=== PATIENT | female | born 1985 | race Caucasian/White ===

== ENCOUNTER 2023-08-26 08:50 | Outpatient (OUT) | payer MEDICAID, SELFPAY ==
--- NOTE | 2023-08-26 08:57 | MM_ITS ---
Patient: HUGO HERNANDEZ Exam Date: 08/26/2023 : 1985 Gender:F Ordering : DR Fransico Montaño . Admission #: [id number] Family : COLTEN GUTIERREZ [facility] Order #: [id number] CLICK HERE TO VIEW EXAM RADIOLOGY REPORT PROCEDURE: MM TOMOSYNTHESIS SCREENING BI COMPARISON: MG MAMM CONNIE DIAG W CAD DIG, 10/15/2015. INDICATIONS: Screening Calculator Name NCI Breast Cancer Risk Assessment Tool 5 Year Breast Cancer Risk 0.30% Lifetime Breast Cancer Risk 9.20% Personal Breast Cancer No Personal Ovarian Cancer No Treatments None Family Cancers None LOCATION: [facility] BREAST COMPOSITION: Scattered areas fibroglandular density. FINDINGS: DIAGNOSTIC CATEGORY 2--BENIGN FINDING: RIGHT BREAST: No significant suspicious finding. This exam includes additional mammographic views for implant evaluation and shows no visible implant abnormality. No significant change has occurred. LEFT BREAST: No significant suspicious finding. This exam includes additional mammographic views for implant evaluation and shows no visible implant abnormality. No significant change has occurred. RECOMMENDATIONS: CLINICAL EVALUATION. PLEASE NOTE: A NORMAL MAMMOGRAM DOES NOT EXCLUDE THE POSSIBILITY OF BREAST CANCER. A CLINICALLY SUSPICIOUS PALPABLE LUMP SHOULD BE BIOPSIED. Dictated by: Karan Bernal M.D. on 08/27/2023 at 10:16 Approved by: Karan Bernal M.D. on 08/27/2023 at 10:21
--- NOTE | 2023-08-26 08:58 | US_ITS ---
[address] [address] Patient Name: HUGO HERNANDEZ MRN: [id number] date: 1985 Sex: F Assigned Patient Location: Current Patient Location: Accession/Order Number: [id number] Exam Date: 08/26/2023 09:15 Report Date: 08/26/2023 10:15 At the request of: CALI GUERRA Procedure: US pelvis w/ transvaginal EXAMINATION: US pelvis w/ transvaginal HISTORY: BRCA-! Gene Positive In Mother ; mother with ovarian cancer COMPARISON: No relevant comparison available. TECHNIQUE: Transabdominal and/or transvaginal sonographic examination was performed as indicated by examination type. FINDINGS: UTERUS: Hysterectomy. RIGHT OVARY: Normal size and appearance. Duplex Doppler demonstrates normal waveform and flow; resistive index 0.6. Ovary size: 1.4 x 1.9 x 2.9 cm LEFT OVARY: Normal size and appearance. Duplex Doppler demonstrates normal waveform and flow; resistive index 0.5. Ovary size: 3.5 x 1.7 x 3.2 cm CUL-DE-SAC: Unremarkable. No significant free fluid. BLADDER: Unremarkable. OTHER: None. US/US pelvis w/ transvaginal IMPRESSION: 1. Unremarkable post hysterectomy pelvic ultrasound. No suspicious findings. Electronically authenticated by: BARRON DUARTE Date: 08/26/2023 10:15
== END 2023-08-26 08:51 | disposition home or self-care (01) ==
LOC: US 08:50
PROVIDERS: PCP Nurse Practitioner Family; Visit Provider Obstetrics & Gynecology
DX: Z12.31 Encounter for screening mammogram for malignant neoplasm of breast (principal); Z80.41 Family history of malignant neoplasm of ovary; Z90.710 Acquired absence of both cervix and uterus
CPT/HCPCS: 76830; 76856; 77063; 77067

== ENCOUNTER 2023-10-26 07:43 | Outpatient (RCR) | payer MEDICAID, SELFPAY | END 2023-10-28 23:59 | disposition home or self-care (01) | LOC: INF 07:43 | PROVIDERS: PCP Nurse Practitioner Family; Visit Provider Internal Medicine Hematology & Oncology | DX: Z84.81 Family history of carrier of genetic disease (principal) | CPT/HCPCS: G0463 ==

== ENCOUNTER 2023-11-09 11:50 | Outpatient (OUT) | payer MEDICAID, SELFPAY | END 2023-11-09 11:51 | disposition home or self-care (01) | LOC: LAB 11:50 | PROVIDERS: PCP Nurse Practitioner Family; Visit Provider Internal Medicine Hematology & Oncology | DX: Z84.81 Family history of carrier of genetic disease (principal) | CPT/HCPCS: 36415 ==

== ENCOUNTER 2023-11-30 07:25 | Outpatient (RCR) | payer BC, SELFPAY | END 2023-12-29 23:59 | disposition home or self-care (01) | LOC: INF 07:25 | PROVIDERS: PCP Nurse Practitioner Family; Visit Provider Internal Medicine Hematology & Oncology | DX: Z15.01 Genetic susceptibility to malignant neoplasm of breast (principal); Z80.3 Family history of malignant neoplasm of breast; Z80.41 Family history of malignant neoplasm of ovary; Z90.710 Acquired absence of both cervix and uterus; Z15.02 Genetic susceptibility to malignant neoplasm of ovary | CPT/HCPCS: G0463 ==

== ENCOUNTER 2023-12-10 13:40 | Outpatient (OUT) | payer BC, SELFPAY ==
--- NOTE | 2023-12-10 13:44 | US_ITS ---
The [address] [address] Patient Name: HUGO HERNANDEZ MRN: [id number] date: 1985 Sex: F Assigned Patient Location: US Current Patient Location: US Accession/Order Number: [id number] Exam Date: 12/10/2023 14:00 Report Date: 12/10/2023 14:39 At the request of: CALI GUERRA Procedure: US pelvis transvaginal EXAMINATION: US pelvis transvaginal HISTORY: History Of Family Ovarian Cancer Z80.41 COMPARISON: No relevant comparison available. FINDINGS: The uterus is absent consistent with the provided history of hysterectomy The right ovary is normal measuring 2.6 x 1.8 x 2.0 cm. Normal color and Doppler flow The left ovary is normal measuring 2.2 x 1.3 x 1.8 cm. Normal color and Doppler flow. No ascites US/US pelvis transvaginal IMPRESSION: Normal appearance of the ovaries Electronically authenticated by: LAKSHMI BYRNES Date: 12/10/2023 14:39
--- OUTSIDE RECORDS SUMMARY | 2023-12-10 13:47 | XMS_ITS | CCD ---
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 Name Role Phone IQRA SONIYA Unavailable Unavailable SUBHA GUTIERREZ Primary Care Physician MARI, FARNSICO Admitting Unavailable MARI, FRANSICO Attending Unavailable SUBHA GUTIERREZ Primary Care Unavailable MARI, FRANSICO Consulting Unavailable TIFFANIE GALLARDO Consulting Unavailable MATT MARTINS Consulting Unavaila ble MARI, FRANSICO Admitting Unavailable MARI, FRANSICO Attending Unavailable SUBHA GUTIERREZ Primary Care Unavailable MARI, FRANSICO Consulting Unavailable MARI, FRANSICO Admitting Unavailable MARI, FRANSICO Attending Unavailable SUBHA GUTIERREZ Primary Care Unavailable MARI, FRANSICO Consulting Unavailable FITZ, DR LAKSHMI Lima Admitting Unavailable FITZ, DR LAKSHMI Lima Attending Unavailable SUBHA GUTIERREZ Primary Care Unavailable DR LAKSHMI BYRNES V Consulting Unavailable TERRENCE ., DR RICKY Jaimes Admitting Unavailable TERRENCE ., DR RICKY Jaimes Attending Unavailable MARI, FRANSICO Referring Unavailable SUBHA GUTIERREZ Primary Care Unavailable MARI, FRANSICO Admitting Unavailable MARI, FRANSICO Attending Unavailable SUBHA GUTIERREZ Primary Care Unavailable MARI, FRANSICO Attending Unavailable RAE GU Attending Unavailable Subha Iyer Primary Care Provider Medications Current Medications Medication Drug Class(es) Dates Sig (Normalized) Sig (Original) Acetaminophen / butalbital / Caffeine (2 sources) Barbiturate, Central Nervous System Stimulant, Methylxanthine Start: 01-28-2022 take 1 tablet by mouth every four hours as needed for headache Fioricet 1 tab, Oral, q4hr as needed for headache, Refill(s) 0 Start Date: 01/28/22 Status: Ordered Start: 01-28-2022 Fioricet Oral, q4hr, Refill(s) 0 Start Date: 01/28/22 Status: Ordered tiZANidine 4 mg oral tablet (4 sources) Central alpha-2 Adrenergic Agonist Start: 10-01-2023 tiZANidine (ZANAFLEX ) 4 mg tablet Start: 03-31-2022 take 1 tablet by peggy th every eight hours as needed for pain tiZANidine 4 mg Tab 4 mg = 1 tab(s), Oral, q8hr, PRN Muscle pain, Refills(s) 0 Start Date: 03/31/22 Status: Ordered Problems Active Problems Problem Classification Problem Date Documented Date Episodic/Chronic Calculus of urinary tract (5 sources) History of calculus of kidney; Translations: [Personal history of urinary calculi] Onset: 02-17-2022 Episodic Cancer of breast (2 sources) Malignant tumor of breast 01-28-2022 Chronic Esophageal disorders (1 source) Gastro-esophageal reflux disease without esophagitis; Translations: [GERD WITHOUT ESOPHAGITIS] Onset: 04-01-2022 Chronic Genitourinary symptoms and ill-defined conditions (1 source) Genuine stress incontinence 01-28-2022 Chronic Genitourinary symptoms and ill-defined conditions (8 sources) Genitourinary symptoms; Translations: [Other symptoms and signs involving the genitourinary system] Onset: 02-17-2022 Episodic Immunizations and screening for infectious disease (1 source) Encounter for screening for human papillomavirus (HPV); Translations: [ENC SCREENING HUMAN PAPILLOMAVIRUS] Onset: 12-23-2022 Episodic Other endocrine disorders (5 sources) Endocrine disorder, unspecified; Translations: [ENDOCRINE DISORDER UNSPECIFIED] Onset: 04-01-2022 Episodic Other female genital disorders (2 sources) Pain in female genitalia on intercourse 01-28-2022 Chronic Other female genital disorders (1 source) Unspecified dyspareunia; Translations: [UNSPECIFIED DYSPAREUNIA] Onset: 04-01-2022 Chronic Other nervous system disorders (1 source) H/O: migraine 03-31-2022 Episodic Other screening for suspected conditions (not mental disorders or infectious disease) (4 sources) Encounter for screening for malignant neoplasm of cervix; Translations: [ENC SCREENING MALIG NEOPLASM CERV] Onset: 12-21-2022 Episodic Residual codes; unclassified (3 sources) Breast finding ; Translations: [Breast implant status] Onset: 11-02-2023 11-02-2023 Chronic Residual codes; unclassified (4 sources) BRCA1 gene mutation positive; Translations: [Genetic susceptibility to malignant neoplasm of breast] Onset: 09-29-2023 09-29-2023 Episodic Residual codes; unclassified (3 sources) Family history of malignant neoplasm of ovary; Translations: [Family history of malignant neoplasm of ovary] Onset: 11-02-2023 11-02-2023 Episodic Residual codes; unclassified (3 sources) Family history of breast cancer; Translations: [Family history of malignant neoplasm of breast] Onset: 11-02-2023 11-02-2023 Episodic Substance-related disorders (3 sources) Smoker; Translations: [Nicotine dependence, cigarettes, uncomplicated] Onset: 04-01-2022 01-28-2022 Chronic Comment on above: Added secondary to d ocumentation in Social History. Superficial injury; contusion (1 source) Contusion of right foot, initial encounter; Translations: [Contusion of right foot, initial encounter] Onset: 06-18-2018 Episodic Past or Other Problems Problem Classification Problem Date Documented Da te Episodic/Chronic Abdominal pain (4 sources) Pelvic and perineal pain; Translations: [PELVIC AND PERINEAL PAIN] Onset: 03-20-2022 Episodic Inflammatory diseases of female pelvic organs (1 source) Female pelvic peritoneal adhesions (postinfective); Translations: [FE PELV PERITON ADHES POSTINFECTIVE] Onset: 04-01-2022 Episodic Other female genital disorders (1 source) Personal history of other diseases of the female genital tract; Translations: [PERSONAL HX OTH DZ FE GENITAL TRACT] Onset: 04-01-2022 Episodic Residual codes; unclassified (1 source) Flushing; Translations: [FLUSHING] Onset: 04-01-2022 Episodic Residual codes; unclassified (1 source) Acquired absence of both cervix and uterus; Translations: [ACQUIRED ABSENCE BOTH CERVIX AND UTERUS] Onset: 04-01-2022 Episodic Results Test Name Value Interpretation Reference Range Facility REVERSE T3on 03-13-2023 Reverse T3, Serum 23.0 ng/dL Normal 9.2-24.1 [facility] Comment on above: Result Comment: This test was developed and its performance characteristics determined by [facility]. It has not been cleared or approved by the Food and Drug Administration. Performed By: #### C PEPT #### [facility] [address] [place] [address] Dr. Gale Qiu SEROTONINon 03-12-2023 Serotonin, Serum 146 ng/mL Normal 31-207 [facility] Comment on above: Performed By: #### T HYGIMA #### [facility] [address] [place] [address] Dr. Gale Qiu ESTRONEon 03-11-2023 Estrone, Serum 50 pg/mL Normal 27-231 [facility] Comment on above: Result Comment: Rang e Adult (Premenopausal) 27 - 231 Menstrual Cycle (1-10 days) 19 - 149 Menstrual Cycle (11-20 days) 32 - 176 Menstrual Cycle (21-30 days) 37 - 200 Performed By: #### E STRONE #### [facility] [address] [place] [address] Dr. Gale Qiu TESTOSTERONE, FREE,DIRECT, T OTALon 03-11-2023 Free Testosterone(Direct) 0.5 pg/mL Normal 0.0-4.2 [facility] Comment on above: Result Comment: Perf ormed at: BN Performed By: #### C PEPT #### [facility] [address] [place] [address] Dr. Gale Qiu Testosterone [Mass/Vol] 5 ng/dL Critically low 8-60 [facility] Comment on above: Result Comment: Perf ormed at: CB Performed By: #### C PEPT #### [facility] [address] [place] [address] Dr. Gale Qiu C-PEPTIDE, SERUMon 3 C-Peptide, Serum 1.9 ng/mL Normal 1.1-4.4 [facility] Comment on above: Result Comment: C-Pe ptide reference interval is for fasting patients. Performed By: #### C PEPT #### [facility] [address] [place] [address] Dr. Gale Qiu DHEA-SULFATEon 03-10-2023 DHEA-Sulfate 93.5 ug/dL Normal 57.3-279.2 [facility] Comment on above: Performed By: #### T HYGIMA #### [facility] [address] [place] [address] Dr. Gale Qiu ESTRADIOLon 03-10-2023 Estradiol 273.0 pg/mL Normal [facility] Comment on above: Result Comment: Adul t Female: Follicular phase 12.5 - 166.0 Ovulation phase 85.8 - 498.0 Luteal phase 43.8 - 211.0 Postmenopausal <6.0 - 54.7 1st trimester 215.0 - >4300.0 [facility] ECLIA methodology Performed By: #### C PEPT #### [facility] [address] [place] [address] Dr. Gale Qiu INSULINon 03-10-2023 Insulin 7.7 uIU/mL Normal 2.6-24.9 [facility] Comment on above: Performed By: #### I NSULIN #### [facility] [address] [place] [address] Dr. Gale Qiu SEX HORMONE-BINDING GLOBULIN on 03-10-2023 Sex Horm Binding Glob, Serum 62.1 nmol/L Normal 24.6-122.0 [facility] Comment on above: Performed By: #### T HYGIMA #### [facility] [address] [place] [address] Dr. Gale Qiu T3, TOTAL (TRIIODOTHYRONINE) on 03-10-2023 T3, TOTAL 113 ng/dL Normal 71-180 [facility] Comment on above: Performed By: #### T HYGIMA #### [facility] [address] [place] [address] Dr. Gale Qiu THYROGLOBULIN AB AND THYROGL OBULINon 03-10-2023 Thyroglobulin Antibody <1.0 Normal 0.0-0.9 [facility] Comment on above: Result Comment: Thyr oglobulin Antibody measured by [employer] Methodology Performed By: #### T HYGIMA #### [facility] [address] [place] [address] Dr. Gale Qiu Thyroglobulin by LUZ 61.6 ng/mL Critically high 1.5-38.5 [facility] Comment on above: Result Comment: Acco rding to the National Academy of Clinical Biochemistry, the reference interval for Thyroglobulin (TG) should be related to euthyroid patients and not for patients who underwent thyroidectomy. TG reference intervals for these patients depend on the residual mass of the thyroid tissue left after surgery. Establishing a post-operative baseline is recommended. The assay limit of quantitation is 0.1 ng/mL . Thyroglobulin measured by [employer] Immunometric Assay Performed By: #### T HYGIMA #### [facility] [address] [place] [address] Dr. Gale Qiu THYROID PEROXIDASE ABon 02-27 Thyroid Peroxidase (TPO) Ab <9 Normal 0-34 [facility] Comment on above: Performed By: #### T HYGIMA #### [facility] [address] [place] [address] Dr. Gale Qiu VIT D 1 25 DIHYDROXYon 03-10 Calcitriol(1,25 di-OH Vit D) 34.5 pg/mL Normal 24.8-81.5 [facility] Comment on above: Performed By: #### V [id number] #### [facility] [address] [place] [address] Dr. Gale Qiu FERRITINon 03-09-2023 Ferritin [Mass/Vol] 57.0 ng/mL Normal 6.2-137.0 [facility] Comment on above: Performed By: #### T HYGIMA #### [facility] [address] [place] [address] Dr. Gale Qiu FREE T3on 03-09-2023 FREE T3 2.75 pg/mlL Normal 2.18-3.98 [facility] Comment on above: Performed By: #### G PATTY, FT3, T4, TSH #### [facility] [address] [place] [address] Dr. Gale Qiu FREE T4on 03-09-2023 Free T4 [Mass/Vol] 0.92 ng/dL Normal 0.76-1.46 [facility] Comment on above: Performed By: #### T HYGIMA #### [facility] [address] [address] [address] Gale Qiu GLUCOSE BLOODon 03-09-2023 Glucose [Mass/Vol] 94 mg/dL Normal 74-106 [facility] Comment on above: Performed By: #### G PATTY, FT3, T4, TSH #### [facility] [address] [place] [address] Dr. Gale Qiu GLYCOHEMOGLOBIN A1Con 2022 ADA RECOMMENDATION SEE BELOW Normal [facility] Comment on above: Result Comment: ADA RECOMMENDED LIMIT 4.0 - 6.0 ADA THERAPEUTIC TARGET < 7.0 ACTION SUGGESTED > 7.0 Performed By: #### T HYGIMA #### [facility] [address] [place] [address] Dr. Gale Qiu Glucose [Mass/Vol] 105 mg/dL Normal [facility] Comment on above: Performed By: #### T HYGIMA #### [facility] [address] [place] [address] Dr. Gale Qiu HbA1c (Bld) [Mass fraction] 5.3 % Normal 4.5-6.2 [facility] Comment on above: Performed By: #### T HYGIMA #### [facility] [address] [address] [address] Gale Qiu T4on 03-09-2023 T4 [Mass/Vol] 9.20 ug/dL Normal 4.80-13.90 [facility] Comment on above: Performed By: #### G PATTY, FT3, T4, TSH #### [facility] [address] [place] [address] Dr. Gale Qiu TSHon 03-09-2023 TSH 1.236 uIU/mL Normal 0.358-3.740 [facility] Comment on above: Performed By: #### G PATTY, FT3, T4, TSH #### [facility] [address] [place] [address] Dr. Gale Qiu PAP ACOG PANEL 2: 30 to 65on 12-28-2022 . . Normal [facility] Comment on above: Result Comment: Perf ormed at: WB Performed By: #### [id number] #### [facility] [address] [place] [address] Dr. Gale Qiu Age Gdln ACOG Testing 30-65 Normal [facility] Comment on above: Performed By: #### 4 [id number] #### [facility] [address] [place] [address] Dr. Gale Qiu DIAGNOSIS: Comment Normal [facility] Comment on above: Result Comment: NEGA TIVE FOR INTRAEPITHELIAL LESION OR MALIGNANCY. FUNGAL ORGANISMS MORPHOLOGICALLY CONSISTENT WITH EDGARD SPECIES ARE PRESENT. THIS SPECIMEN WAS RESCREENED PART OF OUR STRETCHER AND DRIER PROGRAM. Performed at: WB Performed By: #### 4 [id number] #### [facility] [address] [place] [address] Dr. Gale Qiu HPV Aptima QNSPAP Normal [facility] Comment on above: Result Comment: Test not performed. Liquid based PAP vial contained insufficient specimen for molecular testing; likely a consequence of insufficient cellularity in original collection. This nucleic acid amplification test detects fourteen high-risk HPV types (16,18,31,33,35,39,45,51,52,56,58,59,66,68) without differentiation. Performed at: =G Performed By: #### [id number] #### [facility] [address] [place] [address] Dr. Gale Qiu HPV Genotype Reflex Comment Normal [facility] Comment on above: Result Comment: Crit eria not met, HPV Genotype not performed. Performed at: WB Performed By: #### 4 [id number] #### [facility] [address] [place] [address] Dr. Gale Qiu Methodology: Comment Normal [facility] Comment on above: Result Comment: This liquid based ThinPrep(R) pap test was screened with the use of an image guided system. Performed at: WB Performed By: #### 4 [id number] #### [facility] [address] [place] [address] Dr. Gale Qiu Note: Comment Normal [facility] Comment on above: Result Comment: The Pap smear is a screening test designed to aid in the detection of premalignant and malignant conditions of the uterine cervix. It is not a diagnostic procedure and should not be used as the sole means of detecting cervical cancer. Both false-positive and false-negative reports do occur. . Performed at: WB Performed By: #### 4 [id number] #### [facility] [address] [place] [address] Dr. Gale Qiu Performed by: Comment Normal [facility] Comment on above: Result Comment: Marina Hernandes, Run Boat Operator (ASCP) Performed at: WB Performed By: #### [id number] #### [facility] [address] [address] [address] Gale Qiu QC reviewed by: Comment Normal [facility] Comment on above: Result Comment: Brenda Redd, Supervisory Run Boat Operator (ASCP) Performed at: WB Performed By: #### [id number] #### [facility] [address] [place] [address] Dr. Gale Qiu Specimen adequacy: Comment Normal [facility] Comment on above: Result Comment: Sati sfactory for evaluation. No endocervical component is identified. Performed at: WB Performed By: #### [id number] #### [facility] [address] [place] [address] Dr. Gale Qiu Progress Note-Physicianon Progress Note-Physician Patient: YUE HERNANDEZ Age: 36 years Sex: Female : 1985 Associated Diagnoses: None Author: Abhijit De La Cruz Jr, DO Preoperative Information Time patient last ate or drank:=== (npo 8 hours) Anesthesia history: Patient history: No prior anesthesia problems. Re-evaluation prior to induction: Completed, Initial evaluation reviewed. Review of Systems Respiratory: No shortness of breath. Cardiovascular: No chest pain. Hematology/Lymphatics : No bruising tendency, No bleeding tendency. Health Status Allergies: Allergic Reactions (All) No Known Allergies Current medications: (Selected) Inpatient Medications Ordered Lactated Ringers IV Tamar 1000 mL 1,000 mL: 1,000 mL, IV, 150 mL/hr, Routine, Start date 04/02/22 8:30:00 EDT, 6.7 hour(s), Total volume (mL): 1,000, 63.7 kg, 1.72, m2 cefazolin additive + premix generic diluent 100 mL: 2 gram = 100 mL, Soln-IV, IV Piggyback, Once, Stop date 04/02/22 9:00:00 EDT, Routine, Start date 04/02/22 9:00:00 EDT, 200 mL/hr, Infuse over 30 minute(s) Documented Medications Documented Fioricet: 1 tab, Oral, q4hr as needed for headache, Refill(s) 0 tiZANidine 4 mg Tab: 4 mg = 1 tab(s), Oral, q8hr, PRN Muscle pain, Refills(s) 0 Problem list: All Problems History of kidney stones / SNOMED CT 3931964990 / Confirmed Migraines / SNOMED CT 88371486 / Confirmed Smoker / SNOMED CT 141599202 / Confirmed Added secondary to documentation in Social History. Resolved: Breast cancer / SNOMED CT 471688199 Resolved: Gross hematuria / SNOMED CT 278098525 Resolved: Hx of migraines / SNOMED CT 877466292 Resolved: History of recurrent UTI (urinary tract infection) / SNOMED CT 6290405387 Resolved: Kidney stones / SNOMED CT 644997101 Resolved: Dyspareunia in female / SNOMED CT 564638038 Canceled: Bladder pain / SNOMED CT 70319179 Canceled: Flank pain / SNOMED CT 841820962 Canceled: Stress incontinence / SNOMED CT 647671012 Histories Past Medical History: Resolved Dyspareunia in female (397831737): Resolved. Breast cancer (280655479): Resolved. Kidney stones (375110843): Resolved. History of recurrent UTI (urinary tract infection) (8551561841): Resolved. Gross hematuria (055345734): Resolved. Family History: Cancer Brother Osteoarthritis Mother Father Procedure history: Exploration using laparoscope cleaned out adhesions (9284107812) on 03/10/2022 at 36 Years. Tubal ligation (597282327). Hysterectomy (642159377). Endometriosis (6093933466). Social History Social & Psychosocial Habits Alcohol 03/31/2022 Risk Assessment: Denies Alcohol Use Substance Abuse 03/31/2022 Risk Assessment: Denies Substance Abuse Tobacco 01/28/2022 Tobacco Use: 5-9 cigarettes (between 1, Smoker, current status un Type: Cigarettes . Physical Examination Vital Signs 04/02/2022 8:51 EDT Heart Rate Monitored 70 bpm Systolic Blood Pressure 104 mmHg Diastolic Blood Pressure 69 mmHg Blood Pressure Location Left arm Mean Arterial Pressure, Monitered 80 mmHg 04/02/2022 8:50 EDT Temperature Oral 36.7 DegC Heart Rate Monitored 66 bpm Respiratory Rate 16 br/min Systolic Blood Pressure 119 mmHg Diastolic Blood Pressure 69 mmHg Blood Pressure Location Right arm Mean Arterial Pressure, Monitered 86 mmHg SpO2 98 % 04/02/2022 8:50 EDT Apical Heart Rate 66 bpm Respiratory: Lungs are clear to auscultation. Cardiovascular: Normal rate, Regular rhythm. Review / Management Results review Interpretation of Outside Results Chest x-ray results Radiology results ECG interpretation Condition Plan [place] [employer]esthesiologists (ASA) physical status classification: Class II. Anesthetic Preoperative Plan Anesthesia: General. . Anesthetic plan, risks, benefits, and alternatives discussed with the patient and/or family. Risks discussed: nausea, vomiting, headache, sore throat, dental injury, serious complications. Patient verbalized understanding. Communication: face to face with (patient 5 minutes, Pt educated on the importance of smoking cessation.). Normal [facility] Comment on above: Result Comment: Elec tronically Signed By: Abhijit De La Cruz Jr, DO\.br\Date and Time Signed: 04/14/22 08:57 EDT Progress Note-Physician Patient: YUE HERNANDEZ Age: 36 years Sex: Female : 1985 Associated Diagnoses: None Author: Abhijit De La Cruz Jr, DO Postoperative Information Post Operative Note: Post Anesthesia Care Unit. Anesthetic utilized: General. Health Status Allergies: Allergic Reactions (Selected) No Known Allergies Problem list: All Problems History of kidney stones / SNOMED CT 9047997162 / Confirmed Migraines / SNOMED CT 50718313 / Confirmed Smoker / SNOMED CT 490145363 / Confirmed Added secondary to documentation in Social History. Resolved: Breast cancer / SNOMED CT 219955386 Resolved: Gross hematuria / SNOMED CT 953104775 Resolved: Hx of migraines / SNOMED CT 524021471 Resolved: History of recurrent UTI (urinary tract infection) / SNOMED CT 0638367938 Resolved: Kidney stones / SNOMED CT 923371368 Resolved: Dyspareunia in female / SNOMED CT 017030454 Canceled: Bladder pain / SNOMED CT 95032242 Canceled: Flank pain / SNOMED CT 359880349 Canceled: Stress incontinence / SNOMED CT 490822967 Physical Examination Vital Signs 04/02/2022 12:00 EDT Temperature Temporal Artery 36.1 DegC LOW Heart Rate Monitored 75 bpm Respiratory Rate Monitored 16 br/min Systolic Blood Pressure 100 mmHg Diastolic Blood Pressure 68 mmHg SpO2 98 % 04/02/2022 11:10 EDT SpO2 99 % 04/02/2022 11:09 EDT Heart Rate Monitored 74 bpm SpO2 98 % 04/02/2022 11:09 EDT Temperature Temporal Artery 36.6 DegC Respiratory Rate 16 br/min Systolic Blood Pressure 106 mmHg Diastolic Blood Pressure 61 mmHg Blood Pressure Location Right arm 04/02/2022 11:05 EDT Temperature Axillary 36.2 DegC Heart Rate Monitored 67 bpm Respiratory Rate Monitored 12 br/min Systolic Blood Pressure 102 mmHg Diastolic Blood Pressure 66 mmHg Blood Pressure Location Left arm SpO2 99 % 04/02/2022 10:50 EDT Heart Rate Monitored 70 bpm Respiratory Rate Monitored 15 br/min Systolic Blood Pressure 101 mmHg Diastolic Blood Pressure 64 mmHg Blood Pressure Location Left arm SpO2 98 % 04/02/2022 10:45 EDT Heart Rate Monitored 79 bpm Respiratory Rate Monitored 11 br/min Systolic Blood Pressure 106 mmHg Diastolic Blood Pressure 65 mmHg Blood Pressure Location Left arm SpO2 98 % 04/02/2022 10:40 EDT Heart Rate Monitored 81 bpm Respiratory Rate Monitored 12 br/min Systolic Blood Pressure 108 mmHg Diastolic Blood Pressure 64 mmHg Blood Pressure Location Left arm SpO2 100 % 04/02/2022 10:37 EDT Temperature Temporal Artery 36.2 DegC LOW Heart Rate Monitored 91 bpm Respiratory Rate Monitored 11 br/min Systolic Blood Pressure 130 mmHg Diastolic Blood Pressure 74 mmHg Blood Pressure Location Left arm SpO2 100 % 04/02/2022 10:35 EDT Respiratory Rate 1 br/min br/min 04/02/2022 10:32 EDT Systolic Blood Pressure 100 mmHg mmHg Diastolic Blood Pressure 54 mmHg mmHg 04/02/2022 10:30 EDT Heart Rate Monitored 59 bpm bpm Respiratory Rate 17 br/min br/min SpO2 99 % % 04/02/2022 10:28 EDT Systolic Blood Pressure 103 mmHg mmHg Diastolic Blood Pressure 57 mmHg mmHg 04/02/2022 10:25 EDT Heart Rate Monitored 59 bpm bpm Respiratory Rate 16 br/min br/min SpO2 99 % % 04/02/2022 10:24 EDT Systolic Blood Pressure 75 mmHg mmHg Diastolic Blood Pressure 43 mmHg mmHg 04/02/2022 10:20 EDT Heart Rate Monitored 75 bpm bpm Respiratory Rate 16 br/min br/min Systolic Blood Pressure 90 mmHg mmHg Diastolic Blood Pressure 50 mmHg mmHg SpO2 99 % % 04/02/2022 10:16 EDT Systolic Blood Pressure 97 mmHg mmHg Diastolic Blood Pressure 72 mmHg mmHg 04/02/2022 10:15 EDT Heart Rate Monitored 90 bpm bpm Respiratory Rate 2 br/min br/min SpO2 100 % % 04/02/2022 10:12 EDT Systolic Blood Pressure 96 mmHg mmHg Diastolic Blood Pressure 69 mmHg mmHg 04/02/2022 8:51 EDT Heart Rate Monitored 70 bpm Systolic Blood Pressure 104 mmHg Diastolic Blood Pressure 69 mmHg Blood Pressure Location Left arm Mean Arterial Pressure, Monitered 80 mmHg 04/02/2022 8:50 EDT Temperature Oral 36.7 DegC Heart Rate Monitored 66 bpm Respiratory Rate 16 br/min Systolic Blood Pressure 119 mmHg Diastolic Blood Pressure 69 mmHg Blood Pressure Location Right arm Mean Arterial Pressure, Monitered 86 mmHg SpO2 98 % 04/02/2022 8:50 EDT Apical Heart Rate 66 bpm Vital Signs (last 24 hrs) Last Charted Temp Axillary 36.2 DegC (APRIL 02 11:05) Heart Rate Apical 66 bpm (APRIL 02 08:50) Resp Rate 16 br/min (APRIL 02 12:00) SBP 100 mmHg (APRIL 02 12:00) DBP 68 mmHg (APRIL 02 12:00) SpO2 98 % (APRIL 02 12:00) Pain assessment: Pain Assessment 04/02/2022 11:10 EDT Pain Symptoms Self Report Yes, able to self report Primary Pain Location Flank Primary Pain Laterality Left Primary Pain Quality Sharp Patient Preferred Pain Tool Numeric rating Numeric Pain Scale 7 Numeric Pain Score 7 04/02/2022 11:05 EDT Pain Symptoms Self Report Yes, able to self report Primary Pain Location Abdomen Primary Pain Quality Sharp Numeric Pain Scale 7 Numeric Pain Score 7 (more content not included)... Normal [facility] Comment on above: Result Comment: Elec tronically Signed By: Abhijit De La Cruz Jr, DO\Date and Time Signed: 04/14/22 08:56 EDT Coding Summary.on 04-07-2022 Coding Summary. CD:[id number] G h0bWw+PGhlYWQ+LW0XNUO kU70ufEPvuD5GP0fJDH4T DOZKFJUYRB4EWI4fwII5N IlrB6TvwhCw DfdcvCIiZI81ZTq9JRS8s XimKWvncP7dhGIuJ7i5Xy YbXR12fB59OJlfRNOdQwG 3LjZpbjsgbWFy L0hmQbCxkFAxQoh+PHRhY mxlIHdpZHRoPScxMDAlJy SmaUztSB1gZc1hWLPjHMQ vbGxhcHNlOiBj c1czYWGfWRnaLR5fxDiyN 2CzqHI9HRSod9u9Iu93wN I+IALzTEH7iSmqLFpjh53 8UzAqb8xgZQD6 uBNnGTkmBAB7A39wv4U1F HVrEAIwMLE0nDC6pI0paU umearcU7RisVUwFfJ8BJU 3cFCkdD2blBgr opwuvC1zEmq+E94YSP2XX PZJTV2CYdt9V1UqWskiuO I+KE50LXGjTS64kNTqnYH hh2zcaPo8UiNb IXXhTEV9tLqwMNcfo5MdC SKxI00zoKGfc7O5LRVtuQ jgpOUpWoDqdML4vV5nNNn gbanoy5okuyts Owgeo1bygq98hB64C54fB VaaHPUvRWB9MOSfRCXcbS npcf9hzZ6cRk9+LDdgy1c if8sxiFa4IrQo VUZydkAmlXitCOA3i3GwE j70D7OhfKpki1PoMak8yo 14mSRrq8K8vXE0IKamKBL lkI0pRVebCgO4 ZCVxBqVhqE49wLOiCWalA c1voCtnhLybJK4xIVTohx elIHStwC7xZIKqhBXgcAg zNQ7jLKDswpxi h481PaUoKWW4IPWziABkI 2UwzC8tZiYtHYMvYSWtV4 NdvMSaEHukX184JZcnGfC 4AYPkyiDiR2Ye QKJtmOabYnJ6n5M0At6Vb 7CryzhiTMP1MAkrVAU8Dm EiNgPrVjB7I4QeZqt4CSC lyWumPA0cR0Im UBImwpkmgizhnSY6BERsE DYhdK85nPNsUThsDb0uj0 T1d673RZGjIYWbhC12Mg6 udDogMTBwdCBU oR3ukcdxe2evjgybSaKlG HMiBMr9IXf4PDGsgYibHj HjMSO7JkV9IBV7dSQsiS2 edLkthwawuU9l Oyc+B88ooR9wWKX2ETV1w xgoBETxhjKdPN66HQ74D3 RyPjwvdGFibGU+PGRpdiB piYgjLX3yDnRb l2hrx2BlPNazU0LhNHQjJ TlyKrj3KSLnOHE2dNU8wI 5tJAReTAkqb2O0gSJ6S3G vdxCxrs3ru6zw RLYkOOdoX13lpZAum1C9L RNkbTI1MUVqrGrcMjHuuA 93Oyc+LYXpnScsa2YsYpm lp1rnf6kxqCn6 JaOqDQYawlJfxXgrNLU1j 1WbMw12E70kOVogXDTjDH NiPAHuDLPljRfiig0jyW9 wIi8+PGNvbCB3 dSA7xA6zGXLgGbZ2EBfpU 353ApAahOPtOqwor8vkp5 dxgLj0TzTuGZDrxuRhmXu hBBX6b1TtTb41 Z77cKGmqTAYyWXGjPRQnT MHeuQzeye8ymH9cMk3+PC 4vf9sqxy47yF46gHD+PHR dNQS2lDnqNZgo NSNoeU7jINutUuA6EBBgG dUhgC30rRKvPHzeAl6qqL zedGvvGP8eHWFibujwo92 5AbGwn0foOPRe bEGwPLezSUA9I81no3Z2E VFrVYNwZRZ2rHD6bK7nlL lnbjogbGVmdDsgdmVydGl nICqgGCyfX346 IHRvcDsnPlBhdGllbnQgT cBoXVh3H7PcSlo8HULcgA ouWQ1rtEQuOGpjLr9kpBm eeCrzLS7sICQg ylgew603IqMlu5hxFACav COdIQymDHV8N24vm8C1PY MjDHVmNTW9uRN7aS8yzHj nbjogbGVmdDsg tzKhyRdiMLneYVaoI256N HRvcDsnPkJpcnRoIERhdG N1VI83MI72kBZkh8B6pQG 9K9FvTNLsyhmd gtiabJS1EGEhKZSjzA43K i0ylSykZq2zXFIkNRH6BZ VwjPWeS5XofW9iIgTwIXV gICIqV5JouXCq LPfuB405CPrmCwY3FEWoi iNeL7LfYPMdwPxhFuO7v6 Q7Ad7YT1W5LQ60JE18oEU gb8X5pVT1F2Sn DYEpbjijodbjaVF1EXGkN CRrnP83Qu9lrKvbHa8vDO DlMPK7JVKjgBQxV1NelD4 yOiAjMDAwMDAw U3FtuREwMSttL137QJfsO mZ8UWHtthGnG7OoUOJuxV aiXdZ6z6J8Wd9NCRc8CF3 8NI59vSFks2H8 iNM0K1GtNLNcslqoivbjb AV2YQAjOMHvuP07In2qrC saRq5kOOLdLJC9BAIewIG pZ7GjlA8gZrLe ZRJdXBKhR4JwzUPjHBslF 792ZQwoVgE1WZNsfgGjT7 WjFYXmpAhhXnQ0t4G0Fl1 PGRIoHW33RGF1 gGC3FS27XT08C0YhPlzsy GFibGU+PHRhYmxlIHdpZH RoPScxMDAlJyBzdHlsZT0 vLq8lZWAkRBLq yGtiySUsWsBqf6ujRGXkD DirKR3vtJiqP6NfxWP2JR Bre5d7Pa74J35bR6EhuYX +TBUzqHN7tEJ4 uW9gKaNvYxV5LBtoX044T qBblEItNebcs2kou8rgmI h9PfR4FMBhvkKapRgjUUQ 2g0XrZy95K78v IHdpZHRoPSIxNSUiIHZhb Tforu5byA5aVy6+PGNvbC X1qHY2rD6eGvCxIuH7AHt fQ248JaHqaMMp Ankau7nry7aioQk6HeAuV UJsrcMmyEfhKYT8q0LaQr 56T1LydZzdb8FmXkp0hs0 3lARnf3M2bZG2 K9DoOBAbgldvnZJlgMkbX X2pJDAoimufHVWboM4rWQ IoD7b5UzXgFfZ1PTksD5P rbxB5YYDswCKn XXoeYNV0J30fw8C6PRWsA LYcHBG5uVX5dB8cjHwrjd ogbGVmdDsgdmVydGljYWw eGCcuJ932KCLr oLbgSBOafA5bXKKatLGec ItsHC1bSFXboagmWydLOx lIUxotT9KJWRn8N7OvHeb 6ESGolNpwMN4s jRIcYHtaMl0elDuyfLseG A0iESUfnpgdOWJztN1aPN IavPIvcLluWG2uMYMwfwu mm121RzGkMXF4 MOSllNUtA2IvlY1oHmSjY BZsEMCiH7LilKGyFCqoT2 29LBpfBhP1UUMykjWgB7C sLWFsaWduOiB0 p0T7Yr3lCl8jMH3xBQj6C J96MH62dZNpy9K1vFA2R7 JaZZKmyhlyzzifyGE2WDQ hZFNgxT95uTEm EIqcIu6df4P5o244DDAlV VNyfO25Fc2coZraHAOfsX YBzO7qmkpsc3welykqQyD bRZTjCRa7ISj5 EBNlpHnhLjUpOSG9WbY9X OS9uSSysF1fjYljalohxX 9wOyc+NgFgVAKgwcE6X5D tOde2RRCafHqp XN6ynZQzIDqpHh0vcCptd DpyLG2wDUHsiybvRECnfE 4rXMIrjQZieVbqGW0eWJQ zppyuj826FbQv TIQ2VZTwcPXhW4XkdS1vQ jBtMASpBBXgT0VlzVNeYK xaW496CAmpCyW7HLIbjzD hE7LbLPIthSob JdR5d9Y9Ty2XCA7xlPU0E 5WrUpq0LTFbaBorHB3pzE MpDDwpIb2fwWnwuLxwME9 wNTBpbjtwYWRk aP7jWDSwjLNewIryAL0nI BYnoritw406HxKeWSI6IC UpqVTkJ0BsdY8tOiVtPLO iFKHqU1NkpIEy YUkiR424TCvdJeL7RCAuc uDlA3ZeGRLybJxsRnH2b7 V3Ia9QiNRvIKTrTF42IC1 0RN47U2XzQbgj dGFibGU+PHRhYmxlIHdpZ HRoPScxMDAlJyBzdHlsZT 2nEq9iADLoABJztPnpeCA yBgMip1prMYHl UQzgJS7iuJehZ7XmgDB7C NAnt3y8Kt19S24iU2MvoW A+WVQkbIR7bBN7eY2iAmQ eXhB3ROsoZ810 DeNnaHDdQxsgz6srp9jxx Md4HpXwKQSmrpLyyEtnAS D8p2HjLt31S53oFWtcFAF oPSIyMCUiIHZh yDpsmq0ueW2bXn4+PGNvb OS3cCV7kE8vAmRlEhH9YR tbU360QkHeyHXhWxcbI41 sH4NdaGV+PHRy Inj9KBMffGkuKC9qmUQzA AbdEi7mURJ7XqLbZfGmKF hhH0ZcDJHqnwzuogeycGC 7YCFhJRBenF41 Jd4fkKhmTu8cWGOwTUT4Z WJvzWNlK5BlqI7mBkVfLW XaKYBeA5CyzYGaYVjvE08 4NWqcUoS0BWEy fqYgI2OlOBZajIfrOkD7n 2I5Cp5GuAsfrMEiUH7iIn LpFWd8O6ZzQcd8NSZkeLx dTK9zbDOwVLkg Kq7ikDhzqKyrYH3gXGGnd ukir861GlQle9txJYCtiQ RfSLsoUGO3T98bv2V6UDO iMPXaSEU2rOX8 hL8osQxjqkdoaOWnuNjvt aKpyXujAIlmATelP449PZ DdbVkdBoQVUkt6W2EaQyq 8LUSnvChkQV4v mFWrFAauPh2pfZsrlBmfL A2tFGHohyrmx939FjIxh1 gjCKLdrRQfOKaaMGD2L84 lh9Z6MUVoMJDo XMK7uXJ1zW0jfKnpikbwc GVmdDsgdmVydGljYWwtYW rnU103TQAmnWfbUa8VWad 9W0HyZyl2LUEp gFblMX9fdPDoLHdaOn2vk CykoOecGJ0jFYTexwbhq7 58QbFhg9lmAZAugCQiAGo kWEE4G15yv2G6 ISNpYTFvXGF4vOG4uA7ok GlnbjogbGVmdDsgdmVydG goLEbpPIicG822NANilAs nPlBheWVyOjwv dGQ+CP57xa31W7JbCnujU za9QYRwSHX2hRK7tR8lRL PjQPlhx2J2vON6N0XclkI cec8xb7zzFUBl ZTog (more content not included)... Normal [facility] IntraOperative Documentson 0 04-07-2022 IntraOperative Documents [id number] Normal [facility] Postoperative Documentson Postoperative Documents [id number] [email or web address]:127 Normal [facility] Coding Summary.on 04-03-2022 Coding Summary. CD:[id number] G h0bWw+PGhlYWQ+VU9GXUA hP50wgTMefB7XH1kWIL8Q JRUAAPHVQN7HPF0ckFA1Q IdoN8TcutNs CuphlCUrMY56OKk1UYR7a RjnITlxjQ2whLOdL3x9Gf NgFV92dW82PMiiSSTlFgA 3LjZpbjsgbWFy Z5bqVaEaqLSyIux+PHRhY mxlIHdpZHRoPScxMDAlJy WfaLohFX4yHg3uKPKnZVY vbGxhcHNlOiBj w6cqTXCdYCbwTL3mwQhiZ 3PsnVH2MPOqq7r5Fs21pE I+DMLgXLO7vFbpHQlgp88 0BwNqg5uxOCZ3 fGDgIAqsGRM2G55cj0O4H HJbCLHdPRJ2xGM9fM6iyE jclwijR1IncFVdHvJ7WWL 5xGJpeF6rlRen mefqlR9iRvd+V11MKX0HQ SBFEY6AXmp8Q4IhShmkdA I+WY86BSIcDL76cDDqaTB ya7xviLc0OmWn YOHiKZA4iGopEMuos8WyY WEnJ69ycWLlg8X8OKKeeR kvxRVkZrRiwUZ8bE4ePMy waanbe1prnezg Loflk2tykq07jJ56G42hL UzvREJyLIN4HZWmKCOauB lmpz2mlY5rFx3+ONmwk4e ka8pkxQr1OeUc NXTouqChqUzzFQF4a7HwL g37K1EkaTjia7VyNbb5pd 72iEBaj1L5kLC0NNglFBB iqH2pWNtmTuQ0 DHZcKqRjnG88bIBjVAgfK m8ggVtvcPooPQ0eKGUcjs xqHJMmkN0lNPDxjKSapPi kIH7jDKRtxmgo f075BtWmWOL8DCXvaGYcY 2PbkL0gXrYlKMSeORVqJ1 DouWRyCGndS261TZwqIyB 7XVVagrOvV1Em GXHtrYowQtF9b4S4Vq2Xa 0OgdbwfYQD2NCqrSZH2Bx P5SlEkCnT0L5EzAgc1ZUL qhMtgYI9nZ5Cd FSZmvxkjfebhdPM9CBTfX TEccN49hSZeXJdrWw6yj3 S7p451KGNpAJLjwH26Xv2 udDogMTBwdCBU cY0yhxrwn5gxfomcGvVkW GAcCAj9UIg4IDRieJroAd NcCAN6CjZ4KFH6eCBmqX9 atYgufipxyJ6h Oyc+Y22gjN9wDKV3YZS2k hgxIBAkchNdDG51YL48O0 RyPjwvdGFibGU+PGRpdiB raWreDS4zRqJm g7qrj5ZjLLccS0LuILZfK WhnNof9KRMuVIO2tOB4nE 9bXFZyYXacs3A2kUA4H4Y klnFylc9bg4kx HIYxICvmS69rzRZoz2C3K DXwbYW2CJLoeOkzUhNuqP 93Oyc+CBDpuPssa5XpTbe nr8zyz0elqHr7 YwTnOVYkumGcvNseBIQ4w 6VsMg80G85wHSzfHVYwWA RzBOJcYSHanDepws8anY4 wIi8+PGNvbCB3 qNB6lO3lJHHdWuP7YVgeS 625PyFinBMhHsspq5bay9 ctaUr5BbItQXQqzbPpaVt gRMQ7t8YoNa33 F00tZLfhVPZzUGJgZHXkU ZRacFwibn5wlR1lIz6+PC 5ko3jomr93rZ42qWC+PHR fDTB8tNinXTup CZBvpT6cYAzsHoT7PRTvX dNhyY47nQPfJImzBa3noJ bnwEhzLR1hKAYraoyhv84 0WbCgy1zdEYSp gMVhZKgoIQI3F40jz4Y2W DZtAVSaMLX5fBR1aY6pbA lnbjogbGVmdDsgdmVydGl wIZncFBbzP413 IHRvcDsnPlBhdGllbnQgT yGdAJe8L6WtRig9FSMyvT hjTU1ftHCmXVhnFr9tsHd ytXddXD7uOUUs vponj819PrOev7ewSVOgf GVpOFlfYXP4X91wr1R4GK HzGYAtQSQ3yVP4mF7hcGg nbjogbGVmdDsg pxTiaPfnEWrxJJzwT529V HRvcDsnPkJpcnRoIERhdG F0DE16ZS70dKYpq7M9rLS 0V6CeTTOzbjuy ikpckJZ5ECEeEDZyyE05U c0ylJeeKq8sDLOcTPQ9YD OyiVCrZ2IokA0hWnTcBQW fFNNgW2OxxPJs RPxpI551URopFbR3DGRor rPqJ2GdUWZrqEruOuQ3e1 A4Yk4MN6L1DD79QG07qBC nv0H5uRB2P4Wx KZKbphsppedesHZ5JNQdZ FJjpF03Ly3axSkgXt8iPK QrWKH7BTPgmTFqS2GulX0 yOiAjMDAwMDAw W3RaiTMqWUgqV237AVwnD xE1HOFrjrYhT5NxMWDmlJ bxRlM2u3G3Br2ETJh5KF5 2DP04pPZab2L2 yJF7T7BtOPMvtugojldke VX9BKHuDQHglP80Jt9nhX qfWy4gXTHzCFC9NGBtcIH sY6MypV1nVxYr ZUMfGXTqA5QucOMwAPmjM 509AKueLkA9SBBtggXkH2 TwPTYwoPacDbK8d3A2Rb8 CWYXfMV17XCC8 aZO5PP20NC44E1RkXkgsk GFibGU+PHRhYmxlIHdpZH RoPScxMDAlJyBzdHlsZT0 dWq0tFWHjAAMe zBpoiMAcVyDxk9bmXUExA XesQU8toZuzW1BpsIA9CO Xxy5a8Os67Z31cW9VxaCS +WKAouJJ0iVS8 oJ8wWlMyWlM0SPmzW343J hOmfYZbBvsyj9mso7kzuP x4QbN1LIEoufSmyGqkUGS 1z6RdHr92H04c IHdpZHRoPSIxNSUiIHZhb Xiaiq1quW6wQz2+PGNvbC L4hDT6yG9pSxEpTnS5OMm hG772VhXqyDIx Nicoh6zma9qboOz4LhVuE KMwmkJqlGehAMZ9w4KgXk 54F8LtoLdvl8FaKhq9oq8 2mYYag5F8jNO9 V7QcYPMhumcxiZNqoAnrL X9nWWXuxhxpEUPjrV9vJO RdG3x5ZhBfFcW9NKxsU3P dsxK3GSUvaSYf EJyhKVV0L23bb3D8KQPiD OZjJFD7xFO3qY0lfBrlmy ogbGVmdDsgdmVydGljYWw lADxkJ095SUJt rCniXBIzjT2oDPRfzKJls VrsNW4dLVKstenfFwyIAd fNSeckT2TQZNq0D8CvApm 5FPKxoUmqJO1f lLGxDJdmOq5rkGcjnKhvZ C1yPZTdzrhoAOZepE4sTH UnyMWixAxrNR3yWGAmuty gf597HhXxWVA5 HWAdlGLcM3XnzS2fPbFhX LZaACMvX8WojIQrGGgnG2 81YGguAfU5WUMljxEzQ2J sLWFsaWduOiB0 g8Z7Sc0nQu9kKR1wIDd5U Q83SO97kQCww0O3uMJ1R1 PeSNQzvufuocaxsWR9JOJ kDLKcjP18fOJy KEmrQk6ql3C8u711AIIeX JZxsI47Jo8hkFlgLTCkcR OUzU5uywsgw1tqcbvfZkN tPVEcGNn9DVv1 BDMdxMatJkHaVWQ4YiH7N OL4hKMhkQ9pmKvyrnavqB 9wOyc+MjYuPTNbdvB9P8H jYkd6NPMhcPov FI7iiTZkBJsnRw3uiKkqg YhpMY0gROXggzpsIDAykP 6aIEFlqUKqyPfhEF4mOFL vdhkuf026RdHd ZLY2YAWkkHOvK2HdgP2pS hUoOOCsBVPnJ4ZrpPLuMT vqD718GPzlYmR7FLGdpvI xI3ZzDAHsnVfp ZbX8u2Z3Kv0KUB1sdVW2X 6KeYay7ZGYxsUaxDE6yiD WfTVdvEq5yhMevkPodGV1 wNTBpbjtwYWRk mL0lEUWezJDfgPumBU7xB UUlbitio909EjAfUCX5VG LqeJXzU7QhvD7lJqAvUYK fPPVyS1ScdXUi OVnbI683FFndRuS1VQWtb fKiJ2BbFALpdQfvPcJ5w1 Z8Kf7ByYO4gCY0f0T8X5Y qoRVfVCX1LVL3 mplojti6H1SiAljthPP+P H46DNNgHY91qDWflCOmz1 eqyYl3IzIbLKByTMC4kBi jQOyyq8ObXEUi Z38otYTcu3J9VEHiqOaod KLfPkKkhMY1mJ8qWXqxha jpv9myvddvVkhhz5qzdt5 5vR82X80yJWoc ZHRoPSIzMCUiIHZhbGlnb e7duG6zLe6+RSRxqAX3aB U2fJ1wDvYuYeN7KEafK96 9InRvcCIvPjxj a5wtl3jqvBu7CzVcXVQsn cXlyXlcKHA2i9LvMe79O3 9sIHdpZHRoPSIyMCUiIHZ ggWhlrn4qvI0x Ii8+TV8bh1ojmq72xT15a HI+EJSyUPA2mJolXHatWL CebL8rCOgnBeU5DQVvRhY caA03oCXjOVaw Zn2yxDciwIjoOG3dTBRus qilp383YoTex3faAANwrN WuCSxtCYQ0B01hq9U0UXC kLSQlJMW9uVN0 wC5bpNmoxnvpxPHnhQfiy oRxqNclEJavKTbyC326LM YxjQqiZdAxiCJnH3amhgX GPC0dWnhloMF+ ABZpBBX7nGpmGLjyVXQzc F7jQMPmD4s4QgAkNcO8CX xjP5IiltH5NOEavMXuPKG smELHbM4veacl q8clfxbcNtFdBEVhANo9F Xu6INNfkLckNsZvEZS2Ia Z6DQB8xYYteD3kzRjchts aqZ1oMld+RklO OjwvdGQ+YMPtFXN1uFzaC FjiVIZonM8fNNRyB2s5Rq RdAaH7AOhpQ8RvakI7RFW vbGQgMTBwdCBU gX7doqyyb2ovzmumUkCdZ TVuPOz2PFz7STBtkGhdWw RgARN3KpO6NHD4wMFcoY5 jtTmaccqzcN5c Oyc+TVJOOjwvdGQ+PHRkI DZ0sMqcRNoxJAMkdB2bSO ZaY3o2ZbJiYyY5ITjfR3L nzgI0HGRgoJTt ZBLrrWNSaZ8nnaqmb0zbg ibxNhDwPPJdJHn9AYc2UB SfaPiiZtBeKAE6XxL1PAW 3uIHkfK3apTfk hmwduU6zOqu+EYD5EWV1V C41PE86L2HiAdowzBIaxJ U+PHRhYmxlIHdpZHRoPSc xMDAlJyBzdHls ZT0n (more content not included)... Normal [facility] Consent for Anesthesiaon Consent for Anesthesia [id number]# 1.00CD:127 [facility] Discharge Instructionson Discharge Instructions [id number]# 1.00CD:127 [facility] IntraOperative Documentson 0 04-03-2022 IntraOperative Documents [id number]# 1.00CD:127 [facility] IntraOperative Documents [id number]# 1.00CD:127 [facility] Main OR Intraoperative Recor don 04-03-2022 Main OR Intraoperative Record IntraOp Document Type FT Summary Primary Physician: Sven Hayes Jr., MD Finalized Date/Time: 04/03/22 08:41:30 Pt. Name: YUE HERNANDEZ./Sex: 1985 Female Med Rec #: [id number] Physician: Sven Hayes Jr., MD Financial #: [id number] Pt. Type: A Room/Bed: [place] [address] Admit/Disch: 04/02/22 08:31:02 - 04/02/22 12:15:00 Institution: Case Times FT Entry 1 Patient Times In Room 04/02/22 10:09:00 Out Room 04/02/22 10:35:00 Procedure Times Start 04/02/22 10:26:00 Stop 04/02/22 10:26:00 Anesthesia Times Start 04/02/22 10:09:00 Stop 04/02/22 10:35:00 Last Modified By: Shirley ARMSTRONG, Mariela Huynh 04/02/22 10:36:01 General Comments: 04/03/22 Chart opened to review and send charges [facility] Case Attendance FT Entry 1 Entry 2 Entry 3 Case Attendee Lucrecia SO, Christy Hayes Jr., MD, Sven Watson RN, Mariela Huynh Role Performed Anesthesiologist Surgeon - Primary Outer Diameter Grinder Tool - Primary Laborer [employer] Time In 04/02/22 10:09:00 04/02/22 10:13:00 04/02/22 10:09:00 Time Out 04/02/22 10:35:00 04/02/22 10:28:00 04/02/22 10:35:00 Procedure CYSTOSCOPY RETROGRADE CYSTOSCOPY RETROGRADE CYSTOSCOPY RETROGRADE STENT INSERTION(.) STENT INSERTION(.) STENT INSERTION(.) Comments DR DE LA CRUZ SUPERVISING Last Modified By: Shirley ARMSTRONG, Mariela Watson RN, Mariela Salazar RN 04/02/22 10:36:03 04/02/22 10:36:03 04/02/22 10:36:03 Entry 4 Entry 5 Entry 6 Case Attendee Tammie GASTROENTEROLOGY TECHNICIAN, Kristina Uribe RT, Miguel Ángel Gomez RN, Jia Rascon Role Performed Scrub - Primary Bar Tender Staff - Other Time In 04/02/22 10:09:00 04/02/22 10:09:00 04/02/22 10:30:00 Time Out 04/02/22 10:35:00 04/02/22 10:29:00 04/02/22 10:35:00 Procedure CYSTOSCOPY RETROGRADE CYSTOSCOPY RETROGRADE CYSTOSCOPY RETROGRADE STENT INSERTION(.) STENT INSERTION(.) STENT INSERTION(.) Comments ASSISTING WITH POSTIONING AND TRANSPORT Last Modified By: Shirley ARMSTRONG, Mariela Watson RN, Mariela Salazar RN 04/02/22 10:36:03 04/02/22 10:36:03 04/02/22 10:37:47 Perioperative Protocols FT Pre-Care Text: Implements protective measures prior to operative or invasive procedure, confirms identity before the operative or invasive procedure, verifies operative procedure, surgical site, and laterality Entry 1 Procedure(s) CYSTOSCOPY RETROGRADE Patient Identity Birthday, ID Band STENT INSERTION(.) Verified (select at Check, Patient least 2): Participation Consents / H and P Anesthesia Consent, Operative Site N/A Verified HandP, Surgery/Procedure Marking Verified Consent, Transfusion Consent Surgical Site Yes Laterality Verified n/a Verified Procedure Verified Yes Correct Patient Yes Position Verified Availability Equipment, Medication, Prep Dry n/a Verified (If X-ray Applicable) PreOp Antibiotic Yes Time Out Christy Wagner, Given Participants Freddy Fishman MD, Shirley Alcaraz RN, Rony Landry RT, Miguel Ángel P, Tammie GASTROENTEROLOGY TECHNICIAN, Kristina E Time Out Complete 04/02/22 10:15:00 Outcomes Met? Yes Last Modified By: Mariela Watson RN 04/02/22 10:23:22 Post-Care Text: The patient is free from signs and symptoms of injury caused by extraneous objects Allergy Information FT Pre-Care Text: Verifies allergies Entry 1 Allergies Reviewed? Yes Allergies Reviewed Self/Patient With Outcomes Met? Yes Last Modified By: Mariela Watson RN 04/02/22 10:23:30 Post-Care Text: The patient received appropriate medication(s) safely administered during the perioperative period Surgical Procedures FT Entry 1 Procedure Description Procedure CYSTOSCOPY RETROGRADE Modifiers . STENT INSERTION Surgeon Description CYSTOSCOPY, URETHRAL DILATION, BILATERAL RETROGRADE PYELOGRAM AND PELVIC EXAM Primary Procedure Yes Primary Surgeon Freddy Fishman MD, Sven Hernandez Start 04/02/22 10:26:00 Stop 04/02/22 10:26:00 Anesthesia Type General Surgical Service Urology Wound Class 2 - Clean-Contaminated Last Modified By: Mariela Watson RN 04/02/22 10:42:10 General Case Data FT Pre-Care Text: Classifies surgical wound, implements aseptic technique, initiates traffic control Entry 1 Case Information OR OR 1 FT Case Level Level 3 Wound Class 2 - Clean-Contaminated Specialty Urology ASA Class 2 Preop Diagnosis HX OF KIDNEY STONES Postop Same As Preop Yes HEMATURIA HX OF RECURRENT UTIS Postop Diagnosis HX OF KIDNEY STONES Outcomes Met? Yes HEMATURIA HX OF RECURRENT UTIS Last Modified By: Mariela Watson RN 04/02/22 10:28:33 Post-Care Text: The patient is free from signs and symptoms of infection Skin Assessment (Pre Procedure) FT Pre-Care Text: Implements protective measures to prevent skin/ tissue injury due to thermal or mechanical sources Evaluates for signs and symptoms of physical injury to skin and tissue Entry 1 Skin Integrity Intact, [place], Warm, and Skin Abnormality No Dry Outcomes Met? Yes Last Modified By: Mariela Watson RN 04/02/22 10:24:04 Post-Care Text: (more content not included)... Normal [facility] Preoperative Documentson Preoperative Documents [id number]# 1.00CD:127 [facility] Preoperative Documents [id number]# 1.00CD:127 [facility] Consent for Procedure/Surger yon 04-02-2022 Consent for Procedure/Surgery [id number]# 1.00CD:127 [facility] Consent for Treatmenton Consent for Treatment [id number]#1 .00CD:127 Normal [facility] H&P Updateon 04-02-2022 H&P Update [id number]#1 .00CD:127 Normal [facility] H&P Update [id number]# 1.00CD:127 Normal [facility] Inpatient Patient Summaryon 04-02-2022 Inpatient Patient Summary [address] [address] [facility] Clinical Discharge Instructions PERSON INFORMATION Name: YUE HERNANDEZ PHYSICIANS Admitting Physician: Sven Hayes Jr., MD Attending Physician: Sven Hayes Jr., MD PCP: SUBHA GUTIERREZ CNP Discharge Diagnosis: Postinfective urethral stricture, not elsewhere classified, female; Urethral syndrome Comment: PATIENT EDUCATION INFORMATION Instructions: Post Op Patient Instructions - FT (CUSTOM) Medication Leaflets: Follow up: With: Address: When: TERI MIMS [address] [place] [phone] [facility] (1) Within 6 weeks MEDICATION LIST New Medications [id number], [address], [place] [phone], [phone] ketorolac (ketorolac 10 mg Tab) 1 Tablets By Mouth every 6 hours as needed Pain 8-10. Refills: 0. phenazopyridine (Pyridium 100 mg Tab) 1 Tablets By Mouth 2 times a day as needed dysuria for 3 Days. Refills: 0. Medications to Continue with No Changes Other Medications APAP/butalbital/caffe ine (Fioricet) 1 tab By Mouth every 4 hours as needed as needed for headache. tizanidine (tiZANidine 4 mg Tab) 1 Tablets By Mouth every 8 hours as needed Muscle pain. Comment: Normal [facility] Main OR PACU I [facility] Main OR PACU I Record PACU Phase I Docum ent Type FT Summary Primary Physician: Sven Hayes Jr., MD Finalized Date/Time: 04/02/22 13:51:38 Pt. Name: YUE HERNANDEZ /Sex: 1985 Female Med Rec #: [id number] Physician: Sven Hayes Jr., MD Financial #: [id number] Pt. Type: A Room/Bed: [place] [address] Admit/Disch: 04/02/22 08:31:02 - 04/02/22 12:15:00 Institution: Case Times PACU I FT Pre-Care Text: Identifies barriers to communication and implements measures to provide psychological support Develops individualized plan of care, and ensures continuity of care Maintains patient's dignity and privacy, and maintains patient confidentiality Identifies and reports philosophical, cultural, and spiritual beliefs and values Identifies individual values and wishes concerning care Implements aseptic technique, and administers prescribed antibiotic therapy and immunizing agents as ordered Evaluates postoperative tissue perfusion Implements thermoregulation measures, and monitors body temperature Evaluates postoperative respiratory status Evaluates postoperative cardiac status Evaluates postoperative neurological status Assesses pain control, collaborated in initiating patient-controlled analgesia and implements alternative methods of pain control Verifies allergies, administers prescribed medications and solutions, evaluates response to medications Entry 1 In PACU I 04/02/22 10:37:00 Discharge from PACU 04/02/22 11:07:00 I Outcomes Met? Yes Last Modified By: Criss Zeng RN 04/02/22 13:51:22 Post-Care Text: The patient demonstrates knowledge of the expected response to the operative or invasive procedure The patient's care is consistent with the individualized perioperative plan of care The patient's right to privacy is maintained The patient's value system, lifestyle, ethnicity, and culture are considered, respected, and incorporated into the perioperative plan of care The patient participates in decisions affecting his or her perioperative plan of care The patient is free from signs and symptoms of infection The patient has wound/tissue perfusion consistent with or improved from baseline levels established preoperatively The patient is at or returning to normothermia at the conclusion of the immediate postoperative period The patient's respiratory function is consistent with or improved from baseline levels established preoperatively The patient's cardiovascular status is consistent with or improved from baseline levels established preoperatively The patient's cardiovascular status is consistent with or improved from baseline levels established preoperatively The patient demonstrates and/or reports adequate pain control throughout the perioperative period The patient received appropriate medication(s), safely administered during the perioperative period Acuity Level PACU I FT Entry 1 Start Time 04/02/22 10:37:00 Stop Time 04/02/22 11:07:00 Acuity Level Acuity Level I Last Modified By: Criss Zeng RN 04/02/22 13:51:33 Finalized By: Criss Zeng RN Document Signatures Signed By: Criss Zeng RN 04/02/22 13:51 Normal [facility] Main OR PACU II [facility] Main OR PACU II Record PACU Phase II Document Type FT Summary Primary Physician: Sven Hayes Jr., MD Finalized Date/Time: 04/02/22 12:50:02 Pt. Name: YEU HERNANDEZ Francoise/Sex: 1985 Female Med Rec #: [id number] Physician: Sven Hayes Jr., MD Financial #: [id number] Pt. Type: A Room/Bed: [place] [address] Admit/Disch: 04/02/22 08:31:02 - 04/02/22 12:15:00 Institution: Case Times PACU II FT Pre-Care Text: Identifies barriers to communication and implements measures to provide psychological support and determines knowledge level Develops individualized plan of care, and ensures continuity of care Maintains patient's dignity and privacy, and maintains patient confidentiality Identifies and reports philosophical, cultural, and spiritual beliefs and values Identifies individual values and wishes concerning care administers prescribed antibiotic therapy and immunizing agents as ordered, Evaluates postoperative tissue perfusion Implements thermoregulation measures, and monitors body temperature Evaluates postoperative respiratory status Evaluates postoperative cardiac status Evaluates postoperative neurological status Assesses pain control, collaborated in initiating patient-controlled analgesia and implements alternative methods of pain control Verifies allergies, administers prescribed medications and solutions, evaluates response to medications Entry 1 In PACU II 04/02/22 11:10:00 Discharge from PACU 04/02/22 12:15:00 II Outcomes Met? Yes Last Modified By: Cyndee Posada LPN 04/02/22 12:50:00 Post-Care Text: The patient demonstrates knowledge of the expected response to the operative or invasive procedure The patient's care is consistent with the individualized perioperative plan of care The patient's right to privacy is maintained The patient's value system, lifestyle, ethnicity, and culture are considered, respected, and incorporated into the perioperative plan of care The patient participates in decisions affecting his or her perioperative plan of care. The patient is free from signs and symptoms of infection The patient has wound/tissue perfusion consistent with or improved from baseline levels established preoperatively The patient is at or returning to normothermia at the conclusion of the immediate postoperative period The patient's respiratory function is consistent with or improved from baseline levels established preoperatively The patient's cardiovascular status is consistent with or improved from baseline levels established preoperatively The patient's neurological status is consistent with or improved from baseline levels established preoperatively The patient demonstrates and/or reports adequate pain control throughout the perioperative period The patient received appropriate medication(s), safely administered during the perioperative period Finalized By: Cyndee Posada LPN Document Signatures Signed By: Cyndee Posada LPN 04/02/22 12:50 Normal [facility] Main OR Preoperative Recordo n 04-02-2022 Main OR Preoperative Record PreOp Document Type FT Summary Primary Physician: Sven Hayes Jr., MD Finalized Date/Time: 04/02/22 10:26:32 Pt. Name: YUE HERNANDEZ /Sex: 1985 Female Med Rec #: [id number] Physician: Sven Hayes Jr., MD Financial #: [id number] Pt. Type: A Room/Bed: [place] [address] Admit/Disch: 04/02/22 08:31:02 - Institution: Case Times PreOp FT Pre-Care Text: Verifies consent for planned procedure, identifies individual values and wishes concerning care, includes family members in perioperative teaching Entry 1 Patient Times. In Pre Surgery 04/02/22 08:45:00 Out Pre Surgery 04/02/22 10:08:00 Outcomes Met? Yes Last Modified By: Mariela Watson RN 04/02/22 10:26:25 Post-Care Text: The patient participates in decisions affecting his or her perioperative plan of care Finalized By: Mariela Watson RN Document Signatures Signed By: Mariela Watson RN 04/02/22 10:26 Normal [facility] Monitor Recordon 04-02-2022 Monitor Record [id number]# 1.00CD:127 Normal [facility] Operative Reporton 2 Operative Report Patient: YUE HERNANDEZ Age: 36 years Sex: Female : 1985 Associated Diagnoses: None Author: Sven Hayes Jr., MD Postoperative Information Procedure: Cystoscopy, retrograde pyelograms, urethral dilation, pelvic exam under anesthesia Date/ Time: 04/02/2022 10:36:00 Preoperative Diagnosis: Postinfective urethral stricture, not elsewhere classified, female (LCF42-ST N35.12, Discharge, Medical), Urethral syndrome (MTM25-SW N34.3, Discharge, Medical). Postoperative Diagnosis: Postinfective urethral stricture, not elsewhere classified, female ([id number]-KW N35.12, Discharge, Medical), Urethral syndrome (QVE65-QS N34.3, Discharge, Medical). Performed by: Sven Hayes Jr., MD. Findings: This patient is a 36-year-old female with a history of pelvic pain, current urinary tract infections and occasional incomplete bladder emptying. She is here today for cystoscopic examination to evaluate her lower and upper urinary tracts. The procedure, risk, alternatives and potential complications have been discussed with the patient preoperatively. All of her questions were answered. Informed consent has been obtained. This patient was brought to the operating suite where she was placed under general anesthesia. She was carefully positioned in lithotomy. All pressure points were padded. SCDs were in place were used throughout the case. After routine prep and drape 2% Xylocaine gel was introduced into the urethra for local anesthesia. Endoscopic examination was performed using a standard cystoscope, videocamera and 30 degree lens. This evaluation revealed a normal-appearing bladder mucosa. There were no tumors, stones, increased vascularity, diverticuli or other abnormalities in the mucosa. The ureteral orifice ease were unremarkable and in their normal location. Clear yellow urine was noted effluxing from the right and left ureteral orifice. Retrograde pyelogram films were performed on the right and left side using a #6 open ended catheter with injection of contrast under fluoroscopic guidance. The studies revealed normal-appearing upper tracts. There were no filling defects or any obvious anatomic abnormalities. The drain films are unremarkable. Urethral dilation was performed using well-lubricated dilating sounds beginning with 22 German and ending with 30 German. This was uneventful. Bimanual palpation revealed no abnormal pelvic masses. The patient has had a previous hysterectomy. At this point the patient was aroused from anesthesia and taken out of lithotomy position. She was transported to recovery in good condition. Home-going medication will include an oral antibiotic and something for pain. We will plan to see her in the office in 4 to 6 weeks for follow-up visit. She is been instructed to limit her physical activity for the next 24 hours and to contact office if she has any postoperative problems. Final diagnosis: Recurrent urinary tract infection, urethral stenosis and urethral syndrome Procedure: Cystoscopy with bilateral retrograde pyelograms, urethral dilation and pelvic exam under anesthesia. Sven Hayes Jr., MD, FACS. Specimens Removed: None. Prosthesis: None. . Estimated Blood Loss: 0 ml. Complications: None. Anesthesia type: General. [facility] Comment on above: Result Comment: Elec tronically Signed By: Freddy Fishman MD, Sven Hernandez\.br\Date and Time Signed: 04/02/22 10:40 EDT Outpatient Surgery Discharge Instructionon 04-02-2022 Outpatient Surgery Discharge Instruction [place] [id number] Patient Discharge Instructions PERSON INFORMATION Name: YUE HERNANDEZ Date of : 1985 Current Date: 04/02/2022 11:07:36 PHYSICIANS Admitting Physician: Freddy Fishman MD, Sven Hernandez Discharge Diagnosis: Postinfective urethral stricture, not elsewhere classified, female; Urethral syndrome YUE HERNANDEZ has been given the following list of follow-up instructions, prescriptions, and patient education materials: PATIENT FOLLOW-UP INFORMATION Diet: Regular Discharge Activity: Resume normal activities in 24 hours Discharge Restrictions: No driving for 24 hrs Call Your Doctor For: Persistent or heavy bleeding IF UNABLE TO CONTACT YOUR PHYSICIAN AND YOU FEEL IT IS AN EMERGENCY, GO TO THE NEAREST EMERGENCY ROOM OR CALL 911 I, YUE HERNANDEZ, have received the attached patient education materials/instruction s and have verbalized understanding: May we do a follow up call? Yes No I was present when discharge instructions were given Patient Signature Date Clinican/Nurse Signature Date Follow up: With: Address: When: TERI PRASANNA [address] [place] [id number] Business (1) Within 6 weeks Pharmacy Information: You may receive a survey from [facility] asking you to rate your care experience. Your feedback is important and will help us understand what we do well and how we can improve the quality of care we provide to you, your loved ones and our community. It?s an honor to serve you. Thank you for choosing [facility] HERE ARE THE MEDICATION CHANGES THAT OCCURRED DURING YOUR HOSPITAL STAY New Medications [id number], [address], [place] [id number], [phone] ketorolac (ketorolac 10 mg Tab) 1 Tablets By Mouth every 6 hours as needed Pain 8-10. Refills: 0. phenazopyridine (Pyridium 100 mg Tab) 1 Tablets By Mouth 2 times a day as needed dysuria for 3 Days. Refills: 0. Medications to Continue with No Changes Other Medications APAP/butalbital/caffe ine (Fioricet) 1 tab By Mouth every 4 hours as needed as needed for headache. tizanidine (tiZANidine 4 mg Tab) 1 Tablets By Mouth every 8 hours as needed Muscle pain. PATIENT EDUCATION INFORMATION Instructions: Medication Leaflets: Normal [facility] Patient Education - Texton 0 04-02-2022 Patient Education - Text Normal [facility] XR Abdomen 1 Viewon 04-02-20 XR Abdomen 1 View Exam Date/Time: 04/02/2022 08:46 EDT Reason for Exam: Kidney stone Report IMPRESSION: No distinct collecting system calcifications radiographically with limitations as discussed. EXAMINATION/TECHNIQUE : XR Abdomen 1 View HISTORY: Abdominal pain. Kidney stones. COMPARISON: None RESULT: Nonspecific nondilated bowel gas pattern. Feces throughout the colon. The renal shadows are mostly obscured by the bowel gas and colonic feces. No distinct calcifications projecting in the region of either kidney. Small calcification within the left pelvis, probably phlebolith. No acute osseous findings. Lung bases unremarkable. No other significant abnormality. FINAL REPORT Dictated: 04/02/2022 9:25 am Miguel Ángel Estrada MD Signed (Electronic Signature): 04/02/2022 9:25 am Signed by: Miguel Ángel Estrada MD Transcribed by: KIRAN Technologist: JENNY Normal [facility] XR Urography Retrograde Bila teralon 04-02-2022 XR Urography Retrograde Bilateral Exam Date/Time: 04/02/2022 10:30 EDT Reason for Exam: Kidney stone Report IMPRESSION: Intraoperative imaging. EXAMINATION/TECHNIQUE : XR Urography Retrograde Bilateral HISTORY: Bilateral retrograde. Kidney stone. COMPARISON: Radiographs 04/02/2022. RESULT: Fluoroscopy provided for surgical procedure performed by Sven Hayes. Fluoroscopic dose of 0.9 mGy. No diagnostic images. Please refer to performing provider note for further details. Images show bilateral retrogrades. Possible filling defects or gas bubbles within the right renal calyces. Ureters grossly unremarkable on the provided images. Please refer to the provider note. No other significant abnormality. FINAL REPORT Dictated: 04/02/2022 1:47 pm Miguel Ángel Estrada MD Signed (Electronic Signature): 04/02/2022 1:47 pm Signed by: Miguel Ángel Estrada MD Transcribed by: KIRAN Technologist: DPR Technical Comments Radiation Dose: Valerir in mGy = 0.9 Normal [facility] COVID-19 ([facility])on 04-01-2022 SARS-CoV-2 (COVID-19) RNA ELBA+probe Ql (Resp) Not detected Normal Not Detected [facility] Comment on above: Result Comment: This test result should be correlated with clinical presentations and medical history by a healthcare provider to determine its clinical significance. This assay was performed by a reverse transcriptase real-time polymerase chain reaction (rt PCR) method on the castaclip system. This test has been authorized only for the detection of nucleic acid from SARS-CoV-2, not for any other viruses or pathogens. This test has not been FDA cleared or approved. This test has been authorized by FDA under an Emergency Use Authorization (EUA). This test is only authorized for the duration of time the declaration on that circumstances exist justifying the authorization emergency use of in vitro diagnostic tests for detection and/or diagnosis of COVID-19 infection under section 564 (b) (1) of the Act, 21 U.S.C. 360 bbb-3 (b) (1), unless authorization is terminated or revoked sooner. Performed By: #### 2 [id number] ####[address] [address] SARS-CoV-2 (COVID-19) RNA ELBA+probe Ql (Unsp spec) Pass Normal Pass [facility] Comment on above: Performed By: #### 2 [id number] ####[address] [address] Specimen source Nom (Unsp spec) Nasal Normal [facility] Comment on above: Performed By: #### 2 [id number] ####[place] [address] [place] [address] Auto Diffon 03-31-2022 Basophils/100 WBC (Bld) 0.6 % Normal 0.0-2.0 [facility] Comment on above: Order Comment: Order Added by Discern Expert. Performed By: #### 1 5145925, 5584688, 7232687, 5301344, [id number] ####[place] [address] [place] [address] Basophils/Leukocytes Auto (Bld) [Pure # fraction] 0.1 E9/L Normal 0.0-0.2 [facility] Comment on above: Order Comment: Order Added by Discern Expert. Performed By: #### 1 6514039, 2695799, 9233110, 9861562, [id number] ####[address] [address] Eosinophils/100 WBC (Bld) 1.4 % Normal 0.0-8.0 [facility] Comment on above: Order Comment: Order Added by Discern Expert. Performed By: #### 1 3679048, 0567145, 6081391, 3527808, 33799198 ####[address] [address] Eosinophils/Leukocytes Auto (Bld) [Pure # fraction] 0.1 E9/L Normal 0.0-0.5 [facility] Comment on above: Order Comment: Order Added by Discern Expert. Performed By: #### 1 0139108, 6985819, 5158417, 5010410, 09120109 ####[address] [address] Lymphocytes/100 WBC (Bld) 30.3 % Normal 14.0-50.0 [facility] Comment on above: Order Comment: Order Added by Sirena Expert. Performed By: #### 1 4361206, 3827244, 0802014, 1528361, 71556486 ####[address] [address] Lymphocytes/Leukocytes Auto (Bld) [Pure # fraction] 2.7 E9/L Normal 1.0-4.0 [facility] Comment on above: Order Comment: Order Added by Sirena Expert. Performed By: #### 1 6404502, 5585841, 0734035, 0402809, 22625065 ####[address] [address] Monocytes/100 WBC (Bld) 5.6 % Normal 4.0-14.0 [facility] Comment on above: Order Comment: Order Added by Sirena Expert. Performed By: #### 1 6735768, 6219784, 2779286, 7900795, 54409331 ####[place] [address] [place] [address] Monocytes/Leukocytes Auto (Bld) [Pure # fraction] 0.5 E9/L Normal 0.2-1.0 [facility] Comment on above: Order Comment: Order Added by Discern Expert. Performed By: #### 1 2270753, 5392420, 4781758, 8209129, 56202802 ####[place] [address] [place] [address] Neutrophils/100 WBC (Bld) 62.1 % Normal 36.0-75.0 [facility] Comment on above: Order Comment: Order Added by Sirena Expert. Performed By: #### 1 1931804, 1865056, 2924696, 9482743, 21191132 ####[place] [address] [place] [address] Neutrophils/Leukocytes Auto (Bld) [Pure # fraction] 5.6 E9/L Normal 2.0-7.5 [facility] Comment on above: Order Comment: Order Added by Sirena Expert. Performed By: #### 1 1044459, 9708425, 1660393, 9895070, 17586813 ####[place] [address] [place] [address] BMPon 03-31-2022 Anion gap [Moles/Vol] 13 mmol/L Normal 6-16 [facility] Comment on above: Performed By: #### 1 8778525, 6616332, 0824520, 7295120, 96662099 ####[place] [address] [place] [address] Calcium [Mass/Vol] 9.6 mg/dL Normal 8.9-11.1 [facility] Comment on above: Performed By: #### 1 6021523, 3141649, 7530870, 7895204, 88220769 ####[address] [place] [address] Chloride [Moles/Vol] 102 mmol/L Normal 101-111 [facility] Comment on above: Performed By: #### 1 1141248, 5128291, 3291805, 1538101, 01310742 ####[facility] [address] [place] [address] CO2 [Moles/Vol] 26 mmol/L Normal 21-31 [facility] Comment on above: Performed By: #### 1 3928463, 9420728, 4150670, 1042239, 84626965 ####[facility] [address] [facility] [place] [address] Creatinine [Mass/Vol] 0.6 mg/dL Normal 0.5-1.3 [facility] Comment on above: Performed By: #### 1 6112599, 8067329, 7738843, 8616583, 85461515 ####[facility] [address] [place] [address] Glucose [Mass/Vol] 92 mg/dL Normal 55-199 [facility] Comment on above: Result Comment: If t his glucose result represents a fasting glucose, interpretation should refer to the following reference range: 55-99 mg/dL Performed By: #### 1 5900856, 5184724, 6187309, 5475759, 22522126 ####[facility] [address] [facility] [place] [address] Potassium [Moles/Vol] 4.0 mmol/L Normal 3.5-5.3 [facility] Comment on above: Performed By: #### 1 3963113, 8217689, 6721174, 3692038, 70426664 ####[facility] [address] [facility] [place] [address] Sodium [Moles/Vol] 137 mmol/L Normal 135-145 [facility] Comment on above: Performed By: #### 1 0339679, 7192116, 9410246, 3732165, 93843806 ####[facility] [address] [place] [address] Urea nitrogen [Mass/Vol] 10 mg/dL Normal 5-21 [facility] Comment on above: Performed By: #### 1 9956220, 5248700, 6504867, 1111800, 31544545 ####[facility] [address] [place] [address] Urea nitrogen/Creatinine [Mass ratio] 17 No Units Normal 10-20 [facility] Comment on above: Performed By: #### 1 2561220, 8487773, 2920126, 5893884, 97723464 ####[facility] [address] [place] [address] CBC w/ Auto Diffon Erythrocyte distribution width (RBC) [Ratio] 12.5 % Normal 10.9-14.2 [facility] Comment on above: Performed By: #### 1 1942620, 5348956, 7582797, 7328410, 46821040 ####[facility] [address] [place] [address] Hematocrit (Bld) [Volume fraction] 41.7 % Normal 34.0-46.0 [facility] Comment on above: Performed By: #### 1 2057025, 2333910, 9888202, 5756674, 41779628 ####[facility] [address] [place] [address] Hemoglobin (Bld) [Mass/Vol] 14.2 g/dL Normal 12.0-16.0 [facility] Comment on above: Performed By: #### 1 1650655, 8784647, 7771999, 7954121, 59217054 ####[facility] [address] [place] [address] MCH (RBC) [Entitic mass] 30.6 pg Normal 27.0-34.0 [facility] Comment on above: Performed By: #### 1 2149618, 3131766, 8184085, 9150454, 86798994 ####[facility] [address] [place] [address] MCHC (RBC) [Mass/Vol] 34.0 g/dL Normal 31.4-36.0 [facility] Comment on above: Performed By: #### 1 4328807, 1861177, 7669921, 4326743, 77526057 ####[facility] [address] [place] [address] MCV (RBC) [Entitic vol] 90.0 fL Normal 80.0-100.0 [facility] Comment on above: Performed By: #### 1 4834622, 6147595, 2090964, 5803609, 38216990 ####[place] [address] [place] [address] Platelet mean volume (Bld) [Entitic vol] 9.3 fL Normal 6.4-10.8 [facility] Comment on above: Performed By: #### 1 3299719, 0165786, 8206158, 4746668, 05192468 ####[place] [address] Platelets (Bld) [#/Vol] 212.0 E9/L Normal 150.0-500.0 [facility] Comment on above: Performed By: #### 1 3725501, 7933743, 3430848, 8963543, 52382621 ####[place] [address] RBC (Bld) [#/Vol] 4.6 E12/L Normal 4.3-5.9 [facility] Comment on above: Performed By: #### 1 5339561, 1293525, 5851829, 9839946, 44113877 ####[place] [address] [place] [address] WBC corrected for nucl RBC Auto (Bld) [#/Vol] 9.0 E9/L Normal 4.0-11.0 [facility] Comment on above: Performed By: #### 1 6952658, 3770492, 9022645, 0961007, 05925040 ####[address] [address] CHEMISTRYOrdered By: [employer] SYSTEM on 03-31-2022 Anion gap [Moles/Vol] 13 mmol/L Normal 6 - 16 mEq/L F C Remisol Calcium [Mass/Vol] 9.6 mg/dL Normal 8.9 - 11. 1 mg/dL FT Remisol Chloride [Moles/Vol] 102 mmol/L Normal 101 - 1 11 mmol/L FT Remisol CO2 [Moles/Vol] 26 mmol/L Normal 21 - 31 mmol/L FT Remisol Creatinine [Mass/Vol] 0.6 mg/dL Normal 0.5 - 1.3 mg/dL FT Remisol GFR/1.73 sq M.predicted among blacks MDRD (S/P/Bld) [Vol rate/Area] mL/min/1.73 m2 Normal >=59mL/min/1 .73 m2 FT Chem S GFR/1.73 sq M.predicted among non-blacks MDRD (S/P/Bld) [Vol rate/Area] mL/min/1.73 m2 Normal >=59mL/min/1 .73 m2 [facility] Chem S Glucose [Mass/Vol] 92 mg/dL Normal 55 - 199 mg/dL FT Remisol Potassium [Moles/Vol] 4.0 mmol/L Normal 3.5 - 5.3 mmol/L FT Remisol Sodium [Moles/Vol] 137 mmol/L Normal 135 - 145 mmol/L FT Remisol Urea nitrogen [Mass/Vol] 10 mg/dL Normal 5 - 21 mg/dL FT Remisol Urea nitrogen/Creatinine [Mass ratio] 17 mg/mg Normal 10 - 20 [facility] Remisol COAGULATIONOrdered By: Brianna Cho on 03-31-2022 aPTT Coag (PPP) [Time] 36.2 s Normal 25.1 - 36.5 second(s) FT Auto Coag INR Coag (PPP) [Relative time] 1.0 {INR} Invalid Interpretation Code FT Auto Coag PT Coag (PPP) [Time] 12.1 s Normal 10.2 - 12.9 second(s) [facility] Auto Coag Consent for Treatmenton Consent for Treatment [id number]#1 .00CD:127 Normal [facility] Consent for Treatment [id number] 1.00CD:127 Normal [facility] HEMATOLOGYOrdered By: SYSTEM SYSTEM on 03-31-2022 Basophils/100 WBC (Bld) 0.6 % Normal 0.0 - 2.0 % [facility] HemeAutoSS Basophils/Leukocytes Auto (Bld) [Pure # fraction] 0.1 E9/L Normal 0.0 - 0.2 E9/L [facility] HemeAutoSS Eosinophils/100 WBC (Bld) 1.4 % Normal 0.0 - 8.0 % [facility] HemeAutoSS Eosinophils/Leukocytes Auto (Bld) [Pure # fraction] 0.1 E9/L Normal 0.0 - 0.5 E9/L [facility] HemeAutoSS Lymphocytes/100 WBC (Bld) 30.3 % Normal 14.0 - 50.0 % [facility] HemeAutoSS Lymphocytes/Leukocytes Auto (Bld) [Pure # fraction] 2.7 E9/L Normal 1.0 - 4.0 E9/L [facility] HemeAutoSS Monocytes/100 WBC (Bld) 5.6 % Normal 4.0 - 14.0 % [facility] HemeAutoSS Monocytes/Leukocytes Auto (Bld) [Pure # fraction] 0.5 E9/L Normal 0.2 - 1.0 E9/L [facility] HemeAutoSS Neutrophils/100 WBC (Bld) 62.1 % Normal 36.0 - 75.0 % [facility] HemeAutoSS Neutrophils/Leukocytes Auto (Bld) [Pure # fraction] 5.6 E9/L Normal 2.0 - 7.5 E9/L [facility] HemeAutoSS HEMATOLOGYOrdered By: Anna Clark on 03-31-2022 Erythrocyte distribution width (RBC) [Ratio] 12.5 % Normal 10.9 - 14.2 % [facility] HemeAutoSS Hematocrit (Bld) [Volume fraction] 41.7 % Normal 34.0 - 46.0 % [facility] HemeAutoSS Hemoglobin (Bld) [Mass/Vol] 14.2 g/dL Normal 12.0 - 16.0 gm/dL [facility] HemeAutoSS MCH (RBC) [Entitic mass] 30.6 pg Normal 27.0 - 34.0 pg [facility] HemeAutoSS MCHC (RBC) [Mass/Vol] 34.0 g/dL Normal 31.4 - 36.0 gm/dL [facility] HemeAutoSS MCV (RBC) [Entitic vol] 90.0 fL Normal 80.0 - 100.0 fL [facility] HemeAutoSS Platelet mean volume (Bld) [Entitic vol] 9.3 fL Normal 6.4 - 10.8 fL FT HemeAutoSS Platelets (Bld) [#/Vol] 212.0 E9/L Normal 150.0 - 500.0 E9/L FT HemeAutoSS RBC (Bld) [#/Vol] 4.6 E12/L Normal 4.3 - 5.9 E12/L [facility] HemeAutoSS WBC corrected for nucl RBC Auto (Bld) [#/Vol] 9.0 E9/L Normal 4.0 - 11.0 E9/L [facility] HemeAutoSS PT & PTTon 03-31-2022 aPTT Coag (PPP) [Time] 36.2 second(s) Normal 25.1-36.5 [facility] Comment on above: Result Comment: Hepa rin therapeutic range (represented by Anti-Factor Xa activity of 0.2 - 0.4 U/mL) corresponds to PTT of 56.6 - 109.0 sec. Performed By: #### 1 2522389, 0828020, 7098578, 9859318, 81394708 ####[facility] [address] [place] [address] INR Coag (PPP) [Relative time] 1.0 {INR} Invalid Interpretation Code [facility] Comment on above: Result Comment: INR results are specifically intended to assess patients stabilized on long-term Anticoagulation therapy suggested INR?s ?Less Intensive Anticoagulation? 2.0 ? 3.0 Conventional Range 3.0 ? 4.5 Performed By: #### 1 4428142, 4503902, 9424162, 6446900, 86655857 ####[facility] [address] [place] [address] PT Coag (PPP) [Time] 12.1 second(s) Normal 10.2-12.9 [facility] Comment on above: Performed By: #### 1 1433010, 3129819, 4985092, 6597737, 05954887 ####[facility] [facility] [id number] [place] [address] UA With Cult Reflexon 2021 Bacteria LM Ql (Urine sed) 1+ /HPF Abnormal Trace [facility] Comment on above: Performed By: #### 1 [id number] #### [facility] [address] [place] [address] Bilirubin Ql (U) Negative Normal Negative [facility] Comment on above: Performed By: #### 1 [id number] #### [facility] [address] [place] [address] Clarity (U) CLEAR Normal Clear [facility] Comment on above: Performed By: #### 1 [id number] #### [facility] [address] [place] [address] Color (U) YELLOW Normal Yellow [facility] Comment on above: Performed By: #### 1 [id number] #### [facility] [address] [place] [address] Epithelial cells.squamous LM.HPF (Urine sed) [#/Area] 3-4 Normal 0-2 [facility] Comment on above: Performed By: #### 1 [id number] #### [facility] [address] [place] [address] Glucose Test strip (U) [Mass/Vol] Negative Normal Negative [facility] Comment on above: Performed By: #### 1 [id number] #### [facility] [address] [place] [address] Hemoglobin Ql (U) Negative Normal Negative [facility] Comment on above: Performed By: #### 1 [id number] #### [facility] [address] [place] [address] Ketones (U) [Mass/Vol] Negative Normal Negative [facility] Comment on above: Performed By: #### 1 [id number] #### [facility] [address] [place] [address] Thorofare.plasma/Thorofare .RBC (Bld) [Mass ratio] 0-3 Normal 0-3 [facility] Comment on above: Performed By: #### 1 [id number] #### [facility] [address] [place] [address] Mucus Ql (Urine sed) 2+ Normal Fish [facility] Comment on above: Performed By: #### 1 [id number] #### [facility] [address] [place] [address] Nitrite Ql (U) Negative Normal Negative [facility] Comment on above: Performed By: #### 1 [id number] #### [facility] [address] [place] [address] pH (U) 6.5 [pH] Invalid Interpretation Code 5.0-9.0 [facility] Comment on above: Performed By: #### 1 [id number] #### [facility] [address] [place] [address] Protein (U) [Mass/Vol] Negative Normal Negative [facility] Comment on above: Performed By: #### 1 [id number] #### [facility] [address] [place] [address] Specific gravity (U) [Rel density] 1.015 Invalid Interpretation Code 1.005-1.030 [facility] Comment on above: Performed By: #### 1 [id number] #### [facility] [address] [place] [address] Type of Urine collection method Clean Catch Normal [facility] Comment on above: Performed By: #### 1 [id number] #### [facility] [address] [place] [address] Urobilinogen Qn (U) 0.2 {Jsoe'U}/dL Normal 0.0-1.0 [facility] Comment on above: Performed By: #### 1 [id number] #### [facility] [address] [place] [address] WBC Auto Ql (U) Negative Normal Negative [facility] Comment on above: Performed By: #### 1 [id number] #### [facility] [address] [place] [address] WBC LM.HPF (Urine sed) [#/Area] 0-5 Normal 0-5 [facility] Comment on above: Performed By: #### 1 [id number] #### [facility] [address] [place] [address] URINALYSISOrdered By: Brianna Cho on 03-31-2022 Bacteria LM Ql (Urine sed) 1+ /HPF Invalid Interpretation Code Trace/HPF [facility] UA Auto SS Bilirubin Ql (U) Negative (03/31/22 4:36 PM) Normal Negative [facility] UA Auto SS Clarity (U) Clear (03/31/22 4:36 PM) Normal Clear [facility] UA Auto SS Color (U) Yellow (03/31/22 4:36 PM) Normal Yellow [facility] UA Auto SS Epithelial cells.squamous LM.HPF (Urine sed) [#/Area] 3-4 /HPF Normal 0-2/HPF [facility] UA Aut o SS Glucose Test strip (U) [Mass/Vol] Negative (03/31/22 4:36 PM) Normal Negative [facility] UA Auto SS Hemoglobin Ql (U) Negative (03/31/22 4:36 PM) Normal Negative [facility] UA Auto SS Ketones (U) [Mass/Vol] Negative (03/31/22 4:36 PM) Normal Negative [facility] UA Auto SS Thorofare.plasma/Thorofare .RBC (Bld) [Mass ratio] 0-3 /HPF Normal 0-3/HPF [facility] UA Auto SS Mucus Ql (Urine sed) 2+ (03/31/22 4:36 PM) Normal [facility] UA Auto SS Nitrite Ql (U) Negative (03/31/22 4:36 PM) Normal Negative [facility] UA Auto SS pH (U) 6.5 *NA* (03/31/22 4:36 PM) Invalid Interpretation Code 5.0 - 9.0 [facility] UA Auto SS Protein (U) [Mass/Vol] Negative (03/31/22 4:36 PM) Normal Negative [facility] UA Auto SS Specific gravity (U) [Rel density] 1.015 *NA* (03/31/22 4:36 PM) Invalid Interpretation Code 1.005 - 1.030 [facility] UA Auto SS UA Spec Desc Clean Catch (03/31/22 4:36 PM) Normal [facility] UA Auto SS Urobilinogen Qn (U) 0.1070826 {Jose'U}/dL Normal 0.0 - 1.0 EU/dL [facility] UA Auto SS WBC Auto Ql (U) Negative (03/31/22 4:36 PM) Normal Negative [facility] UA Auto SS WBC LM.HPF (Urine sed) [#/Area] 0-5 /HPF Normal 0-5/HPF [facility] UA Auto SS eGFRon 03-31-2022 GFR/1.73 sq M.predicted among blacks MDRD (S/P/Bld) [Vol rate/Area] mL/min/{1.73_m2} Normal >=59 [facility] Comment on above: Order Comment: Order added by Discern Expert. Result Comment: eGFR is race adjusted. AA=. Performed By: #### 1 [id number], [id number], [id number] ####[facility] [address] [place] [address] GFR/1.73 sq M.predicted among non-blacks MDRD (S/P/Bld) [Vol rate/Area] mL/min/{1.73_m2} Normal >=59 [facility] Comment on above: Order Comment: Order added by Discern Expert. Result Comment: Radiation Officer celestine kidney disease could be indicated at eGFR's of less than 60 mL/min/1.73m2. Kidney failure is indicated at less than 15 mL/min/1.73m2. Performed By: #### 1 [id number] ####[facility] [address] [place] [address] COVID-19 ([facility]on 03-30-2022 ADMITTED TO INTENSIVE CARE UNIT FOR CONDITION OF INTEREST:FIND:PT: NO Normal [facility] Comment on above: Performed By: #### 2 [id number] ####[facility] [address] [place] [address] EMPLOYED IN A HEALTHCARE SETTING:FIND:PT: Unknown Normal [facility] Comment on above: Performed By: #### 2 [id number] ####[place] [address] FIRST TEST FOR CONDITION OF INTEREST:FIND:PT: Unknown Normal [facility] Comment on above: Performed By: #### 2 [id number] ####[place] [address] HAS SYMPTOMS RELATED TO CONDITION OF INTEREST:FIND:PT: Unknown Normal [facility] Comment on above: Performed By: #### 2 [id number] ####[place] [address] HOSPITALIZED FOR CONDITION OF INTEREST:FIND:PT: NO Normal [facility] Comment on above: Performed By: #### 2 [id number] ####[place] [address] STATUS:FIND:PT: Unknown Normal [facility] Comment on above: Performed By: #### 2 [id number] ####[place] [address] RESIDES IN A [facility] CARE SETTING:FIND:PT: Unknown Normal [facility] Comment on above: Performed By: #### 2 [id number] ####[place] [address] CBC AUTO DIFFon 03-20-2022 BASO # 0.0 103/ul Normal 0.0-0.1 [facility] Comment on above: Performed By: #### T HYGIMA #### [facility] [address] [place] [address] Dr. Gale Qiu Basophils/100 WBC (Bld) 0.6 % Normal 0.2-2.0 [facility] Comment on above: Performed By: #### T HYGIMA #### [facility] [address] [place] [address] Dr. Gale iQu EO # 0.2 103/ul Normal 0.0-0.7 [facility] Comment on above: Performed By: #### T HYGIMA #### [facility] [address] [place] [address] Dr. Gale Qiu Eosinophils/100 WBC (Bld) 2.3 % Normal 0.9-7.0 [facility] Comment on above: Performed By: #### T HYGIMA #### [facility] [address] [place] [address] Dr. Gale Qiu Erythrocyte distribution width (RBC) [Ratio] 12.3 % Normal 11.0-15.0 [facility] Comment on above: Performed By: #### T HYGIMA #### [facility] [address] [place] [address] Dr. Gale Qiu Hematocrit (Bld) [Volume fraction] 38.0 % Normal 36.0-48.0 [facility] Comment on above: Performed By: #### T HYGIMA #### [facility] [address] [place] [address] Dr. Gale Qiu Hemoglobin (Bld) [Mass/Vol] 12.4 g/dL Normal 12.0-16.0 [facility] Comment on above: Performed By: #### T HYGIMA #### [facility] [address] [place] [address] Dr. Gale Qiu IG # 0.03 10e3/ul Normal 0.00-0.03 [facility] Comment on above: Performed By: #### T HYGIMA #### [facility] [address] [place] [address] Dr. Gale Qiu IG % 0.5 % Normal 0.0-0.5 [facility] Comment on above: Performed By: #### T HYGIMA #### [facility] [address] [place] [address] Dr. Gale Qiu LYMPH # 3.2 103/ul Normal 1.2-3.8 [facility] Comment on above: Performed By: #### T HYGIMA #### [facility] [address] [place] [address] Dr. Gale Qiu Lymphocytes/100 WBC (Bld) 48.8 % Normal 20.5-60.0 [facility] Comment on above: Performed By: #### T HYGIMA #### [facility] [address] [place] [address] Dr. Gale Qiu MANUAL DIFF REQ NO Normal [facility] Comment on above: Performed By: #### T HYGIMA #### [facility] [address] [place] [address] Dr. Gale Qiu MCH (RBC) [Entitic mass] 30.0 pg Normal 26.7-34.0 [facility] Comment on above: Performed By: #### T HYGIMA #### [facility] [address] [place] [address] Dr. Gale Qiu MCHC (RBC) [Mass/Vol] 32.6 g/dL Normal 29.9-35.2 [facility] Comment on above: Performed By: #### T HYGIMA #### [facility] [address] [place] [address] Dr. Gale Qiu MCV (RBC) [Entitic vol] 92.0 fL Normal 81.0-99.0 [facility] Comment on above: Performed By: #### T HYGIMA #### [facility] [address] [place] [address] Dr. Gale Qiu MONO # 0.6 103/ul Normal 0.3-0.8 [facility] Comment on above: Performed By: #### T HYGIMA #### [facility] [address] [place] [address] Dr. Gale Qiu Monocytes/100 WBC (Bld) 8.4 % Normal 1.7-12.0 [facility] Comment on above: Performed By: #### T HYGIMA #### [facility] [address] [place] [address] Dr. Gale Qiu NEUT # 2.6 103/ul Normal 1.4-6.5 [facility] Comment on above: Performed By: #### T HYGIMA #### [facility] [address] [place] [address] Dr. Gale Qiu Neutrophils/100 WBC (Bld) 39.4 % Critically low 43.0-75.0 [facility] Comment on above: Performed By: #### T HYGIMA #### [facility] [address] [place] [address] Dr. Gale Qiu Platelet mean volume (Bld) [Entitic vol] 10.5 fL Normal 9.5-13.5 [facility] Comment on above: Performed By: #### T HYGIMA #### [facility] [address] [address] [address] Gale Qiu PLT 192 103/ul Normal 150-450 [facility] Comment on above: Performed By: #### T HYGIMA #### [facility] [address] [address] [address] Gale Qiu RBC 4.13 106/ul Critically low 4.20-5.40 [facility] Comment on above: Performed By: #### T HYGIMA #### [facility] [address] [address] [address] Gale Qiu WBC 6.5 103/ul Normal 4.0-11.0 [facility] Comment on above: Performed By: #### T HYGIMA #### [facility] [address] [address] [address] Gale Qiu Ambulatory Visit Summaryon 0 02-17-2022 Ambulatory Visit Summary YUE HERNANDEZ :1985 Visit Date:02/17/2022 Ambulatory Visit Instructions Your Diagnosis Gross hematuria Stress incontinence History of kidney stones Your Care Team Attending Physician - TERI MIMS PA-C Primary Care Physician - SUBHA GUTIERREZ CNP This Is Your Medications List Contact prescribing physician if questions or concerns APAP/butalbital/caffe ine (Fioricet) Procedures Performed Endometriosis, Hysterectomy, Tubal ligation. Discharge Vitals Height 168.0 cm Height 168.0 cm Weight 64.0 kg Weight 64 kg BMI 22.68 What to do next You Need to Schedule the Following Appointments Follow Up with TERI MIMS PA-C, RUKHSANA When: Where: [address] [place] [address] Business (1) Medications What How Much When Instructions Unchanged APAP/ butalbital/ caffeine (Fioricet) Every 4 hours Contact prescribing physician if questions or concerns Allergies No Known Allergies Problems Ongoing - Any problem that you are currently receiving treatment for. Dyspareunia in female Gross hematuria History of kidney stones History of recurrent UTI (urinary tract infection) Kidney stones Smoker Stress incontinence Historical - Any problem that you are no longer receiving treatment for. Breast cancer Education Materials Hematuria, Adult Hematuria is blood in the urine. Blood may be visible in the urine, or it may be identified with a test. This condition can be caused by infections of the bladder, urethra, kidney, or prostate. Other possible causes include: ? Kidney stones. ? Cancer of the urinary tract. ? Too much calcium in the urine. ? Conditions that are passed from parent to child (inherited conditions). ? Exercise that requires a lot of energy. Infections can usually be treated with medicine, and a kidney stone usually will pass through your urine. If neither of these is the cause of your hematuria, more tests may be needed to identify the cause of your symptoms. It is very important to tell your health care provider about any blood in your urine, even if it is painless or the blood stops without treatment. Blood in the urine, when it happens and then stops and then happens again, can be a symptom of a very serious condition, including cancer. There is no pain in the initial stages of many urinary cancers. Follow these instructions at home: Medicines ? Take slbz-tyt-zvmubgt and prescription medicines only as told by your health care provider. ? If you were prescribed an antibiotic medicine, take it as told by your health care provider. Do not stop taking the antibiotic even if you start to feel better. Eating and drinking ? Drink enough fluid to keep your urine clear or pale yellow. It is recommended that you drink 3?4 quarts (2.8?3.8 L) a day. If you have been diagnosed with an infection, it is recommended that you drink cranberry juice in addition to large amounts of water. ? Avoid caffeine, tea, and carbonated beverages. These tend to irritate the bladder. ? Avoid alcohol because it may irritate the prostate (men). General instructions ? If you have been diagnosed with a kidney stone, follow your health care provider's instructions about straining your urine to catch the stone. ? Empty your bladder often. Avoid holding urine for long periods of time. ? If you are female: ? After a bowel movement, wipe from front to back and use each piece of toilet paper only once. ? Empty your bladder before and after sex. ? Pay attention to any changes in your symptoms. Tell your health care provider about any changes or any new symptoms. ? It is your responsibility to get your test results. Ask your health care provider, or the department performing the test, when your results will be ready. ? Keep all follow-up visits as told by your health care provider. This is important. Contact a health care provider if: ? You develop back pain. ? You have a fever. ? You have nausea or vomiting. ? Your symptoms do not improve after 3 days. ? Your symptoms get worse. Get help right away if: ? You develop severe vomiting and are unable take medicine without vomiting. ? You develop severe pain in your back or abdomen even though you are taking medicine. ? You pass a large amount of blood in your urine. ? You pass blood clots in your urine. ? You feel very weak or like you might faint. ? You faint. Summary ? Hematuria is blood in the urine. It has many possible causes. ? It is very important that you tell your health care provider about any blood in your urine, even if it is painless or the blood stops without treatment. ? Take ajnt-mxp-lpbrcnc and prescription medicines only as told by your health care provider. ? Drink enough fluid to keep your urine clear or pale yellow. This information is not in (more content not included)... Normal [facility] Patient Educationon 02-18-20 Patient Education Gastroenterology Abdominal Pain, Adult Pain in the abdomen (abdominal pain) can be caused by many things. Often, abdominal pain is not serious and it gets better with no treatment or by being treated at home. However, sometimes abdominal pain is serious. Your health care provider will ask questions about your medical history and do a physical exam to try to determine the cause of your abdominal pain. Follow these instructions at home: Medicines ? Take kzai-pwq-bklombk and prescription medicines only as told by your health care provider. ? Do not take a laxative unless told by your health care provider. General instructions ? Watch your condition for any changes. ? Drink enough fluid to keep your urine pale yellow. ? Keep all follow-up visits as told by your health care provider. This is important. Contact a health care provider if: ? Your abdominal pain changes or gets worse. ? You are not hungry or you lose weight without trying. ? You are constipated or have diarrhea for more than 2?3 days. ? You have pain when you urinate or have a bowel movement. ? Your abdominal pain wakes you up at night. ? Your pain gets worse with meals, after eating, or with certain foods. ? You are vomiting and cannot keep anything down. ? You have a fever. ? You have blood in your urine. Get help right away if: ? Your pain does not go away as soon as your health care provider told you to expect. ? You cannot stop vomiting. ? Your pain is only in areas of the abdomen, such as the right side or the left lower portion of the abdomen. Pain on the right side could be caused by appendicitis. ? You have bloody or black stools, or stools that look like tar. ? You have severe pain, cramping, or bloating in your abdomen. ? You have signs of dehydration, such as: ? Dark urine, very little urine, or no urine. ? Cracked lips. ? Dry mouth. ? Sunken eyes. ? Sleepiness. ? Weakness. ? You have trouble breathing or chest pain. Summary ? Often, abdominal pain is not serious and it gets better with no treatment or by being treated at home. However, sometimes abdominal pain is serious. ? Watch your condition for any changes. ? Take ngyw-ssy-tpuaifh and prescription medicines only as told by your health care provider. ? Contact a health care provider if your abdominal pain changes or gets worse. ? Get help right away if you have severe pain, cramping, or bloating in your abdomen. This information is not intended to replace advice given to you by your health care provider. Make sure you discuss any questions you have with your health care provider. Document Released: 08/25/2006 Document Revised: 03/25/2020 Document Reviewed: 03/25/2020 [employer] Patient Education ? 2020 [employer]. Urology Hematuria, Adult Hematuria is blood in the urine. Blood may be visible in the urine, or it may be identified with a test. This condition can be caused by infections of the bladder, urethra, kidney, or prostate. Other possible causes include: ? Kidney stones. ? Cancer of the urinary tract. ? Too much calcium in the urine. ? Conditions that are passed from parent to child (inherited conditions). ? Exercise that requires a lot of energy. Infections can usually be treated with medicine, and a kidney stone usually will pass through your urine. If neither of these is the cause of your hematuria, more tests may be needed to identify the cause of your symptoms. It is very important to tell your health care provider about any blood in your urine, even if it is painless or the blood stops without treatment. Blood in the urine, when it happens and then stops and then happens again, can be a symptom of a very serious condition, including cancer. There is no pain in the initial stages of many urinary cancers. Follow these instructions at home: Medicines ? Take hmvq-ckh-xztydtf and prescription medicines only as told by your health care provider. ? If you were prescribed an antibiotic medicine, take it as told by your health care provider. Do not stop taking the antibiotic even if you start to feel better. Eating and drinking ? Drink enough fluid to keep your urine clear or pale yellow. It is recommended that you drink 3?4 quarts (2.8?3.8 L) a day. If you have been diagnosed with an infection, it is recommended that you drink cranberry juice in addition to large amounts of water. ? Avoid caffeine, tea, and carbonated beverages. These tend to irritate the bladder. ? Avoid alcohol because it may irritate the prostate (men). General instructions ? If you have been diagnosed with a kidney stone, follow your health care provider's instructions about straining your urine to catch the stone. ? Empty your bladder often. Avoid holding urine for long periods of time. ? If you are female: ? After a bowel movement, wipe from front to back and use each piece of toilet paper only once. ? (more content not included)... Normal [facility] Urology Office/Clinic Noteon 02-17-2022 Urology Office/Clinic Note Chief Complaint Pt on the phone for CT results. HPI Staff Yue is a 36 year old female on the phone to discuss CT results. Dysuria: _ sometimes Incomplete bladder emptying: _denies Hematuria: _yes, have seen it occasionally Frequency: _denies Urgency: _sometimes Nocturia: _denies Stream: _steady Leaking: _yes Post void dripping: _denies Wearing pads/ Depends: _denies Urge incontinence: _denies Stress incontinence: _sometimes with coughing and sneezing Incontinence without Sensory Awareness: _denies Abdominal pain: _yes, radiates from one side to other Flank pain: _yes, right side Sexual complaints: _ History of Present Illness Tests reviewed: reviewed UA I have reviewed the previous health record information and history for this patient from . I have reviewed and verified the staff HPI to be accurate for this encounter. There have been no associated fever, chills, flank pain, or blood in the urine. Denies any urinary infections since last encounter. Review of Systems ROS - Provider Constitutional: denies weight loss, denies hot flashes. Eyes: denies eye problems. Gastrointestinal: denies nausea, denies vomiting. Cardiovascular: denies chest pain or angina. Integumentary: no dryness Musculoskeletal: denies musculoskeletal symptoms. ENMT: denies otolaryngeal symptoms. Respiratory: no shortness of breath. Heme/Lymph: denies easy bleeding tendency, denies easy bruising tendency. Psychiatric: no confusion, no anxiety. Genitourinary: See HPI. Physical Exam Vitals & Measurements HT: 168.0 cm HT: 168.0 cm WT: 64.0 kg WT: 64 kg BMI: 22.68 General Appearance: alert , no acute distress, well nourished, well developed female. Genitourinary: bladder nonpalpable, no flank pain. Assessment/Plan 1. Gross hematuria (R31.0: Gross hematuria) Pt stated at last visit she seen blood in her urine a few month ago. CT was done 02/02/22 and it showed no mass, no obstruction or no stones. 2. Stress incontinence (N39.3: Stress incontinence (female) (male)) Mild with coughing or sneezing. 3. History of kidney stones (Z87.442: Personal history of urinary calculi) Pt stated at last visit that she passed stones on her own a few times. Follow-up With When Contact Information TERI MIMS PA-C, URL [address] [place] [address] Business (1) Additional Instructions: Patient Education Hematuria, Adult I, Daylin Sandoval , personally scribed for Teri Mims on 02/17/2022 14:11:36. . Problem List/Past Medical History Ongoing Dyspareunia in female Gross hematuria History of kidney stones History of recurrent UTI (urinary tract infection) Kidney stones Smoker Stress incontinence Historical Breast cancer Procedure/Surgical History Endometriosis, Hysterectomy, Tubal ligation. Medications Fioricet, Oral, q4hr Allergies No Known Allergies Social History Tobacco 5-9 cigarettes (between 1/4 to 1/2 pack)/day in last 30 days, Smoker, current status unknown Tobacco Use:. Cigarettes, 01/28/2022 Family History Cancer: Brother. Osteoarthritis: Mother and Father. Immunizations Vaccine Date Status Comments influenza virus vaccine, inactivated - Not Given Temporary contraindication - reschedule SARS-CoV-2 (COVID-19) Ad26 vaccine - Not Given Temporary contraindication - reschedule Normal [facility] Comment on above: Result Comment: Elec tronically Signed By: TERI MIMS PA-C\.br\Date and Time Signed: 02/17/22 14:33 EDT\.br\Electronically Co-Signed By: Daylin Sandoval\.br\Date and Time Co-Signed: 02/17/22 14:11 EDT Other Comment: aissatou [facility] U[facility] Phone Visit- Telehea [facility] 02-17-2022 Urology Phone Visit- Telehealth Chief Complaint Pt on the phone for CT results. HPI Staff Yue is a 36 year old female on the phone to discuss CT results. Dysuria: _ sometimes Incomplete bladder emptying: _denies Hematuria: _yes, have seen it occasionally Frequency: _denies Urgency: _sometimes Nocturia: _denies Stream: _steady Leaking: _yes Post void dripping: _denies Wearing pads/ Depends: _denies Urge incontinence: _denies Stress incontinence: _sometimes with coughing and sneezing Incontinence without Sensory Awareness: _denies Abdominal pain: _yes, radiates from one side to other Flank pain: _yes, right side Sexual complaints: _ Assessment/Plan 1. Bladder pain (R39.89: Other symptoms and signs involving the genitourinary system) intermittent. sometimes just pressure. sometimes worse with urination. pt referred by Dr Montaño [employer] for chronic pelvic pain. s/p hysterectomy. no change with premarin cream. next step with him is dx lap but he wanted her to rule out interstitial cystitis here first. Ordered: VIRTUAL PHONE Visit 5-10 minutes G2012 2. History of recurrent UTI (urinary tract infection) (Z87.440: Personal history of urinary (tract) infections) since she was a teenager and will still get at least 1 a year. has been hospitalized several times with pyelo in the past. per reports hx of questionable anatomy? patient was told during that she had a tube from bladder that was backwards and would require urologic intervention but she never followed up after that. no abnl anatomy noted on recent CT. Ordered: VIRTUAL PHONE Visit 5-10 minutes G2012 3. Gross hematuria (R31.0: Gross hematuria) Patient states she does have intermittent blood. most recently a few months ago. not always with stone passage or UTI, sometimes completely asymptomatic. no upper tract lesions noted on recent CT. Ordered: VIRTUAL PHONE Visit 5-10 minutes G2012 4. History of kidney stones (Z87.442: Personal history of urinary calculi) has passed several spontaneously in the past. none seen on recent CT. Ordered: VIRTUAL PHONE Visit 5-10 minutes G2012 case discussed w DLS who recommends Schedule cystoscopy with bilateral retrograde pyelogram and urethral dilation. This should help determine her exact anatomy and if she has urethral stenosis this should help alleviate that is a potential problem. Also be able to check and see if there is an problem with her bladder and if necessary biopsy can be done at the time. The risks and benefits for cystoscopy w retrograde pyelograms and possible urethral dilation have been discussed. The risks include bleeding, infection, and irritation of the bladder and urinary channel, among others. The patient, after being informed of procedural details and after questions have been answered, wishes to proceed. Full informed consent has been obtained. Will order Local anesthesia. Follow-up With When Contact Information cysto, retrogrades, UD w DLS Additional Instructions: PRASANNA DOTSON, TERI Cruz, URL [address] [place] [address] Business (1) Additional Instructions: Patient Education Abdominal Pain, Adult Hematuria, Adult Problem List/Past Medical History Ongoing Bladder pain Dyspareunia in female Gross hematuria History of kidney stones History of recurrent UTI (urinary tract infection) Kidney stones Smoker Stress incontinence Historical Breast cancer Procedure/Surgical History Endometriosis, Hysterectomy, Tubal ligation. Medications Fioricet, Oral, q4hr Allergies No Known Allergies Social History Tobacco 5-9 cigarettes (between 1/4 to 1/2 pack)/day in last 30 days, Smoker, current status unknown Tobacco Use:. Cigarettes, 01/28/2022 Family History Cancer: Brother. Osteoarthritis: Mother and Father. Immunizations Vaccine Date Status Comments influenza virus vaccine, inactivated - Not Given Temporary contraindication - reschedule SARS-CoV-2 (COVID-19) Ad26 vaccine - Not Given Temporary contraindication - reschedule Normal [facility] Comment on above: Result Comment: Elec tronically Signed By: TERI MIMS PA-C\.br\Date and Time Signed: 02/17/22 14:32 EDT RAD - CT Reporton 02-10-2022 RAD - CT Report [id number] Normal [facility] Ambulatory Visit Summaryon 0 01-28-2022 Ambulatory Visit Summary YUE HERNANDEZ :1985 Visit Date:01/28/2022 Ambulatory Visit Instructions Your Diagnosis Bladder pain Stress incontinence History of recurrent UTI (urinary tract infection) History of kidney stones Gross hematuria Tests Performed Urnls Dip Stick Auto w/o Microscopy POC [address] CT Abdomen/Pelvis w/ + w/o Contrast -- Results Pending -- You will be contacted within 72 hours with your results. Your Care Team Attending Physician - TERI MIMS PA-C Referring Physician - Fransico MONTAÑO DO This Is Your Medications List Contact prescribing physician if questions or concerns APAP/butalbital/caffe ine (Fioricet) Procedures Performed Endometriosis, Hysterectomy, Tubal ligation. Discharge Vitals Heart Rate (Peripheral) 61 Blood Pressure 117/83 Height 168.0 cm Height 168 cm Weight 64.0 kg Weight 64 kg BMI 22.68 What to do next You Need to Schedule the Following Appointments Follow Up with TERI MIMS PA-C, RUKHSANA When: Why: scheduling cysto Where: [address] [place] [address] Medications What How Much When Instructions Unchanged APAP/ butalbital/ caffeine (Fioricet) Every 4 hours Contact prescribing physician if questions or concerns Test Results Urnls Dip Stick Auto w/o Microscopy POC 86209 (01/28/2022) Bilirubin Urine Dipstick - Negative Blood Urine Dipstick - Negative Glucose Urine Dipstick - Negative Ketones Urine Dipstick - Negative Leukocytes Urine Dipstick - Negative Nitrite Urine Dipstick - Negative Protein Urine Dipstick - Negative Specific Holabird Urine Dipstick - 1.020 Urine Appearance Urine Dipstick - Slightly cloudy Urine Color Urine Dipstick - Yellow Urobilinogen Urine Dipstick - Normal 0.2-1 EU/dl pH Urine Dipstick - 6.5 Medications and Immunizations Administered Not Given influenza virus vaccine, inactivated, Temporary contraindication - reschedule SARS-CoV-2 (COVID-19) Ad26 vaccine, Temporary contraindication - reschedule Allergies No Known Allergies Problems Ongoing - Any problem that you are currently receiving treatment for. Dyspareunia in female Gross hematuria History of kidney stones History of recurrent UTI (urinary tract infection) Kidney stones Smoker Stress incontinence Historical - Any problem that you are no longer receiving treatment for. Breast cancer Education Materials Hematuria, Adult Hematuria is blood in the urine. Blood may be visible in the urine, or it may be identified with a test. This condition can be caused by infections of the bladder, urethra, kidney, or prostate. Other possible causes include: ? Kidney stones. ? Cancer of the urinary tract. ? Too much calcium in the urine. ? Conditions that are passed from parent to child (inherited conditions). ? Exercise that requires a lot of energy. Infections can usually be treated with medicine, and a kidney stone usually will pass through your urine. If neither of these is the cause of your hematuria, more tests may be needed to identify the cause of your symptoms. It is very important to tell your health care provider about any blood in your urine, even if it is painless or the blood stops without treatment. Blood in the urine, when it happens and then stops and then happens again, can be a symptom of a very serious condition, including cancer. There is no pain in the initial stages of many urinary cancers. Follow these instructions at home: Medicines ? Take idfs-twu-kwqztrb and prescription medicines only as told by your health care provider. ? If you were prescribed an antibiotic medicine, take it as told by your health care provider. Do not stop taking the antibiotic even if you start to feel better. Eating and drinking ? Drink enough fluid to keep your urine clear or pale yellow. It is recommended that you drink 3?4 quarts (2.8?3.8 L) a day. If you have been diagnosed with an infection, it is recommended that you drink cranberry juice in addition to large amounts of water. ? Avoid caffeine, tea, and carbonated beverages. These tend to irritate the bladder. ? Avoid alcohol because it may irritate the prostate (men). General instructions ? If you have been diagnosed with a kidney stone, follow your health care provider's instructions about straining your urine to catch the stone. ? Empty your bladder often. Avoid holding urine for long periods of time. ? If you are female: ? After a bowel movement, wipe from front to back and use each piece of toilet paper only once. ? Empty your bladder before and after sex. ? Pay attention to any changes in your symptoms. Tell your health care provider about any changes or any new symptoms. ? It is your responsibility to get your test results. Ask your health care provider, or the department performing the test, when your results will be ready. ? Keep all follow-up visi (more content not included)... Normal [facility] Patient Educationon 01-29-20 Patient Education Urology Hematuria, Adult Hematuria is blood in the urine. Blood may be visible in the urine, or it may be identified with a test. This condition can be caused by infections of the bladder, urethra, kidney, or prostate. Other possible causes include: ? Kidney stones. ? Cancer of the urinary tract. ? Too much calcium in the urine. ? Conditions that are passed from parent to child (inherited conditions). ? Exercise that requires a lot of energy. Infections can usually be treated with medicine, and a kidney stone usually will pass through your urine. If neither of these is the cause of your hematuria, more tests may be needed to identify the cause of your symptoms. It is very important to tell your health care provider about any blood in your urine, even if it is painless or the blood stops without treatment. Blood in the urine, when it happens and then stops and then happens again, can be a symptom of a very serious condition, including cancer. There is no pain in the initial stages of many urinary cancers. Follow these instructions at home: Medicines ? Take dmjy-xzv-lamxyej and prescription medicines only as told by your health care provider. ? If you were prescribed an antibiotic medicine, take it as told by your health care provider. Do not stop taking the antibiotic even if you start to feel better. Eating and drinking ? Drink enough fluid to keep your urine clear or pale yellow. It is recommended that you drink 3?4 quarts (2.8?3.8 L) a day. If you have been diagnosed with an infection, it is recommended that you drink cranberry juice in addition to large amounts of water. ? Avoid caffeine, tea, and carbonated beverages. These tend to irritate the bladder. ? Avoid alcohol because it may irritate the prostate (men). General instructions ? If you have been diagnosed with a kidney stone, follow your health care provider's instructions about straining your urine to catch the stone. ? Empty your bladder often. Avoid holding urine for long periods of time. ? If you are female: ? After a bowel movement, wipe from front to back and use each piece of toilet paper only once. ? Empty your bladder before and after sex. ? Pay attention to any changes in your symptoms. Tell your health care provider about any changes or any new symptoms. ? It is your responsibility to get your test results. Ask your health care provider, or the department performing the test, when your results will be ready. ? Keep all follow-up visits as told by your health care provider. This is important. Contact a health care provider if: ? You develop back pain. ? You have a fever. ? You have nausea or vomiting. ? Your symptoms do not improve after 3 days. ? Your symptoms get worse. Get help right away if: ? You develop severe vomiting and are unable take medicine without vomiting. ? You develop severe pain in your back or abdomen even though you are taking medicine. ? You pass a large amount of blood in your urine. ? You pass blood clots in your urine. ? You feel very weak or like you might faint. ? You faint. Summary ? Hematuria is blood in the urine. It has many possible causes. ? It is very important that you tell your health care provider about any blood in your urine, even if it is painless or the blood stops without treatment. ? Take polw-zmk-qaunqhz and prescription medicines only as told by your health care provider. ? Drink enough fluid to keep your urine clear or pale yellow. This information is not intended to replace advice given to you by your health care provider. Make sure you discuss any questions you have with your health care provider. Document Released: 11/15/2006 Document Revised: 04/10/2020 Document Reviewed: 12/18/2017 [employer] Patient Education ? 2019 [employer]. Jaylyn Fernandes [facility] Urology Office/Clinic Noteon 01-28-2022 Urology Office/Clinic Note Chief Complaint new pt here for dyspareunia and bladder pain HPI Staff 36yr old new pt referred for dyspareunia and bladder pain. PVR-37ml Dysuria: _sometimes Incomplete bladder emptying: _denies Hematuria: _yes, have seen it occasionally Frequency: _denies Urgency: _sometimes Nocturia: _denies Stream: _steady Leaking: _yes Post void dripping: _denies Wearing pads/ Depends: _denies Urge incontinence: _denies Stress incontinence: _sometimes with coughing or sneezing Incontinence without Sensory Awareness: _denies Abdominal pain: _yes, radiates from one side to other Flank pain: _yes,right side Sexual complaints: _ History of Present Illness Tests Reviewed: Reviewed UA. I have reviewed the previous health record information and history for this patient from Annalee Mims I have reviewed and verified the staff HPI to be accurate for this encounter. There have been no associated fever, chills, flank pain, or blood in the urine. Denies any urinary infections since last encounter.t Review of Systems PHQ Score Initial Depression Screen Score: 0 ROS - Provider Constitutional: denies weight loss, denies hot flashes. Eyes: denies eye problems. Gastrointestinal: denies nausea, denies vomiting. Cardiovascular: denies chest pain or angina. Integumentary: no dryness Musculoskeletal: denies musculoskeletal symptoms. ENMT: denies otolaryngeal symptoms. Respiratory: no shortness of breath. Heme/Lymph: denies easy bleeding tendency, denies easy bruising tendency. Psychiatric: no confusion, no anxiety. Genitourinary: denies vaginal discharge, denies incontinence, denies dysuria, denies hematuria, denies urinary frequency, denies amenorrhea, denies menorrhagia, denies abnormal bleeding, denies pelvic pain, denies genital sores, and denies decreased libido. Physical Exam Vitals & Measurements HR: 61(Peripheral) BP: 117/83 HT: 168.0 cm HT: 168 cm WT: 64.0 kg WT: 64 kg BMI: 22.68 General: nontoxic, NAD Mouth: moist mucosa Lungs: normal respiratory effort Cardio: regular rate, good distal perfusion Abdomen: nondistended, no suprapubic distention or tenderness, no CVA tenderness Neurologic: Grossly normal Skin: No rashes or suspicious lesions Assessment/Plan pt referred by Dr Montaño [employer] for chronic pelvic pain. s/p hysterectomy. no change with premarin cream. next step with him is dx lap but he wanted her to rule out interstitial cystitis here first. per reports hx of questionable anatomy? patient was told during that she had a tube from bladder that was backwards and would require urologic intervention but she never followed up after that. 1. Bladder pain (R39.89: Other symptoms and signs involving the genitourinary system) intermittent. sometimes just pressure. sometimes worse with urination. 2. Stress incontinence (N39.3: Stress incontinence (female) (male)) mild intermittent with coughing or sneezing 3. History of recurrent UTI (urinary tract infection) (Z87.440: Personal history of urinary (tract) infections) Patient states that she has had an issues with recurrent uti's since she was a teenager and will still get at least 1 a year. says every time someone checks her urine it's always positive whether she has sx or not. States she calls for possible UTI if she gets pain, burning and frequency. Antibiotics are usually helpful but there are times where symptoms don't fully go away or don't change at all with abx. she has been hospitalized several times with pyelo in the past. Advised patient that in the future if she suspects a uti to call the office so we can obtain a urine sample to be sent for culture. 4. History of kidney stones (Z87.442: Personal history of urinary calculi) Patient states she has passed stones on her own a few times. has never required lithotripsy. She is having left side flank pain intermittently that will radiate to lower stomach. 5. Gross hematuria (R31.0: Gross hematuria) Patient states she does have intermittent blood. most recently a few months ago. not always with stone passage or UTI, sometimes completely asymptomatic. case discussed with DLS. will start with CT with and without contrast. may end up needing VCUG vs lasix renogram vs retrogrades for further eval. she's definitely going to need a cysto due to the hematuria and bladder pain, but we will wait and see what the imaging shows first and then decide next steps. Follow-up With When Contact Information TERI MIMS PA-C, URL [address] [place] [place] [address] Additional Instructions: scheduling cysto Patient Education Hematuria, Adult I, Cindy Ventura personally scribed for Teri Mims on 01/28/2022 14:40:22. . 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 Normal [facility] Comment on above: Result Comment: Elec tronically Signed By: TERI MIMS PA-C\.br\Date and Time Signed: 01/28/22 16:53 EST ED Provider Noteon 8 HIM IP Note OR Car Scrubber Normal [facility] XR FOOT RIGHT (MIN 3 VIEWS)o n 06-18-2018 XR FOOT RIGHT (MIN 3 VIEWS) FINAL REPORTEXAM: XR FOOT RIGHT (MIN 3 VIEWS)HISTORY: blunt trauma TECHNIQUE: 3 views of the right foot were obtained.PRIORS: None.FINDINGS: The visualized bones are well-mineralized. No acute displaced fracture or dislocation is seen. There is extensive dorsal soft tissue swelling. IMPRESSION: Impression: No fracture identified. Dorsal soft tissue swelling. Interpreted by:MANE Felizigned by:Wolf Valencia MD06/18/18inal result Normal [facility] Vital Signs Date Time Vital Sign Value Performing Clinician Marck noble 10-15-2023 13:08-0500 Body height 167.6 cm [facility] 10-15-2023 13:08-0500 Body mass index (BMI) [Ratio] 21.79 kg/m2 Shawn Watters MD Work Phone: [facility] 10-15-2023 13:08-0500 Body weight 61.24 kg Shawn Watters MD Work Phone: [facility] 10-15-2023 13:08-0500 Diastolic blood pressure 76 mm[Hg] Shawn Watters MD Work Phone: [facility] 10-15-2023 13:08-0500 Heart rate 55 /min Shawn Watters MD Work Phone: [facility] 10-15-2023 13:08-0500 Respiratory rate 16 /min Shawn Watters MD Work Phone: [facility] 10-15-2023 13:08-0500 Systolic blood pressure 126 mm[Hg] Shawn Watters MD Work Phone: [facility] 03-31-2022 16:14-0400 Blood Pressure Location Sven Hayes Jr. [facility] [place] 03-31-2022 16:14-0400 BP/Pulse Patient Position [facility] Hayes Jr[facility] 03-31-2022 16:14-0400 Diastolic blood pressure 71 mm[Hg] S[facility] Hayes Jr[facility] 03-31-2022 16:14-0400 Heart rate 63 /min Sven Hayes Jr[facility] 03-31-2022 16:14-0400 Mean blood pressure 83 mm[Hg] Sven Hayes Jr[facility] 03-31-2022 16:14-0400 Respiratory rate 16 /min Sven Hayes Jr. [facility] 03-31-2022 16:14-0400 Systolic blood pressure 107 mm[Hg] S[facility] Hayes Jr[facility] [place] 03-31-2022 16:14-0400 Body temperature 97.7 [degF] [facility] Hayes Jr[facility] [place] 03-31-2022 16:13-0400 Blood Pressure Location S[facility] Hayes Jr[facility] [place] 03-31-2022 16:13-0400 BP/Pulse Patient Position Sven Hayes Jr. [facility] [place] 03-31-2022 16:13-0400 Diastolic blood pressure 70 mm[Hg] S[facility] Hayes Jr[facility] [place] 03-31-2022 16:13-0400 Heart rate 70 /min Sven Hayes Jr. [facility] 03-31-2022 16:13-0400 Mean blood pressure 82 mm[Hg] Sven Hayes Jr. [facility] 03-31-2022 16:13-0400 SaO2% (BldA) [Mass fraction] 99 % Sven Hayes Jr. [facility] 03-31-2022 16:13-0400 Systolic blood pressure 106 mm[Hg] Sven Hayes Jr[facility] Encounters Encounter Date Encounter Type Care Provider Facility Start: 12-08-2023 Telephone encounter Mariposa domínguez CMA [facility] Start: 12-06-2023 Telephone encounter Lidia Jeter [facility] Work Phone: [facility] Comment on above: Questions Start: 10-19-2023 End: 10-19-2023 ambulatory RAE GU Not Available Start: 10-15-2023 End: 10-15-2023 Office outpatient new 45 minutes Shawn Watters MD Work Phone: [facility] Comment on above: BRCA1 gene mutation positive Start: 10-12-2023 End: 10-12-2023 ambulatory FRANSICO MARI Not Available Start: 03-09-2023 End: 03-10-2023 ambulatory FRANSICO MARI Facility:H1 Start: 12-21-2022 End: 12-21-2022 ambulatory FRANSICO MARI Facility:[facility]1 Start: 08-04-[address] RICKY OCAMPO . Faci lity:H1 Start: 06-11-2022 End: 09-20-[address] LAKSHMI BYRNES Facility:[facility]1 Start: 03-31-2022 End: 03-31-2022 Patient encounter procedure Sven Hayes Jr. [facility] Start: 03-20-2022 End: 03-20-2022 ambulatory FRANSICO MARI Facility:[facility] Start: 03-19-2022 Encounter for other preprocedural examination FRANSICO MARI [facility] Start: 03-17-2022 End: 03-18-2022 ambulatory FRANSICO MARI Facility:[facility]1 Start: 03-17-2022 End: 03-18-2022 Encounter for other preprocedural examination FRANSICO MARI Facility:[facility]1 Start: 02-17-2022 End: 02-17-2022 Off-Site TERI MIMS [facility] Start: 06-18-2018 End: 06-18-2018 Emergency department patient visit SOINYA IQRA [facility] Procedures Date Procedure Procedure Detail Performing Clinician Start: 03-10-2022 Exploration using laparoscope Sven Hayes Jr. Start: 06-18-2018 SUHA WRAP SONIYA TO BEY Start: 06-18-2018 CRUTCHES SONIYA TO BEY Start: 06-18-2018 Radex foot complete minimum 3 views SONIYA ESCALONA Endometriosis (disorder) ANNALEE MIMS Hysterectomy TERI MIMS Ligation of fallopian tube Tarah MISM Plan of Treatment Date Care Activity Detail Author Start: 11-02-2024 Adult BMI Screening Adult BMI Screen ing [facility] Start: 11-02-2024 Tobacco Screening Tobacco Screening [facility] Start: 01-01-2024 End: 01-01-2024 Patient encounter procedure 01/01/2024 1:15 PM EST Appointment Fred Cline Chak[facility] [place] - [facility] [address] [place] [id number] [facility] Cline Chakrabort[facility] - [facility] Start: 07-30-2023 Influenza vaccination Influenza Vacc ine [facility] Start: 2007 Screening for malign ant neoplasm of cervix Pap Smear [facility] Start: 2005 DTaP,Tdap and Td Vaccines (1 - Tdap) DTaP,Tdap and Td Vaccines (1 - Tdap) [facility] Start: 1998 Depression Screening Depression Scre ening [facility] Payers Date Payer Category Payer Medicaid [id number] 2022 Medicaid [place] [id number] 2022-Present [address] [place] [address] [id number] 2014 Unknown [id number] 1986 Unknown [id number] 1986 Unknown [id number] 1986 Unknown [id number] 1986 Unknown [id number] 1986 Unknown [id number] 1986 Unknown [id number] 1986 Unknown [id number] 1986 Unknown [id number] 1959 Self-pay 1959 Unknown [id number] Social History Date Type Detail Facility Start: 01-28-2022 Tobacco smoking status Light t obacco smoker (finding) [facility] [employer] Tobacco smoking status Smoker (finding) [facility] [employer] Start: 05-08-2019 End: 11-02-2023 Sex Assigned At Female [facility] [employer] Start: 10-04-2023 Tobacco smoking stat [facility] Never smoked tobacco [facility] Start: 10-04-2023 Tobacco use and exposure Smoke less tobacco non-user [facility] Start: 10-15-2023 End: 11-02-2023 Alcohol intake Ex-drinker (finding) [facility] Start: 05-08-2019 End: 11-02-2023 History of Social function [facility] Housing Instability Unknown [facility] Start: 1986 Sex Assigned At Not on file P [facility] Clinical Notes 02-17-2022 to 12-08-2023 Telephone Encounter - [facility] - 12/08/2023 10:45 AM ESTTelephone Encounter - [facility] - 12/08/2023 10:45 AM Woody Watters MD - 10/15/2023 1:00 PM EST Note Date & Type Note Facility 12-08-2023 Miscellaneous Notes Formattin g of this note might be different from the original. Patient called 12/07/2023 requesting a call back regarding surgery scheduling. Staff from office called today stating patient told them she has reach out to our office and office multiple times with no response. Spoke with substance addiction coordinator from both offices patient needs appointment with Dr. Watters and will be contacted to schedule. documented in this encounter [facility] 12-08-2023 Telephone encount er Note Patient called 12/07/2023 requesting a call back regarding surgery scheduling. Staff from office called today stating patient told them she has reach out to our office and office multiple times with no response. Spoke with substance addiction coordinator from both offices patient needs appointment with Dr. Watters and will be contacted to schedule. [facility] 12-06-2023 Miscellaneous Notes Formattin g of this note might be different from the original. Yue called with questions about her mother's recent scans and overall treatment plan. I encouraged her to reach out to Dr. Valdovinos's office for that information given that that is not something our office discusses. Encouraged to call back at any time with questions or anything else I could help with. documented in this encounter [facility] 12-06-2023 Telephone encount er Note Yue called with questions about her mother's recent scans and overall treatment plan. I encouraged her to reach out to Dr. Valdovinos's office for that information given that that is not something our office discusses. Encouraged to call back at any time with questions or anything else I could help with. [facility] 10-15-2023 History of Presen t illness Narrative Plastic & Reconstructive Surgery MD Shawn Rich MD Tara Geha, PA-C Erin Orzechowski, TILE FITTER [address] [address] Office [phone] BREAST RECONSTRUCTION CONSULTATION Reason for visit : Chief Complaint Patient presents with New Patient History of present illness: Yue HERNANDEZ 37 y.o. is here today to discuss breast reconstruction. She has been referred by Teri Vasquez. Patient is BRCA1+. Patient is here to discuss reconstruction. Patient desires bilateral mastectomy with reconstruction. Has a history of bilateral pre pectoral saline implants placed by Dr. Lainez in 2012. She currently wears a size 34 D. Desires C cup size. She has not had a history of previous breast cancer. She has had previous breast surgery. (Bilateral implants placed 2012) Patient has not had a history of previous radiation to breast(s). Family history is positive for breast disease and breast cancer. (Maternal grandmother) She has children. She did breastfeed. Past Medical History: History reviewed. No pertinent past medical history. Past Surgical History: Past Surgical History: Procedure Laterality Date BREAST SURGERY augmentation 2012 saline implants HYSTERECTOMY ovaries retained TUBAL LIGATION Allergies: No Known Allergies Social History: Social History Socioeconomic History Marital status: Spouse name: Not on file Number of children: Not on file Years of education: Not on file Highest education level: Not on file Occupational History Not on file Tobacco Use Smoking status: Never Smokeless tobacco: Never Vaping Use Vaping Use: Every day Substances: Nicotine Substance and Sexual Activity Alcohol use: Not Currently Drug use: Never Sexual activity: Yes Partners: Male Other Topics Concern Not on file Social History Narrative Not on file Social Determinants of Health Financial Resource Strain: Not on file Transportation Needs: Not on file Physical Activity: Not on file Stress: Not on file Social Connections: Not on file Interpersonal Safety: Not on file Family History: Family History Problem Relation Age of Onset Ovarian cancer Mother 67 BRCA 1/2 Mother BRCA1 mutation [id number] Breast cancer Maternal Grandmother 60 Current Medications: Current Outpatient Medications: tiZANidine (ZANAFLEX) 4 mg tablet, , Disp: , Rfl: Review of Systems: Review of Systems HENT: Negative. Respiratory: Negative. Cardiovascular: Negative. Musculoskeletal: Negative. Skin: Negative. Hematological: Negative. Psychiatric/Behavioral: Negative. Physical Exam: Vital Signs: Vitals: 10/15/23 1308 BP: 126/76 Pulse: 55 Resp: 16 Weight: 61.2 kg (135 lb) Height: 167.6 cm (5' 6 ) BMI: Body mass index is 21.79 kg/m . Body habitus normal. General appearance - alert, well appearing, and in no distress Mental status - alert, oriented to person, place, and time Eyes - sclera anicteric Neck - supple Chest - non-labored breathing Heart - regular rate Abdomen - soft, nontender, nondistended. Abdominal donor site for POONAM free flap is adequate. Minimum diastasis. No hernias present. 40% Extremities - no lower leg edema; no ulcers. Thighs as donor site for free flap are adequate. Vascular- peripheral pulses intact. Focused examination: Breasts: Medium in size bilaterally, similar. No Ptosis Contour normal bilaterally. Nipple areolar complex is normal sized. Skin exam shows skin to be intact.. Parenchymal palpation normal bilaterally. Nipple sensation is intact to light touch. Axillary fullness is mild. IMF incisions well healed. Implants 50% breast volume. Animation deformity. Intertriginous rash in inframammary folds absent. Shoulder grooves are not present. MEASUREMENTS: Left Right Base width: 12.5 cm Sternal Notch to Nipple: 23 24 IMF to Nipple: 11 9.5 Nipple to Nipple 20 Nipple-areolar diameter 3.5 3 Female av specialist present: yes. Impression : 1. BRCA1 gene mutation positive Plan: We had a lengthy discussion today about available options in breast reconstruction. We discussed the different modalities of reconstruction, including with implants, with autologous tissue, and combined. We also covered timing of reconstruction, including delayed, immediate, and immediate staged. We discussed the most common operations performed for breast reconstruction, with emphasis on those that may be indicated in her case. She understands biggest risks of surgery include bleeding, infection, damage to surrounding structures, nipple loss (if nipple sparing mastectomy performed), hematoma, seroma, aesthetic dissatisfaction, need for further surgery, implant failure , capsular contracture, asymmetry, delayed healing, altered sensation, and postoperative pain. We encouraged her to allocate plenty of time to reflect on the matter before making a final informed decision about breast reconstruction. We answered all of her questions. She will return to clinic at least one more time prior to surgery, so we can address any questions she might have, review her reconstruction choices, and discuss the details of the devised surgical plan. Discussed multiple reconstruction options including immediate reconstruction with direct to implant vs direct to POONAM. We discussed that she would have smaller breast if she proceeds with POONAM. We can augment her POONAM free flaps at a later surgery. If she proceeds with implant based reconstruction she will have visible and palpable rippling of her implants. Discussed she needs to be nicotine free prior to her procedures. Referral to Dr. Ríos placed to discuss mastectomy. We will see her back once surgery is scheduled to answer any questions and review surgical plan and postoperative course. She was encouraged to call with any questions or concerns. - Anita Vera, INSTALLATION COORDINATOR-TILE FITTER 10/15/23 2:23 PM I, Shawn Watters MD, personally performed the face to face evaluation on this patient. I discussed with the patient and confirmed the accuracy and completeness of the aforementioned history, and I personally performed the clinical examination of the patient. . I have established and discussed the course of treatment with the patient and . My medical decision making and treatment plan are as follows: . SHAWN WATTERS MD Total time spent was 50 minutes: Preparing to see the patient (e.g., review of tests) Obtaining and/or reviewing separately obtained history Performing a medically appropriate examination and/or evaluation Counseling and educating the patient/family/caregiver Ordering medications, tests, or procedures Referring and communicating with other health healthcare facility administrator (not separately reported) Documenting clinical information in the electronic or other health record Independently interpreting results (not separately reported) and communicating results to the patient/family/caregiver Care coordination (not separately reported) Please note that portions of this note were generated using voice recognition [employer] dictation software. Although every effort was made to ensure the accuracy of this automated hurricane tracker, some errors in hurricane tracker may have occurred. 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 PREOPERATIVE DIAGNOSIS: Pelvic pain. POSTOPERATIVE DIAGNOSIS: Pelvic pain. ANESTHESIA: General. SURGEON: Fransico Montaño D.O. RESIDENT ATHLETIC TRAINER: BARAK Rodríguez URINE OUTPUT: Yellow and clear. BLOOD LOSS: 5 mL. FINDINGS: Absent uterus and tubes. Normal appearing ovaries. Adhesions of the bowel to the vaginal cuff. PROCEDURE: The patient was taken back to the Operating Room where she was placed in dorsal lithotomy position after given general anesthesia. The patient was prepped and draped in normal sterile fashion. A sponge stick was placed into the patient's vagina. Attention was turned to the patient's abdomen, where a small umbilical incision was made. The fascia was tented using Neto clamps and the fascia was entered sharply. Confirmation of intraabdominal placement of the 10 mm port was confirmed under direct visualization using a laparoscope. The patient's abdomen was then insufflated using CO2 gas with approximately 4 liters. A second port was placed lt laterally, this was done under direct visualization with a 5 mm port. Survey of the patient's abdomen demonstrated normal liver and gallbladder. Survey of the patient's pelvic anatomy demonstrated normal appearing ovaries and absent tubes and uterus. No endometrial implants could be noted, no evidence of any pelvic disease was seen, normal appearing pelvic cavity. Bowel adhered to vaginal cuff and was taken down using blunt and sharp dissection. All instruments were removed from the patient's abdomen. The patient's abdomen was insufflated using CO2 gas. The patient tolerated the procedure well. Sponge stick was removed from the patient's vagina. The patient's infraumbilical fascia was closed using #0 Vicryl on a GI needle. The patient's skin was closed suprapubically and infraumbilically using 4-0 Vicryl. The patient tolerated the procedure well. Sponge, lap and needle counts were correct x 2. The patient taken to Recovery Room in stable condition. Electronically Authenticated and Edited by: Fransico Montaño DO on 03/29/2022 07:51 PM EDT IFC Signed and Approved by: DR FRANSICO MONTAÑO . 03/29/2022 19:51:00 [facility] 03-13-2022 Note [id number]:[id number] [facility] 02-17-2022 Hospital Discharg e instructions Patient Education 02/17/2022 14:30:48 Abdominal Pain, Adult Abdominal Pain, Adult Pain in the abdomen (abdominal pain) can be caused by many things. Often, abdominal pain is not serious and it gets better with no treatment or by being treated at home. However, sometimes abdominal pain is serious. Your health care provider will ask questions about your medical history and do a physical exam to try to determine the cause of your abdominal pain. Follow these instructions at home: Medicines Take sjus-qmx-dtdlrni and prescription medicines only as told by your health care provider. Do not take a laxative unless told by your health care provider. General instructions Watch your condition for any changes. Drink enough fluid to keep your urine pale yellow. Keep all follow-up visits as told by your health care provider. This is important. Contact a health care provider if: Your abdominal pain changes or gets worse. You are not hungry or you lose weight without trying. You are constipated or have diarrhea for more than 2 3 days. You have pain when you urinate or have a bowel movement. Your abdominal pain wakes you up at night. Your pain gets worse with meals, after eating, or with certain foods. You are vomiting and cannot keep anything down. You have a fever. You have blood in your urine. Get help right away if: Your pain does not go away as soon as your health care provider told you to expect. You cannot stop vomiting. Your pain is only in areas of the abdomen, such as the right side or the left lower portion of the abdomen. Pain on the right side could be caused by appendicitis. You have bloody or black stools, or stools that look like tar. You have severe pain, cramping, or bloating in your abdomen. You have signs of dehydration, such as: ?Dark urine, very little urine, or no urine. ?Cracked lips. ?Dry mouth. ?Sunken eyes. ?Sleepiness. ?Weakness. You have trouble breathing or chest pain. Summary Often, abdominal pain is not serious and it gets better with no treatment or by being treated at home. However, sometimes abdominal pain is serious. Watch your condition for any changes. Take sfxi-ipo-uvsxoku and prescription medicines only as told by your health care provider. Contact a health care provider if your abdominal pain changes or gets worse. Get help right away if you have severe pain, cramping, or bloating in your abdomen. This information is not intended to replace advice given to you by your health care provider. Make sure you discuss any questions you have with your health care provider. Document Released: 08/25/2006 Document Revised: 03/25/2020 Document Reviewed: 03/25/2020 [employer] Patient Education 2020 [employer]. 02/17/2022 14:07:31 Hematuria, Adult Hematuria, Adult Hematuria is blood in the urine. Blood may be visible in the urine, or it may be identified with a test. This condition can be caused by infections of the bladder, urethra, kidney, or prostate. Other possible causes include: Kidney stones. Cancer of the urinary tract. Too much calcium in the urine. Conditions that are passed from parent to child (inherited conditions). Exercise that requires a lot of energy. Infections can usually be treated with medicine, and a kidney stone usually will pass through your urine. If neither of these is the cause of your hematuria, more tests may be needed to identify the cause of your symptoms. It is very important to tell your health care provider about any blood in your urine, even if it is painless or the blood stops without treatment. Blood in the urine, when it happens and then stops and then happens again, can be a symptom of a very serious condition, including cancer. There is no pain in the initial stages of many urinary cancers. Follow these instructions at home: Medicines Take mlzk-xxj-njglyuj and prescription medicines only as told by your health care provider. If you were prescribed an antibiotic medicine, take it as told by your health care provider. Do not stop taking the antibiotic even if you start to feel better. Eating and drinking Drink enough fluid to keep your urine clear or pale yellow. It is recommended that you drink 3 4 quarts (2.8 3.8 L) a day. If you have been diagnosed with an infection, it is recommended that you drink cranberry juice in addition to large amounts of water. Avoid caffeine, tea, and carbonated beverages. These tend to irritate the bladder. Avoid alcohol because it may irritate the prostate (men). General instructions If you have been diagnosed with a kidney stone, follow your health care provider's instructions about straining your urine to catch the stone. Empty your bladder often. Avoid holding urine for long periods of time. If you are female: ?After a bowel movement, wipe from front to back and use each piece of toilet paper only once. ?Empty your bladder before and after sex. Pay attention to any changes in your symptoms. Tell your health care provider about any changes or any new symptoms. It is your responsibility to get your test results. Ask your health care provider, or the department performing the test, when your results will be ready. Keep all follow-up visits as told by your health care provider. This is important. Contact a health care provider if: You develop back pain. You have a fever. You have nausea or vomiting. Your symptoms do not improve after 3 days. Your symptoms get worse. Get help right away if: You develop severe vomiting and are unable take medicine without vomiting. You develop severe pain in your back or abdomen even though you are taking medicine. You pass a large amount of blood in your urine. You pass blood clots in your urine. You feel very weak or like you might faint. You faint. Summary Hematuria is blood in the urine. It has many possible causes. It is very important that you tell your health care provider about any blood in your urine, even if it is painless or the blood stops without treatment. Take zmef-mlh-kuvcjiu and prescription medicines only as told by your health care provider. Drink enough fluid to keep your urine clear or pale yellow. This information is not intended to replace advice given to you by your health care provider. Make sure you discuss any questions you have with your health care provider. Document Released: 11/15/2006 Document Revised: 04/10/2020 Document Reviewed: 12/18/2017 [employer] Patient Education 2020 [employer] Follow Up Care 02/16/2022 16:02:41 With:cysto, retrogrades, UD w DLS Address:Unknown When: Unknown With:TERI MIMS PA-C, URL Address: [address] [place] [address] Business (1) When: Unknown [facility] [place] Evaluation + Plan note No data available for this section [facility] [place] Evaluation + Plan note Future Appointments Appointment Date:04/02/2022 11:00:00 AM Scheduled Provider: Location:[facility] Appointment Type:Surgery FT [facility] Evaluation note Diagnosis BRCA1 gene mutation positive [facility] No data available for this section [facility]ructionsNot on filedocumented in this encounter [facility]ructionsNot on filedocumented in this encounter [facility]InstructionsNot on filedocumented in this encounter [facility] HospitalReason for referral (narrative)* Consultation (Routine) - Pending Review Specialty Diagnoses / Procedures Referred By Aster domínguez Referred To Contact Breast Surgery Diagnoses BRCA1 gene mutation positive Anita Vera APRN-CNP [address] [facility] [address] [place] [address] Lulu Ríos [place] [address] [place] [address] [address] [place] [address] Referral ID Status Reason Start Date Expiration Date V isits Requested Visits Authorized [id number] Pending Review 10/15/2023 10/14/[address] [facility] Summary Purpose Family History No Family History Records FoundNo Family History Records FoundNo Family History Records FoundNo Family History Records Found Advance Directives No Advanced Directives Records FoundNo Advanced Directives Records FoundNo Advanced Directives Records FoundNo Advanced Directives Records Found Additional Source Comments INFORMATION SOURCE (unrecogn ized section and content) DATE CREATED AUTHOR 06/20/2018 [facility] DATE CREATED AUTHOR AUTHOR'S ORGANIZ ATION 04/17/2022 [facility] DATE CREATED AUTHOR AUTHOR'S ORGANIZ ATION 03/15/2023 [facility] DATE CREATED AUTHOR AUTHOR'S ORGANIZ ATION 10/21/2023 [facility] EPIC Reason for Visit (unrecogniz ed section and content) Reason Onset Date Comments Questions 12/06/2023 Reason Comments New Patient Specialty Diagnoses / Procedures Referred By Contact Referred To Contact Plastic & Reconstructive Surgery Diagnoses BRCA1 gene mutation positive Teri Vasquez APRN-CNP [address] Provider left practice 11/17/2023 [place] [address] Shawn Watters MD [address] [place] [address] Referral ID Status Reason Start Date Expiration Date Visits Requested Visits Authorized [id number] Pending Review Specialty Services Required 10/05/2023 10/04/2024 1 1 Care Teams (unrecognized sec tion and content) [employer] Crewmember Relationship Specialty Start Date End Date Subha Gutierrez APRN-CNP [address] [place] [address] PCP - General Family Medicine 10/04/23 [employer]member Relationship Specialty Start Date End Date Subha Gutierrez APRN-CNP [address] [place] [address] PCP - General Family Medicine 10/04/23 [employer] Crewmember Relationship Specialty Start Date End Date Subha Gutierrez APRN-CNP [address] [place] [address] PCP - General Family Medicine 10/04/23 FOR RECORDS PERTAINING TO PATIENTS WHO ARE OR HAVE BEEN ENROLLED IN A CHEMICAL DEPENDENCY/SUBSTANCEABUSE PROGRAM, SOME INFORMATION MAY BE OMITTED. This clinical summary was aggregated from multiple sources. Caution should be exercised in using it in the provision of clinical care. This summary normalizes information from multiple sources, and as a consequence, information in this document may materially change the coding, format and clinical context of patient data. In addition, data may be omitted in some cases. CLINICAL DECISIONS SHOULD BE BASED ON THE PRIMARY CLINICAL RECORDS. [facility] provides no warranty or guarantee of the accuracy or completeness of information in this document.
[2023-12-11 04:09] LABS: Cancer Antigen (CA) 125 24.1 U/mL (0.0-38.1)
== END 2023-12-10 13:41 | disposition home or self-care (01) ==
LOC: US 13:40
PROVIDERS: PCP Internal Medicine Hematology & Oncology; Visit Provider Obstetrics & Gynecology
DX: Z80.41 Family history of malignant neoplasm of ovary (principal)
CPT/HCPCS: 36415; 76830; 86304

== ENCOUNTER 2023-12-23 15:38 | Outpatient (OUT) | payer BC, SELFPAY ==
--- OUTSIDE RECORDS SUMMARY | 2023-12-23 15:43 | XMS_ITS | CCD ---
Author Name Unknown Address [address] [place] [address] Organization [facility] Care Team Providers Care Features Editor Name Role Phone SONIYA ESCALONA Unavailable Unavailable SUBHA GUTIERREZ Primary Care Physician [phone] MARI, FRANSICO Admitting Unavailable MARI, FRANSICO Attending [...] Attending Unavailable SUBHA GUTIERREZ Primary Care Unavailable FITZ, DR LAKSHMI Lima Consult[employer] Unavailable TERRENCE ., DR RICKY Jaimes Admitting Unavailable TERRENCE ., DR RICKY Jaimes Attending Unavailable MARI, FRANSICO Referring Unavailable SUBHA GUTIERREZ Primary Care Unavailable MARI, FRANSICO Admitting Unavailable MARI, FRANSICO Attending Unavailable MATT SUBHA Primary Care Unavailable MARI, FRANSCIO Attending Unavailable RAE GU Attending Unavailable Matt SANDWICH MACHINE OPERATORSubha ARMENDARIZ Primary Care Provider Medications Current Medications Medication [...] T3, Serum 23.0 ng/dL Normal 9.2-24.1 [facility] Comment on above: Result Comment: This test was developed and its performance characteristics determined by [employer]. It has not been cleared or approved by the Food and Drug Administration. Performed By: #### C PEPT #### [facility] [address] [place] [address] Dr. Gale Qiu SEROTONINon 03-12-2023 Serotonin, Serum 146 ng/mL Normal 31-207 [facility] Comment on above: Performed By: #### T HYGIMA #### [facility] [address] [place] [address] Dr. Gale Qiu ESTRONEon 03-11-2023 Estrone, Serum 50 pg/mL Normal 27-231 [facility] Comment on above: Result Comment: Rang e Adult (Premenopausal) 27 - 231 Menstrual Cycle (1-10 days) 19 - 149 Menstrual Cycle (11-20 days) 32 - 176 Menstrual Cycle (21-30 days) 37 - 200 Performed By: #### E STRONE #### [facility] [address] [place] [address] Dr. Gale Qiu TESTOSTERONE, FREE,DIRECT, T OTALon 03-11-2023 Free Testosterone(Direct) 0.5 pg/mL Normal 0.0-4.2 [facility] Comment on above: Result Comment: Perf ormed at: BN Performed By: #### C PEPT #### [facility] [address] [place] [address] Dr. Gale Qiu Testosterone [Mass/Vol] 5 ng/dL Critically low 8-60 [facility] Comment on above: Result Comment: Perf ormed at: CB Performed By: #### C PEPT #### [facility] [address] [place] [address] Dr. Gale Qiu C-PEPTIDE, SERUMon C-Peptide, Serum 1.9 ng/mL Normal 1.1-4.4 [facility] Comment on above: Result Comment: C-Pe ptide reference interval is for fasting patients. Performed By: #### C PEPT #### [facility] [address] [place] [address] Dr. Gale Qiu DHEA-SULFATEon 03-10-2023 DHEA-Sulfate 93.5 ug/dL Normal 57.3-279.2 [facility] Comment on above: Performed By: #### T HYGIMA #### [facility] [address] [place] [address] Dr. Gale Qiu ESTRADIOLon 03-10-2023 Estradiol 273.0 pg/mL Normal [facility] Comment on above: Result Comment: Adul t Female: Follicular phase 12.5 - 166.0 Ovulation phase 85.8 - 498.0 Luteal phase 43.8 - 211.0 Postmenopausal <6.0 - 54.7 1st trimester 215.0 - >4300.0 [employer] ECLIA methodology Performed By: #### C PEPT #### [facility] [address] [place] [address] Dr. Gale Qiu INSULINon 03-10-2023 Insulin 7.7 uIU/mL Normal 2.6-24.9 [facility] Comment on above: Performed By: #### I NSULIN #### [facility] [address] [place] [address] Dr. Gale Qiu SEX HORMONE-BINDING GLOBULIN on 03-10-2023 Sex Horm Binding Glob, Serum 62.1 nmol/L Normal 24.6-122.0 [facility] Comment on above: Performed By: #### T HYGIMA #### [facility] [address] [place] [address] Dr. Gale Qiu T3, TOTAL (TRIIODOTHYRONINE) on 03-10-2023 T3, TOTAL 113 ng/dL Normal 71-180 [facility] Comment on above: Performed By: #### T HYGIMA #### [facility] [address] [place] [address] Dr. Gale Qiu THYROGLOBULIN AB AND THYROGL OBULINon 03-10-2023 Thyroglobulin Antibody <1.0 Normal 0.0-0.9 [facility] Comment on above: Result Comment: Thyr oglobulin Antibody measured by [employer] Methodology Performed By: #### T HYGIMA #### [facility] [address] [place] [address] Dr. Gale Qiu Thyroglobulin by LUZ 61.6 ng/mL Critically high 1.5-38.5 [facility] Comment on above: Result Comment: Acco [...] Assay Performed By: #### T HYGIMA #### [facility] [address] [place] [address] Dr. Gale Qiu THYROID PEROXIDASE ABon 02-27 Thyroid Peroxidase (TPO) Ab <9 Normal 0-34 [facility] Comment on above: Performed By: #### T HYGIMA #### [facility] [address] [place] [address] Dr. Gale Qiu VIT D 1 25 DIHYDROXYon 03-10 Calcitriol(1,25 di-OH Vit D) 34.5 pg/mL Normal 24.8-81.5 [facility] Comment on above: Performed By: #### V [id number] #### [facility] [address] [place] [address] Dr. Gale Qiu FERRITINon 03-09-2023 Ferritin [Mass/Vol] 57.0 ng/mL Normal 6.2-137.0 [facility] Comment on above: Performed By: #### T HYGIMA #### [facility] [address] [place] [address] Dr. Gale Qiu FREE T3on 03-09-2023 FREE T3 2.75 pg/mlL Normal 2.18-3.98 [facility] Comment on above: Performed By: #### G PATTY, FT3, T4, TSH #### [facility] [address] [place] [address] Dr. Gale Qiu FREE T4on 03-09-2023 Free T4 [Mass/Vol] 0.92 ng/dL Normal 0.76-1.46 [facility] Comment on above: Performed By: #### T HYGIMA #### [facility] [address] [place] [address] Dr. Gale Qiu GLUCOSE BLOODon 03-09-2023 Glucose [Mass/Vol] 94 mg/dL Normal 74-106 [facility] Comment on above: Performed By: #### G PATTY, FT3, T4, TSH #### [facility] [address] [place] [address] Dr. Gale Qiu GLYCOHEMOGLOBIN A1Con 2022 ADA RECOMMENDATION SEE BELOW Normal [facility] Comment on above: Result Comment: ADA RECOMMENDED LIMIT 4.0 - 6.0 ADA THERAPEUTIC TARGET < 7.0 ACTION SUGGESTED > 7.0 Performed By: #### T HYGIMA #### [facility] [address] [place] [address] Dr. Gale Qiu Glucose [Mass/Vol] 105 mg/dL Normal [facility] Comment on above: Performed By: #### T HYGIMA #### [facility] [address] [place] [address] Dr. Gale Qiu HbA1c (Bld) [Mass fraction] 5.3 % Normal 4.5-6.2 [facility] Comment on above: Performed By: #### T HYGIMA #### [facility] [address] [place] [address] Dr. Gale Qiu T4on 03-09-2023 T4 [Mass/Vol] 9.20 ug/dL Normal 4.80-13.90 [facility] Comment on above: Performed By: #### G PATTY, FT3, T4, TSH #### [facility] [address] [place] [address] Dr. Gale Qiu TSHon 03-09-2023 TSH 1.236 uIU/mL Normal 0.358-3.740 [facility] Comment on above: Performed By: #### G PATTY, FT3, T4, TSH #### [facility] [address] [place] [address] Dr. Gale Qiu PAP ACOG PANEL 2: 30 to 65on 12-28-2022 . . Normal [facility] Comment on above: Result Comment: Perf ormed at: WB Performed By: #### 4 [id number] #### [facility] [address] [place] [address] Dr. Gale Qiu Age Gdln ACOG Testing 30-65 Normal [facility] Comment on above: Performed By: #### [id number] #### [facility] [address] [address] [address] Gale Qiu DIAGNOSIS: Comment Normal [facility] Comment on above: Result Comment: NEGA TIVE FOR INTRAEPITHELIAL LESION OR MALIGNANCY. FUNGAL ORGANISMS MORPHOLOGICALLY CONSISTENT WITH EDGARD SPECIES ARE PRESENT. THIS SPECIMEN WAS RESCREENED PART OF OUR COUNTER CASER PROGRAM. Performed at: WB Performed By: #### 4 [id number] #### [facility] [address] [address] [address] Gale Qiu HPV Aptima QNSPAP [facility] Comment on above: Result Comment: Test not performed. Liquid based PAP vial contained insufficient specimen for molecular testing; likely a consequence of insufficient cellularity in original collection. This nucleic acid amplification test detects fourteen high-risk HPV types (16,18,31,33,35,39,45,51,52,56,58,59,66,68) without differentiation. Performed at: =G Performed By: #### 4 [id number] #### [facility] [address] [address] [address] Gale Qiu HPV Genotype Reflex Comment Normal [facility] Comment on above: Result Comment: Crit eria not met, HPV Genotype not performed. Performed at: WB Performed By: #### 4 [id number] #### [facility] [address] [place] [address] Dr. Gale Qiu Methodology: Comment Normal [facility] Comment on above: Result Comment: This liquid based ThinPrep(R) pap test was screened with the use of an image guided system. Performed at: WB Performed By: #### 4 [id number] #### [facility] [address] [place] [address] Dr. Gale Qiu Note: Comment Normal [facility] Comment on above: Result Comment: The Pap smear is a screening test designed to aid in the detection of premalignant and malignant conditions of the uterine cervix. It is not a diagnostic procedure and should not be used as the sole means of detecting cervical cancer. Both false-positive and false-negative reports do occur. . Performed at: WB Performed By: #### 4 [id number] #### [facility] [address] [address] [address] Gale Qiu Performed by: Comment Normal [facility] Comment on above: Result Comment: Marina Hernandes, Crane Ladle Person (ASCP) Performed at: WB Performed By: #### 4 [id number] #### [facility] [address] [address] [address] Gale Qiu QC reviewed by: Comment Normal [facility] Comment on above: Result Comment: Brenda Redd, Supervisory Crane Ladle Person (ASCP) Performed at: WB Performed By: #### 4 [id number] #### [facility] [address] [place] [address] Dr. Gale Qiu Specimen adequacy: Comment Normal [facility] Comment on above: Result Comment: Sati sfactory for evaluation. No endocervical component is identified. Performed at: WB Performed By: #### 4 [id number] #### [facility] [address] [place] [address] Dr. Gale Qiu Progress Note-Physicianon Progress Note-Physician [...] History of kidney stones / SNOMED CT 1334307993 / Confirmed Migraines / SNOMED CT 98512704 / Confirmed Smoker / SNOMED CT 608537082 / Confirmed Added secondary to documentation in Social History. Resolved: Breast cancer / SNOMED CT 665923107 Resolved: Gross hematuria / SNOMED CT 170919957 Resolved: Hx of migraines / SNOMED CT 956520701 Resolved: History of recurrent UTI (urinary tract infection) / SNOMED CT 9336847018 Resolved: Kidney stones / SNOMED CT 451330607 Resolved: Dyspareunia in female / SNOMED CT 037463996 Canceled: Bladder pain / SNOMED CT 92440066 Canceled: Flank pain / SNOMED CT 543129909 Canceled: Stress incontinence / SNOMED CT 752382337 Histories Past Medical History: Resolved Dyspareunia in female (378473133): Resolved. Breast cancer (043445433): Resolved. Kidney stones (935375348): Resolved. History of recurrent UTI (urinary tract infection) (1085486417): Resolved. Gross hematuria (708653303): Resolved. Family History: Cancer Brother Osteoarthritis Mother Father Procedure history: Exploration using laparoscope cleaned out adhesions (2575145306) on 03/10/2022 at 36 Years. Tubal ligation (148278199). Hysterectomy (120991988). Endometriosis (2545782174). Social History Social & Psychosocial Habits Alcohol [...] results Radiology results ECG interpretation Condition Plan [place] [employer] (ASA) physical status classification: Class II. Anesthetic Preoperative Plan Anesthesia: General. . Anesthetic plan, risks, benefits, and alternatives discussed with the patient and/or family. Risks discussed: nausea, vomiting, headache, sore throat, dental injury, serious complications. Patient verbalized understanding. Communication: face to face with (patient 5 minutes, Pt educated on the importance of smoking cessation.). Normal [facility] Comment on above: Result Comment: Elec tronically [...] History of kidney stones / SNOMED CT 2601308668 / Confirmed Migraines / SNOMED CT 44325601 / Confirmed Smoker / SNOMED CT 615666792 / Confirmed Added secondary to documentation in Social History. Resolved: Breast cancer / SNOMED CT 934318005 Resolved: Gross hematuria / SNOMED CT 934654531 Resolved: Hx of migraines / SNOMED CT 096143398 Resolved: History of recurrent UTI (urinary tract infection) / SNOMED CT 5631202925 Resolved: Kidney stones / SNOMED CT 588648512 Resolved: Dyspareunia in female / SNOMED CT 817737851 Canceled: Bladder pain / SNOMED CT 31151437 Canceled: Flank pain / SNOMED CT 941310268 Canceled: Stress incontinence / SNOMED CT 749150377 Physical Examination Vital Signs 04/02/2022 12:00 EDT [...] Score 7 (more content not included)... Normal [facility] Comment on above: Result Comment: Elec tronically Signed By: Jono Sevilla DO, Abhijit A\.br\Date and Time Signed: 04/14/22 08:56 EDT Coding Summary.on 04-07-2022 Coding Summary. [id number] G h0bWw+PGhlYWQ+CQ8CUBY uH41fvUYhaK3FE3mCIL5M VCAGROBQCR7DSX1olOZ7M DjgZ4LismPo KeoptNOsOI61JNt4OXH2e GoqXQmhbY7gfZLvQ1q5Pj MrYA23bQ44NRmzVNYpNoF 3LjZpbjsgbWFy K0vjIzWdyYSrWdb+PHRhY mxlIHdpZHRoPScxMDAlJy HvkKbaCV8qJo5oMEVdBZR vbGxhcHNlOiBj r8asBTCnXXwwLG9clPpwF 3OrnPE3BRAke0a1Jm38aY I+JGOjENJ0sGgaNVbsl56 1JaKeh8ybQCD7 xHYjIVsmVAS9Y48ej9R8P UCqPJPcAYS9dES7sN7gnB rkxlcoQ6EtaJUrXiL2UPJ 6vJNmhZ1kjPhz augoaF6mJif+H45HLE9RX OIMLU5LMnb8U3ZwKdkdeH I+KN20JGIcAH88pKFomCS ou1kstPs5JsFp FAGaDCH8iPaaWJvgd7YlR WCcD02kcUZmo1X7MHQfhE sgsNPoInPvdLO3jI4fDDz zdfmdk4afuebu Ijbcv4yfyd74zK07P75eC MtvCPMvLKX6AWUvBAKsoF nbhn9lmG9nWs7+KMzyw1a mh1bmxKa2SbLp YHOcjiZdmDnaWWK2t5QiE s62T4EysLjbi8SbFwo8et 21tNIkd6Q7bPZ7HVrsKHM jxW4pJZsgJsP6 WBJqFwMkgG82oUXdBOljP z6kvEzfrCgfPF1bUIZvkh cdQEJjnO8cPRRytUHbrQn pGQ0gUDWoqtkq e114MoJdIGT1NVCzmWOqI 7YntS1sKxNkTOFcEIGzI0 OvkCUmZQnjC403YTvfDqR 5KQBzfhRgF2Cv PRCxyVziYaB4j5B3Qh6Nv 6AcmcwxNON2DFkhHIE0Gi YyDmDrRpL8X2FoEsi7TCQ bhTtsXI4vP4Na ISEkmsexydhtrDF4FMMeD XBdkF30ySMxZDkcSt6tw7 I2q504DEFtHXZhlD50Uk7 udDogMTBwdCBU gZ4exznmc5dltqqpWqOeX VJfERn1LHv6TDQquVgwKy OfFMV0UcR5GPC3yRXzkN0 ikGaputdocQ8s Oyc+L50ucV9yULD4ZOS8c lnmGOHyfgMbLC83WT66V0 RyPjwvdGFibGU+PGRpdiB ysEmxMY9aYoFv x4srl8MkNPlvU6NtMAJnJ KddWts5LMKdNWZ2pQM6yS 0xRTVzGEmls9V2yZU1C6M duiErbk1oy6mp GAFeFYieY06zaASxv6A1U CCzxYB9NUFewCvnApGvkK 93Oyc+TPPtcTvsu5TqRrj ma3nlx2etkKh4 TwAfOXAjyhHchYbuXSD5m 1QlVq99D08bQOeyJDGkUI MhGUAfMWHguJizor5ouJ4 wIi8+PGNvbCB3 zOU4lR9zMIGjMeQ6UUkcT 567SkErvBUrFjjaw2fij3 nthCv9NbPrIXNrasBblZd qUVA5z6MvPh36 I07fABjlQEPrDHJrLCPpZ KUfhOdgks1bsP6nAh6+PC 7vb5sjug84lI92mAK+PHR vTAD3nWhcUHxn JXOziR3eMFbqNpZ9RWJaH oKkwQ91eZOkSAgeSq8neU kwbBpvLS3rQYXvyefmt22 5GtOmn3deFOLq bHXdPSxrKZE6Y49or6Y2Z SPlPEWeQMZ1xGF7pY0zqY lnbjogbGVmdDsgdmVydGl eWQdjVNroL741 IHRvcDsnPlBhdGllbnQgT iKqORa0X1BaTpp0XAMsaO vrZY3zrHWsDRrxOr0quBl btGuyVZ0bNAXr emmcz436VxYav1buLPOdz HJzQBdoNAC8Z58vo5V6UP MkVNXpLIE8iTY9hH9ikVp nbjogbGVmdDsg kuSxfFwlXKaeGMzaM221C HRvcDsnPkJpcnRoIERhdG Q3SM16ZY34kJArb5K5pPG 6U5MzBUJrinlm rwyqwHM8FPMjLKRsvQ61V f4yqSxdAu9kURHkDQV8SN KwiUIaY7VqbG1yTvWgSUN rRLNgL4WtjEXx BGgbE939GHblImG1VIWbc mGtN9LtECNclLpsApD6l3 H6Yw3QU9J3FX29ML83dIX ks2Q8nUU2E3Wv YIFyihtirjqniNC7YXWjI AOweH87Xn9wqAzsMu8sJQ MfYSR8PDAoiZYcY6TohW8 yOiAjMDAwMDAw V6ZfxRFoKJgnY681NZjyF uF3ISLuydWmM2EtVBEyuW yeRnT6l2Q1Pp6IXLa2ZP5 5XF51aUMgv5X8 vLM8X9TuNSCbiclugzbjd IU0THEnIIIwdV07Fm1ixT dlNa0rZOUfTZO1LVTjuJV iE2DfqC7nRlFh XMWcMQBmY1LvsBIaYBbfB 645AMcmHwK0WKWzyzDoL0 IjEREapJriEaR2a9J0Gg3 LMCZcJT11YVK4 xRE9ZC38ZM20Y6LoTzluh GFibGU+PHRhYmxlIHdpZH RoPScxMDAlJyBzdHlsZT0 vYv4sTBRxLKPs aKkkvLDhCjMiu7nvOYIiA RyqUU6vlCbzG9DlfKW3JD Fqc4m6Nw69O66pN5PvhET +FOLclJA5mAG1 qW0fRfYpIsP1QWkzW989S gHmdEDrAvazv9tvo3izwS n7XtJ4KGItlyMllZboOIK 3c3TrYo90F47u IHdpZHRoPSIxNSUiIHZhb Pzzbc0mzH1kXz0+PGNvbC R4nAC6gX4fCeTsWsI7XFk cR809DtDdrVRo Fqbqv4wbx5hcgLx7XuLoJ RJvmnXkjNhwYKJ8n3CeUc 08N2OvoAyjc1JtShu4eu9 1hSJwn5G4cXF8 H5UdEJEgugkytHZrqIavU F2uYHWtbuojMSUsnL4gYB ElD5v1OmQwSwC2PKweA2T ahwE8TMXfsSAc DZfwRFT7G73mn1A4KNYlK KPoKFJ2hXX6sP4ktQtyvl ogbGVmdDsgdmVydGljYWw oIPdnB466LZSp jJgpFSBzsM4yHPEgpOXhk LuxDW4cDNLgmvioKmaTNj uEAzrlE7DDJVc5G5ShHok 1JTUlmYxjGQ1h vEJiOZfmRs1xkYlajDbyW G9yQEYpcalkXKJalW2rDH GknYPbdRcjJW4tRGVthjs mx520UbZgCTK7 UZVejLCsQ0NswW7vGuEdM UMcDDIyV6GioRFeUYemE3 69KBmtPjG3CXSdcwHrI0B sLWFsaWduOiB0 o7V6Gq2bVk3kKK8qOGt2F W86LT53xVWfk9J5iDT2C1 OmLZBauckdddbfoGT6DBX hIQXjeM52bTFi OMqwHm7gt7Z0t798IWMgW ZLbvW39Tb3kvViuZDXrjO WWyX4lwwnhv1glhulmUhW iMYFmUBl2WRm6 ASXqjZjhGsKwNGC0WkT8Y SY9hZVvzA6inPwpgwwekR 9wOyc+RiRiJEDnetJ6E6O gSfx7XCBkpTbv LV1fdOXcUNecYq5fwFkiw WahOP8jJLBmbnkxZMCflM 2mOCSvtEDbaGqjWJ6sPVY xltsww406NiXp EWN1NMSvpYJrG4FkuH4fH qZoWAIrDJZyX2UzfZOiCN ceZ656KBeaWgP8FILqpwB rC2RgZKTifTbq DgN7k5F4Hw0VFL5dhKF1U 9BfToy6SXTpeRauMB9kmB DsVIoyEl6luPaznIkrDA8 wNTBpbjtwYWRk zP0xTHPqfJHujEtcWB9wL YNzqrhtf471QfIvCPP8UK OwwVAxC6BcfL4jEaTgLDC pHEFjS5CtvGMt MBkkX191ULemIgI6ZAXnz oBbE2CsHFOvqXunZvK6m3 G8Ao2FsHVyVCJkSX80OO8 5NY67L8ZqDrtt dGFibGU+PHRhYmxlIHdpZ HRoPScxMDAlJyBzdHlsZT 9nQn5oLRDpHJMleZvbhVS gCiGrw1xhDRCb FApwTC2ejDhiL5QirBF9M SOzx5k0Uy52S83yG4HzeS A+BTHhmTI4sFR6mW3gXiO zByO6KJaxS862 BkMxgYEgOiwii8gac7uey So6AjJeXVBkblHegEptMG K1m8BuEe59U22cODarHWP oPSIyMCUiIHZh vQhicb5hlS2sOs4+PGNvb DR8mYA3wA4sHuLlYlU8QL gtW239AyUptABaKbecT79 rV4OhbOY+PHRy Xtc7RPDmpWmbIS8rfUXeK HthEf8qDMB2JkBkJpYbQE pdH8AjEBOlwvkdzxgnfDG 7UPSwSYXgvG89 Ox5uhTnmVr6vLMPtLPW7S DEujYOyP8KzeY2fNmBvPZ XbCUScW9UktMEfDIhbP17 3AFhuMeC9UCXu nxYeT7FxBGIlcXxxUmB6d 3O8Lr1HkAkgsZIxDY1lLx BcFZo2T1OcPyl5LXIxlXs lYW8vlPItAEyp Dj4daGrhoLovXZ4vKKVnk jjyc261OuKif5wcNTGotV EvENcjHHV8Z62dn4D9REM bKJZnIOG7rVZ0 fV5kvQvfhrhoaDOlwMpzq oVvkDcaYAafDDzdA763UK RkbIbeSfFXGwf9V7TgCqf 4FRGeqXcgMQ9f vRJtYSsuNm0eqLfoySvrY W7sEHAujkgtq455VzVks2 ibWGHttBFjJOhoVYM4H48 pb3P0NSKbMUYx ZBL7yMN0kU1hxZbvxenci GVmdDsgdmVydGljYWwtYW kwC054AIDriMfgBq4UJsi 4Q2DnJtl5NJSf pOnfWL1iyFHdTQfiVa9mq FoxrFhoDP8kKNEuhbsvs5 89AjSnk7aoDEUnePCsCMx mJID5I62bk6U5 ERNjHZLcFSG9oKG9mR9sk GlnbjogbGVmdDsgdmVydG zoASvaVRhjE911VYZidFn nPlBheWVyOjwv dGQ+QN65uk64J8NlSwxqS vs5PMTjAJO9mIN1aX6tBM MjZNjfg3D0hEX6R4VfviH rbr1yt3kcKIIg [employer] (more content not included)... Normal [facility] IntraOperative Documentson 0 04-07-2022 IntraOperative Documents [id number] Normal [facility] Postoperative Documentson Postoperative Documents [id number]:127 Normal [facility] Coding Summary.on 04-03-2022 Coding Summary. [id number] G h0bWw+PGhlYWQ+ST9UOOQ oE89ztKHljP0QB3xJIQ3J DBTYMYHJLB5AHV4jnZX9E HcqR2MzmjTm AbpjoUEhGW90TDw0VTE0q TnvRSysjK6ggCVtX4q1Md IdOL13lL26DEnyJCJiEgE 3LjZpbjsgbWFy D0wnZmPvmKRwDcu+PHRhY mxlIHdpZHRoPScxMDAlJy VlyOglFY4yCm3oMHHnTDV vbGxhcHNlOiBj v3pyGLErTXtlRJ5fxBgmK 6HnhZQ4HCKsm6d5Iu14oB I+UBLhHNR4qVzhWEmcd49 2NyZvw6rySHW5 cSXwERnlFCE7K53hv2N3C HPeKWSzYPM4lZI9iF3urX zehhjkR2PoxVEcNfE1CIN 3oTFjlG5sbEov banrlY8wQhf+I88CTN1LR RMZCT8VSaz6W8KpKqvzzH I+YH03DPZpMP73aEWatTR iu4sfrQq4McSr BPSjNNT6mXbiTYprh9BeQ YLyP39rhYPuz5E8LAOutT tstCGiFjMwrDM2hZ7cCNy benlbl8clzcyq Hanaf6hdky94xO64Z57yK ZscBWYkWNN1WKBjPICzwU ttuu1fgJ9rCx1+CCmeg7l qv2jxhDs7OkGw OZCbtyMtgJkgOWJ3m2RaV d22C0KbgAxtx6AmLxr2jf 08mJBsq6D6uPI4RGlpJKG bdW7nSWidKbC7 RRAeLtFpwB22kMEjUJepJ z5axPidiXmwNY4vUJHnus yiFXYtxP9kYCSrhSLfcOp dBK3jUFBtlyol b671HaUeCEF2HZBjhIXeM 5AeiO7gZzAkMLRiDRMmN8 SniBIoLZrjK347GMpqBzM 8SAMmxbEkJ0Ff KXGgiPifNmA0n4Q9Nn4Tv 6SmorgdIZA7SPoyEJB2Sy K9HuTsDsN7R0KiLvg9ROU snUbhMC5iS7Sr WSUsrqxlrevevCP7BPQgD OYhhR60zKYqYXrzYb1ll5 I2g178QKUbSRTpdZ54Is7 udDogMTBwdCBU uG7fgknpj9gzjlobEvZlW XDyKYo1CFv2APKhmTvhBb PtKQI7FyO3ZPM1cDUzdA5 bmHmnrjuhmA6u Oyc+O54hvN5dHXM9UWL1e swgRKMmlwPlWC10NU70B0 RyPjwvdGFibGU+PGRpdiB cgSszNB9yWfCm q6ond7TmYChzF4WhHZWvP SidLqt1XIHhPDK0tZZ0vW 6vIKAgTBtji9I9nEW9I1G rhxBcem1mx6ae TLToZBbfI22uyWWde0Y2I QHuxFQ7CQAggEonQjPllR 93Oyc+FVFnkUtfc2ArZrn sz9far8ejaGl6 PtUiMPPlmiMxsSctNYW8c 0SqSj29F31aXIbmQKFuSH TcRVYqJVYigAckue2krF3 wIi8+PGNvbCB3 kHH8tI9lTWRbIrF8LHhyE 249FpQkkJCxZqydq9ilt0 mthMe3ObLgJTWanvWfsTf zXLK4c6YcKr62 M93wCYucDPUjJHBgAUPgS UJsnFriju1yjS5gDn5+PC 9iv6lmou48eK39aLA+PHR jAQT8iZddSYjz QXTmyS1sZTeyCrK4RCRnQ aWvzL39pAWhCQxgVk3cwD fmtWnnMH0nXRIfrimhq97 1BfEbp1gnOVVc dQFbXOhvWSL3N06ob6Y0L JJmDLRiKKC5dNW6iY9yiD lnbjogbGVmdDsgdmVydGl jIYfeIAfrS777 IHRvcDsnPlBhdGllbnQgT sXnFHi1A4TzOoc6CDJwoI sgHA4voWVcCSvrVr9znWa pyVljQR4lNXBo ygbps276FlUns0seIKVsl GIfVSrrQJA4A97pi7E9AG ZzTOWtADW4lVI6dO7wfLb nbjogbGVmdDsg oiDvcCrpCZqeOOqfY085I HRvcDsnPkJpcnRoIERhdG M5SJ58FE14oOFoo9G0wAF 3U7NvDGGwcrwa gxtodZB1OGGnUKBwoF65T a3qdQxcMp0bECHyIJE8UF LujNFzA2PunK3nZwXbYPO nCSOlW2ZrvBIx VFqwW985TBzdYlU9RLTgv jHqR3NnQEClbUfrLfR5c5 G5Fc5II0O4KZ60WX33lPN ge6E5eYT6O9Le FVHdcciviupnkQK0UPGhE HRbwK80Dg7chKnvMz5kLG CnNZU7LTKplZJbI4IchJ7 yOiAjMDAwMDAw E0VdmOWkOSsxD627CUeoS yF1EFXvuoJtE7HbYUTgvI quEsV7j6O0Mw2NOTc9YN4 9QI54aFTft0X0 pHM7Z9PeCIEfpfpyhslwe ND2ZMAyUFKpzZ60Sg7zuL kkMy9wNVOuHTO0JANluKQ wV3EtlX5gVbKt SPOkESPtB1BozWRmJNptM 466MNmoNoF5HNUmxrXiG6 NzYLNnlAwoHtV7i9Y5Vr5 HYVEgAS08YNP8 vXL2XG74ZM82K1KtAqatw GFibGU+PHRhYmxlIHdpZH RoPScxMDAlJyBzdHlsZT0 eCv5vTGRyRHJg dRkfxCWnQaVyz3mmBNOcD ErwPP6omYtkA7RlwVS5FP Qoy5i9Ik84S50xY4WtgON +SDHnjIV6jJR9 jW2eCiGrXeC9MGaaR643O eQomVIsTpwgv6csy0owcN v0SfP1ZPHvkkVabRygAPT 3g4HoUf80N96a IHdpZHRoPSIxNSUiIHZhb Qwhct3luL7kHj6+PGNvbC E5xYD7bQ0rHdObJqQ2WFw yV010PpAfdTMe Aabsx1lzg1tsyEd5BrUqQ YJhnsAagKxpPXA2j1NmXz 69B1VafCkqy4QjUqy1fh3 5zRJru8Y0vJG9 A7VfZNUcqourjLDkdQgdI I7yCJApsspzFADzuN5xCT ZoP6u0PhPpZzT0GHrzU6R diiK6XJKdvTIk MMorKSB3X39gf8B3TRNrV LHnUAE1pFM4fU2qoOpbwv ogbGVmdDsgdmVydGljYWw oZWuyX771BWWi jRvlIFCbxG7mVZCchAAqh UwqBO3xYLFbmhujIrtGDo zLFcxzS1AFVBz4W2GeGva 9JLAsdVzmOA9o tEZoNTdpEq8sbJjivDyhB B4pAPIrdrqmDWFvwA9lYE LzcOUskVpzYK4uEQDmmea uy631QjDjSSC0 KGPsfNGsB4DsnR2rHiEnB XLhOMYjP1StfGPfVMljW5 46UJbuEaN0FRNyopKrI9U sLWFsaWduOiB0 e2S9An8qAp6vAF2iGOm7G A46UJ41vOAjv3L9jIE0U6 ImIXLfxuicvnujgWS9GYV zVBAqnQ91gJBc YOgdIz5db1N2z291SJIwJ MPglQ84At0azHlrDYHwnC LLyR9uirlzr8hhlyjdNdE nQZRuCPh1QYs1 OLBkiJkaZbVbXBJ9IrX1U NZ2hUUbcD0edUczqjsamZ 9wOyc+DtRmVPNbanE9H3U wWcj0PHJzyTho FQ9ytQGkIAkbFa0sfOnuf AptTK2gIRFqgudtTLFgoH 5dNHMnvGBasKluXR3oWDF vckwro054WmJa PBF3NXUpdZYlO8WjpC4pR gKwVNOlAIRhZ9FkeIOzMN evS803LMipDbX4BAHnwzG zQ4ZpVTEsnDxp PvP6q0R6Hz1NUL0bcVN2C 2GfPys5VHCywGokOA5euW LkKEdxAc6yuFplmHyaFV7 wNTBpbjtwYWRk eE7mPXFnuNMlyDnlTO6eQ HHiyequt744AhNdNJB3FS RkiDMrP2KlmE0pGgFoSGI aVTCeV0MgwJFh NNhcE116VWjdCfH3OALnx eKoD8DjDRKnlShrVbD8g1 N7Mo3UiQZ0eWY9p3D2B7K gjAUgSVG2LMY2 xnapfjc2Q3LiMlyayUV+P Z71GEGiTC42hFZoiWDms7 yyhGm2ElWhYLZtVDE2lDg wECvjl0NaZYSk B09dgDFnm8U3KDDczDcon UBlCtCwiUA7uW0dFDcgqz gqu1imekisLywly9hajy5 0xD97U58qJGow ZHRoPSIzMCUiIHZhbGlnb v4ypU1qRr4+HXNfbVU1vK U2tN5hZsJfTgM0PAgiX08 9InRvcCIvPjxj r0tsw5fkyYg1QiMfBMAhi zRunAddSEB5c2KgHr67T1 9sIHdpZHRoPSIyMCUiIHZ ujEruow8xqQ2h Ii8+WE4bh2ovgb64eI76h HI+YJRxSFO7fPkzDAkbSD PmdQ5eGYayDzP2LTUlUeP syN52dSUoCWon Ek2gqCauiPffLK9dOHYos ktsk629KgBuo7tlSCBekK VeYUsfRLV3D00ve9D0RYX fEMGlCZT7tSC5 bC6oaDldzpkpqVGuqDdyx bKgmWhmVCpqOVgdT773DU OnhBqrYuWrsRErL0kdijH SKX6vYbkpqKS+ GSZpUHP3kZxfBPhiRAJqx U0uTSWaJ4h0GsVnLuH8ZK ivP7GbauU1CGMxzSKdHWM duHZGpT8hatmv n4tpypcuVjBuQBBaLFw4X Xh0VKBvuLujKrPzPHC1Ye R4KXR3eHSmyI7baHzdkhz txO4pGqf+RklO OjwvdGQ+ONJtIRM5xYtxY OvhYIBwxN6bNUWdV8y6Pi SkVaK2TDpyT2YqutU5HBC vbGQgMTBwdCBU aJ2gebjcs0cvssyzZqAtO VIcKMx2JEi4CVIdaZnfRd CjWKQ9KiE0SSL2gAJuaF0 huVkkeqtfrI7x Oyc+TVJOOjwvdGQ+PHRkI SU6aLfvVWmeYKLvqU6oJS JwN0y5VeXpXdK7AFfmF3V aamL1GKCjnOIu RVShvFODjE0pbjqod9qlv conVeJeXOWsLMj5RSr3YZ PhmJpmNfFiQKM9QqI6LGB 7dOBlsR2reWtg fvuxmV4fSsp+DIV1CNE5R U33WY99J0ZuNgkmbOZzlR U+PHRhYmxlIHdpZHRoPSc xMDAlJyBzdHls ZT0n (more content not included)... [facility] Consent for Anesthesiaon Consent for Anesthesia [id number]# 1.00CD:127 [facility] Discharge Instructionson Discharge Instructions [id number]# 1.00CD:127 [facility] IntraOperative Documentson 0 04-03-2022 IntraOperative Documents [id number]# 1.00CD:127 [facility] IntraOperative Documents [id number]# 1.00CD:127 [facility] Main OR Intraoperative Recor don 04-03-2022 Main OR Intraoperative Record IntraOp Document Type FT Summary Primary Physician: Sven Hayes Jr., MD Finalized Date/Time: 04/03/22 08:41:30 Pt. Name: YUE HERNANDEZ /Sex: 1985 Female Med Rec #: [id number] Physician: Sven Hayes Jr., MD Financial #: [id number] Pt. Type: A Room/Bed: [place] [address] Admit/Disch: 04/02/22 08:31:02 - 04/02/22 12:15:00 Institution: [...] Huynh Role Performed Anesthesiologist Surgeon - Primary Kindergarten Classroom Teacher - Primary Certified Wellness Program Manager Time In 04/02/22 10:09:00 04/02/22 10:13:00 04/02/22 10:09:00 Time Out 04/02/22 10:35:00 04/02/22 10:28:00 04/02/22 10:35:00 Procedure CYSTOSCOPY RETROGRADE CYSTOSCOPY RETROGRADE CYSTOSCOPY RETROGRADE STENT INSERTION(.) STENT INSERTION(.) STENT INSERTION(.) Comments DR DE L ACRUZ SUPERVISING Last Modified By: Shirley ARMSTRONG, Mariela Watson RN, Mariela Salazar RN 04/02/22 10:36:03 04/02/22 10:36:03 04/02/22 10:36:03 Entry 4 Entry 5 Entry 6 Case Attendee Tammie SHAKE MAKER, Kristina Uribe RT, Miguel Ángel Gomez RN, Jia Rascon Role Performed Scrub - Primary Guide Escort Staff - Other Time In 04/02/22 10:09:00 [...] X-ray Applicable) PreOp Antibiotic Yes Time Out Lucrecia RIZZO, Christy Aguero, Given Participants Freddy Fishman MD, Sven Hernandez, Shirley ARMSTRONG, Rony Landry RT, Miguel Ángel PTammie SHAKE MAKER, Kristina E Time Out Complete 04/02/22 10:15:00 [...] PELVIC EXAM Primary Procedure Yes Primary Surgeon Sven Hayes Jr., MD Start 04/02/22 10:26:00 Stop 04/02/22 10:26:00 Anesthesia [...] and tissue Entry 1 Skin Integrity Intact, Newcomb, Warm, and Skin Abnormality No Dry Outcomes Met? Yes Last Modified By: Mariela Watson RN 04/02/22 10:24:04 Post-Care Text: (more content not included)... [facility] Preoperative Documentson Preoperative Documents [id number]# 1.00CD:127 [facility] Preoperative Documents [id number]# 1.00CD:127 [facility] Consent for Procedure/Surger yon 04-02-2022 Consent for Procedure/Surgery [id number]# 1.00CD:127 [facility] Consent for Treatmenton Consent for Treatment [id number]#1 .00CD:127 [facility] H&P Updateon 04-02-2022 H&P Update [id number]#1 .00CD:127 [facility] H&P Update [id number]# 1.00CD:127 Normal [facility] Inpatient Patient Summaryon 04-02-2022 Inpatient Patient Summary [address] [address] [facility] Clinical Discharge Instructions PERSON INFORMATION Name: YUE HERNANDEZ PHYSICIANS Admitting Physician: Sven Hayes Jr., MD Attending Physician: Sven Hayes Jr., MD PCP: SUBHA GUTIERREZ CNP Discharge Diagnosis: Postinfective urethral stricture, not elsewhere classified, female; Urethral syndrome Comment: PATIENT EDUCATION INFORMATION Instructions: Post Op Patient Instructions - FT (CUSTOM) Medication Leaflets: Follow up: With: Address: When: TERI MIMS [address] [place] [phone] [facility] (1) Within 6 weeks MEDICATION LIST New Medications [id number], [address], [place] [id number], [phone] ketorolac (ketorolac 10 mg Tab) 1 Tablets [...] hours as needed Muscle pain. Comment: Normal [facility] Main OR PACU I Recordon Main OR PACU I Record PACU Phase I Docum ent Type FT Summary Primary Physician: Sven Hayes Jr., MD Finalized Date/Time: 04/02/22 13:51:38 Pt. Name: YUE HERNANDEZ /Sex: 1985 Female Med Rec #: [id number] Physician: Sven Hayes Jr., MD Financial #: [id number] Pt. Type: A Room/Bed: [place] [address] Admit/Disch: 04/02/22 08:31:02 - 04/02/22 12:15:00 Institution: [...] By: Criss Zeng RN 04/02/22 13:51 Normal [facility] Main OR PACU II Recordon Main OR PACU II Record PACU Phase II Document Type FT Summary Primary Physician: Sven Hayes Jr., MD Finalized Date/Time: 04/02/22 12:50:02 Pt. Name: YUE HERNANDEZ Francoise/Sex: 1985 Female Med Rec #: [id number] Physician: Sven Hayes Jr., MD Financial #: [id number] Pt. Type: A Room/Bed: [place] [address] Admit/Disch: 04/02/22 08:31:02 - 04/02/22 12:15:00 Institution: [...] By: Cyndee Posada LPN 04/02/22 12:50 Normal [facility] Main OR Preoperative Recordo n 04-02-2022 Main OR Preoperative Record PreOp Document Type FT Summary Primary Physician: Sven Hayes Jr., MD Finalized Date/Time: 04/02/22 10:26:32 Pt. Name: YUE HERNANDEZ /Sex: 1985 Female Med Rec #: [id number] Physician: Sven Hayes Jr., MD Financial #: [id number] Pt. Type: A Room/Bed: [place] [address] Admit/Disch: 04/02/22 08:31:02 - Institution: Case Times [...] By: Mariela Watson RN 04/02/22 10:26 Normal [facility] Monitor Recordon 04-02-2022 Monitor Record [id number]# 1.00CD:127 Normal [facility] Operative Reporton 2 Operative Report Patient: YUE HERNANDEZ Age: 36 years Sex: Female : 1985 Associated Diagnoses: None Author: Freddy Fishman MD, Sven Hernandez Postoperative Information Procedure: Cystoscopy, retrograde pyelograms, urethral dilation, pelvic exam under anesthesia Date/ Time: 04/02/2022 10:36:00 Preoperative Diagnosis: Postinfective urethral stricture, not elsewhere classified, female ([id number] N35.12, Discharge, Medical), Urethral syndrome ([id number] N34.3, Discharge, Medical). Postoperative Diagnosis: Postinfective urethral stricture, not elsewhere classified, female (JGO87-UV N35.12, Discharge, Medical), Urethral syndrome (VCH09-JA N34.3, Discharge, Medical). Performed by: Freddy Fishman MD, Sven Hernandez. Findings: This patient is a 36-year-old female [...] using well-lubricated dilating sounds beginning with 22 Japanese and ending with 30 Japanese. This was uneventful. Bimanual palpation revealed no [...] 0 ml. Complications: None. Anesthesia type: General. [facility] Comment on above: Result Comment: Elec tronically Signed By: Freddy Fishman MD, Sven Hernandez\.br\Date and Time Signed: 04/02/22 10:40 EDT Outpatient Surgery Discharge Instructionon 04-02-2022 Outpatient Surgery Discharge Instruction [place] [id number] Patient Discharge Instructions PERSON INFORMATION Name: YUE [...] Date Follow up: With: Address: When: TERI MIMS [address] [place], [place] [phone] [facility] (1) Within 6 weeks Pharmacy Information: You may receive a survey from [employer] asking you to rate your care experience. Your feedback is important and will help us understand what we do well and how we can improve the quality of care we provide to you, your loved ones and our community. It?s an honor to serve you. Thank you for choosing [facility] HERE ARE THE MEDICATION CHANGES THAT OCCURRED DURING YOUR HOSPITAL STAY New Medications [id number], [address], [place] [id number], [phone] ketorolac (ketorolac 10 mg Tab) 1 Tablets [...] PATIENT EDUCATION INFORMATION Instructions: Medication Leaflets: Normal [facility] Patient Education - Texton 0 04-02-2022 Patient Education - Text Normal [facility] XR Abdomen 1 Viewon 04-02-20 XR Abdomen [...] MD Transcribed by: KIRAN Technologist: JENNY Normal [facility] XR Urography Retrograde Bila teralon 04-02-2022 XR [...] Ángel Estrada MD Transcribed by: KIRAN Technologist: COREY Technical Comments Radiation Dose: Ka,r in mGy = 0.9 Normal [facility] COVID-19 ([facility])on 04-01-2022 SARS-CoV-2 (COVID-19) RNA ELBA+probe Ql (Resp) Not detected Normal Not Detected [facility] Comment on above: Result Comment: This test result should be correlated with clinical presentations and medical history by a healthcare provider to determine its clinical significance. This assay was performed by a reverse transcriptase real-time polymerase chain reaction (rt PCR) method on the [employer] system. This test has been authorized only [...] or revoked sooner. Performed By: #### 2 [id number] ####[place] [address] [place] [address] SARS-CoV-2 (COVID-19) RNA ELBA+probe Ql (Unsp spec) Pass Normal Pass [facility] Comment on above: Performed By: #### 2 [id number] ####[address] [address] Specimen source Nom (Unsp spec) Nasal Normal [facility] Comment on above: Performed By: #### 2 [id number] ####[place] [address] [place] [address] Auto Diffon 03-31-2022 Basophils/100 WBC (Bld) 0.6 % Normal 0.0-2.0 [facility] Comment on above: Order Comment: Order Added by Discern Expert. Performed By: #### 1 6077406, 2656809, 5746093, 7779800, 12075435 ####[place] [address] [place] [address] Basophils/Leukocytes Auto (Bld) [Pure # fraction] 0.1 E9/L Normal 0.0-0.2 [facility] Comment on above: Order Comment: Order Added by Discern Expert. Performed By: #### 1 7670018, 8736956, 6660650, 5343197, 03715083 ####[place] [address] [place] [address] Eosinophils/100 WBC (Bld) 1.4 % Normal 0.0-8.0 [facility] Comment on above: Order Comment: Order Added by Discern Expert. Performed By: #### 1 5911914, 8100617, 9920736, 2804906, 58263090 ####[address] [address] Eosinophils/Leukocytes Auto (Bld) [Pure # fraction] 0.1 E9/L Normal 0.0-0.5 [facility] Comment on above: Order Comment: Order Added by Discern Expert. Performed By: #### 1 8526215, 7558258, 1217191, 7321780, 43245255 ####[address] [address] Lymphocytes/100 WBC (Bld) 30.3 % Normal 14.0-50.0 [facility] Comment on above: Order Comment: Order Added by Sirena Expert. Performed By: #### 1 0959214, 3348674, 3185452, 1145113, 37827889 ####[address] [address] Lymphocytes/Leukocytes Auto (Bld) [Pure # fraction] 2.7 E9/L Normal 1.0-4.0 [facility] Comment on above: Order Comment: Order Added by Sirena Expert. Performed By: #### 1 3152575, 2922401, 1848838, 2293326, 66395883 ####[address] [address] Monocytes/100 WBC (Bld) 5.6 % Normal 4.0-14.0 [facility] Comment on above: Order Comment: Order Added by Discern Expert. Performed By: #### 1 0857293, 1031636, 2966405, 7965548, 48851736 ####[place] [place] [address] Monocytes/Leukocytes Auto (Bld) [Pure # fraction] 0.5 E9/L Normal 0.2-1.0 [facility] Comment on above: Order Comment: Order Added by Sirena Expert. Performed By: #### 1 8955858, 4902992, 2009396, 7645377, 93793023 ####[place] [place] [address] Neutrophils/100 WBC (Bld) 62.1 % Normal 36.0-75.0 [facility] Comment on above: Order Comment: Order Added by Sirena Expert. Performed By: #### 1 6651377, 2146721, 2752782, 5060757, 76959513 ####[place] [place] [address] Neutrophils/Leukocytes Auto (Bld) [Pure # fraction] 5.6 E9/L Normal 2.0-7.5 [facility] Comment on above: Order Comment: Order Added by Sirena Expert. Performed By: #### 1 0925332, 2947701, 9843763, 6791366, 95188962 ####[address] [address] [place] [address] BMPon 03-31-2022 Anion gap [Moles/Vol] 13 mmol/L Normal 6-16 [facility] Comment on above: Performed By: #### 1 5539111, 5627992, 0471127, 4681109, 90958152 ####[address] [place] [address] Calcium [Mass/Vol] 9.6 mg/dL Normal 8.9-11.1 [facility] Comment on above: Performed By: #### 1 5192470, 1985215, 4302747, 2352123, 66047486 ####[address] [address] [place] [address] Chloride [Moles/Vol] 102 mmol/L Normal 101-111 [facility] Comment on above: Performed By: #### 1 3619259, 9987775, 9941818, 0342658, 16737483 ####[facility] [address] [place] [address] CO2 [Moles/Vol] 26 mmol/L Normal 21-31 [facility] Comment on above: Performed By: #### 1 7222007, 0463076, 0579588, 6330242, 60508504 ####[facility] [address] [place] [address] Creatinine [Mass/Vol] 0.6 mg/dL Normal 0.5-1.3 [facility] Comment on above: Performed By: #### 1 7741976, 3609107, 2223840, 7745598, 57901762 ####[facility] [address] [place] [address] Glucose [Mass/Vol] 92 mg/dL Normal 55-199 [facility] Comment on above: Result Comment: If t his glucose result represents a fasting glucose, interpretation should refer to the following reference range: 55-99 mg/dL Performed By: #### 1 9548630, 7980641, 9325529, 2466249, 16959225 ####[facility] [address] [place] [address] Potassium [Moles/Vol] 4.0 mmol/L Normal 3.5-5.3 [facility] Comment on above: Performed By: #### 1 3094246, 1164900, 2094585, 9732251, 44134010 ####[facility] [address] [place] [address] Sodium [Moles/Vol] 137 mmol/L Normal 135-145 [facility] Comment on above: Performed By: #### 1 2051218, 9327885, 8814517, 7916149, 45365665 ####[facility] [address] [place] [address] Urea nitrogen [Mass/Vol] 10 mg/dL Normal 5-21 [facility] Comment on above: Performed By: #### 1 3835753, 0955593, 7426399, 8741278, 00590806 ####[facility] [address] [place] [address] Urea nitrogen/Creatinine [Mass ratio] 17 No Units Normal 10-20 [facility] Comment on above: Performed By: #### 1 3987855, 2900847, 5395644, 0793971, 53843248 ####[facility] [address] [place] [address] CBC w/ Auto Diffon Erythrocyte distribution width (RBC) [Ratio] 12.5 % Normal 10.9-14.2 [facility] Comment on above: Performed By: #### 1 7139146, 9510660, 9945088, 6452863, 36435905 ####[facility] [address] [place] [address] Hematocrit (Bld) [Volume fraction] 41.7 % Normal 34.0-46.0 [facility] Comment on above: Performed By: #### 1 9095087, 6696195, 0257260, 2962078, 05614407 ####[facility] [address] [place] [address] Hemoglobin (Bld) [Mass/Vol] 14.2 g/dL Normal 12.0-16.0 [facility] Comment on above: Performed By: #### 1 2160772, 0420832, 0158475, 9988249, 61079952 ####[facility] [address] [place] [address] MCH (RBC) [Entitic mass] 30.6 pg Normal 27.0-34.0 [facility] Comment on above: Performed By: #### 1 9737168, 1587380, 3906770, 1138478, 55311197 ####[facility] [address] [place] [address] MCHC (RBC) [Mass/Vol] 34.0 g/dL Normal 31.4-36.0 [facility] Comment on above: Performed By: #### 1 8937914, 7876101, 6804809, 5052680, 89508122 ####[address] [place] [address] MCV (RBC) [Entitic vol] 90.0 fL Normal 80.0-100.0 [facility] Comment on above: Performed By: #### 1 9973341, 5976393, 2559644, 1224417, 21771521 ####[address] [address] Platelet mean volume (Bld) [Entitic vol] 9.3 fL Normal 6.4-10.8 [facility] Comment on above: Performed By: #### 1 2508423, 5569921, 9786722, 3243780, 12394197 ####[address] [address] Platelets (Bld) [#/Vol] 212.0 E9/L Normal 150.0-500.0 [facility] Comment on above: Performed By: #### 1 3498820, 6339237, 4349276, 1917110, 11303926 ####[address] [address] RBC (Bld) [#/Vol] 4.6 E12/L Normal 4.3-5.9 [facility] Comment on above: Performed By: #### 1 9275502, 1867969, 6934564, 4767385, 88959843 ####[address] [address] WBC corrected for nucl RBC Auto (Bld) [#/Vol] 9.0 E9/L Normal 4.0-11.0 [facility] Comment on above: Performed By: #### 1 0729208, 6920588, 6097940, 1250303, 64358727 ####[address] [address] CHEMISTRYOrdered By: [employer] SYSTEM on 03-31-2022 Anion gap [Moles/Vol] 13 [...] rate/Area] mL/min/1.73 m2 Normal >=59mL/min/1 .73 m2 [facility] Chem S GFR/1.73 sq M.predicted among non-blacks MDRD (S/P/Bld) [Vol rate/Area] mL/min/1.73 m2 Normal >=59mL/min/1 .73 m2 [facility] Chem S Glucose [Mass/Vol] 92 mg/dL Normal [...] 36.2 s Normal 25.1 - 36.5 second(s) [facility] Auto Coag INR Coag (PPP) [Relative time] 1.0 {INR} Invalid Interpretation Code [facility] Auto Coag PT Coag (PPP) [Time] 12.1 s Normal 10.2 - 12.9 second(s) [facility] Auto Coag Consent for Treatmenton Consent for Treatment [id number]#1 .00CD:127 Normal [facility] Consent for Treatment [id number]# 1.00CD:127 Normal [facility] HEMATOLOGYOrdered By: SYSTEM SYSTEM on 03-31-2022 Basophils/100 [...] 34.0 g/dL Normal 31.4 - 36.0 gm/dL [facility] HemeAutoSS MCV (RBC) [Entitic vol] 90.0 fL Normal 80.0 - 100.0 fL [facility] HemeAutoSS Platelet mean volume (Bld) [Entitic vol] 9.3 fL Normal 6.4 - 10.8 fL [facility] HemeAutoSS Platelets (Bld) [#/Vol] 212.0 E9/L Normal 150.0 - 500.0 E9/L [facility] HemeAutoSS RBC (Bld) [#/Vol] 4.6 E12/L Normal 4.3 - 5.9 E12/L [facility] HemeAutoSS WBC corrected for nucl RBC Auto (Bld) [#/Vol] 9.0 E9/L Normal 4.0 - 11.0 E9/L FT HemeAutoSS PT & PTTon 03-31-2022 aPTT Coag (PPP) [Time] 36.2 second(s) Normal 25.1-36.5 [facility] Comment on above: Result Comment: Hepa rin therapeutic range (represented by Anti-Factor Xa activity of 0.2 - 0.4 U/mL) corresponds to PTT of 56.6 - 109.0 sec. Performed By: #### 1 5924892, 6933664, 9054899, 8676406, 28171425 ####[facility] [address] [place] [address] INR Coag (PPP) [Relative time] 1.0 {INR} Invalid Interpretation Code [facility] Comment on above: Result Comment: INR results are specifically intended to assess patients stabilized on long-term Anticoagulation therapy suggested INR?s ?Less Intensive Anticoagulation? 2.0 ? 3.0 Conventional Range 3.0 ? 4.5 Performed By: #### 1 4528708, 8755906, 4015772, 2199311, 96157599 ####[facility] [address] [place] [address] PT Coag (PPP) [Time] 12.1 second(s) Normal 10.2-12.9 [facility] Comment on above: Performed By: #### 1 1464219, 3104602, 6709524, 2600178, 86272626 ####[facility] [address] [place] [address] UA With Cult Reflexon 2021 Bacteria LM Ql (Urine sed) 1+ /HPF Abnormal Trace [facility] Comment on above: Performed By: #### 1 6356064 #### [facility] [address] [place] [address] Bilirubin Ql (U) Negative Normal Negative [facility] Comment on above: Performed By: #### 1 5223436 #### [facility] [address] [place] [address] Clarity (U) CLEAR Normal Clear [facility] Comment on above: Performed By: #### 1 2718952 #### [facility] [address] [place] [address] Color (U) YELLOW Normal Yellow [facility] Comment on above: Performed By: #### 1 1654142 #### [facility] [address] [place] [address] Epithelial cells.squamous LM.HPF (Urine sed) [#/Area] 3-4 Normal 0-2 [facility] Comment on above: Performed By: #### 1 4386645 #### [facility] [address] [place] [address] Glucose Test strip (U) [Mass/Vol] Negative Normal Negative [facility] Comment on above: Performed By: #### 1 2277246 #### [facility] [address] [place] [address] Hemoglobin Ql (U) Negative Normal Negative [facility] Comment on above: Performed By: #### 1 6794924 #### [facility] [address] [place] [address] Ketones (U) [Mass/Vol] Negative Normal Negative [facility] Comment on above: Performed By: #### 1 0198819 #### [facility] [address] [place] [address] [place].plasma/[place] .RBC (Bld) [Mass ratio] 0-3 Normal 0-3 [facility] Comment on above: Performed By: #### 1 9473871 #### [facility] [address] [place] [address] Mucus Ql (Urine sed) 2+ Normal Fish [facility] Comment on above: Performed By: #### 1 9566645 #### [facility] [address] [place] [address] Nitrite Ql (U) Negative Normal Negative [facility] Comment on above: Performed By: #### 1 0300481 #### [facility] [address] [place] [address] pH (U) 6.5 [pH] Invalid Interpretation Code 5.0-9.0 [facility] Comment on above: Performed By: #### 1 8264257 #### [facility] [address] [place] [address] Protein (U) [Mass/Vol] Negative Normal Negative [facility] Comment on above: Performed By: #### 1 0491838 #### [facility] [address] [place] [address] Specific gravity (U) [Rel density] 1.015 Invalid Interpretation Code 1.005-1.030 [facility] Comment on above: Performed By: #### 1 4835387 #### [facility] [address] [place] [address] Type of Urine collection method Clean Catch Normal [facility] Comment on above: Performed By: #### 1 6388136 #### [facility] [address] [place] [address] Urobilinogen Qn (U) 0.2 {Jose'U}/dL Normal 0.0-1.0 [facility] Comment on above: Performed By: #### 1 2751625 #### [facility] [address] [place] [address] WBC Auto Ql (U) Negative Normal Negative [facility] Comment on above: Performed By: #### 1 1444808 #### [facility] [address] [place] [address] WBC LM.HPF (Urine sed) [#/Area] 0-5 Normal 0-5 [facility] Comment on above: Performed By: #### 1 4058654 #### [facility] [address] [place] [address] URINALYSISOrdered By: Brianna Cho on 03-31-2022 Bacteria [...] PM) Normal Negative [facility] UA Auto SS [place].plasma/[place] .RBC (Bld) [Mass ratio] 0-3 /HPF Normal [...] [facility] UA Auto SS Urobilinogen Qn (U) 0.2504947 {Jose'U}/dL Normal 0.0 - 1.0 EU/dL [facility] UA Auto SS WBC Auto Ql (U) Negative (03/31/22 4:36 PM) Normal Negative [facility] UA Auto SS WBC LM.HPF (Urine sed) [#/Area] 0-5 /HPF Normal 0-5/HPF [facility] UA Auto SS eGFRon 03-31-2022 GFR/1.73 sq M.predicted among blacks MDRD (S/P/Bld) [Vol rate/Area] mL/min/{1.73_m2} Normal >=59 [facility] Comment on above: Order Comment: Order added by Discern Expert. Result Comment: eGFR is race adjusted. AA=. Performed By: #### 1 5627182, 9003463, 1717408, 4375492, 04924470 ####[place] [address] GFR/1.73 sq M.predicted among non-blacks MDRD (S/P/Bld) [Vol rate/Area] mL/min/{1.73_m2} Normal >=59 [facility] Comment on above: Order Comment: Order added by Discern Expert. Result Comment: [employer] celestine kidney disease could be indicated at eGFR's of less than 60 mL/min/1.73m2. Kidney failure is indicated at less than 15 mL/min/1.73m2. Performed By: #### 1 9135793, 8540012, 8754538, 1046019, 23555853 ####[address] [place] [id number] COVID-19 ([facility])on 03-30-2022 ADMITTED TO INTENSIVE CARE UNIT FOR CONDITION OF INTEREST:FIND:PT: NO Normal [facility] Comment on above: Performed By: #### 2 [id number] ####[place] [id number] EMPLOYED IN A HEALTHCARE SETTING:FIND:PT: Unknown Normal [facility] Comment on above: Performed By: #### 2 [id number] ####[place] [id number] FIRST TEST FOR CONDITION OF INTEREST:FIND:PT: Unknown Normal [facility] Comment on above: Performed By: #### 2 [id number] ####[place] [address] HAS SYMPTOMS RELATED TO CONDITION OF INTEREST:FIND:PT: Unknown Normal [facility] Comment on above: Performed By: #### 2 [id number] ####[place] [address] HOSPITALIZED FOR CONDITION OF INTEREST:FIND:PT: NO Normal [facility] Comment on above: Performed By: #### 2 [id number] ####[place] [address] STATUS:FIND:PT: Unknown Normal [facility] Comment on above: Performed By: #### 2 [id number] ####[place] [address] RESIDES IN A [facility] CARE SETTING:FIND:PT: Unknown Normal [facility] Comment on above: Performed By: #### 2 [id number] ####[place] [address] CBC AUTO DIFFon 03-20-2022 BASO # 0.0 103/ul Normal 0.0-0.1 [facility] Comment on above: Performed By: #### T HYGIMA #### [facility] [address] [place] [address] Dr. Gale Qiu Basophils/100 WBC (Bld) 0.6 % Normal 0.2-2.0 [facility] Comment on above: Performed By: #### T HYGIMA #### [facility] [address] [place] [address] Dr. Gale Qiu EO # 0.2 103/ul Normal 0.0-0.7 [facility] Comment on above: Performed By: #### T HYGIMA #### [facility] [address] [place] [address] Dr. Gale Qiu Eosinophils/100 WBC (Bld) 2.3 % Normal 0.9-7.0 [facility] Comment on above: Performed By: #### T HYGIMA #### [facility] [address] [place] [address] Dr. Gale Qiu Erythrocyte distribution width (RBC) [Ratio] 12.3 % Normal 11.0-15.0 [facility] Comment on above: Performed By: #### T HYGIMA #### [facility] [address] [place] [address] Dr. Gale Qiu Hematocrit (Bld) [Volume fraction] 38.0 % Normal 36.0-48.0 [facility] Comment on above: Performed By: #### T HYGIMA #### [facility] [address] [place] [address] Dr. Gale Qiu Hemoglobin (Bld) [Mass/Vol] 12.4 g/dL Normal 12.0-16.0 [facility] Comment on above: Performed By: #### T HYGIMA #### [facility] [address] [place] [address] Dr. Gale Qiu IG # 0.03 10e3/ul Normal 0.00-0.03 [facility] Comment on above: Performed By: #### T HYGIMA #### [facility] [address] [place] [address] Dr. Gale Qiu IG % 0.5 % Normal 0.0-0.5 [facility] Comment on above: Performed By: #### T HYGIMA #### [facility] [address] [place] [address] Dr. Gale Qiu LYMPH # 3.2 103/ul Normal 1.2-3.8 [facility] Comment on above: Performed By: #### T HYGIMA #### [facility] [address] [place] [address] Dr. Gale Qiu Lymphocytes/100 WBC (Bld) 48.8 % Normal 20.5-60.0 [facility] Comment on above: Performed By: #### T HYGIMA #### [facility] [address] [place] [address] Dr. Gale Qiu MANUAL DIFF REQ NO Normal [facility] Comment on above: Performed By: #### T HYGIMA #### [facility] [address] [place] [address] Dr. Gale Qiu MCH (RBC) [Entitic mass] 30.0 pg Normal 26.7-34.0 [facility] Comment on above: Performed By: #### T HYGIMA #### [facility] [address] [place] [address] Dr. Gale Qiu MCHC (RBC) [Mass/Vol] 32.6 g/dL Normal 29.9-35.2 [facility] Comment on above: Performed By: #### T HYGIMA #### [facility] [address] [place] [address] Dr. Gale Qiu MCV (RBC) [Entitic vol] 92.0 fL Normal 81.0-99.0 [facility] Comment on above: Performed By: #### T HYGIMA #### [facility] [address] [place] [address] Dr. Gale Qiu MONO # 0.6 103/ul Normal 0.3-0.8 [facility] Comment on above: Performed By: #### T HYGIMA #### [facility] [address] [place] [address] Dr. Gale Qiu Monocytes/100 WBC (Bld) 8.4 % Normal 1.7-12.0 [facility] Comment on above: Performed By: #### T HYGIMA #### [facility] [address] [place] [address] Dr. Gale Qiu NEUT # 2.6 103/ul Normal 1.4-6.5 [facility] Comment on above: Performed By: #### T HYGIMA #### [facility] [address] [place] [address] Dr. Gale Qiu Neutrophils/100 WBC (Bld) 39.4 % Critically low 43.0-75.0 [facility] Comment on above: Performed By: #### T HYGIMA #### [facility] [address] [place] [address] Dr. Gale Qiu Platelet mean volume (Bld) [Entitic vol] 10.5 fL Normal 9.5-13.5 [facility] Comment on above: Performed By: #### T HYGIMA #### [facility] [address] [address] [address] Gale Qiu PLT 192 103/ul Normal 150-450 [facility] Comment on above: Performed By: #### T HYGIMA #### [facility] [address] [address] [address] Gale Qiu RBC 4.13 106/ul Critically low 4.20-5.40 [facility] Comment on above: Performed By: #### T HYGIMA #### [facility] [address] [address] [address] Gale Qiu WBC 6.5 103/ul Normal 4.0-11.0 [facility] Comment on above: Performed By: #### T HYGIMA #### [facility] [address] [address] [address] Gale Qiu Ambulatory Visit Summaryon 0 [...] Appointments Follow Up with TERI MIMS PA-C, URL When: Where: [address] [place] [address] Business (1) Medications What How [...] these instructions at home: Medicines ? Take sbaz-ftp-sqdhzug and prescription medicines only as told by [...] the blood stops without treatment. ? Take jpam-hjs-augezvx and prescription medicines only as told by your health care provider. ? Drink enough fluid to keep your urine clear or pale yellow. This information is not in (more content not included)... Normal [facility] Patient Educationon 02-18-20 Patient Education Gastroenterology Abdominal [...] these instructions at home: Medicines ? Take lvit-nqw-osxtjkr and prescription medicines only as told by [...] your condition for any changes. ? Take wbsy-dlq-tmvesgy and prescription medicines only as told by [...] 08/25/2006 Document Revised: 03/25/2020 Document Reviewed: 03/25/2020 [employer] Patient Education ? 2020 [employer]. Urology Hematuria, Adult Hematuria is blood in [...] these instructions at home: Medicines ? Take btyk-scm-eaapini and prescription medicines only as told by [...] once. ? (more content not included)... Normal [facility] Urology Office/Clinic Noteon 02-17-2022 Urology Office/Clinic Note [...] few times. Follow-up With When Contact Information PRASANNA DOTSON, TERI Cruz, URL [address] [place] [address] Business (1) Additional Instructions: Patient Education Hematuria, Adult IDaylin , personally scribed for Teri Mims on [...] Not Given Temporary contraindication - reschedule Normal [facility] Comment on above: Result Comment: Elec tronically Signed By: TERI MIMS PA-C\.br\Date and Time Signed: 02/17/22 14:33 EDT\.br\Electronically Co-Signed By: Daylin Sandoval\.br\Date and Time Co-Signed: 02/17/22 14:11 EDT Other Comment: aissatou sparks [facility] Urology Phone Visit- Telehealth Chief [...] with urination. pt referred by Dr Montaño ROOF TILE LAYER for chronic pelvic pain. s/p hysterectomy. no [...] Additional Instructions: PRASANNA DOTSON, TERI Cruz, URL [address] [place] [address] [facility] (1) Additional Instructions: Patient Education Abdominal Pain, [...] Not Given Temporary contraindication - reschedule Normal [facility] Comment on above: Result Comment: Elec tronically Signed By: TERI MIMS PA-C\.br\Date and Time Signed: 02/17/22 14:32 EDT RAD - CT Reporton 02-10-2022 RAD - CT Report [id number]:127 Normal [facility] Ambulatory Visit Summaryon 0 01-28-2022 Ambulatory Visit Summary YUE HERNANDEZ :1985 Visit Date:01/28/2022 Ambulatory Visit Instructions Your Diagnosis Bladder pain Stress incontinence History of recurrent UTI (urinary tract infection) History of kidney stones Gross hematuria Tests Performed Urnls Dip Stick Auto w/o Microscopy POC 00746 CT Abdomen/Pelvis w/ + w/o Contrast -- [...] Appointments Follow Up with TERI MIMS PA-C, URL When: Why: scheduling cysto Where: [address] [place] [address] Medications What How Much When Instructions Unchanged APAP/ butalbital/ caffeine (Fioricet) Every 4 hours Contact prescribing physician if questions or concerns Test Results Urnls Dip Stick Auto w/o Microscopy POC 94546 (01/28/2022) Bilirubin Urine Dipstick - Negative Blood Urine Dipstick - Negative Glucose Urine Dipstick - Negative Ketones Urine Dipstick - Negative Leukocytes Urine Dipstick - Negative Nitrite Urine Dipstick - Negative Protein Urine Dipstick - Negative Specific [place] Urine Dipstick - 1.020 Urine Appearance Urine [...] these instructions at home: Medicines ? Take qwym-yll-nxgvphf and prescription medicines only as told by [...] follow-up visi (more content not included)... Normal [facility] Patient Educationon 01-29-20 Patient Education Urology Hematuria, [...] these instructions at home: Medicines ? Take xsbj-rek-tqcwwdd and prescription medicines only as told by [...] the blood stops without treatment. ? Take rugk-chd-kdpkupd and prescription medicines only as told by your health care provider. ? Drink enough fluid to keep your urine clear or pale yellow. This information is not intended to replace advice given to you by your health care provider. Make sure you discuss any questions you have with your health care provider. Document Released: 11/15/2006 Document Revised: 04/10/2020 Document Reviewed: 12/18/2017 Elsevier Patient Education ? 2019 VuCOMP. Jaylyn Fernandes [facility] Urology Office/Clinic Noteon 01-28-2022 Urology Office/Clinic Note [...] lesions Assessment/Plan pt referred by Dr Montaño ROOF TILE LAYER for chronic pelvic pain. s/p hysterectomy. no [...] When Contact Information TERI MIMS PA-C, URL [address] [place] [address] Additional Instructions: scheduling cysto Patient Education Hematuria, Adult I, Cindy Ventura personally scribed for Teri Mims on 01/28/2022 14:40:22. . 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 Normal [facility] Comment on above: Result Comment: Elec tronically Signed By: TERI MIMS PA-C\.br\Date and Time Signed: 01/28/22 16:53 EST ED Provider Noteon 8 HIM IP Note OR Agricultural Services Director Normal [facility] XR FOOT RIGHT (MIN 3 VIEWS)o n [...] by:MANE Felizigned by:Wolf Valencia MD06/18/18inal result Normal [facility] Vital Signs Date Time Vital Sign Value Performing Clinician Marck noble 10-15-2023 13:08-0500 Body height 167.6 cm Shawn Watters MD Work Phone: [employer] 10-15-2023 13:08-0500 Body mass index (BMI) [Ratio] 21.79 kg/m2 Shawn Watters MD Work Phone: [facility] 10-15-2023 13:08-0500 Body weight 61.24 kg Shawn Watters MD Work Phone: [facility] 10-15-2023 13:08-0500 Diastolic blood pressure 76 mm[Hg] Shawn Watters MD Work Phone: [facility] 10-15-2023 13:08-0500 Heart rate 55 /min Shawn Watters MD Work Phone: [facility] 10-15-2023 13:08-0500 Respiratory rate 16 /min Shawn Watters MD Work Phone: [facility] 10-15-2023 13:08-0500 Systolic blood pressure 126 mm[Hg] Shawn Watters MD Work Phone: [facility] 03-31-2022 16:14-0400 Blood Pressure Location [facility] 03-31-2022 16:14-0400 BP/Pulse Patient Position [facility] 03-31-2022 16:14-0400 Diastolic blood pressure 71 mm[Hg] [facility] 03-31-2022 16:14-0400 Heart rate 63 /min [facility] 03-31-2022 16:14-0400 Mean blood pressure 83 mm[Hg] [facility] 03-31-2022 16:14-0400 Respiratory rate 16 /min [facility] 03-31-2022 16:14-0400 Systolic blood pressure 107 mm[Hg] [facility] 03-31-2022 16:14-0400 Body temperature 97.7 [degF] [facility] 03-31-2022 16:13-0400 Blood Pressure Location [facility] 03-31-2022 16:13-0400 BP/Pulse Patient Position [facility] 03-31-2022 16:13-0400 Diastolic blood pressure 70 mm[Hg] [facility] 03-31-2022 16:13-0400 Heart rate 70 /min [facility] 03-31-2022 16:13-0400 Mean blood pressure 82 mm[Hg] [facility] 03-31-2022 16:13-0400 SaO2% (BldA) [Mass fraction] 99 % [facility] 03-31-2022 16:13-0400 Systolic blood pressure 106 mm[Hg] [facility] Encounters Encounter Date Encounter Type Care Provider Facility Start: 12-08-2023 Telephone encounter Mariposa domínguez CMA [facility] Start: 12-06-2023 Telephone encounter Lidia Jeter [facility] Comment on above: Questions Start: 10-19-2023 End: 10-19-2023 ambulatory RAE GU Not Available Start: 10-15-2023 End: 10-15-2023 Office outpatient new 45 minutes Shawn Watters MD Work Phone: [facility] Comment on above: [...] 03-31-2022 Patient encounter procedure [facility] Start: 03-20-2022 End: 03-20-2022 ambulatory FRANSICO MARI Facility:[facility] Start: 03-19-2022 Encounter for other preprocedural examination FRANSICO MARI [facility] Start: 03-17-2022 End: 03-18-2022 ambulatory FRANSICO MARI Facility:[facility] Start: 03-17-2022 End: 03-18-2022 Encounter for other preprocedural examination FRANSICO MARI Facility:[facility] Start: 02-17-2022 End: 02-17-2022 Off-Site TERI MIMS [facility] Start: 06-18-2018 End: 06-18-2018 Emergency department patient visit SONIYA ESCALONA [facility] Procedures Date Procedure Procedure Detail Performing Clinician Start: 03-10-2022 Exploration using laparoscope Sven Hayes Jr. Start: 06-18-2018 SUHA WRAP SONIYA TO BEY Start: 06-18-2018 CRUTCHES SONIYA TO BEY Start: 06-18-2018 Radex foot complete minimum 3 views SONIYA ESCALONA Endometriosis (disorder) ANNALEE MIMS Hysterectomy TERI MIMS Ligation of fallopian tube J LÓPEZ MIMS Plan of Treatment Date Care Activity Detail Author Start: 11-02-2024 Adult BMI Screening Adult BMI Screen ing [facility] Start: 11-02-2024 Tobacco Screening Tobacco Screening [facility] Start: 01-01-2024 End: 01-01-2024 Patient encounter procedure 01/01/2024 1:15 PM EST Appointment [facility] [place] - [facility] [address] [place] [address] [facility] [place] - MRI Start: 07-30-2023 Influenza vaccination Influenza Vacc ine [facility] Start: 2007 Screening for malign ant neoplasm of cervix Pap Smear [facility] Start: 2005 DTaP,Tdap and Td Vaccines (1 - Tdap) DTaP,Tdap and Td Vaccines (1 - Tdap) [facility] Start: 1998 Depression Screening Depression Scre ening [facility] Payers Date Payer Category Payer Medicaid [id number] 2022 Medicaid ANTH MEDICAID ON LICENSE OF [facility] MEDICAID [id number] 2022-Present [address] [place] [address] [id number] 2014 Unknown [id number] 1985 Unknown [id number] 1985 Unknown [id number] 1985 Unknown [id number] 1986 Unknown [id number] 1985 Unknown [id number] 1986 Unknown [id number] 1985 Unknown [id number] 1985 Unknown [id number] 1958 Self-pay 1958 Unknown [id number] Social History Date Type Detail Facility Start: 01-28-2022 Tobacco smoking status Light t obacco smoker (finding) [facility] [employer] Tobacco smoking status Smoker (finding) [facility] [employer] Start: 05-08-2019 End: 11-02-2023 Sex Assigned At Female [facility] [employer] Start: 10-04-2023 Tobacco smoking stat [facility] Never smoked tobacco [facility] Start: 10-04-2023 Tobacco use and exposure Smoke less tobacco non-user [facility] Start: 10-15-2023 End: 11-02-2023 Alcohol intake Ex-drinker (finding) [facility] Start: 05-08-2019 End: 11-02-2023 History of Social function [facility] Housing Instability Unknown [facility] Start: 1985 Sex Assigned At Not on file P [facility] Clinical Notes 02-17-2022 to 12-08-2023 Telephone Encounter - Mariposa Kimberley Byrnes, [facility] - 12/08/2023 10:45 AM ESTTelephone Encounter - Mariposa Kimberley Byrnes, [facility] - 12/08/2023 10:45 AM Woody Watters MD [...] multiple times with no response. Spoke with structural architect from both offices patient needs appointment with Dr. Watters and will be contacted to schedule. documented in this encounter [facility] [employer] [facility] 12-08-2023 Telephone encount er Note Patient called 12/07/2023 requesting a call back regarding surgery scheduling. Staff from office called today stating patient told them she has reach out to our office and office multiple times with no response. Spoke with structural architect from both offices patient needs appointment with Dr. Watters and will be contacted to schedule. [facility] [employer] [facility] 12-06-2023 Miscellaneous Notes Formattin g of [...] could help with. documented in this encounter [facility] [employer] [facility] 12-06-2023 Telephone encount er Note Yue called with questions about her mother's recent scans and overall treatment plan. I encouraged her to reach out to Dr. Valdovinos's office for that information given that that is not something our office discusses. Encouraged to call back at any time with questions or anything else I could help with. [facility] 10-15-2023 History of Presen t illness Narrative Plastic & Reconstructive Surgery MD Shawn Rich MD Tara Geha, PA-C Erin Orzechowski, UNDERWATER TRAPPER [address] [address] Office [phone] BREAST RECONSTRUCTION CONSULTATION Reason for visit : [...] Nipple 20 Nipple-areolar diameter 3.5 3 Female a/c tech present: yes. Impression : 1. BRCA1 gene [...] have smaller breast if she proceeds with PONOAM. We can augment her POONAM free flaps [...] with any questions or concerns. - Anita Vera APRN-UNDERWATER TRAPPER 10/15/23 2:23 PM IShawn MD, personally performed the face to face [...] procedures Referring and communicating with other health personal caregiver (not separately reported) Documenting clinical information in the electronic or other health record Independently interpreting results (not separately reported) and communicating results to the patient/family/caregiver Care coordination (not separately reported) Please note that portions of this note were generated using voice recognition M*Feedtrace dictation software. Although every effort was made to ensure the accuracy of this automated dandy operator, some errors in dandy operator may have occurred. documented in this encounter [facility] 03-20-2022 Note [place] [place] NAME: YUE HERNANDEZ DATE OF : MEDICAL REC#: [id number] SALAD MAKER: [address] [facility], TRANSADMIT DATE: 03/20/2022 07:29:00 [employer] DATE: 03/23/2022 00:00 DICTATING PHYSICIAN: FRANSICO MONTAÑO DICTATION DATE: 03/20/2022 11:00 OPERATIVE NOTE OPERATION DATE:03/20/2022 PROCEDURE: Diagnostic laparoscopy with lysis of adhesions from the bowel to the vaginal cuff. PREOPERATIVE DIAGNOSIS: Pelvic pain. POSTOPERATIVE DIAGNOSIS: Pelvic pain. ANESTHESIA: General. SURGEON: Fransico Montaño D.O. LEASE PURCHASE DRIVER: BARAK Rodríguez URINE OUTPUT: Yellow and clear. [...] Montaño DO on 03/29/2022 07:51 PM EDT [facility] Signed and Approved by: DR FRANSICO MONTAÑO . 03/29/2022 19:51:00 [facility] 03-13-2022 Note [id number]:127 [facility] 02-17-2022 Hospital Discharg e instructions Patient Education [...] Follow these instructions at home: Medicines Take badw-vzx-vdkmpmm and prescription medicines only as told by [...] Watch your condition for any changes. Take wjlk-opa-flfkwfk and prescription medicines only as told by [...] 08/25/2006 Document Revised: 03/25/2020 Document Reviewed: 03/25/2020 [employer] Patient Education 2019 [employer]. 02/17/2022 14:07:31 Hematuria, Adult Hematuria, Adult Hematuria [...] Follow these instructions at home: Medicines Take rnwb-bbv-wxnfhya and prescription medicines only as told by [...] or the blood stops without treatment. Take nlsh-uab-oyhomgt and prescription medicines only as told by your health care provider. Drink enough fluid to keep your urine clear or pale yellow. This information is not intended to replace advice given to you by your health care provider. Make sure you discuss any questions you have with your health care provider. Document Released: 11/15/2006 Document Revised: 04/10/2020 Document Reviewed: 12/18/2017 [employer] Patient Education 2020 [employer]. Follow Up Care 02/16/2022 16:02:41 With:cysto, retrogrades, UD w DLS Address:Unknown When: Unknown With:PRASANNA DOTSON, TERI Cruz, URL Address: [address] [place] [address] Business (1) When: Unknown [facility] Evaluation + Plan note No data available for this section [facility] Evaluation + Plan note Future Appointments Appointment Date:04/02/2022 11:00:00 AM Scheduled Provider: Location:[facility] Appointment Type:Surgery [facility] Evaluation note Diagnosis BRCA1 gene mutation positive documented [facility] No data available for this section [facility]ructionsNot on filedocumented in this encounter [facility] on filedocumented in this encounter [facility] Center[facility]ructionsNot on filedocumented in this encounter [facility] CenterReason for referral (narrative)* Consultation (Routine) - Pending Review Specialty Diagnoses / Procedures Referred By Aster domínguez Referred To Contact Breast Surgery Diagnoses BRCA1 gene mutation positive Anita Vera APRN-CNP [address] [facility] [address] [place] [address] [place] [address] [place], [place] [id number] [address] [place] [address] Referral ID Status Reason Start Date Expiration Date V isits Requested Visits Authorized [id number] Pending Review 10/15/2023 10/14/2024 1 1 [facility] Summary Purpose Family History No Family History [...] DATE CREATED AUTHOR AUTHOR'S ORGANIZ ATION 04/17/2022 [facility] DATE CREATED AUTHOR AUTHOR'S ORGANIZ ATION 03/15/2023 [facility] DATE CREATED AUTHOR AUTHOR'S ORGANIZ ATION 10/21/2023 [facility] EPIC Reason for Visit (unrecogniz ed section and content) Reason Onset Date Comments Questions 12/06/2023 Reason Comments New Patient Specialty Diagnoses / Procedures Referred By Contact Referred To Contact Plastic & Reconstructive Surgery Diagnoses BRCA1 gene mutation positive Teri Vasquez APRN-CNP [address] Provider left practice 11/17/2023 [facility] [place] [address] Shawn Watters MD [address] [place] [address] Referral ID Status Reason Start Date Expiration Date Visits Requested Visits Authorized [id number] Pending Review Specialty Services Required 10/05/2023 10/04/2024 1 1 Care Teams (unrecognized sec tion and content) Features Editor Relationship Specialty Start Date End Date Subha Gutierrez APRN-CNP [address] [place] [address] PCP - General Family Medicine 10/04/23 Features Editor Relationship Specialty Start Date End Date Subha Gutierrez APRN-CNP [address] [facility] [place] [address] PCP - General Family Medicine 10/04/23 Features Editor Relationship Specialty Start Date End Date Subha Gutierrez APRN-CNP [address] [place] [address] PCP - General Family Medicine 10/04/23 FOR [...] BE BASED ON THE PRIMARY CLINICAL RECORDS. [facility] [employer] [facility]. provides no warranty or guarantee of the accuracy or completeness of information in this document.
[2023-12-23 16:18] LABS: Internal Control Within Normal Limits; Strep A Antigen Screen Negative
[2023-12-23 16:40] LABS: Mono Screen NEGATIVE (NEGATIVE)
== END 2023-12-23 15:39 | disposition home or self-care (01) ==
PROVIDERS: PCP Nurse Practitioner Family; Visit Provider Nurse Practitioner Family
DX: J02.9 Acute pharyngitis, unspecified (principal)
CPT/HCPCS: 86308; 87070; 87880

== ENCOUNTER 2023-12-28 20:14 | Outpatient (REF) | payer BC, SELFPAY ==
--- OUTSIDE RECORDS SUMMARY | 2023-12-28 20:17 | XMS_ITS | CCD ---
Author Name Unknown Address [address] [place] [address] Organization [facility] Care Team Providers Care [employer] Name Role Phone IQRA SONIYA Unavailable Unavailable SUBHA GUTIERREZ Primary Care Physician [phone] MARI, FRANSICO Admitting Unavailable MARI, FRANSICO Attending Unavailable SUBHA GUTIERRZE Primary Care Unavailable MARI, FRANSICO Consulting Unavailable [...] SUBHA GUTIERREZ Primary Care Unavailable DR LAKSHMI MESSINA V Consulting Unavailable TERRENCE ., DR RICKY Jaimes Admitting Unavailable TERRENCE ., DR RICKY Jaimes Attending Unavailable AMRI, FRANSICO Referring Unavailable SUBHA GUTIERREZ Primary Care [...] Status: Ordered tiZANidine 4 mg oral tablet (5 sources) Central alpha-2 Adrenergic Agonist Start: 10-01-2023 [...] CERV] Onset: 12-21-2022 Episodic Residual codes; unclassified (4 sources) Breast finding ; Translations: [Breast implant status] Onset: 11-02-2023 11-02-2023 Chronic Residual codes; unclassified (5 sources) BRCA1 gene mutation positive; Translations: [Genetic susceptibility to malignant neoplasm of breast] Onset: 09-29-2023 09-29-2023 Episodic Residual codes; unclassified (4 sources) Family history of malignant neoplasm of ovary; Translations: [Family history of malignant neoplasm of ovary] Onset: 11-02-2023 11-02-2023 Episodic Residual codes; unclassified (4 sources) Family history of breast cancer; Translations: [...] T3, Serum 23.0 ng/dL Normal 9.2-24.1 [facility] Comment on above: Result Comment: This test was developed and its performance characteristics determined by [email or web address]. It has not been cleared or approved by the Food and Drug Administration. Performed By: #### C PEPT #### [facility] [address] [place] [address] Dr. Gale Qiu SEROTONINon 03-12-2023 Serotonin, Serum 146 ng/mL Normal 31-207 [facility] Comment on above: Performed By: #### T HYGIMA #### [facility] [address] [place] [address] Dr. Gale Qiu ESTRONEon 03-11-2023 Estrone, Serum 50 pg/mL Normal 27-231 [facility] Comment on above: Result Comment: Rang e Adult (Premenopausal) 27 - 231 Menstrual Cycle (1-10 days) 19 - 149 Menstrual Cycle (11-20 days) 32 - 176 Menstrual Cycle (21-30 days) 37 - 200 Performed By: #### E STRONE #### [facility] [address] [place] [address] Dr. Gale Qiu TESTOSTERONE, FREE,DIRECT, T OTALon 03-11-2023 Free Testosterone(Direct) 0.5 pg/mL Normal 0.0-4.2 [facility] Comment on above: Result Comment: Perf ormed at: BN Performed By: #### C PEPT #### [facility] [address] [place] [address] Dr. Gale Qiu Testosterone [Mass/Vol] 5 ng/dL Critically low 8-60 [facility] Comment on above: Result Comment: Perf ormed at: CB Performed By: #### C PEPT #### [facility] [address] [place] [address] Dr. Gale Qiu C-PEPTIDE, SERUMon 3 C-Peptide, Serum 1.9 ng/mL Normal 1.1-4.4 [facility] Comment on above: Result Comment: C-Pe ptide reference interval is for fasting patients. Performed By: #### C PEPT #### [facility] [address] [place] [address] Dr. Gale Qiu DHEA-SULFATEon 03-10-2023 DHEA-Sulfate 93.5 ug/dL Normal 57.3-279.2 [facility] Comment on above: Performed By: #### T HYGIMA #### [facility] [address] [place] [address] Dr. Gale Qiu ESTRADIOLon 03-10-2023 Estradiol 273.0 pg/mL Normal [facility] Comment on above: Result Comment: Adul t Female: Follicular phase 12.5 - 166.0 Ovulation phase 85.8 - 498.0 Luteal phase 43.8 - 211.0 Postmenopausal <6.0 - 54.7 1st trimester 215.0 - >4300.0 [facility] ECLIA methodology Performed By: #### C PEPT #### [facility] [address] [place] [address] Dr. Gale Qiu INSULINon 03-10-2023 Insulin 7.7 uIU/mL Normal 2.6-24.9 [facility] Comment on above: Performed By: #### I NSULIN #### [facility] [address] [place] [address] Dr. Gale Qiu SEX HORMONE-BINDING GLOBULIN on 03-10-2023 Sex Horm Binding Glob, Serum 62.1 nmol/L Normal 24.6-122.0 [facility] Comment on above: Performed By: #### T HYGIMA #### [facility] [address] [place] [address] Dr. Gale Qiu T3, TOTAL (TRIIODOTHYRONINE) on 03-10-2023 T3, TOTAL 113 ng/dL Normal 71-180 [facility] Comment on above: Performed By: #### T HYGIMA #### [facility] [address] [place] [address] Dr. Gale Qiu THYROGLOBULIN AB AND THYROGL OBULINon 03-10-2023 Thyroglobulin Antibody <1.0 Normal 0.0-0.9 [facility] Comment on above: Result Comment: Thyr oglobulin Antibody measured by [employer] Methodology Performed By: #### T HYGIMA #### [facility] [address] [place] [address] Dr. Gale Qiu Thyroglobulin by LUZ 61.6 ng/mL Critically high 1.5-38.5 [facility] Comment on above: Result Comment: Acco rding [...] Assay Performed By: #### T HYGIMA #### [facility] [address] [place] [address] Dr. Gale Qiu THYROID PEROXIDASE ABon 02-27 Thyroid Peroxidase (TPO) Ab <9 Normal 0-34 [facility] Comment on above: Performed By: #### T HYGIMA #### [facility] [address] [place] [address] Dr. Gale Qiu VIT D 1 25 DIHYDROXYon 03-10 Calcitriol(1,25 di-OH Vit D) 34.5 pg/mL Normal 24.8-81.5 [facility] Comment on above: Performed By: #### V [id number] #### [facility] [address] [place] [address] Dr. Gale Qiu FERRITINon 03-09-2023 Ferritin [Mass/Vol] 57.0 ng/mL Normal 6.2-137.0 [facility] Comment on above: Performed By: #### T HYGIMA #### [facility] [address] [place] [address] Dr. Gale Qiu FREE T3on 03-09-2023 FREE T3 2.75 pg/mlL Normal 2.18-3.98 [facility] Comment on above: Performed By: #### G PATTY, FT3, T4, TSH #### [facility] [address] [place] [address] Dr. Gale Qiu FREE T4on 03-09-2023 Free T4 [Mass/Vol] 0.92 ng/dL Normal 0.76-1.46 [facility] Comment on above: Performed By: #### T HYGIMA #### [facility] [address] [address] [address] Gale Qiu GLUCOSE BLOODon 03-09-2023 Glucose [Mass/Vol] 94 mg/dL Normal 74-106 [facility] Comment on above: Performed By: #### G PATTY, FT3, T4, TSH #### [facility] [address] [place] [address] Dr. Gale Qiu GLYCOHEMOGLOBIN A1Con 2022 ADA RECOMMENDATION SEE BELOW Normal [facility] Comment on above: Result Comment: ADA RECOMMENDED LIMIT 4.0 - 6.0 ADA THERAPEUTIC TARGET < 7.0 ACTION SUGGESTED > 7.0 Performed By: #### T HYGIMA #### [facility] [address] [place] [address] Dr. Gale Qiu Glucose [Mass/Vol] 105 mg/dL Normal [facility] Comment on above: Performed By: #### T HYGIMA #### [facility] [address] [place] [address] Dr. Gale Qiu HbA1c (Bld) [Mass fraction] 5.3 % Normal 4.5-6.2 [facility] Comment on above: Performed By: #### T HYGIMA #### [facility] [address] [address] [address] Gale Qiu T4on 03-09-2023 T4 [Mass/Vol] 9.20 ug/dL Normal 4.80-13.90 [facility] Comment on above: Performed By: #### G PATTY, FT3, T4, TSH #### [facility] [address] [place] [address] Dr. Gale Qiu TSHon 03-09-2023 TSH 1.236 uIU/mL Normal 0.358-3.740 [facility] Comment on above: Performed By: #### G PATTY, FT3, T4, TSH #### [facility] [address] [place] [address] Dr. Gale Qiu PAP ACOG PANEL 2: 30 to 65on 12-28-2022 . . Normal [facility] Comment on above: Result Comment: Perf ormed at: WB Performed By: #### 4 [id number] #### [facility] [address] [place] [address] Dr. Gale Qiu Age Gdln ACOG Testing 30-65 Normal [facility] Comment on above: Performed By: #### 4 [id number] #### [facility] [address] [place] [address] Dr. Gale Qiu DIAGNOSIS: Comment Normal [facility] Comment on above: Result Comment: NEGA TIVE FOR INTRAEPITHELIAL LESION OR MALIGNANCY. FUNGAL ORGANISMS MORPHOLOGICALLY CONSISTENT WITH EDGARD SPECIES ARE PRESENT. THIS SPECIMEN WAS RESCREENED PART OF OUR TECHNICAL SUPPORT AGENT PROGRAM. Performed at: WB Performed By: #### 4 [id number] #### [facility] [address] [place] [address] Dr. Gale Qiu HPV Aptima QNSPAP Normal [facility] Comment on above: Result Comment: Test not performed. Liquid based PAP vial contained insufficient specimen for molecular testing; likely a consequence of insufficient cellularity in original collection. This nucleic acid amplification test detects fourteen high-risk HPV types (16,18,31,33,35,39,45,51,52,56,58,59,66,68) without differentiation. Performed at: =G Performed By: #### 4 [id number] #### [facility] [address] [place] [address] Dr. Gale Qiu HPV Genotype Reflex Comment Normal [facility] Comment on above: Result Comment: Crit eria not met, HPV Genotype not performed. Performed at: WB Performed By: #### 4 [id number] #### [facility] [address] [place] [address] Dr. Gale Qiu Methodology: Comment Normal [facility] Comment on above: Result Comment: This liquid based ThinPrep(R) pap test was screened with the use of an image guided system. Performed at: WB Performed By: #### 4 [id number] #### [facility] [address] [place] [address] Dr. Gale Qiu Note: Comment Normal [facility] Comment on above: Result Comment: The Pap smear is a screening test designed to aid in the detection of premalignant and malignant conditions of the uterine cervix. It is not a diagnostic procedure and should not be used as the sole means of detecting cervical cancer. Both false-positive and false-negative reports do occur. . Performed at: WB Performed By: #### 4 [id number] #### [facility] [address] [place] [address] Dr. Gale Qiu Performed by: Comment Normal [facility] Comment on above: Result Comment: Marina Hernandes, Raking Machine Operator (ASCP) Performed at: WB Performed By: #### 4 [id number] #### [facility] [address] [address] [address] Gale Qiu QC reviewed by: Comment Normal [facility] Comment on above: Result Comment: Brenda Redd, Supervisory Raking Machine Operator (ASCP) Performed at: WB Performed By: #### 4 [id number] #### [facility] [address] [place] [address] Dr. Gale Qiu Specimen adequacy: Comment Normal [facility] Comment on above: Result Comment: Sati sfactory for evaluation. No endocervical component is identified. Performed at: WB Performed By: #### 4 [id number] #### [facility] [address] [place] [address] Dr. Gale Qiu Progress Note-Physicianon Progress Note-Physician [...] History of kidney stones / SNOMED CT 5150905465 / Confirmed Migraines / SNOMED CT 67240593 / Confirmed Smoker / SNOMED CT 906552026 / Confirmed Added secondary to documentation in Social History. Resolved: Breast cancer / SNOMED CT 221385210 Resolved: Gross hematuria / SNOMED CT 120917178 Resolved: Hx of migraines / SNOMED CT 635669271 Resolved: History of recurrent UTI (urinary tract infection) / SNOMED CT 9006912665 Resolved: Kidney stones / SNOMED CT 601287540 Resolved: Dyspareunia in female / SNOMED CT 746072644 Canceled: Bladder pain / SNOMED CT 35778128 Canceled: Flank pain / SNOMED CT 939518437 Canceled: Stress incontinence / SNOMED CT 530544493 Histories Past Medical History: Resolved Dyspareunia in female (537874301): Resolved. Breast cancer (830207245): Resolved. Kidney stones (860344731): Resolved. History of recurrent UTI (urinary tract infection) (4437887011): Resolved. Gross hematuria (416053196): Resolved. Family History: Cancer Brother Osteoarthritis Mother Father Procedure history: Exploration using laparoscope cleaned out adhesions (7891459460) on 03/10/2022 at 36 Years. Tubal ligation (164231876). Hysterectomy (951098092). Endometriosis (9469543834). Social History Social & Psychosocial Habits Alcohol [...] results Radiology results ECG interpretation Condition Plan [place] [employer] (ASA) physical status classification: Class II. Anesthetic Preoperative Plan Anesthesia: General. . Anesthetic plan, risks, benefits, and alternatives discussed with the patient and/or family. Risks discussed: nausea, vomiting, headache, sore throat, dental injury, serious complications. Patient verbalized understanding. Communication: face to face with (patient 5 minutes, Pt educated on the importance of smoking cessation.). Normal [facility] Comment on above: Result Comment: Elec [...] History of kidney stones / SNOMED CT 6209619541 / Confirmed Migraines / SNOMED CT 31898123 / Confirmed Smoker / SNOMED CT 510389989 / Confirmed Added secondary to documentation in Social History. Resolved: Breast cancer / SNOMED CT 409401925 Resolved: Gross hematuria / SNOMED CT 725455573 Resolved: Hx of migraines / SNOMED CT 005048969 Resolved: History of recurrent UTI (urinary tract infection) / SNOMED CT 2749168357 Resolved: Kidney stones / SNOMED CT 675088905 Resolved: Dyspareunia in female / SNOMED CT 008392017 Canceled: Bladder pain / SNOMED CT 37314673 Canceled: Flank pain / SNOMED CT 218312932 Canceled: Stress incontinence / SNOMED CT 730604828 Physical Examination Vital Signs 04/02/2022 12:00 EDT [...] Score 7 (more content not included)... Normal [facility] Comment on above: Result Comment: Elec tronically Signed By: Abhijit De La Cruz Jr, DO\Date and Time Signed: 04/14/22 08:56 EDT Coding Summary.on 04-07-2022 Coding Summary. CD:[id number] G h0bWw+PGhlYWQ+AU2JNBT sZ60dtMSasO7IE2jHTG1M SIREVJFCUQ3SWX3wzBL6Q FjpP5PcabPg HsfrdVKmOJ95EFu0LDW7z UckWAfkhA7ugZJjQ3u0Wq YwGM56iC27SXzhSQAoNsM 3LjZpbjsgbWFy T1pjXuAqmVDpFqh+PHRhY mxlIHdpZHRoPScxMDAlJy IsnIwpXR7qPz2nNFVhZOY vbGxhcHNlOiBj q1sfXDNgSZeiHH9xkXiyE 1MxtIO9MEGng6a7Ek38nQ I+QQWsZVF1cIooQAgda75 3WxRjf4vyVSW9 dMAtUXeePBF2E40ne8E5J QIiPBXlGDX6gQV3dA5adS tpnmplK7WuuEGmHaN5ZLQ 7gLFcnR6swHzz uvzgmX4kTmj+T17CMZ3BT LIJWK1KLfu1M1FhWfwgfL I+EC17LWRoKQ45tGHdvXI hf7ajyNc9DbXj BDEoOXJ3bMkdHLiqr3NkH LViT39fjXIxr3J6UDOxkG pgjYWfWaNudMR3mU6vGIw agtmwx7odgghn Yfoof9bemg36iN04Q44yX JlzFDOsWRS1FPXxSSUzkP xmuf6svV4pRn3+KYfvx4b ds9nqhFk5AwZc ZKGvnpEtqVkbOLA0r5YrW f52Z1FruTmih5IwZir3ux 60fYLcz8O2pFA9EAnqXKO kmS5qCTszFsV9 QWKxLyBvzJ16hOAbLXdvR v3iuQuxeZnlUR2rMDUpev ahJCKdbM1bYKKsvVFwiCh fEJ8wSKJgxthl r558PuCdWAS0ANNqjNXiL 6HbsO5eAlRaJPYeWEXjD4 OuqMEqRHhiW356EBejSlT 3VVFngaUvC7Bj GLWvzVhdVkY0o0N1Rd0Uu 0YgylrbVFV5PZotEYJ5Ox DpXgCbQtC8R3SfVzn6RDC odIkxDC0tB8Wk ZPMzubvkegbsmQA3JHGpI LNzhB72mBFlKVcmZl9tx3 H0r208MKNoOQFqmA82Ws1 udDogMTBwdCBU cI4ifnqfu1zorbhkHgYvK ENkFCl7JTd6IUJzmDkrJl UqWNM8WiG7WRZ6qVDdjJ8 aaIzfmqueaG5a Oyc+R54ylL5dLOR4CBE3o vqnWYLfwsFlLB25DX37Q4 RyPjwvdGFibGU+PGRpdiB pzXxzZT1gTiOm m5lpa5MvKHdaT9IuHQBuA LjiZye5IJPxDVJ3mLP5aD 8rKFDnGGxsy1G5oLK4V8O dkuRxnx5ns8jt ZQKiMUyvD90ysWNtf9Y5N HUhiUI1VLEewVevMeSdqQ 93Oyc+DQLtqQbyp2AjYgf cn7qqc4rogNy3 QlRgOLMfwiAwuEgzZEM5v 0RdUj80V98tRJejZISeLE TnKSSkAOOhcUoear7xbJ7 wIi8+PGNvbCB3 sHW6gW4nUXLbMeL1TMlsE 809XaOdyYNkCmgly8yku8 iboOc8WtJxAYEdkxHorJu yDNC8n9HuFc26 I35xUTbcLWRzTZDyNNUhU YZubYzelz8abW3zIl0+PC 3wo1pcsr56kJ27oQA+PHR kRZF2pGljFExk NFVwuI2nYKdsSbE4RWOvE kZplS88zMEwWCtsYd3ubG fbfXicJM1ySCWipygum48 4TpXhw9jpPQHr bCTrPSiuIWC8V67sh2K7Y QDeVSAjGDO1hUT2hQ0jaQ lnbjogbGVmdDsgdmVydGl rMHgiAAotO299 IHRvcDsnPlBhdGllbnQgT xNbCLc4T8WgHpv9HJIjdV rpTW9yjWVjRMeuHt8zjVy yvPyjUU2cAVSg opleb876DsVpp4dnLQKus MAySSmfAUQ2H15im1Q3XM UsPBTjZKV8zYW7sS6grRe nbjogbGVmdDsg ghMlbGtyDIntMNzqL467M HRvcDsnPkJpcnRoIERhdG M7QY59FA64rWYux1F1mOG 1Y4CfCXEjvrob fbtsjGC7PUXpAXAcxR24I y1fhOypGa4dRAKiOEL1OS QpkWKbC0GdtI9mZtSgBGV pPTIwC8EkhBAc GLpdD826SCtjKhG1EAUve cKaX6PxCVLriBbiVkS3h7 R1Oe6TW3T2AT43KC88vFY jj1V7hPB8W5Im WAYbvigqrjmdzYH2XZXcM MXhkR39Ho6qlDtbAr1kRY IiLIL7DFSulQCnM0BzhJ7 yOiAjMDAwMDAw L7HliJLiANjmV290EYkwT hS3JJYedvXsX0QvBMPgxD upDpD3e9I4Wi5ZNEa1EE4 9CY19qBQjb7U9 fCK3N5GjRJJvelechdiku QO3KWJdXMAxqI01Ag9laI nsCm1jBMCkHVU4JWSomRZ mS3QqwD8dAoVy LSSdGUGkV8TudZOhWRlmF 489EVgpPqI6FNFrdmTsR5 QxTIRbcLvrHaG2c8F7Tu9 SIZEwJT83TDN6 wCJ6MT25YJ06Q9IyPbjkx GFibGU+PHRhYmxlIHdpZH RoPScxMDAlJyBzdHlsZT0 hXh1jFCChWOSi pRmlsYIfDeUbz8ssZPXpH QtcVR3jsNkxP3IkoVV2IS Fjo2l6Mb89M75lH9TczBE +VRVflHB5lNZ6 dW9hRwYaXjN2OKshF954G eRsvLPnOerua9grh5xysO w2QcO9RMGxooDvzHcyOGV 7v8SuYv45V98f IHdpZHRoPSIxNSUiIHZhb Khjyo4akW6jQf5+PGNvbC Y1nCJ6uD5jJtBkTfW4XMx rO041YrYxtKTe Staay7drb6lrbSm9WbPkD SEjzdFlvNbbQBY0i9YjIh 03R9NxyEshx1BdYmd9ku8 5mMJas3Y9kTU5 W9XnSKPesxooySHpbKekM X0fVXCddyuyEUYvdJ4wWQ RoR2n1CtDbOpL0YAcrS8R abuN1KAXzsFSj WEpiEZS7F80lz8J8WVFbV NJuXHJ7kEM2uQ7uySkcbv ogbGVmdDsgdmVydGljYWw cBGusM057SFMd lGziFKCwaD4bMMUehVQkk NcpCB4oICFclpkuRdnGVh qHGywbZ4PRGGc0A4GrVho 1BXQenYatTI2x kGMjEAzoMo7xcGdnuCkmO Y1cKDMsygwyGTYnxM3nLG KqcQOtsHlkQF9tIVDdczq ft594WlNjTCM4 GMCutGWpP5WgvG7jQoOoG ITxTUNtA2FpgNVqHJnoO4 62IMqsAcR1WZVyynEzG7T sLWFsaWduOiB0 x7R9Sg4wJa5pPI2uLNq0C F51ES66lYWjs3L1aUY2M1 LvBWLhpcuwfwntkFS4PFX qZDMrpC35aTZy DUjlRv5ia2P9o560UOQgS TPiqE20Yn2qgVxcQFTerB NKpQ1jtjrzj5iakgacZkJ vOIQzTDh0UHr5 UJHwcChdEeAdDOG0KnG3B NW1mIXqrC5mvElfmcjcbV 9wOyc+XtMlKGFbjhF6C5J iDox2GOPdaSgn AT7uhLEzTLcyGo1pyTydy IunPU2pHYHainhrOCOpoF 6kSWIlgRGywJqwLY1gKAB ccemiz356UsWp FPK0SOXuiKEmQ6QcyU8hC pHkLDXtFAWzQ5AreUIcLL chM722ZKmuXgC7YZBltjY pS0MlZZSwhNlw CoU5r2M4Mc4XIB1yiIC9S 8LfRzl7TIDzvIpfWI6yxN DeNJbmOt5xcUyohKxiSR4 wNTBpbjtwYWRk aT1tGFGjuYBboHkrVC7eX AHbpxtwt198TyZyNGK7NB WayPQiR5ZfdN9gUzIyROW xCZNeR4NtoXAs TBtxO471MRbrSkJ9JGHte fObZ2KhHIKhsKkaFrI0u2 E0Ew3AiNQlTTWgKO35DS0 3LT80R7WjCndc dGFibGU+PHRhYmxlIHdpZ HRoPScxMDAlJyBzdHlsZT 5fMz9vAUQlHRBwbRgtiZK vXbUgy3uuZRHf MLlxNK1fwUftR4GvtNS6A DXct8x4Nt84U65rR5NndL A+CPIpiTP5sIQ9oQ7hYiP eWwC0GZztH687 TaXfqAFoSnmes2nhe8bnh Ge9SnKiEDSargSszHznQD S0w6GgAm16C43hILucCQI oPSIyMCUiIHZh nGbhsl2osP1dYx0+PGNvb RM6zOZ2jT9bDdObLoY9UH xkO170XjHcgNQxGoudO50 mS0EkoPT+PHRy Tgz8GQOiwTzqRC6qlDAdI YriKc7qVCW8UaEjOuVkDI uhH5BsIGZoulovnrwdbOS 4HDVfTVJvsR45 Hb8cjPghKc8kEYSmNNP3J WUraEEcJ0IbqK5xEhOnOV ZaSDSpC0LteULpXMfzB19 4KJkrBoV4LBTv tjMdP3AsGFBybHqaVaI5m 4C3Ew7SuZaivNNnGE8yFj EbDGj7F4MmJib4HBDfpVa cKV6wlQKfTIbr Bz5qmWfkbNpdGL1eUTQpc ilaa891JoOag5ynIHUqeY OhWSukIGE6D82lm3U1DDG uMHDdJLL7oIA2 tV1orBqmzzmmcRCjnYpsx tSkkVodNIntMVwpX336OU KtrCkbXpNWBgc4S3FoDtx 2DLYmgQzkMI9i qDMsTCdiDk7nsLitrTjvB U4eBYZvicbag605YsLap0 drURXflNZdQSqvJUT9V64 ma2Z8NENwSQLd ZQT5fHP9dS2mnUlnylssr GVmdDsgdmVydGljYWwtYW vzI648JFVauVsgIp7BJdc 8S6OrJll1MMKh xMlsOB2jvWUmDUyqFg4hi XufpThfXW7qTGVrhhprc7 43ElThz3kpKKArfTOwVMw eXLG2Z81mi3J9 DUHiDLYyGFM5eCO5yE5yp GlnbjogbGVmdDsgdmVydG ylGSuaDAjgP142IAFrvWe nPlBheWVyOjwv dGQ+JN06wt47M4ZuAsalK xf3VVOaYTT9fGB1uA2lTP MjGGvnp2R8oSJ3O5MlpsQ rxa5kr5idKBTs [employer] (more content not included)... Normal [facility] IntraOperative Documentson 0 04-07-2022 IntraOperative Documents [id number]:127 Normal [facility] Postoperative Documentson Postoperative Documents [id number]:127 Normal [facility] Coding Summary.on 04-03-2022 Coding Summary. [id number] G h0bWw+PGhlYWQ+WN2QQOH dQ15syFRhhG1DE1hNLB9U NFJQJOENKB9LPN8ezIN1L NddK5RietXs EgrqkSXlON69RMg9MDZ5c HqrXDzuaI6syDLbI6d9Nv CqTW16qC89CBifTMRyLnE 3LjZpbjsgbWFy W9dkWtRviAZyDlb+PHRhY mxlIHdpZHRoPScxMDAlJy DtbIrfEE7zBz7rSUAeFMD vbGxhcHNlOiBj j9roWZRqXYttJP5krNqoI 6BbeBX6YYPwi8q8Nq42cN I+EBXuYHE6iZxnVKpvm74 6QlFvb3aiXQG1 rNEaFBdvOCW5Y35bc0G2T LLuHYWcLFK8pSN9wB1wnW izmlbmB6KhaNLdLuM1FCA 2mQBndB8cdVvz goduvP9xOnv+L00HCD6PJ IBABY1NVgc0G6CcIesurK I+IK49ZQCnMA91nOEboZL wq0zxvLx0LzDt YOQjNLW4uOqaMCoxu7JzV QGsY34atPFsb5R0PUEjxZ joeKSuYzWdcOR9tA5uOMg doeqrd4ycdddj Zpohs5ejcy29lG09H40rE LtoUVNyXTQ8APVwYKOzrM uyhr4ybH7kBr0+VVkah1r rv3zlrIu0CgAl JOTplsUobQlbDJF0k4CsB e84I7RfiXgwn0VvBdw1oo 81zQGhg4F2sRE2MPgeBXK xmN3aSIycWgD6 XTPvIhSddD91bBFlXNwdC b5caQkzjRawFA7sUYLjvx gxQRSrsR6yCMZnpDOlkKn hRV7hTIFsgnod z498BvDvSSY8WIYmtOUxA 7NzzP7vJqWkEXHnWKNxK3 JlaWBjGNjkZ007LGrxFkR 4MDSxrgQvO0Ie BPHoiWafSnV1h2O0Np6Cu 1OfbnygKVV8WZdvOEA0Ug W2JoTuJuB6P8JuJgj3VBE fnZojNR8uK1Tb NTOppfucaikpyPZ2ADOwJ SIbqG79hUQoSAcrHe7jm3 L0f118GRXhCGQroD70Dm6 udDogMTBwdCBU xM1xrlbfv2xblxfvNzHmT OBeQBp0HHw9OEEjiJqtJw TdDAY3XcE8OJL6xCYetU8 kkFtrripdkC1c Oyc+S41esS0rYJO9LEE5m qskHUNttsPdRG44ZY88W1 RyPjwvdGFibGU+PGRpdiB zmHpnSK8oUgMr x9kgg7GnBOliP0SuMMGwS PsiLyn6SVKyXQZ4zCV0rT 0yIXLbAJzkc5L6wAJ6N9E klvRnac9pl3ka CELpUDfxJ49giNGxo9J5M GBdsRE6QIMfvBsmLoXfgX 93Oyc+VVYhtXbar9HrRkz zz7qxt7xuzCm9 WpMgGUPbvgXtlQhfZKA5v 8GwYo84D40wCUiqKCBbFK AwTQEgAVWfxPsoei6xsJ1 wIi8+PGNvbCB3 vJT5oF4jJDLsYaL5LBraW 488QcDwpPXmXfpwl2gsk1 jdpBi3GrXfUENgskRewDc sXCK3b4EcPg54 R51fSIqpZJOrEBKxQAIyZ BIylUfman5zoZ8iId1+PC 4my7bdin72pR96lNT+PHR nXEN5kCkqLEnx TTRauS1uTYusPiQ4TUWeF cOktR05lRWkVEqaKf5ffD uefJbuVJ4qZZMuiidxb41 5SdNur4hpHHFa tVOhOVvbQUV8C90lt3O9E EGyODAjDYT2vAR8eG2psD lnbjogbGVmdDsgdmVydGl vHAorINomY507 IHRvcDsnPlBhdGllbnQgT dZtEQk3H2TxKkt6YYBccW ilXG0nfAXxGFbdTm7pmWj mdLigLI3gHRVv sbkil495QoIij1ssRBSnl VFzKAvfVZY9I18sj5K4QQ HpVQOgJBB4lJF1yP0hiLe nbjogbGVmdDsg pbSiaHxkRRnlWCefM708A HRvcDsnPkJpcnRoIERhdG I5YY46EO87pPNxk8Y5bVE 1P8XiSXUuyvvt orqgoHM7UJHsFXMdyE16H y1hmRkmAm4hUVYuMCJ7KM YowAOxZ0EblT6uMdYrPLN gQZEuT7RmoREa RZyqR314WJwdWkM1MDSll mZiN4XqMHLrnWdjIvZ5q9 U2Df8AE8N4LO09CV00fPR gw1T3sOA0P7Pq ELHbudcgkixydVS9GRBuT VKnqI52Od7uoFwsXe2tBE RmKTU4JTAcvSJbA4PwlI3 yOiAjMDAwMDAw Y7SlbAAsFDnkI778YBkzN qK8EGPsgxBiX0DeKTIhwJ ebTzE7m1Y8Ev7HDUp2AZ0 4LK26tHYlh9L1 jOD2F7OrILNziuckgdgip YH6MEVtBFYimX96Dm3aaQ rdWt1yPBRoVQS9MLKldDF rZ1ZaiQ2sDnIx ONVnZGXoK4JgwLIfBKvlK 998JUkfYnC0FGSbbxLcE4 QoXEVsyJxaZcV7v3U7Dc3 CPUVrVR02CHT6 qEM2XJ33BY93L9FbQswdb GFibGU+PHRhYmxlIHdpZH RoPScxMDAlJyBzdHlsZT0 vCd1cIMHrMGOo lVxwyHCaBtGit2xbAPGqE OelPX1vrBviD9XpqRQ0MG Nfw2j9Dy50H48wD6XlbRI +RPBtuVE1qLF5 mU0mPpMjYqB1CBacT290D zBguSUhFzbre3lpw6qtjJ d0ArZ4SBHhkzYlrDacUIW 2g1LrJg61K57w IHdpZHRoPSIxNSUiIHZhb Qekff2qnL8xTr1+PGNvbC F1mQM4yE7xHhMqWeU9XPb rK708QyGitOPe Jaauo2ztp6btpXe9CrKzE ZZxfkGqnUljQIC8d9OcDa 20R7RnsMtxg2VhZtx3oy9 5uPHxa8X8oFA2 J7NvLHPifuvblXRduFyzF D2rAPVxnskoFKRxiO6sTI ZgU1f6BqHpYeB2SHvyW0I qbsH8ICYwdXXb RJdhJMP7O91tm8T6LTQxV VPvHGU2vAQ0jA6liUfvyg ogbGVmdDsgdmVydGljYWw bSGmdV677VUGy fGhuVGCkrQ0uZOGepRFul AykIJ7nJEPzuakcSycGUd yJMpbnJ6MWWTs1S3BqEys 4OUNcaIuoOQ8f nDSiQVccRj5vuTadvDokG X8tFSMeevelSZPvyG7lAA JqsUXawXuxVV7dUNVupbl xk629CxHiWQA2 OLHvxABhY6SabU3vWdAzF QDmFNDsJ3BgcYOkVVznL9 30RPnoNyL8KAZnkaOhE1A sLWFsaWduOiB0 a9W8Bn8iCj0rKB0pZNq9A M19SD72pXQex3E2rTQ8S0 PmWBBlihtzncbhwFQ1DDH tWUMaqQ55nWHl WGcfRf4zx9F4f168BLTmN LAphB04Bz3ghXfyQLErsZ WEmY0ddnmfu6djfefpLeL hRMDlWSp3ODz2 AOOwmPdnDqAcDEV0WsS4F IP7mVEuvI0hmLgyszvgxT 9wOyc+DvLzLQMhkbW2T7Y dAys0GXYukCdh VV5ebIXfGXshTc6hiRzht AhnGV7uKBPyrmwpMDXcjU 2dHIDptTUphJmsQU2hKAQ nanjvg158IvXz MGO8MYFlmTBxL2OeqH0vU rMrPGMrNCEwN2NelFRdYG ynZ409FFxiIgI1OKAyilD cO5PtRUWqeFxl OlZ2r7G0Hv6QAO5miTN4W 6UlQgd1PHPhyEhxNO4flM YsFGwrXc0ujYqlxYkkGO7 wNTBpbjtwYWRk mT2mVNVinIUmaLvtUG5dM XQzcyrdp539IsXyPIT3RK WrxIXyN2CtrT8lVyJoCQM cRDNpY9ZndODs UBqsR302PBntPvY3XIDlj gFkH5DyLENriYnxVdS8k4 M7Ce8AwIV2lAN6u1W6P2U mvATwBBI9KAQ8 tzweiln3J3BnVgrwiFR+P L17KVZkYS74bYYnyYLnj6 qbtMk0GxKfXBQnZFT9wAh lZOlyr1HeOVDz K24joPHyp3F7NWBdnYqiq LZpIhGlzMY2oR2uCYftxm zca5ixvtddZmrmp7hdee5 0cB37S25bGXym ZHRoPSIzMCUiIHZhbGlnb q1bgJ5fId3+IIDtuIE7yQ L1rF9jBfOvJgF5SXtsQ27 9InRvcCIvPjxj p8psr0rwaPs4MiIlDGRqb kSelUgwBAR3b1UqHs85Z8 9sIHdpZHRoPSIyMCUiIHZ fjJbojm1piH0b Ii8+OK2ee5zhxu41rA75o HI+CLYpVJE7pRrbNYryLM VlgZ6jUSefMgE0KOMzEbX etA89wZEfUNvj Vu6vbHgppKcrDH6xIUYut ivjb634QyNua6xkJUVjjA KeKCpoHTX9F13jx9H2UWL gYRShLLF7mVX2 bZ3jiTwqpetuqDVtoHmci yGfmWrdVHavDQkpC098PP CetVhkDtEjrIPcU1fxynK WRT7aUexcpQN+ DOFnWKK5yPsoEShnTCMlq E9tXGAoJ3v5UwVsXcO1MG ndP8CqxlR3VFXiuIIxAZQ ojLUPaT0ufxrq u3kkwgynEoUcMWXxVSh1O Ky8YADcbAasWpDdFKM5Nx C0WBO9fWMnlT5njJwfreu hwU2aIbq+RklO OjwvdGQ+NJGuSUE6pNolX FhlHQNswS1jNSQdK9f6Sn VsWgJ5CAaeG7JrqdK1YTD vbGQgMTBwdCBU yC6wxrozz3tczbtfZmJdU VVjADs5UCp3JFGpcPdwIs TgPJC7ToY2STK4wLSomV0 xoBlogyjxbO0d Oyc+TVJOOjwvdGQ+PHRkI KL2sLbxDOlcHWHwfK8vCV ZsA4d7GjHaXzE4JKqhE4D airQ8EBEuwQYu YHBtrSDJaS4xfeher1prx ireNyAyGTWwYHf4WRx4OB GeoGfkTjGnHTY0CqN8ERK 5bKDjdV9hsShl eyflhP7pKgs+FJD8OBA4M U86BH60L5UlXlrkuGEebD U+PHRhYmxlIHdpZHRoPSc xMDAlJyBzdHls ZT0n (more content not included)... Normal [facility] Consent for Anesthesiaon Consent for Anesthesia [id number]# 1.00CD:127 [facility] Discharge Instructionson Discharge Instructions [id number]# 1.00CD:127 [facility] IntraOperative Documentson 0 04-03-2022 IntraOperative Documents [id number]# 1.00CD:127 [facility] IntraOperative Documents [id number]# 1.00CD:127 [facility] Main OR Intraoperative Recor don 04-03-2022 Main OR Intraoperative Record IntraOp Document Type FT Summary Primary Physician: Sven Hayes Jr., MD Finalized Date/Time: 04/03/22 08:41:30 Pt. Name: YUE HERNANDEZ./Sex: 1985 Female Med Rec #: [id number] Physician: Sven Hayes Jr., MD Financial #: [id number] Pt. Type: A Room/Bed: [place] [address] Admit/Disch: 04/02/22 08:31:02 - 04/02/22 12:15:00 Institution: [...] Huynh Role Performed Anesthesiologist Surgeon - Primary Print Shop Stenographer - Primary Set Key Driver Time In 04/02/22 10:09:00 04/02/22 10:13:00 04/02/22 10:09:00 Time Out 04/02/22 10:35:00 04/02/22 10:28:00 04/02/22 10:35:00 Procedure CYSTOSCOPY RETROGRADE CYSTOSCOPY RETROGRADE CYSTOSCOPY RETROGRADE STENT INSERTION(.) STENT INSERTION(.) STENT INSERTION(.) Comments DR DE LA CRUZ SUPERVISING Last Modified By: Shirley ARMSTRONG, Mariela Watson RN, Mariela Salazar RN 04/02/22 10:36:03 04/02/22 10:36:03 04/02/22 10:36:03 Entry 4 Entry 5 Entry 6 Case Attendee Tammie BREAKER MECHANIC, Kristina Uribe RT, Miguel Ángel Gomez RN, Jia Rascon Role Performed Scrub - Primary Casino Enforcement Agent Staff - Other Time In 04/02/22 10:09:00 [...] Rony Landry RT, Miguel Ángel P, Tammie BREAKER MECHANIC, Kristina E Time Out Complete 04/02/22 10:15:00 [...] and tissue Entry 1 Skin Integrity Intact, [place], Warm, and Skin Abnormality No Dry Outcomes Met? Yes Last Modified By: Mariela Watson RN 04/02/22 10:24:04 Post-Care Text: (more content not included)... Normal [facility] Preoperative Documentson Preoperative Documents [id number]# 1.00CD:127 [facility] Preoperative Documents [id number]# 1.00CD:127 [facility] Consent for Procedure/Surger yon 04-02-2022 Consent for Procedure/Surgery [id number]# 1.00CD:127 [facility] Consent for Treatmenton Consent for Treatment [id number]#1 .00CD:127 Normal [facility] H&P Updateon 04-02-2022 H&P Update [id number]#1 .00CD:127 Normal [facility] H&P Update [id number]# 1.00CD:127 Normal [facility] Inpatient Patient Summaryon 04-02-2022 Inpatient Patient Summary [address] [address] [facility] Clinical Discharge Instructions PERSON INFORMATION Name: YUE HERNANDEZ PHYSICIANS Admitting Physician: Sven Hayes Jr., MD Attending Physician: Sven Hayes Jr., MD PCP: SUBHA GUTEIRREZ CNP Discharge Diagnosis: Postinfective urethral stricture, not elsewhere classified, female; Urethral syndrome Comment: PATIENT EDUCATION INFORMATION Instructions: Post Op Patient Instructions - FT (CUSTOM) Medication Leaflets: Follow up: With: Address: When: TERI COOK [address] [place] [id number] [facility] (1) Within 6 weeks MEDICATION LIST New Medications [id number], [address], [place] [id number], [phone] ketorolac (ketorolac 10 mg Tab) 1 Tablets [...] hours as needed Muscle pain. Comment: Normal [facility] Main OR PACU I Recordon Main OR PACU I Record PACU Phase I Docum ent Type FT Summary Primary Physician: Sven Hayes Jr., MD Finalized Date/Time: 04/02/22 13:51:38 Pt. Name: YUE HERNANDEZ /Sex: 1985 Female Med Rec #: [id number] Physician: Sven Hayes Jr., MD Financial #: [id number] Pt. Type: A Room/Bed: [place] [address] Admit/Disch: 04/02/22 08:31:02 - 04/02/22 12:15:00 Institution: [...] By: Criss Zeng RN 04/02/22 13:51 Normal [facility] Main OR PACU II Recordon Main OR PACU II Record PACU Phase II Document Type FT Summary Primary Physician: Sven Hayes Jr., MD Finalized Date/Time: 04/02/22 12:50:02 Pt. Name: YUE HERNANDEZ Francoise/Sex: 1985 Female Med Rec #: [id number] Physician: Sven Hayes Jr., MD Financial #: [id number] Pt. Type: A Room/Bed: [place] [address] Admit/Disch: 04/02/22 08:31:02 - 04/02/22 12:15:00 Institution: [...] By: Cyndee Posada LPN 04/02/22 12:50 Normal [facility] Main OR Preoperative Recordo n 04-02-2022 Main OR Preoperative Record PreOp Document Type FT Summary Primary Physician: Sven Hayes Jr., MD Finalized Date/Time: 04/02/22 10:26:32 Pt. Name: YUE HERNANDEZ /Sex: 1985 Female Med Rec #: [id number] Physician: Sven Hayes Jr., MD Financial #: [id number] Pt. Type: A Room/Bed: [place] [address] Admit/Disch: 04/02/22 08:31:02 - Institution: Case Times [...] By: Mariela Watson RN 04/02/22 10:26 Normal [facility] Monitor Recordon 04-02-2022 Monitor Record [id number]# 1.00CD:127 Normal [facility] Operative Reporton 2 Operative Report Patient: YUE HERNANDEZ Age: 36 years Sex: Female : 1985 Associated Diagnoses: None Author: Sven Hayes Jr., MD Postoperative Information Procedure: Cystoscopy, retrograde pyelograms, urethral dilation, pelvic exam under anesthesia Date/ Time: 04/02/2022 10:36:00 Preoperative Diagnosis: Postinfective urethral stricture, not elsewhere classified, female ([id number] N35.12, Discharge, Medical), Urethral syndrome ([id number]-LD N34.3, Discharge, Medical). Postoperative Diagnosis: Postinfective urethral stricture, not elsewhere classified, female ([id number]-UY N35.12, Discharge, Medical), Urethral syndrome (EJD00-KT N34.3, Discharge, Medical). Performed by: Sven Hayes [...] using well-lubricated dilating sounds beginning with 22 Greenlandic and ending with 30 Greenlandic. This was uneventful. Bimanual palpation revealed no [...] 0 ml. Complications: None. Anesthesia type: General. [facility] Comment on above: Result Comment: Elec tronically Signed By: Freddy Fishman MD, Sven Hernandez\.br\Date and Time Signed: 04/02/22 10:40 EDT Outpatient Surgery Discharge Instructionon 04-02-2022 Outpatient Surgery Discharge Instruction [place] [id number] Patient Discharge Instructions PERSON INFORMATION Name: YUE [...] With: Address: When: TERI PRASANNA [address] [place] [id number] Business (1) Within 6 weeks Pharmacy Information: You may receive a survey from [employer] asking you to rate your care experience. Your feedback is important and will help us understand what we do well and how we can improve the quality of care we provide to you, your loved ones and our community. It?s an honor to serve you. Thank you for choosing [facility] HERE ARE THE MEDICATION CHANGES THAT OCCURRED DURING YOUR HOSPITAL STAY New Medications [id number], [address], [place] [id number], [phone] ketorolac (ketorolac 10 mg Tab) 1 Tablets [...] PATIENT EDUCATION INFORMATION Instructions: Medication Leaflets: Normal [facility] Patient Education - Texton 0 04-02-2022 Patient Education - Text Normal [facility] XR Abdomen 1 Viewon 04-02-20 XR Abdomen [...] MD Transcribed by: KIRAN Technologist: JENNY Normal [facility] XR Urography Retrograde Bila teralon 04-02-2022 XR [...] Dose: Valerir in mGy = 0.9 Normal [facility] COVID-19 ([facility])on 04-01-2022 SARS-CoV-2 (COVID-19) RNA ELBA+probe Ql (Resp) Not detected Normal Not Detected [facility] Comment on above: Result Comment: This test result should be correlated with clinical presentations and medical history by a healthcare provider to determine its clinical significance. This assay was performed by a reverse transcriptase real-time polymerase chain reaction (rt PCR) method on the [employer] system. This test has been authorized only [...] or revoked sooner. Performed By: #### 2 [id number] ####[address] [address] SARS-CoV-2 (COVID-19) RNA ELBA+probe Ql (Unsp spec) Pass Normal Pass [facility] Comment on above: Performed By: #### 2 [id number] ####[address] [address] Specimen source Nom (Unsp spec) Nasal Normal [facility] Comment on above: Performed By: #### 2 [id number] ####[place] [address] [place] [address] Auto Diffon 03-31-2022 Basophils/100 WBC (Bld) 0.6 % Normal 0.0-2.0 [facility] Comment on above: Order Comment: Order Added by Discern Expert. Performed By: #### 1 [id number], 4157181, 4334642, 1585129, [id number] ####[place] [address] [place] [address] Basophils/Leukocytes Auto (Bld) [Pure # fraction] 0.1 E9/L Normal 0.0-0.2 [facility] Comment on above: Order Comment: Order Added by Discern Expert. Performed By: #### 1 5281041, 8546973, 2731196, 1141527, 20670662 ####[address] [address] Eosinophils/100 WBC (Bld) 1.4 % Normal 0.0-8.0 [facility] Comment on above: Order Comment: Order Added by Discern Expert. Performed By: #### 1 5580750, 1720352, 3914920, 4337190, 51156861 ####[address] [address] Eosinophils/Leukocytes Auto (Bld) [Pure # fraction] 0.1 E9/L Normal 0.0-0.5 [facility] Comment on above: Order Comment: Order Added by Discern Expert. Performed By: #### 1 4488701, 3968410, 1733074, 9260128, 07895985 ####[address] [address] Lymphocytes/100 WBC (Bld) 30.3 % Normal 14.0-50.0 [facility] Comment on above: Order Comment: Order Added by Sirena Expert. Performed By: #### 1 4367068, 7215214, 8786806, 5314860, 26113187 ####[address] [address] Lymphocytes/Leukocytes Auto (Bld) [Pure # fraction] 2.7 E9/L Normal 1.0-4.0 [facility] Comment on above: Order Comment: Order Added by Sirena Expert. Performed By: #### 1 5786838, 0611284, 6583762, 2168015, 81648612 ####[address] [address] Monocytes/100 WBC (Bld) 5.6 % Normal 4.0-14.0 [facility] Comment on above: Order Comment: Order Added by Sirena Expert. Performed By: #### 1 4624735, 1286768, 1056357, 2089452, 00758490 ####[place] [address] [place] [address] Monocytes/Leukocytes Auto (Bld) [Pure # fraction] 0.5 E9/L Normal 0.2-1.0 [facility] Comment on above: Order Comment: Order Added by Discern Expert. Performed By: #### 1 8619402, 8561828, 7724121, 8866981, 66141610 ####[place] [place] [address] Neutrophils/100 WBC (Bld) 62.1 % Normal 36.0-75.0 [facility] Comment on above: Order Comment: Order Added by Sirena Expert. Performed By: #### 1 6589991, 1388647, 9101250, 6573984, 91490040 ####[place] [address] [place] [address] Neutrophils/Leukocytes Auto (Bld) [Pure # fraction] 5.6 E9/L Normal 2.0-7.5 [facility] Comment on above: Order Comment: Order Added by Sirena Expert. Performed By: #### 1 4606550, 9583190, 1229738, 4259946, 05769239 ####[place] [address] [place] [address] BMPon 03-31-2022 Anion gap [Moles/Vol] 13 mmol/L Normal 6-16 [facility] Comment on above: Performed By: #### 1 4793957, 6903795, 5068362, 7435645, 72082821 ####[place] [address] [place] [address] Calcium [Mass/Vol] 9.6 mg/dL Normal 8.9-11.1 [facility] Comment on above: Performed By: #### 1 4340585, 6297003, 9918199, 9159977, 09485453 ####[address] [place] [address] Chloride [Moles/Vol] 102 mmol/L Normal 101-111 [facility] Comment on above: Performed By: #### 1 5027000, 5657264, 9046284, 3732301, 49885129 ####[facility] [address] [place] [address] CO2 [Moles/Vol] 26 mmol/L Normal 21-31 [facility] Comment on above: Performed By: #### 1 6891695, 8009780, 3201689, 3908564, 21962905 ####[facility] [address] [facility] [place] [address] Creatinine [Mass/Vol] 0.6 mg/dL Normal 0.5-1.3 [facility] Comment on above: Performed By: #### 1 7045426, 3065798, 1242074, 4446086, 31165974 ####[facility] [address] [place] [address] Glucose [Mass/Vol] 92 mg/dL Normal 55-199 [facility] Comment on above: Result Comment: If t his glucose result represents a fasting glucose, interpretation should refer to the following reference range: 55-99 mg/dL Performed By: #### 1 4760996, 3992351, 2310272, 4067771, 38773745 ####[facility] [address] [facility] [place] [address] Potassium [Moles/Vol] 4.0 mmol/L Normal 3.5-5.3 [facility] Comment on above: Performed By: #### 1 3874668, 0542045, 3728628, 4155966, 67807818 ####[facility] [address] [facility] [place] [address] Sodium [Moles/Vol] 137 mmol/L Normal 135-145 [facility] Comment on above: Performed By: #### 1 3411625, 4430107, 8097189, 4095661, 53423388 ####[facility] [address] [place] [address] Urea nitrogen [Mass/Vol] 10 mg/dL Normal 5-21 [facility] Comment on above: Performed By: #### 1 8204974, 6346770, 6179656, 1834405, 87883493 ####[facility] [address] [place] [address] Urea nitrogen/Creatinine [Mass ratio] 17 No Units Normal 10-20 [facility] Comment on above: Performed By: #### 1 8632087, 1389345, 1355083, 2182494, 46209994 ####[facility] [address] [place] [address] CBC w/ Auto Diffon Erythrocyte distribution width (RBC) [Ratio] 12.5 % Normal 10.9-14.2 [facility] Comment on above: Performed By: #### 1 1377458, 6272111, 8640451, 3298460, 34791396 ####[facility] [address] [place] [address] Hematocrit (Bld) [Volume fraction] 41.7 % Normal 34.0-46.0 [facility] Comment on above: Performed By: #### 1 9411255, 9608333, 6906036, 1786223, 02029037 ####[facility] [address] [place] [address] Hemoglobin (Bld) [Mass/Vol] 14.2 g/dL Normal 12.0-16.0 [facility] Comment on above: Performed By: #### 1 2432900, 7315575, 8419383, 2488803, 95590436 ####[facility] [address] [place] [address] MCH (RBC) [Entitic mass] 30.6 pg Normal 27.0-34.0 [facility] Comment on above: Performed By: #### 1 8519149, 5051374, 9079046, 2742384, 72927227 ####[facility] [address] [place] [address] MCHC (RBC) [Mass/Vol] 34.0 g/dL Normal 31.4-36.0 [facility] Comment on above: Performed By: #### 1 0882535, 4192649, 6398867, 0941665, 57515288 ####[facility] [address] [place] [address] MCV (RBC) [Entitic vol] 90.0 fL Normal 80.0-100.0 [facility] Comment on above: Performed By: #### 1 3653257, 2425758, 8958135, 5688133, 55728135 ####[place] [address] [place] [address] Platelet mean volume (Bld) [Entitic vol] 9.3 fL Normal 6.4-10.8 [facility] Comment on above: Performed By: #### 1 2860377, 7066186, 5906847, 0909183, 05377602 ####[place] [address] Platelets (Bld) [#/Vol] 212.0 E9/L Normal 150.0-500.0 [facility] Comment on above: Performed By: #### 1 2686675, 3691101, 3714003, 7194250, 88739835 ####[place] [address] RBC (Bld) [#/Vol] 4.6 E12/L Normal 4.3-5.9 [facility] Comment on above: Performed By: #### 1 8962209, 4844899, 2604756, 3766957, 25366846 ####[address] [place] [address] WBC corrected for nucl RBC Auto (Bld) [#/Vol] 9.0 E9/L Normal 4.0-11.0 [facility] Comment on above: Performed By: #### 1 8985872, 2799105, 4367756, 9629038, 08944619 ####[address] [address] CHEMISTRYOrdered By: Authorly SYSTEM on 03-31-2022 Anion gap [Moles/Vol] 13 [...] rate/Area] mL/min/1.73 m2 Normal >=59mL/min/1 .73 m2 [facility] [place] S Glucose [Mass/Vol] 92 mg/dL Normal [...] for Treatmenton Consent for Treatment [id number]#1 .00CD:127 Normal [facility] Consent for Treatment [id number]# 1.00CD:127 Normal [facility] HEMATOLOGYOrdered By: SYSTEM SYSTEM on 03-31-2022 Basophils/100 [...] 34.0 g/dL Normal 31.4 - 36.0 gm/dL [facility] [place] [place] HemeAutoSS MCV (RBC) [Entitic vol] 90.0 fL Normal 80.0 - 100.0 fL [facility] [place] [place] HemeAutoSS Platelet mean volume (Bld) [Entitic vol] 9.3 fL Normal 6.4 - 10.8 fL FT HemeAutoSS Platelets (Bld) [#/Vol] 212.0 E9/L Normal 150.0 - 500.0 E9/L [facility] HemeAutoSS RBC (Bld) [#/Vol] 4.6 E12/L Normal 4.3 - 5.9 E12/L [facility] [place] [place] HemeAutoSS WBC corrected for nucl RBC Auto (Bld) [#/Vol] 9.0 E9/L Normal 4.0 - 11.0 E9/L [facility] [place] HemeAutoSS PT & PTTon 03-31-2022 aPTT Coag (PPP) [Time] 36.2 second(s) Normal 25.1-36.5 [facility] Comment on above: Result Comment: Hepa rin therapeutic range (represented by Anti-Factor Xa activity of 0.2 - 0.4 U/mL) corresponds to PTT of 56.6 - 109.0 sec. Performed By: #### 1 5246396, 3939841, 2078417, 1533125, 78296292 ####[facility] [address] [place] [address] INR Coag (PPP) [Relative time] 1.0 {INR} Invalid Interpretation Code [facility] Comment on above: Result Comment: INR results are specifically intended to assess patients stabilized on long-term Anticoagulation therapy suggested INR?s ?Less Intensive Anticoagulation? 2.0 ? 3.0 Conventional Range 3.0 ? 4.5 Performed By: #### 1 8237721, 2810239, 4026150, 3698109, 75233645 ####[facility] [address] [place] [address] PT Coag (PPP) [Time] 12.1 second(s) Normal 10.2-12.9 [facility] Comment on above: Performed By: #### 1 6587432, 7939187, 5512867, 9629559, 61187622 ####[facility] [address] [place] [address] UA With Cult Reflexon 2021 Bacteria LM Ql (Urine sed) 1+ /HPF Abnormal Trace [facility] Comment on above: Performed By: #### 1 1157189 #### [facility] [address] [place] [address] Bilirubin Ql (U) Negative Normal Negative [facility] Comment on above: Performed By: #### 1 1715054 #### [facility] [address] [place] [address] Clarity (U) CLEAR Normal Clear [facility] Comment on above: Performed By: #### 1 0255216 #### [facility] [address] [place] [address] Color (U) YELLOW Normal Yellow [facility] Comment on above: Performed By: #### 1 7603254 #### [facility] [address] [place] [address] Epithelial cells.squamous LM.HPF (Urine sed) [#/Area] 3-4 Normal 0-2 [facility] Comment on above: Performed By: #### 1 7388840 #### [facility] [address] [place] [address] Glucose Test strip (U) [Mass/Vol] Negative Normal Negative [facility] Comment on above: Performed By: #### 1 0881244 #### [facility] [address] [place] [address] Hemoglobin Ql (U) Negative Normal Negative [facility] Comment on above: Performed By: #### 1 8292923 #### [facility] [address] [place] [address] Ketones (U) [Mass/Vol] Negative Normal Negative [facility] Comment on above: Performed By: #### 1 9764706 #### [facility] [address] [place] [address] [place].plasma/[place] .RBC (Bld) [Mass ratio] 0-3 Normal 0-3 [facility] Comment on above: Performed By: #### 1 3316394 #### [facility] [address] [place] [address] Mucus Ql (Urine sed) 2+ Normal [facility] Comment on above: Performed By: #### 1 6958740 #### [facility] [address] [place] [address] Nitrite Ql (U) Negative Normal Negative [facility] Comment on above: Performed By: #### 1 4261465 #### [facility] [address] [place] [address] pH (U) 6.5 [pH] Invalid Interpretation Code 5.0-9.0 [facility] Comment on above: Performed By: #### 1 9872938 #### [facility] [address] [place] [address] Protein (U) [Mass/Vol] Negative Normal Negative [facility] Comment on above: Performed By: #### 1 9859837 #### [facility] [address] [place] [address] Specific gravity (U) [Rel density] 1.015 Invalid Interpretation Code 1.005-1.030 [facility] Comment on above: Performed By: #### 1 1968977 #### [facility] [address] [place] [address] Type of Urine collection method Clean Catch Normal [facility] Comment on above: Performed By: #### 1 0215781 #### [facility] [address] [place] [address] Urobilinogen Qn (U) 0.2 {Jose'U}/dL Normal 0.0-1.0 [facility] Comment on above: Performed By: #### 1 6455426 #### [facility] [address] [place] [address] WBC Auto Ql (U) Negative Normal Negative [facility] Comment on above: Performed By: #### 1 3429810 #### [facility] [address] [place] [address] WBC LM.HPF (Urine sed) [#/Area] 0-5 Normal 0-5 [facility] Comment on above: Performed By: #### 1 6531758 #### [facility] [address] [place] [address] URINALYSISOrdered By: Brianna Cho on 03-31-2022 Bacteria [...] PM) Normal Negative [facility] UA Auto SS [place].plasma/[place] .RBC (Bld) [Mass ratio] 0-3 /HPF Normal [...] [facility] UA Auto SS Urobilinogen Qn (U) 0.4000255 {Jose'U}/dL Normal 0.0 - 1.0 EU/dL [facility] UA Auto SS WBC Auto Ql (U) Negative (03/31/22 4:36 PM) Normal Negative [facility] UA Auto SS WBC LM.HPF (Urine sed) [#/Area] 0-5 /HPF Normal 0-5/HPF [facility] UA Auto SS eGFRon 03-31-2022 GFR/1.73 sq M.predicted among blacks MDRD (S/P/Bld) [Vol rate/Area] mL/min/{1.73_m2} Normal >=59 [facility] Comment on above: Order Comment: Order added by Discern Expert. Result Comment: eGFR is race adjusted. AA=. Performed By: #### 1 7269974, 7744034, 3193231, 0959698, 64363076 ####[facility] [address] [place] [address] GFR/1.73 sq M.predicted among non-blacks MDRD (S/P/Bld) [Vol rate/Area] mL/min/{1.73_m2} Normal >=59 [facility] Comment on above: Order Comment: Order added by Discern Expert. Result Comment: [employer] Telephone Clerk celestine kidney disease could be indicated at eGFR's of less than 60 mL/min/1.73m2. Kidney failure is indicated at less than 15 mL/min/1.73m2. Performed By: #### 1 1550938, 5959043, 9724252, 5246983, 48650745 ####[facility] [address] [place] [address] COVID-19 [place]on 03-[place]-2022 ADMITTED TO INTENSIVE CARE UNIT FOR CONDITION OF INTEREST:FIND:PT: NO Normal [facility] Comment on above: Performed By: #### 2 [id number] ####[facility] [address] [place] [address] EMPLOYED IN A HEALTHCARE SETTING:FIND:PT: Unknown Normal [facility] Comment on above: Performed By: #### 2 [id number] ####[place] [address] FIRST TEST FOR CONDITION OF INTEREST:FIND:PT: Unknown Normal [facility] Comment on above: Performed By: #### 2 [id number] ####[place] [address] HAS SYMPTOMS RELATED TO CONDITION OF INTEREST:FIND:PT: Unknown Normal [facility] Comment on above: Performed By: #### 2 [id number] ####[place] [address] HOSPITALIZED FOR CONDITION OF INTEREST:FIND:PT: NO Normal [facility] Comment on above: Performed By: #### 2 [id number] ####[place] [address] STATUS:FIND:PT: Unknown Normal [facility] Comment on above: Performed By: #### 2 [id number] ####[place] [address] RESIDES IN A [facility] SETTING:FIND:PT: Unknown Normal [facility] Comment on above: Performed By: #### 2 [id number] ####[place] [address] CBC AUTO DIFFon 03-20-2022 BASO # 0.0 103/ul Normal 0.0-0.1 [facility] Comment on above: Performed By: #### T HYGIMA #### [facility] [address] [place] [address] Dr. Gale Qiu Basophils/100 WBC (Bld) 0.6 % Normal 0.2-2.0 [facility] Comment on above: Performed By: #### T HYGIMA #### [facility] [address] [place] [address] Dr. Gale Qiu EO # 0.2 103/ul Normal 0.0-0.7 [facility] Comment on above: Performed By: #### T HYGIMA #### [facility] [address] [place] [address] Dr. Gale Qiu Eosinophils/100 WBC (Bld) 2.3 % Normal 0.9-7.0 [facility] Comment on above: Performed By: #### T HYGIMA #### [facility] [address] [place] [address] Dr. Gale Qiu Erythrocyte distribution width (RBC) [Ratio] 12.3 % Normal 11.0-15.0 [facility] Comment on above: Performed By: #### T HYGIMA #### [facility] [address] [place] [address] Dr. Gale Qiu Hematocrit (Bld) [Volume fraction] 38.0 % Normal 36.0-48.0 [facility] Comment on above: Performed By: #### T HYGIMA #### [facility] [address] [place] [address] Dr. Gale Qiu Hemoglobin (Bld) [Mass/Vol] 12.4 g/dL Normal 12.0-16.0 [facility] Comment on above: Performed By: #### T HYGIMA #### [facility] [address] [place] [address] Dr. Gale Qiu IG # 0.03 10e3/ul Normal 0.00-0.03 [facility] Comment on above: Performed By: #### T HYGIMA #### [facility] [address] [place] [address] Dr. Gale Qiu IG % 0.5 % Normal 0.0-0.5 [facility] Comment on above: Performed By: #### T HYGIMA #### [facility] [address] [place] [address] Dr. Gale Qiu LYMPH # 3.2 103/ul Normal 1.2-3.8 [facility] Comment on above: Performed By: #### T HYGIMA #### [facility] [address] [place] [address] Dr. Gale Qiu Lymphocytes/100 WBC (Bld) 48.8 % Normal 20.5-60.0 [facility] Comment on above: Performed By: #### T HYGIMA #### [facility] [address] [place] [address] Dr. Gale Qiu MANUAL DIFF REQ NO Normal [facility] Comment on above: Performed By: #### T HYGIMA #### [facility] [address] [place] [address] Dr. Gale Qiu MCH (RBC) [Entitic mass] 30.0 pg Normal 26.7-34.0 [facility] Comment on above: Performed By: #### T HYGIMA #### [facility] [address] [place] [address] Dr. Gale Qiu MCHC (RBC) [Mass/Vol] 32.6 g/dL Normal 29.9-35.2 [facility] Comment on above: Performed By: #### T HYGIMA #### [facility] [address] [place] [address] Dr. Gale Qiu MCV (RBC) [Entitic vol] 92.0 fL Normal 81.0-99.0 [facility] Comment on above: Performed By: #### T HYGIMA #### [facility] [address] [place] [address] Dr. Gale Qiu MONO # 0.6 103/ul Normal 0.3-0.8 [facility] Comment on above: Performed By: #### T HYGIMA #### [facility] [address] [place] [address] Dr. Gale Qiu Monocytes/100 WBC (Bld) 8.4 % Normal 1.7-12.0 [facility] Comment on above: Performed By: #### T HYGIMA #### [facility] [address] [place] [address] Dr. Gale Qiu NEUT # 2.6 103/ul Normal 1.4-6.5 [facility] Comment on above: Performed By: #### T HYGIMA #### [facility] [address] [place] [address] Dr. Gale Qiu Neutrophils/100 WBC (Bld) 39.4 % Critically low 43.0-75.0 [facility] Comment on above: Performed By: #### T HYGIMA #### [facility] [address] [place] [address] Dr. Gale Qiu Platelet mean volume (Bld) [Entitic vol] 10.5 fL Normal 9.5-13.5 [facility] Comment on above: Performed By: #### T HYGIMA #### [facility] [address] [address] [address] Gale Qiu PLT 192 103/ul Normal 150-450 [facility] Comment on above: Performed By: #### T HYGIMA #### [facility] [address] [address] [address] Gale Qiu RBC 4.13 106/ul Critically low 4.20-5.40 [facility] Comment on above: Performed By: #### T HYGIMA #### [facility] [address] [address] [address] Gale Qiu WBC 6.5 103/ul Normal 4.0-11.0 [facility] Comment on above: Performed By: #### T HYGIMA #### [facility] [address] [address] [address] Gale Qiu Ambulatory Visit Summaryon 0 02-17-2022 Ambulatory Visit Summary YUE HERNANDEZ :1985 Visit Date:02/17/2022 Ambulatory Visit Instructions Your Diagnosis Gross hematuria Stress incontinence History of kidney stones Your Care Team Attending Physician - TERI COOK PA-C Primary Care Physician - SUBHA GUTIERREZ CNP This Is Your Medications List Contact prescribing physician if questions or concerns APAP/butalbital/caffe ine (Fioricet) Procedures Performed Endometriosis, Hysterectomy, Tubal ligation. Discharge Vitals Height 168.0 cm Height 168.0 cm Weight 64.0 kg Weight 64 kg BMI 22.68 What to do next You Need to Schedule the Following Appointments Follow Up with TERI COOK PA-C, RUKHSANA When: Where: [address] [place] [address] Business (1) Medications What How [...] these instructions at home: Medicines ? Take vqqp-ekh-ajdopgi and prescription medicines only as told by [...] the blood stops without treatment. ? Take numn-weh-qhcxxkd and prescription medicines only as told by your health care provider. ? Drink enough fluid to keep your urine clear or pale yellow. This information is not in (more content not included)... Normal [facility] Patient Educationon 02-18-20 Patient Education Gastroenterology Abdominal [...] these instructions at home: Medicines ? Take shmj-wsu-wlefmpc and prescription medicines only as told by [...] your condition for any changes. ? Take cwjg-vyb-fufcnkm and prescription medicines only as told by [...] 08/25/2006 Document Revised: 03/25/2020 Document Reviewed: 03/25/2020 [employer] Patient Education ? 2020 [employer]. Urology Hematuria, Adult Hematuria is blood in [...] these instructions at home: Medicines ? Take telq-pki-ubifjso and prescription medicines only as told by [...] times. Follow-up With When Contact Information TERI COOK PA-C, URL [address] [place] [address] Business (1) Additional Instructions: Patient Education Hematuria, Adult I, Daylin Sandoval , personally scribed for Teri Cook on 02/17/2022 14:11:36. . Problem List/Past Medical [...] Not Given Temporary contraindication - reschedule Normal [facility] Comment on above: Result Comment: Elec tronically Signed By: TERI COOK PA-C\.br\Date and Time Signed: 02/17/22 14:33 EDT\.br\Electronically Co-Signed By: Daylin Sandoval\.br\Date and Time Co-Signed: 02/17/22 14:11 EDT Other Comment: aissatou sparks Urology Phone Visit- Telehea [facility] 02-17-2022 Urology Phone Visit- Telehealth [...] with urination. 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 s/p hysterectomy. no [...] Additional Instructions: PRASANNA DOTSON, TERI Cruz, URL [address] [place] [address] Business (1) Additional Instructions: Patient [...] Not Given Temporary contraindication - reschedule Normal [facility] Comment on above: Result Comment: Elec tronically Signed By: TERI COOK PA-C\.br\Date and Time Signed: 02/17/22 14:32 EDT RAD - CT Reporton 02-10-2022 RAD - CT Report [id number]:127 Normal [facility] Ambulatory Visit Summaryon 0 01-28-2022 Ambulatory Visit Summary YUE HERNANDEZ :1985 Visit Date:01/28/2022 Ambulatory Visit Instructions Your Diagnosis Bladder pain Stress incontinence History of recurrent UTI (urinary tract infection) History of kidney stones Gross hematuria Tests Performed Urnls Dip Stick Auto w/o Microscopy POC 30442 CT Abdomen/Pelvis w/ + w/o Contrast -- Results Pending -- You will be contacted within 72 hours with your results. Your Care Team Attending Physician - TERI COOK PA-C Referring Physician - Fransico MONTAÑO DO [...] the Following Appointments Follow Up with TERI COOK PA-C, RUKHSANA When: Why: scheduling cysto Where: [address] [place] [address] Medications What How Much When Instructions Unchanged APAP/ butalbital/ caffeine (Fioricet) Every 4 hours Contact prescribing physician if questions or concerns Test Results Urnls Dip Stick Auto w/o Microscopy POC 22164 (01/28/2022) Bilirubin Urine Dipstick - Negative Blood Urine Dipstick - Negative Glucose Urine Dipstick - Negative Ketones Urine Dipstick - Negative Leukocytes Urine Dipstick - Negative Nitrite Urine Dipstick - Negative Protein Urine Dipstick - Negative Specific [place] Urine Dipstick - 1.020 Urine Appearance Urine [...] these instructions at home: Medicines ? Take pioc-xdd-yfapgzb and prescription medicines only as told by [...] follow-up visi (more content not included)... Normal [facility] Patient Educationon 01-29-20 Patient Education Urology Hematuria, [...] these instructions at home: Medicines ? Take zjlh-hnm-pialnmx and prescription medicines only as told by [...] the blood stops without treatment. ? Take evya-ksk-jbheavg and prescription medicines only as told by your health care provider. ? Drink enough fluid to keep your urine clear or pale yellow. This information is not intended to replace advice given to you by your health care provider. Make sure you discuss any questions you have with your health care provider. Document Released: 11/15/2006 Document Revised: 04/10/2020 Document Reviewed: 12/18/2017 [employer] Patient Education ? 2019 [employer]. 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 s/p hysterectomy. no [...] steps. Follow-up With When Contact Information TERI COOK PA-C, URL [address] [place] [address] Additional Instructions: scheduling cysto Patient Education Hematuria, Adult I, Cindy Ventura personally scribed for Teri Cook on 01/28/2022 14:40:22. . 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 Normal [facility] Comment on above: Result Comment: Elec tronically Signed By: TERI COOK PA-C\.br\Date and Time Signed: 01/28/22 16:53 EST ED Provider Noteon 8 HIM IP Note OR Director Of Strategy & Mobile Normal [facility] XR FOOT RIGHT (MIN 3 VIEWS)o [...] soft tissue swelling. Interpreted by:MANE Felizigned by:Wolf Carranza MD06/18/18inal result Normal [facility] Vital Signs Date Time Vital Sign Value Performing Clinician Marck noble 10-15-2023 13:08-0500 Body height 167.6 cm Shawn Watters MD [facility] 10-15-2023 13:08-0500 Body mass index (BMI) [Ratio] 21.79 kg/m2 Shawn Watters MD Work Phone: [facility] 10-15-2023 13:08-0500 Body weight 61.24 kg Shawn Watters MD Work Phone: [facility] 10-15-2023 13:08-0500 Diastolic blood pressure 76 mm[Hg] Shawn Watters MD Work Phone: [facility] 10-15-2023 13:08-0500 Heart rate 55 /min Shawn Watters MD Work Phone: [facility] 10-15-2023 13:08-0500 Respiratory rate 16 /min Shawn Watters MD Work Phone: [facility] 10-15-2023 13:08-0500 Systolic blood pressure 126 mm[Hg] Shawn Watters MD Work Phone: [facility] 03-31-2022 16:14-0400 Blood Pressure Location [facility] 03-31-2022 16:14-0400 BP/Pulse Patient Position [facility] 03-31-2022 16:14-0400 Diastolic blood pressure 71 mm[Hg] [facility] 03-31-2022 16:14-0400 Heart rate 63 /min [facility] 03-31-2022 16:14-0400 Mean blood pressure 83 mm[Hg] [facility] 03-31-2022 16:14-0400 Respiratory rate 16 /min [facility] 03-31-2022 16:14-0400 Systolic blood pressure 107 mm[Hg] [facility] 03-31-2022 16:14-0400 Body temperature 97.7 [degF] [facility] 03-31-2022 16:13-0400 Blood Pressure Location [facility] 03-31-2022 16:13-0400 BP/Pulse Patient Position [facility] 03-31-2022 16:13-0400 Diastolic blood pressure 70 mm[Hg] [facility] 03-31-2022 16:13-0400 Heart rate 70 /min [facility] 03-31-2022 16:13-0400 Mean blood pressure 82 mm[Hg] [facility] 03-31-2022 16:13-0400 SaO2% (BldA) [Mass fraction] 99 % [facility] 03-31-2022 16:13-0400 Systolic blood pressure 106 mm[Hg] [facility] Encounters Encounter Date Encounter Type Care Provider Facility Start: 12-23-2023 Documentation procedure Liasha Linton MD Work Phone: [facility] Comment on above: MRI auth Start: 12-08-2023 Telephone encounter Mariposa domínguez CMA [facility] Start: 12-06-2023 Telephone encounter Lidia Jeter [facility] Work Phone: [facility] Comment on above: Questions Start: [...] Start: 06-11-2022 End: 09-20-[address] LAKSHMI MESSINA Facility:[facility] Start: 03-31-2022 End: 03-31-2022 Patient encounter procedure [facility] Start: 03-20-2022 End: 03-20-2022 ambulatory FRANSICO MARI Facility:[facility] Start: 03-19-2022 Encounter for other preprocedural examination FRANSICO MARI [facility] Start: 03-17-2022 End: 03-18-2022 ambulatory FRANSICO MARI Facility:[facility] Start: 03-17-2022 End: 03-18-2022 Encounter for other preprocedural examination FRANSICO MARI Facility:[facility] Start: 02-17-2022 End: 02-17-2022 Off-Site TERI COOK [facility] Start: 06-18-2018 End: 06-18-2018 Emergency department patient visit [facility] Procedures Date Procedure Procedure Detail Performing Clinician Start: 03-10-2022 Exploration using laparoscope Sven Hayes Jr. Start: 06-18-2018 SUHA WRAP SONIYA TO BEY Start: 06-18-2018 CRUTCHES SONIYA TO BEY Start: 06-18-2018 Radex foot complete minimum 3 views SONIYA ESCALONA Endometriosis (disorder) ANNALEE COOK Hysterectomy TERI COOK Ligation of fallopian tube J LÓPEZ COOK Plan of Treatment Date Care Activity Detail Author Start: 11-02-2024 Adult BMI Screening Adult BMI Screening [facility] Start: 11-02-2024 Tobacco Screening Tobacco Screening [facility] Start: 01-14-2024 End: 01-14-2024 Patient encounter procedure 01/14/2024 8:30 AM EST Office Visit [facility] [address] [place] [address] Shawn Watters MD [address] [place] [address] [facility] Start: 01-01-2024 End: 01-01-2024 Patient encounter procedure 01/01/2024 1:15 PM EST Appointment [facility] [address] [place] [id number] Fred Cline [facility] Start: 01-01-2024 Subsequent hospital visit by physician 01/01/2024 1:15 PM EST Hospital Encounter Fred Cline [facility] [address] [place] [id number] [facility] Start: 07-30-2023 Influenza vaccination [facility]ine [facility] Start: 2007 Screening for malignant neoplasm of cervix Pap Smear [facility] Start: 2005 DTaP,Tdap and Td Vaccines (1 - Tdap) DTaP,Tdap and Td Vaccines (1 - Tdap) [facility] Start: 1998 Depression Screening Depression Screening [facility] yste Payers Date Payer Category Payer Unknown LAURI OTOOLE [facility] [id number] 2023-Present [phone] [address] [place] [address] [id number] 2022 Medicaid [id number] 2022 Medicaid [place] [id number] 2022-Present [address] [place] [address] [id number] 2014 Unknown [id number] 1985 Unknown [id number] 1985 Unknown [id number] 1985 Unknown [id number] 1985 Unknown [id number] 1985 Unknown [id number] 1985 Unknown [id number] 1985 Unknown [id number] 1985 Unknown [id number] 1959 Self-pay 1958 Unknown [id number] Social History Date Type Detail Facility Start: 01-28-2022 Tobacco smoking status Light t obacco smoker (finding) [facility] Tobacco smoking status Smoker (finding) [facility] Start: 05-08-2019 End: 11-02-2023 Sex Assigned At Female [facility] Start: 10-04-2023 Tobacco smoking stat us NHIS Never smoked tobacco [facility] Start: 10-04-2023 Tobacco use and exposure Smoke less tobacco non-user [facility] Start: 10-15-2023 End: 11-02-2023 Alcohol intake Ex-drinker (finding) [facility] Start: 05-08-2019 End: 11-02-2023 History of Social function [facility] Housing Instability Unknown [facility] Start: 1985 Sex Assigned At Not on file P [facility] Clinical Notes 02-17-2022 to 12-23-2023 Jessica Erickson - 12/23/2023 2:47 PM ESTTelephone Encounter - Mariposa Messina CMA - 12/08/2023 10:45 AM ESTTelephone Encounter - Mariposa Messina CMA - 12/08/2023 10:45 AM EST Note Date & Type Note Facility 12-23-2023 History of Presen t illness Narrative Spoke with Jefry at [facility] for MRI-- MRI was approved Auth #[id number] valid 12/23--01/22 documented in this encounter [facility] 12-08-2023 Miscellaneous Notes Formattin g of this note might be different from the original. Patient called 12/07/2023 requesting a call back regarding surgery scheduling. Staff from office called today stating patient told them she has reach out to our office and office multiple times with no response. Spoke with plastic surgery technician from both offices patient needs appointment with Dr. Watters and will be contacted to schedule. documented in this encounter [facility] 12-08-2023 Telephone encount er Note Patient called 12/07/2023 requesting a call back regarding surgery scheduling. Staff from office called today stating patient told them she has reach out to our office and office multiple times with no response. Spoke with plastic surgery technician from both offices patient needs appointment with Dr. Watters and will be contacted to schedule. [facility] 12-06-2023 Miscellaneous Notes Formattin g of this [...] could help with. [facility]-06-2023 Telephone encount er Note Yue called with questions about her mother's recent scans and overall treatment plan. I encouraged her to reach out to Dr. Valdovinos's office for that information given that that is not something our office discusses. Encouraged to call back at any time with questions or anything else I could help with. [facility] 10-15-2023 History of Presen t illness Narrative Plastic & Reconstructive Surgery MD Shawn Rich MD Tara Geha, PA-C Erin Orzechowski, SHEEP BONER [address] [address] Office [phone] BREAST RECONSTRUCTION CONSULTATION Reason for visit : [...] History: Procedure Laterality Date BREAST SURGERY augmentation 2013 saline implants HYSTERECTOMY ovaries retained TUBAL LIGATION [...] Nipple 20 Nipple-areolar diameter 3.5 3 Female strike on machine operator present: yes. Impression : 1. BRCA1 gene [...] any questions or concerns. - Anita Vera APRN-SHEEP BONER 10/15/23 2:23 PM I, Shawn Watters MD, [...] procedures Referring and communicating with other health hearing care practitioner (not separately reported) Documenting clinical information in the electronic or other health record Independently interpreting results (not separately reported) and communicating results to the patient/family/caregiver Care coordination (not separately reported) Please note that portions of this note were generated using voice recognition [employer] dictation software. Although every effort was made to ensure the accuracy of this automated fleet operations manager, some errors in fleet operations manager may have occurred. documented in this encounter [facility] 03-20-2022 Note [facility] [place], [place] NAME: YUE HERNANDEZ DATE OF : MEDICAL REC#: [id number] FILM COMPOSER: [id number] DIANA ARRIAGA, TRANSADMIT DATE: 03/20/2022 07:29:00 NURSES EDUCATOR DATE: 03/23/2022 00:00 DICTATING PHYSICIAN: FRANSICO MONTAÑO DICTATION DATE: 03/20/2022 11:00 OPERATIVE NOTE OPERATION DATE:03/20/2022 PROCEDURE: Diagnostic laparoscopy with lysis of adhesions from the bowel to the vaginal cuff. PREOPERATIVE DIAGNOSIS: Pelvic pain. POSTOPERATIVE DIAGNOSIS: Pelvic pain. ANESTHESIA: General. SURGEON: Fransico Montaño D.O. PRINT SHOP STENOGRAPHER: BARAK Rodríguez URINE OUTPUT: Yellow and clear. [...] Montaño DO on 03/29/2022 07:51 PM EDT [facility] Signed and Approved by: DR FRANSICO MONTAÑO . 03/29/2022 19:51:00 [facility] 03-13-2022 Note [id number]:127 [facility] 02-17-2022 Hospital Discharg e instructions Patient Education [...] Follow these instructions at home: Medicines Take ygrp-uxl-oydsmez and prescription medicines only as told by [...] Watch your condition for any changes. Take usqs-ktq-akgthak and prescription medicines only as told by [...] 08/25/2006 Document Revised: 03/25/2020 Document Reviewed: 03/25/2020 [employer] Patient Education 2019 [employer]. 02/17/2022 14:07:31 Hematuria, Adult Hematuria, Adult Hematuria [...] Follow these instructions at home: Medicines Take ydig-vmd-bctgoqq and prescription medicines only as told by [...] or the blood stops without treatment. Take hugr-pfd-mkmrqfm and prescription medicines only as told by your health care provider. Drink enough fluid to keep your urine clear or pale yellow. This information is not intended to replace advice given to you by your health care provider. Make sure you discuss any questions you have with your health care provider. Document Released: 11/15/2006 Document Revised: 04/10/2020 Document Reviewed: 12/18/2017 [employer] Patient Education 2020 [employer]. Follow Up Care 02/16/2022 16:02:41 With:cysto, retrogrades, UD w DLS Address:Unknown When: Unknown With:TERI COOK PA-C, URL Address: [address] [place] [address]. [place] [address] Business (1) When: Unknown [facility] Evaluation + Plan note No data available for this section [facility] Evaluation + Plan note Future Appointments Appointment Date:04/02/2022 11:00:00 AM Scheduled Provider: Location:[facility] Appointment Type:Surgery [facility] Evaluation note Diagnosis BRCA1 gene mutation positive [facility] No data available for this section [facility]ructionsNot [facility] filedocumented in this encounter [facility]InstructionsNot on filedocumented in this encounter [facility] CenterInstructionsNot on filedocumented in this encounter [facility] CenterReason for referral (narrative)* Consultation (Routine) - Pending Review Specialty Diagnoses / Procedures Referred By Contac t Referred To Contact Breast Surgery Diagnoses BRCA1 gene mutation positive Anita Vera APRN-CNP [address] [place] [address] Lulu Ríos MD [address] [facility] [address] [place] [address] Referral ID Status Reason Start Date Expiration Date V isits Requested Visits Authorized [id number] Pending Review 10/15/2023 10/14/2024 1 1 [facility] Summary Purpose Family History No Family History [...] DATE CREATED AUTHOR AUTHOR'S ORGANIZ ATION 04/17/2022 [facility] DATE CREATED AUTHOR AUTHOR'S ORGANIZ ATION 03/15/2023 [facility] DATE CREATED AUTHOR AUTHOR'S ORGANIZ ATION 10/21/2023 [facility] EPIC Reason for Visit (unrecogniz ed section and content) Reason Onset Date Comments Questions 12/06/2023 Reason Comments New Patient Specialty Diagnoses / Procedures Referred By Contact Referred To Contact Plastic & Reconstructive Surgery Diagnoses BRCA1 gene mutation positive Teri Vasquez APRN-CNP [address] Provider left practice 11/17/2023 [place] [address] Shawn Watters MD [address] [facility] [address] [place] [address] Referral ID Status Reason Start Date Expiration Date Visits Requested Visits Authorized [id number] Pending Review Specialty Services Required 10/05/2023 10/04/2024 1 1 Reason Onset Date Comments MRI auth 12/23/2023 Care Teams (unrecognized sec tion and content) [employer] Relationship Specialty Start Date End Date Subha Gutierrez APRN-SHEEP BONER [address] [facility], [place] [address] PCP - General Family Medicine 10/04/23 [employer] Relationship Specialty Start Date End Date Subha Gutierrez APRN-SHEEP BONER [address] [facility], [place] [address] PCP - General Family Medicine 10/04/23 [employer] Relationship Specialty Start Date End Date Subha Gutierrez [place] NURSE-SHEEP BONER [address] [facility], [place] [address] PCP - General Family Medicine 10/04/23 [employer] Relationship Specialty Start Date End Date Subha Gutierrez [place] NURSE-S[facility]EP [facility]ONER [address] [facility], [place] [address] PCP - General Family Medicine 10/04/23 FOR [...] BE BASED ON THE PRIMARY CLINICAL RECORDS. [facility], [facility]. provides no warranty or guarantee of the accuracy or completeness of information in this document.
[2024-01-03 16:09] LABS: Age Gdln ACOG Testing Note (.); HPV Aptima Negative (Negative); IGP, Aptima HPV, rfx 16/18,45 Note (.)
== END 2023-12-28 20:15 | disposition home or self-care (01) ==
LOC: LAB 20:14
PROVIDERS: PCP Nurse Practitioner Family; Visit Provider Obstetrics & Gynecology
DX: Z01.419 Encounter for gynecological examination (general) (routine) without abnormal findings (principal)
CPT/HCPCS: 87624; G0145

== ENCOUNTER 2024-05-02 07:30 | Outpatient (RCR) | payer BC, SELFPAY | END 2024-05-02 15:27 | disposition home or self-care (01) | LOC: INF 07:30 | PROVIDERS: PCP Nurse Practitioner Family; Visit Provider Internal Medicine Hematology & Oncology | DX: Z15.01 Genetic susceptibility to malignant neoplasm of breast (principal); Z84.81 Family history of carrier of genetic disease; Z80.3 Family history of malignant neoplasm of breast; Z80.41 Family history of malignant neoplasm of ovary | CPT/HCPCS: G0463 ==

== ENCOUNTER 2025-01-01 12:11 | Outpatient (OUT) | payer BC, SELFPAY ==
--- OUTSIDE RECORDS SUMMARY | 2025-01-01 12:16 | XMS_ITS | CCD ---
Author Organization [facility] Care Team Providers Care Conformal Pad Former Name Role Phone SONIYA ESCALONA Unavailable Unavailable MATT, SUBHA S Primary Care Physician MARI, FRANSICO Admitting Unavailable MARI, FRANSICO Attending Unavailable MATT, SUBHA Primary Care Unavailable MARI, FRANSICO Consulting Unavailable TIFFANIE GALLARDO Consulting Unavailable MATT MARTINS Consulting Unavaila ble MARI, FRANSICO Admitting Unavailable MARI, FRANSICO Attending Unavailable MATT, SUBHA Primary Care Unavailable MARI, FRANSICO Consulting Unavailable MARI, FRANSICO Admitting Unavailable MARI, FRANSICO Attending Unavailable MATT, SUBHA Primary Care Unavailable MARI, FRANSICO Consulting Unavailable FITZ, DR LAKSHMI Lima Admitting Unavailable FITZ, DR LAKSHMI Lima Attending Unavailable MATT, SUBHA Primary Care Unavailable DR LAKSHMI MESSINA V Consulting Unavailable TERRENCE ., DR RICKY Jaimes Admitting Unavailable TERRENCE ., DR RICKY Jaimes Attending Unavailable MARI, FRANSICO Referring Unavailable MATT, SUBHA Primary Care Unavailable MARI, FRANSICO Admitting Unavailable MARI, FRANSICO Attending Unavailable MATT, SUBHA Primary Care Unavailable Matt EDGE CUTTING MACHINE OPERATOR-TECHNICAL SUPERVISOR, Subha S Primary Care Provider MARI, FRANSICO Attending Unavailable MARI, FRANSICO Attending Unavailable RAE GU Attending Unavailable MARI, FARNSICO Attending Unavailable SHAWN WATTERS Attending Unavail able MATT, SUBHA S Referring Unavailable MATT, SUBHA S Primary Care Unavailable MATT, SUBHA S Referring Unavailable MATT, SUBHA S Primary Care Unavailable IVAN HAYDEN Attending Unavailable SHAWN WATTERS Attending Unavail able MATT, SUBHA S Referring Unavailable MATT, SUBHA S Primary Care Unavailable SHAWN WATTERS Attending Unavail able MATT, SUBHA S Referring Unavailable MATT, SUBHA S Primary Care Unavailable HAYDENIVAN Attending Unavailable MATT, SUBHA S Referring Unavailable MATT, SUBHA S Primary Care Unavailable HAYDEN, IVAN A Attending Unavailable MATT, SUBHA S Referring Unavailable MATT, SUBHA S Primary Care Unavailable SUGMagdalena, SHAWN LAIRD Attending Unavail able MATT, SUBHA S Referring Unavailable MATT, SUBHA S Primary Care Unavailable HAYDENIVAN Attending Unavailable MATT, SUBHA S Referring Unavailable MATT, SUHBA S Primary Care Unavailable HAYDEN, IVAN Huynh Attending Unavailable MATT, SUBHA S Referring Unavailable MATT, SUBHA S Primary Care Unavailable SUGMagdalena, SHAWN LAIRD Attending Unavail able MATT, SUBHA S Referring Unavailable MATT, SUBHA S Primary Care Unavailable SUGMagdalena, SHAWN LAIRD Attending Unavail able MATT, SUBHA S Referring Unavailable MATT, SUBHA S Primary Care Unavailable SUGMagdalena, SHAWN LAIRD Attending Unavail able MATT, SUBHA S Referring Unavailable MATT, SUBHA S Primary Care Unavailable HAYDENIVAN Attending Unavailable MATT, SUBHA S Referring Unavailable MATT, SUBHA S Primary Care Unavailable HAYDENIVAN Attending Unavailable MATT, SUBHA S Referring Unavailable MATT, SUBHA S Primary Care Unavailable MATT, SUBHA S Referring Unavailable MATT, SUBHA S Primary Care Unavailable DAVINA PARSONS Attending Unavailable SHAWN WATTERS Attending Unavail able MATT, SUBHA S Referring Unavailable MATT, SUBHA S Primary Care Unavailable MATT, SUBHA S Referring Unavailable MATT, SUBHA S Primary Care Unavailable SUGMagdalena, SHAWN LAIRD Attending Unavail able TERI KABA Referring Unavailable MATT, SUBHA S Primary Care Unavailable MATT, SUBHA S Referring Unavailable MATT, SUBHA S Primary Care Unavailable TERI KABA Admitting Unavailable TERI KABA Attending Unavailable TERI KABA Referring Unavailable MATT, SUBHA S Primary Care Unavailable NAMITA REBOLLAR Attending Unavailable MATT, SUBHA S Primary Care Unavailable MATT, SUBHA S Referring Unavailable MATT, SUBHA S Primary Care Unavailable SHAWN WATTERS Admitting Unavail able SHAWN WATTERSLEY Attending Unavail able SUGG, SHAWN LAIRD Referring Unavail able MATT, SUBHA S Primary Care Unavailable ZEINA JACOBS Attending Unavaila ble MATT, SUBHA S Primary Care Unavailable DAVINA PARSONS Referring Unavailable MATT, SUBHA S Primary Care Unavailable SUGG, SHAWN LAIRD Admitting Unavail able SUGG, SHAWN LAIRD Attending Unavail able MATT, SUBHA S Primary Care Unavailable MATT, SUBHA S Referring Unavailable MATT, SUBHA S Primary Care Unavailable TERI VASQUEZ Referring Unavailable MATT, SUBHA S Primary Care Unavailable SUGG, SHAWN LAIRD Admitting Unavail able SUGG, SHAWN LAIRD Attending Unavail able MATT, SUBHA S Primary Care Unavailable JAMILA SHELTON Attending Unavailable MATT, SUBHA S Primary Care Unavailable IVAN HAYDEN Referring Unavailable MATT, SUBHA S Primary Care Unavailable Medications Current Medications Medication Drug Class(es) Dates Sig (Normalized) Sig (Original) Acetaminophen / butalbital / Caffeine (20 sources) Barbiturate, Central Nervous System Stimulant, Methylxanthine Start: 01-28-2022 take 1 tablet by mouth every four hours as needed for headache Fioricet 1 tab, Oral, q4hr as needed for headache, Refill(s) 0 Start Date: 01/28/22 Status: Ordered Start: 01-28-2022 Fioricet Oral, q4hr, Refill(s) 0 Start Date: 01/28/22 Status: Ordered take 1 tablet by peggy th every four hours as needed for headache [id number] (FIORICET, ESGIC) 50-325-40 mg per tablet Indications: migraine Take 1 tablet by mouth every 4 (four) hours as needed for headaches Indications: a migraine headache. Active diazePAM 5 mg oral tablet (20 sources) Benzodiazepine Start: 12-26-2024 take 1 tablet by mouth every six hours as needed for muscle spasms diazePAM (VALIUM) 5 mg tablet Indications: Seroma of skin or subcutaneous tissue after dermatologic procedure , Breast wound, left, sequela , S/P breast reconstruction, bilateral Take 1 tablet (5 mg total) by mouth every 6 (six) hours as needed for muscle spasms. 20 tablet 12/26/2024 Active Start: 12-06-2024 End: 12-13-2024 take 1 tablet by mouth every eight hours as needed for muscle spasms diazePAM (VALIUM) 5 mg tablet Indications: S/P breast reconstruction, left Take 1 tablet (5 mg total) by mouth every 8 (eight) hours as needed for muscle spasms for up to 7 days. 21 tablet 12/06/2024 12/13/2024 Active Start: 10-18-2024 End: 12-04-2024 take 1 tablet by mouth once daily as needed for pain diazePAM (VALIUM) 5 mg tablet Indications: Breast pain, left , Wound of left breast, initial encounter Take 1 tablet (5 mg total) by mouth nightly as needed for muscle spasms (breast pain). 7 tablet 10/18/2024 12/04/2024 Discontinued (Therapy completed) Start: 06-22-2024 End: 10-18-2024 take 1 tablet by mouth every six hours as needed for muscle spasms diazePAM (VALIUM) 5 mg tablet Indications: Acquired absence of breast, bilateral , Post-operative pain Take 1 tablet (5 mg total) by mouth every 6 (six) hours as needed for muscle spasms. 18 tablet 08/02/2024 10/18/2024 Discontinued Start: 03-03-2024 take 1 tablet by peggy th every six hours as needed for muscle spasms diazePAM (VALIUM) 5 mg tablet Indications: Acquired absence of breast, bilateral , Post-operative pain Take 1 tablet (5 mg total) by mouth every 6 (six) hours as needed for muscle spasms. Do not take with oxycodone 16 tablet 03/03/2024 Active doxycycline hyclate 100 mg oral tablet (6 sources) Tetracycline-class Drug Start: 12-26-2024 End: 01-02-2025 take 1 tablet by mouth in the morning, then take 1 tablet by mouth at bedtime doxycycline (VIBRA-TABS) 100 mg tablet Take 1 tablet (100 mg total) by mouth in the morning and 1 tablet (100 mg total) before bedtime. Do all this for 7 days. 14 tablet 12/26/2024 01/02/2025 Active Start: 11-24-2024 End: 12-08-2024 take 1 capsule by mouth in the morning, then take 1 capsule by mouth at bedtime doxycycline (VIBRAMYCIN) 100 mg capsule Take 1 capsule (100 mg total) by mouth in the morning and 1 capsule (100 mg total) before bedtime. Do all this for 14 days. 28 capsule 11/24/2024 12/06/2024 Discontinued (Therapy completed) Start: 10-18-2024 End: 10-25-2024 take 1 tablet by mouth in the morning, then take 1 tablet by mouth at bedtime doxycycline (VIBRA-TABS) 100 mg tablet Take 1 tablet (100 mg total) by mouth in the morning and 1 tablet (100 mg total) before bedtime. Do all this for 7 days. 14 tablet 10/18/2024 10/25/2024 Active ondansetron 4 mg disintegrating oral tablet (2 sources) Serotonin-3 Receptor Antagonist Start: 12-12-2024 take 1 tablet by mouth every eight hours as needed for nausea and vomiting ondansetron ODT (ZOFRAN ODT) 4 mg disintegrating tablet Dissolve 1 tablet (4 mg total) on tongue every 8 (eight) hours as needed for nausea or vomiting. 20 tablet 12/12/2024 Active oxyCODONE hydrochloride 5 mg oral tablet (12 sources) Opioid Agonist Start: 12-26-2024 End: 12-31-2024 take 1 tablet by mouth every six hours as needed for pain oxyCODONE (ROXICODONE) 5 mg immediate release tablet Indications: Seroma of skin or subcutaneous tissue after dermatologic procedure , Breast wound, left, sequela , S/P breast reconstruction, bilateral Take 1 tablet (5 mg total) by mouth every 6 (six) hours as needed for pain for up to 5 days. Max Daily Amount: 20 mg 15 tablet 12/26/2024 12/31/2024 Active Start: 12-12-2024 End: 12-17-2024 take 1 tablet by mouth every four hours as needed for pain oxyCODONE (ROXICODONE) 10 MG tablet immediate release tablet Indications: Post-operative pain , S/P breast reconstruction, bilateral Take 1 tablet (10 mg total) by mouth every 4 (four) hours as needed for pain for up to 5 days. Max Daily Amount: 60 mg 15 tablet 12/12/2024 12/17/2024 Active Start: 09-18-2024 End: 09-25-2024 take 1 tablet by mouth every six hours as needed for pain oxyCODONE (ROXICODONE) 5 mg immediate release tablet Indications: Encounter for postoperative care , Post-operative pain , S/P breast reconstruction, bilateral Take 1 tablet (5 mg total) by mouth every 6 (six) hours as needed for pain for up to 7 days. Max Daily Amount: 20 mg 20 tablet 09/18/2024 09/25/2024 Active Start: 09-01-2024 End: 09-08-2024 take 2 tablets by mouth every six hours as needed for pain oxyCODONE (ROXICODONE) 5 mg immediate release tablet Indications: S/P breast reconstruction, bilateral , S/P bilateral mastectomy , Post-operative pain Take 2 tablets (10 mg total) by mouth every 6 (six) hours as needed for pain for up to 7 days. Do not take at same time as robaxin Max Daily Amount: 40 mg 28 tablet 09/01/2024 09/08/2024 Start: 08-30-2024 End: 09-06-2024 take 1 tablet by mouth every four hours as needed for pain oxyCODONE (ROXICODONE) 5 mg immediate release tablet Indications: S/P breast reconstruction, bilateral Take 1 tablet (5 mg total) by mouth every 4 (four) hours as needed for pain for up to 7 days. Max Daily Amount: 30 mg 28 tablet 08/30/2024 09/06/2024 Start: 03-08-2024 End: 03-13-2024 take 1 tablet by mouth every six hours as needed for pain oxyCODONE (ROXICODONE) 5 mg immediate release tablet Indications: Acquired absence of breast, bilateral , Post-operative pain Take 1 tablet (5 mg total) by mouth every 6 (six) hours as needed for pain for up to 5 days. Max Daily Amount: 20 mg 20 tablet 03/08/2024 03/13/2024 Active Start: 02-28-2024 End: 03-04-2024 take 1 tablet by mouth every four hours as needed for pain oxyCODONE (ROXICODONE) 5 mg immediate release tablet Indications: BRCA1 gene mutation positive Take 1 tablet (5 mg total) by mouth every 4 (four) hours as needed for pain for up to 5 days. Max Daily Amount: 30 mg 20 tablet 0 02/28/2024 03/04/2024 Active sulfamethoxazole 800 mg / trimethoprim 160 mg oral tablet (5 sources) Dihydrofolate Reductase Inhibitor Antibacterial, Sulfonamide Antimicrobial Start: 12-06-2024 End: 12-13-2024 take 1 tablet by mouth once in the morning sulfamethoxazole-trimethoprim (BACTRIM DS) 800-160 mg per tablet Take 1 tablet by mouth in the morning and 1 tablet before bedtime. Do all this for 7 days. 14 tablet 12/06/2024 12/13/2024 Active Start: 10-30-2024 End: 11-06-2024 take 1 tablet by mouth once in the morning sulfamethoxazole-trimethoprim (BACTRIM D S) 800-160 mg per tablet Take 1 tablet by mouth in the morning and 1 tablet before bedtime. Do all this for 7 days. 14 tablet 10/30/2024 11/06/2024 Active Start: 08-30-2024 End: 09-06-2024 take 1 tablet by mouth once in the morning sulfamethoxazole-trimethoprim (BACTRIM D S) 800-160 mg per tablet Take 1 tablet by mouth in the morning and 1 tablet before bedtime. Do all this for 7 days. 14 tablet 08/30/2024 09/06/2024 Completed/Discontinued Medications Medication Drug Class(es) Dates Sig (Normalized) Sig (Original) cyclobenzaprine hydrochloride 10 mg oral tablet (1 source) Muscle Relaxant Start: 03-23-2024 End: 08-18-2024 take 1 tablet by mouth three times daily as needed for muscle spasms cyclobenzaprine (FLEXERIL) 10 mg tablet Indications: Acquired absence of breast, bilateral , Post-operative pain Take 1 tablet (10 mg total) by mouth 3 (three) times a day as needed for muscle spasms. 30 tablet 03/23/2024 08/18/2024 Discontinued (Therapy completed) DULoxetine 30 mg delayed release oral capsule (8 sources) Serotonin and Norepinephrine Reuptake Inhibitor Start: 09-04-2024 End: 10-30-2024 take 1 capsule by mouth in the morning DULoxetine (CYMBALTA) 30 mg capsule Indications: Post-operative pain Take 1 capsule (30 mg total) by mouth in the morning. 30 capsule 09/04/2024 10/30/2024 Discontinued (Patient Stopped On Own) gabapentin 100 mg oral capsule (9 sources) Anti-epileptic Agent Start: 09-01-2024 End: 10-04-2024 take 3 capsules by mouth three times daily gabapentin (NEURONTIN) 100 mg capsule Indications: S/P breast reconstruction, bilateral , S/P bilateral mastectomy , Post-operative pain TAKE 3 CAPSULES (300 MG TOTAL) BY MOUTH 3 (THREE) TIMES A DAY FOR 30 DAYS. 270 capsule 09/04/2024 10/04/2024 Start: 03-13-2024 End: 08-18-2024 take 1 capsule by mouth three times daily gabapentin (NEURONTIN) 100 mg capsule Indications: Acquired absence of breast, bilateral , Post-operative pain Take 1 capsule (100 mg total) by mouth 3 (three) times a day. 30 capsule 03/13/2024 08/18/2024 Discontinued (Therapy completed) ibuprofen 800 mg oral tablet (2 sources) Nonsteroidal Anti-inflammatory Drug Start: 09-01-2024 End: 09-04-2024 take 1 tablet by mouth every six hours as needed for pain ibuprofen (MOTRIN) 800 mg tablet Take 1 tablet (800 mg total) by mouth every 6 (six) hours as needed for pain. 30 tablet 09/01/2024 09/04/2024 Discontinued lidocaine 0.05 mg/mg medicated patch (1 source) Antiarrhythmic, Amide Local Anesthetic Start: 05-12-2024 End: 08-18-2024 apply 1 dose transdermal route once daily, then apply 1 dose transdermal route every twelve hours lidocaine (LIDODERM) 5 % Place 1 patch on the skin daily. Remove & Discard patch within 12 hours or as directed by MD Conner patch 05/12/2024 08/18/2024 Discontinued (Therapy completed) methocarbamol 500 mg oral tablet (15 sources) Muscle Relaxant Start: 09-01-2024 End: 12-04-2024 take 1 tablet by mouth three times daily methocarbamoL (ROBAXIN) 500 mg tablet Take 1 tablet (500 mg total) by mouth 3 (three) times a day. 28 tablet 09/01/2024 12/04/2024 Discontinued (Therapy completed) naloxone (NARCAN) 4 mg/actuation spray,non-aerosol nasal spray (10 sources) Start: 09-01-2024 End: 10-30-2024 naloxone (NARCAN) 4 mg/actuation spray,non-aerosol nasal spray Administer 1 spray (4 mg total) into alternating nostrils as needed for opioid reversal. 1 each 1 09/01/2024 10/30/2024 Discontinued (Patient Never Started This Medication) Start: 09-01-2024 naloxone (NARC AN) 4 mg/actuation spray,non-aerosol nasal spray Administer 1 spray (4 mg total) into alternating nostrils as needed for opioid reversal. 1 each 1 09/01/2024 Active naproxen sodium 550 mg oral tablet (4 sources) Nonsteroidal Anti-inflammatory Drug Start: 09-04-2024 End: 09-14-2024 naproxen sodium (ANAPROX) 550 mg tablet Take 1 tablet (550 mg total) by mouth in the morning and 1 tablet (550 mg total) at noon and 1 tablet (550 mg total) in the evening. Take with meals. Do all this for 10 days. 30 tablet 09/04/2024 09/14/2024 tiZANidine 4 mg oral tablet (20 sources) Central alpha-2 Adrenergic Agonist Start: 10-01-2023 End: 10-18-2024 take 1 tablet by mouth every six hours as needed tiZANidine (ZANAFLEX) 4 mg tablet 1 tablet (4 mg total) every 6 (six) hours as needed. 10/01/2023 10/18/2024 Discontinued Start: 03-31-2022 [facility] as needed for pain tiZANidine 4 mg Tab 4 mg = 1 tab(s), Oral, q8hr, PRN Muscle pain, Refills(s) 0 Start Date: 03/31/22 Status: Ordered take 2 tablets by mo [facility] once daily as needed for muscle spasms tiZANidine (ZANAFLEX) 4 mg tablet Take 2 tablets (8 mg total) by mouth nightly as needed, may repeat once for muscle spasms. Active Problems Active Problems Problem Classification Problem Date Documented Date Episodic/Chronic Calculus of urinary tract (5 sources) History of calculus of kidney; Translations: [Personal history of urinary calculi] Onset: 02-17-2022 Episodic Cancer of breast (2 sources) Malignant tumor of breast 01-28-2022 Chronic Complications of surgical procedures or medical care (4 sources) Postoperative seroma; Translations: [Postprocedural seroma of skin and subcutaneous tissue following a dermatologic procedure] Onset: 12-26-2024 12-26-2024 Episodic Esophageal disorders (1 source) Gastro-esophageal reflux disease [...] [ENC SCREENING HUMAN PAPILLOMAVIRUS] Onset: 12-23-2022 Episodic Menstrual disorders (5 sources) Dysmenorrhea; Translations: [Dysmenorrhea, unspecified] Onset: 01-22-2015 11-27-2024 Chronic Nonmalignant breast conditions (3 sources) Mastodynia; Translations: [Mastodynia] Onset: 10-18-2024 10-18-2024 Episodic Open wounds of head; neck; and trunk (7 sources) Disorder of breast; Translations: [Unspecified open wound of left breast, initial encounter] Onset: 10-18-2024 10-18-2024 Episodic Other aftercare (9 sources) Postoperative visit; Translations: [Encounter for other specified surgical aftercare] 09-11-2024 Episodic Other endocrine disorders (5 sources) Endocrine disorder, unspecified; Translations: [ENDOCRINE DISORDER UNSPECIFIED] Onset: 04-01-2022 Episodic Other female genital disorders (2 sources) Pain in female genitalia on intercourse 01-28-2022 Chronic Other female genital disorders (1 source) Unspecified dyspareunia; Translations: [UNSPECIFIED DYSPAREUNIA] Onset: 04-01-2022 Chronic Other nervous system disorders (1 source) H/O: migraine 03-31-2022 Episodic Other nervous system disorders (11 sources) Postoperative pain ; Translations: [Other acute postprocedural pain] 03-03-2024 Episodic Other screening for suspected conditions (not mental disorders or infectious disease) (4 sources) Encounter for screening for malignant neoplasm of cervix; Translations: [ENC SCREENING MALIG NEOPLASM CERV] Onset: 12-21-2022 Episodic Residual codes; unclassified (20 sources) Breast finding ; Translations: [Breast implant status] Onset: 11-02-2023 11-02-2023 Chronic Residual codes; unclassified (20 sources) BRCA1 gene mutation positive; Translations: [Genetic susceptibility to malignant neoplasm of breast] Onset: 09-29-2023 09-29-2023 Episodic Residual codes; unclassified (4 sources) Bilateral acquired absence of breast; Translations: [Acquired absence of bilateral breasts and nipples] 02-14-2024 Episodic Residual codes; unclassified (11 sources) History of breast reconstruction; Translations: [Other specified postprocedural states] 09-01-2024 Episodic Substance-related disorders (3 sources) Smoker; Translations: [Nicotine dependence, cigarettes, uncomplicated] Onset: 04-01-2022 01-28-2022 Chronic Comment on above: Added secondary to d ocumentation in Social History. Superficial injury; contusion (1 source) Contusion of right foot, initial encounter; Translations: [Contusion of right foot, initial encounter] Onset: 06-18-2018 Episodic Unclassified (1 source) Post-op Onset: 03-23-2024 Unclassified (1 source) BRAC1 MUTATION Onset: 02-28-2024 Past or Other Problems Problem Classification Problem Date Documented Date Episodic/Chronic Abdominal pain (4 sources) Pelvic and perineal pain; Translations: [PELVIC AND PERINEAL PAIN] Onset: 03-20-2022 Episodic Administrative/social admission (5 sources) Counseling procedure with explicit context; Translations: [Tobacco abuse counseling] Onset: 01-22-2015 11-27-2024 Episodic Inflammatory diseases of female pelvic organs (1 source) Female pelvic peritoneal adhesions (postinfective); Translations: [FE PELV PERITON ADHES POSTINFECTIVE] Onset: 04-01-2022 Episodic Other aftercare (1 source) Encounter for other specified surgical aftercare; Translations: [Encounter for other specified surgical aftercare] Onset: 09-18-2024 Episodic Other female genital disorders (1 source) Personal history of other diseases of the female genital tract; Translations: [PERSONAL HX OTH DZ FE GENITAL TRACT] Onset: 04-01-2022 Episodic Other nervous system disorders (1 source) Other acute postprocedural pain; Translations: [Other acute postprocedural pain] Onset: 07-27-2024 Episodic Residual codes; unclassified (1 source) Flushing; Translations: [FLUSHING] Onset: 04-01-2022 Episodic Residual codes; unclassified (1 source) Acquired absence of both cervix and uterus; Translations: [ACQUIRED ABSENCE BOTH CERVIX AND UTERUS] Onset: 04-01-2022 Episodic Residual codes; unclassified (20 sources) Family history of malignant neoplasm of ovary; Translations: [Family history of malignant neoplasm of ovary] Onset: 11-02-2023 11-02-2023 Episodic Residual codes; unclassified (20 sources) Family history of breast cancer; Translations: [Family history of malignant neoplasm of breast] Onset: 11-02-2023 11-02-2023 Episodic Residual codes; unclassified (2 sources) Other specified postprocedural states; Translations: [Other specified postprocedural states] Onset: 07-27-2024 Episodic Residual codes; unclassified (1 source) Acquired absence of bilateral breasts and nipples; Translations: [Acquired absence of bilateral breasts and nipples] Onset: 07-27-2024 Episodic Residual codes; unclassified (2 sources) Genetic susceptibility to malignant neoplasm of breast; Translations: [Genetic susceptibility to malignant neoplasm of breast] Onset: 09-29-2023 Episodic Residual codes; unclassified (2 sources) Genetic susceptibility to other malignant neoplasm; Translations: [Genetic susceptibility to other malignant neoplasm] Onset: 09-29-2023 Episodic Spondylosis; intervertebral disc disorders; other back problems (5 sources) Backache; Translations: [Sciatica, right side] Onset: 01-22-2015 11-27-2024 Episodic Unclassified (2 sources) History of breast reconstruction 09-18-2024 Results Test Name Value Interpretation Reference Range Facility ASPIRATE CULTUREon 5 Bacteria identified Aer cx Nom (Asp) GRAM STAIN 10 to 24 WHITE BLOOD CELLS/LPF 0 SQUAMOUS EPITHELIAL CELLS/LPF NO ORGANISMS SEEN CULTURE RESULTS NO GROWTH 3 DAYS Normal [facility] Comment on above: Performed By: #### 5 97-5 #### [facility] ([id number]) [address] [place] [address] ANAEROBE CULTUREon 5 Bacteria identified Anaer cx Nom (Unsp spec) CULTURE RESULTS NO GROWTH 5 DAYS Normal [facility] Comment on above: Performed By: #### 6 35-3 #### [facility] ([id number]) [address] [place] [address], [address] [place] [address] FUNGAL CULTUREon 12-06-2024 Fungus identified Cx Nom (Unsp spec) FUNGAL SMEAR NO FUNGAL ELEMENTS SEEN ON DIRECT SMEAR CULTURE RESULTS NO FUNGUS ISOLATED AFTER 1 WEEK Normal [facility] Comment on above: Performed By: #### 5 80-1 #### [facility] ([id number]) [address] [place] [address], [address] [place] [address] TISSUE CULTUREon 12-06-2024 Bacteria identified Aer cx Nom (Tiss) GRAM STAIN 1 to 9 WHITE BLOOD CELLS/LPF 0 SQUAMOUS EPITHELIAL CELLS/LPF NO ORGANISMS SEEN CULTURE RESULTS NO GROWTH 3 DAYS Normal [facility] Comment on above: Performed By: #### 6 27-0 #### [facility] ([id number]) [address] [place] [address], [address] [place] [address] Surgical Pathologyon 024 Surgical Pathology Normal [facility] Comment on above: Result Comment: [facility] [address] [place] [address] Surgical Pathology Consultation Patient Name:YUE LEWIS:1985 (Age: 38)Gender:FTaken:4Reported:11/07/2024hysician(s):Ana Watters MD ([phone])Copy To: Rec. #:[id number]: #[id number] Final Pathologic Diagnosis Skin, left nipple sinus tract, punch biopsy: - Epidermal-lined sinus tract with surrounding fibrosis Report Electronically Signed Out nrd/11/07/2024Vivienne Cardoza MD [facility] [address], License number: [id number]. Clinical History Periareolar abscess. Gross Description Received in formalin labeled DAVID left nipple sinus tract is a pale-davalos wrinkled skin punch, 0.4 x 0.2 cm excised to depth of 0.2 cm. No lesion or area of discoloration is definitively identified. The resection margin is inked green. The specimen is bisected and submitted in a single cassette. (1, ns, [id number],m1) DM. dm/10/31/2024O Microscopic Findings Microscopic examination performed. Specimen(s) Received Left nipple sinus tract Fee Codes(s): 1; 48238 SUPERFICIAL WOUND CULTUREon 10-18-2024 Bacteria identified Aer cx Nom (Wound) SPECIMEN NOTES NAC MARGIN 4 OCLOCK GRAM STAIN 0 to 1 WHITE BLOOD CELLS/LPF 0 SQUAMOUS EPITHELIAL CELLS/LPF NO ORGANISMS SEEN CULTURE RESULTS NO GROWTH 2 DAYS Normal [facility] Comment on above: Performed By: #### 6 32-0 #### [facility] ([id number]) [address] [place] [address] [address] [place] [address] Surgical Pathologyon 024 Surgical Pathology Normal [facility] Comment on above: Result Comment: [facility] [address] [place] [address] Surgical Pathology Consultation Patient Name:YUE LEWIS:1985 (Age: 38)Gender:FTaken:4Reported:4Physician(s):TERI KABA MD ([phone])Copy To:Shawn Watters [facility]:[id number]. Rec. #:[id number]: #[id number] Final Pathologic Diagnosis 1. Right breast nipple sparing simple mastectomy: Benign breast with fibrocystic changes. Apocrine metaplasia. Columnar cell change including columnar cell hyperplasia. No atypia or malignancy identified. 2. Right nipple core: No atypia or malignancy identified. 3. Right and left breast implants: Breast implants as described below. 4. Left breast nipple-sparing simple mastectomy: Benign breast with fibrocystic changes. Apocrine metaplasia. Columnar cell change including columnar cell hyperplasia. Small fibroadenoma. No atypia or malignancy identified. 5. Left nipple core: No atypia or malignancy identified. Report Electronically Signed Out [facility]/03/03/2024Tobi Waters M.D. Interpretation performed at [facility], [address] [place] [address], License number: [id number]. Clinical History BRCA1 mutation. Gross Description 1. Received in formalin labeled DAVID, right breast stitch fields superior is a 266 g, oriented simple skin and nipple sparing mastectomy, received oriented by the surgeon with a suture at superior. The specimen is 14 cm from medial to lateral, 15.3 cm from superior to inferior and 0.4 cm from anterior to posterior. Also received in the container is a 8 x 6.5 x 1.5 cm aggregate of unoriented yellow, lobulated fat with fragments of skin. The anterior superior margin is inked blue, the anterior inferior margin is inked yellow, and the posterior margin is inked black. The specimen is serially sectioned through the posterior surface to reveal cut surfaces comprised of 75% dense fibrous tissue. There are no discrete lesions or masses identified. Radiographic images are taken and no microcalcifications are identified. Decommissioning Well Site Manager sections are submitted in cassettes A-I, as follows: A-B upper outer quadrant C-D lower outer quadrant E-F upper inner quadrant G-H lower inner quadrant I sales representative supervisor remaining aggregate Breast Fixation Time: Time incised: 916 Time in formalin: 916 Cold ischemic time: Less than 1 minute Time in formalin before processin hours (9,ss,[id number], m6)MW 2. Received in formalin, labeled DAVID, right nipple core is a 0.7 x 0.3 cm fibroadipose tissue core. The specimen is filtered and entirely submitted in 1 cassette. (1, ns, [id number], m6) MW 3. Received in formalin, labeled KIRANGY, right and left breast implant are 2 intact implant filled with clear gelatinous fluid. There are no discrete tears or attached soft tissue identified. The implants are inscribed with MENTOR [id number], HO 420cc No tissue is submitted for microscopic evaluation. GROSS ONLY. MW 4. Received in formalin labeled DAVID, left breast stitch fields superior is a 241 g, oriented simple skin and nipple sparing mastectomy, received oriented by the surgeon with a suture at superior the specimen is 13 cm from medial to lateral, 14.5 cm from superior to inferior and 2.9 cm from anterior to posterior. Also received in the container is a 12.5 x 8.7 x 2.3 cm aggregate of unoriented yellow, lobulated fat with fragments of skin. The anterior superior margin is inked blue, the anterior inferior margin is inked yellow, and the posterior margin is inked black. The specimen is serially sectioned through the posterior surface to reveal cut surfaces comprised of 60% dense fibrous tissue. There are no discrete lesions or masses identified. Radiographic images are taken and no microcalcifications are identified. Decommissioning Well Site Manager sections are submitted in cassettes A-I, as follows: A-B upper outer quadrant C-D lower outer quadrant E-F upper inner quadrant G-H lower inner quadrant I sales representative supervisor remaining aggregate Breast Fixation Time: Time incised: 1031 Time in formalin: 1031 Cold ischemic time: Less than 1 minute Time in formalin before processin hours (9,ss,[id number], m6)MW 5. Received in formalin, labeled DAVID, left nipple core is a 0.9 x 0.6 x 0.2 cm fibroadipose tissue fragment. The specimen is filtered and entirely submitted in 1 cassette. (1, ns, [id number], m6) MW mxw/02/28/2024GR Specimen(s) Received 1: Right breast 2: Right nipple core 3: Right and left breast implants 4: Left breast 5: Left nipple core Fee Codes(s): 1; 40273 2; 73780 3; 95168 4; 31570 5; 31285 BASIC METABOLIC PANLon 02-13 Anion gap [Moles/Vol] 9 mmol/L Normal 5-15 [facility] Comment on above: Performed By: #### C BCA, BMP #### [facility] ([id number]) [address], [address] [place] [address] Calcium [Mass/Vol] 9.3 mg/dL Normal 8.5-10.5 [facility] Comment on above: Performed By: #### C BCA, BMP #### [facility] ([id number]) [address], [address] [place] [address] Chloride [Moles/Vol] 101 mmol/L Normal 98-109 [facility] Comment on above: Performed By: #### C BCA, BMP #### [facility] ([id number]) [address], [address] [place] [address] CO2 [Moles/Vol] 30 mmol/L Normal 22-32 [facility] Comment on above: Performed By: #### C BCA, BMP #### [facility] ([id number]) [address], [address] [place] [address] Creatinine [Mass/Vol] 0.79 mg/dL Normal 0.40-1.00 [facility] Comment on above: Result Comment: METH OD TRACEABLE TO IDMS STANDARD Performed By: #### C BCA, BMP #### [facility] ([id number]) [address], [address] [place] [address] eGFR (CKD-EPI) NON-RACE DEPENDENT >90 Normal >59 [facility] Comment on above: Result Comment: Reported eGFR is based on the CKD-EPI 2021 equation that does not use a race coefficient. Performed By: #### C BCA, BMP #### [facility] ([id number]) [address], [address] [place] [address] Glucose [Mass/Vol] 78 mg/dL Normal 65-99 [facility] Comment on above: Performed By: #### C BCA, BMP #### [facility] ([id number]) [address], [address] [place] [address] Potassium [Moles/Vol] 3.7 mmol/L Normal 3.5-5.0 [facility] Comment on above: Performed By: #### C BCA, BMP #### [facility] ([id number]) [address], [address] [place] [address] Sodium [Moles/Vol] 140 mmol/L Normal 134-146 [facility] Comment on above: Performed By: #### C COBY, KUSHAL #### [facility] ([id number]) [address], [address] [place] [address] Urea nitrogen [Mass/Vol] 9 mg/dL Normal 5-23 [facility] Comment on above: Performed By: #### C COBY, BMP #### [facility] ([id number]) [address], [address] [place] [address] Basic Metabolic Panelon 01-27 Anion gap [Moles/Vol] 9 mmol/L 5 - 15 mmol/L [facility] Calcium [Mass/Vol] 9.3 mg/dL 8.5 - 10. 5 mg/dL [facility] Chloride [Moles/Vol] 101 mmol/L 98 - 10 9 mmol/L [facility] CO2 [Moles/Vol] 30 mmol/L 22 - 32 mmol/L [facility] Creatinine [Mass/Vol] 0.79 mg/dL 0.40 - 1.00 mg/dL [facility] Comment on above: METHOD TRACEABLE TO IDTN STANDARD eGFR (CKD-EPI)non-race dependent - PINF [facility] Comment on above: Reported eGFR is based on the CKD-EPI 2020 equation that does not use a race coefficient. Glucose [Mass/Vol] 78 mg/dL 65 - 99 mg/dL [facility] Potassium [Moles/Vol] 3.7 mmol/L 3.5 - 5.0 mmol/L [facility] Sodium [Moles/Vol] 140 mmol/L 134 - 146 mmol/L [facility] Urea nitrogen [Mass/Vol] 9 mg/dL 5 - 23 mg/dL [facility] CBC AND AUTO DIFFon 02-14-20 ABSOLUTE BASOPHIL 0.0 X10E9/L Normal 0.0-0.2 [facility] Comment on above: Performed By: #### C COBY, BMP #### [facility] ([id number]) [address], [address] [place] [address] ABSOLUTE NEUTROPHIL 3.7 X10E9/L Normal 1.5-6.6 [facility] Comment on above: Performed By: #### C BCA, BMP #### [facility] ([id number]) [address], [address] [place] [address] Basophils/100 WBC (Bld) 0.6 % Normal [facility] Comment on above: Performed By: #### C COBY, BMP #### [facility] ([id number]) [address], [address] [place] [address] Eosinophils (Bld) [#/Vol] 0.1 10*3/uL Normal 0.0-0.4 [facility] Comment on above: Performed By: #### C COBY, BMP #### [facility] ([id number]) [address], [address] [place] [address] Eosinophils/100 WBC (Bld) 1.0 % Normal [facility] Comment on above: Performed By: #### C COBY, BMP #### [facility] ([id number]) [address], [address] [place] [address] Erythrocyte distribution width (RBC) [Ratio] 12.9 % Normal 11.5-15.0 [facility] Comment on above: Performed By: #### C COBY, BMP #### [facility] ([id number]) [address], [address] [place] [address] Hematocrit (Bld) [Volume fraction] 39.3 % Normal 35-47 [facility] Comment on above: Performed By: #### C BCA, BMP #### [facility] ([id number]) [address], [address] [place] [address] Hemoglobin (Bld) [Mass/Vol] 13.3 g/dL Normal 11.7-15.5 [facility] Comment on above: Performed By: #### C BCA, BMP #### [facility] ([id number]) [address] [address] [place] [address] Lymphocytes (Bld) [#/Vol] 3.1 10*3/uL Normal 1.0-3.5 [facility] Comment on above: Performed By: #### C COBY, BMP #### [facility] ([id number]) [address], [address] [place] [address] Lymphocytes/100 WBC (Bld) 41.9 % Normal [facility] Comment on above: Performed By: #### C COBY, BMP #### [facility] ([id number]) [address], [address] [place] [address] MCH (RBC) [Entitic mass] 30.5 pg Normal 27-34 [facility] Comment on above: Performed By: #### C BCA, BMP #### [facility] ([id number]) [address], [address] [place] [address] MCHC (RBC) [Mass/Vol] 33.8 g/dL Normal 32-36 [facility] Comment on above: Performed By: #### C BCA, BMP #### [facility] ([id number]) [address], [address] [place] [address] MCV (RBC) [Entitic vol] 90 fL Normal 80-100 [facility] Comment on above: Performed By: #### C BCA, BMP #### [facility] ([id number]) [address], [address] [place] [address] Monocytes (Bld) [#/Vol] 0.5 10*3/uL Normal 0-0.9 [facility] Comment on above: Performed By: #### C BCA, BMP #### [facility] ([id number]) [address] [address] Monocytes/100 WBC (Bld) 6.4 % Normal [facility] Comment on above: Performed By: #### More TENORIO, BMP #### [facility] ([id number]) [address] [address] Neutrophils/100 WBC (Bld) 50.1 % Normal [facility] Comment on above: Performed By: #### More TENORIO, BMP #### [facility] ([id number]) [address] [address] Platelet mean volume (Bld) [Entitic vol] 9.4 fL Normal 7-12 [facility] Comment on above: Performed By: #### More TENORIO, BMP #### [facility] ([id number]) [address] [address] Platelets (Bld) [#/Vol] 204 10*3/uL Normal 150-450 [facility] Comment on above: Performed By: #### More TENORIO, BMP #### [facility] ([id number]) [address] [address] RBC COUNT 4.36 X10E12/L Normal 3.80-5.20 [facility] Comment on above: Performed By: #### More TENORIO, BMP #### [facility] ([id number]) [address] [address] WBC (Bld) [#/Vol] 7.3 10*3/uL Normal 4.0-11.0 [facility] Comment on above: Performed By: #### More TENORIO, BMP #### [facility] ([id number]) [address] [address] CBC auto differentialon 01-27 Basophils (Bld) [#/Vol] 0.0 10*3/uL [facility] Basophils/100 WBC (Bld) 0.6 % [facility] Eosinophils (Bld) [#/Vol] 0.1 10*3/uL [facility] Eosinophils/100 WBC (Bld) 1.0 % [facility] Erythrocyte distribution width (RBC) [Ratio] 12.9 % 11.5 - 15.0 % [facility] Hematocrit (Bld) [Volume fraction] 39.3 % 35 - 47 % [facility] Hemoglobin (Bld) [Mass/Vol] 13.3 g/dL 11.7 - 15.5 g/dL [facility] Lymphocytes (Bld) [#/Vol] 3.1 10*3/uL [facility] Lymphocytes/100 WBC (Bld) 41.9 % [facility] MCH (RBC) [Entitic mass] 30.5 pg 27 - [address] [facility] MCHC (RBC) [Mass/Vol] 33.8 g/dL 32 - 36 g/dL [facility] MCV (RBC) [Entitic vol] 90 fL 80 - 100 fL [facility] Monocytes (Bld) [#/Vol] 0.5 10*3/uL [facility] Monocytes/100 WBC (Bld) 6.4 % [facility] Neutrophils (Bld) [#/Vol] 3.7 10*3/uL [facility] Neutrophils/100 WBC (Bld) 50.1 % [facility] Platelet mean volume (Bld) [Entitic vol] 9.4 fL 7 - [address] [facility] Platelets (Bld) [#/Vol] 204 10*3/uL [facility] RBC (Bld) [#/Vol] 4.36 10*6/uL [facility] WBC corrected for nucl RBC Auto (Bld) [#/Vol] 7.3 [facility] NICOTINE METAB Uon 4 3 [place] COTININE <50 Normal [facility] Comment on above: Performed By: #### N ICTU #### [facility] ([id number]) [address] [place] [address] ANABASINE <5 Normal [facility] Comment on above: Performed By: #### N ICTU #### [facility] ([id number]) [address] [place] [address] COTININE <15 Normal [facility] Comment on above: Performed By: #### N ICTU #### [facility] ([id number]) [address] [place] [address] NICOTINE <15 Normal [facility] Comment on above: Result Comment: NOTE INTERPRETIVE INFORMATION: Nicotine and Metabolites, Urine, Quantitative Methodology: Quantitative Liquid Chromatography-Tandem Mass Spectrometry Positive cutoff: Nicotine 15 ng/mL Cotinine 15 ng/mL [id number] 50 ng/mL Anabasine 5 ng/mL For medical purposes only; not valid for forensic use. This test is designed to evaluate recent use of nicotine-containing products. Passive and active exposure cannot be discriminated definitively, although a cutoff of 100 ng/mL cotinine is frequently used for surgery qualification purposes. For smoking cessation programs or compliance testing, the absence of expected drug(s) and/or drug metabolite(s) may indicate non-compliance, inappropriate timing of specimen collection relative to drug administration, poor drug absorption, diluted/adulterated urine, or limitations of testing. The concentration value must be greater than or equal to the cutoff to be reported as positive. Anabasine is included as a biomarker of tobacco use, versus nicotine replacement. Interpretive questions should be directed to the laboratory. This test was developed and its performance characteristics determined by [facility]. It has not been cleared or approved by the [place] Food and Drug Administration. This test was performed in a CLIA certified laboratory and is intended for clinical purposes. Performed By: [facility] [address] [place] [address] Relay Dispatcher: Chidi Cook MD, PhD CLIA Number: [id number] Performed By: #### N ICTU #### [facility] ([id number]) [address] [place] [address] REVERSE T3on 03-13-2023 Reverse T3, Serum 23.0 ng/dL Normal 9.2-24.1 [facility] Comment on above: Result Comment: This test was developed and its performance characteristics determined by [employer]. It has not been cleared or approved by the Food and Drug Administration. Performed By: #### C PEPT #### [facility] [address] [place] [address] Dr. Gale Qiu SEROTONINon 03-12-2023 Serotonin, Serum 146 ng/mL Normal 31-207 [facility] Comment on above: Performed By: #### T HYGIMA #### [facility] [address] [place] [address] Dr. Gael Qiu ESTRONEon 03-11-2023 Estrone, Serum 50 pg/mL Normal 27-231 [facility] Comment on above: Result Comment: Rang e Adult (Premenopausal) 27 - 231 Menstrual Cycle (1-10 days) 19 - 149 Menstrual Cycle (11-20 days) 32 - 176 Menstrual Cycle (21-30 days) 37 - 200 Performed By: #### E STRONE #### [facility] [address] [place] [address] Dr. Gale Qiu TESTOSTERONE, FREE,DIRECT, T OTALon 03-11-2023 Free Testosterone(Direct) 0.5 pg/mL Normal 0.0-4.[address] [facility] Comment on above: Result Comment: Perf ormed at: BN Performed By: #### C PEPT #### [facility] [address] [place] [address] Dr. Gale Qiu Testosterone [Mass/Vol] 5 ng/dL Critically low 8-60 [facility] Comment on above: Result Comment: Perf ormed at: CB Performed By: #### C PEPT #### [facility] [address] [place] [address] Dr. Gale Qiu C-PEPTIDE, SERUMon C-Peptide, Serum 1.9 ng/mL Normal 1.1-4.4 [facility] Comment on above: Result Comment: C-Pe ptide reference interval is for fasting patients. Performed By: #### C PEPT #### [facility] [address] [place] [address] Dr. Gale Qiu DHEA-SULFATEon 03-10-2023 DHEA-Sulfate 93.5 ug/dL Normal 57.3-279.2 [facility] Comment on above: Performed By: #### T HYGIMA #### [facility] [address] [place] [address] Dr. Gale Qiu ESTRADIOLon 03-10-2023 Estradiol 273.0 pg/mL Normal [facility] Comment on above: Result Comment: Adul t Female: Follicular phase 12.5 - 166.0 Ovulation phase 85.8 - 498.0 Luteal phase 43.8 - 211.0 Postmenopausal <6.0 - 54.7 1st trimester 215.0 - >4300.0 [facility] ECLIA methodology Performed By: #### C PEPT #### [facility] [address] [place] [address] Dr. Gale Qiu INSULINon 03-10-2023 Insulin 7.7 uIU/mL Normal 2.6-24.9 [facility] Comment on above: Performed By: #### I NSULIN #### [facility] [address] [place] [address] Dr. Gale Qiu SEX HORMONE-BINDING GLOBULIN on 03-10-2023 Sex Horm Binding Glob, Serum 62.1 nmol/L Normal 24.6-122.0 [facility] Comment on above: Performed By: #### T HYGIMA #### [facility] [address] [place] [address] Dr. Gale Qiu T3, TOTAL (TRIIODOTHYRONINE) on 03-10-2023 T3, TOTAL 113 ng/dL Normal 71-180 [facility] Comment on above: Performed By: #### T HYGIMA #### [facility] [address] [place] [address] Dr. Gale Qiu THYROGLOBULIN AB AND THYROGL OBULINon 03-10-2023 Thyroglobulin Antibody <1.0 Normal 0.0-0.9 [facility] Comment on above: Result Comment: Thyr oglobulin Antibody measured by [employer]ify Methodology Performed By: #### T HYGIMA #### [facility] [address] [place] [address] Dr. Gale Qiu Thyroglobulin by LUZ 61.6 ng/mL Critically high 1.5-38.5 [facility] Comment on above: Result Comment: Acco [...] 0.1 ng/mL . Thyroglobulin measured by [facility] [place] Immunometric Assay Performed By: #### T HYGIMA #### [facility] [address] [place] [address] Dr. Gale Qiu THYROID PEROXIDASE ABon - Thyroid Peroxidase (TPO) Ab <9 Normal 0-34 [facility] Comment on above: Performed By: #### T HYGIMA #### [facility] [address] [place] [address] Dr. Gale Qiu VIT D 1 25 DIHYDROXYon 03-10 Calcitriol(1,25 di-OH Vit D) 34.5 pg/mL Normal 24.8-81.5 [facility] Comment on above: Performed By: #### V [id number] #### [facility] [address] [place] [address] Dr. Gale Qiu FERRITINon 03-09-2023 Ferritin [Mass/Vol] 57.0 ng/mL Normal 6.2-137.0 [facility] Comment on above: Performed By: #### T HYGIMA #### [facility] [address] [place] [address] Dr. Gale Qiu FREE T3on 03-09-2023 FREE T3 2.75 pg/mlL Normal 2.18-3.98 [facility] Comment on above: Performed By: #### G PATTY, FT3, T4, TSH #### [facility] [address] [place] [address] Dr. Gale Qiu FREE T4on 03-09-2023 Free T4 [Mass/Vol] 0.92 ng/dL Normal 0.76-1.46 [facility] Comment on above: Performed By: #### T HYGIMA #### [facility] [address] [place] [address] Dr. Gale Qiu GLUCOSE BLOODon 03-09-2023 Glucose [Mass/Vol] 94 mg/dL Normal 74-106 [facility] Comment on above: Performed By: #### G PATTY, FT3, T4, TSH #### [facility] [address] [address] [address] Gale Qiu GLYCOHEMOGLOBIN A1Con 2022 ADA RECOMMENDATION SEE BELOW Normal [facility] Comment on above: Result Comment: ADA RECOMMENDED LIMIT 4.0 - 6.0 ADA THERAPEUTIC TARGET < 7.0 ACTION SUGGESTED > 7.0 Performed By: #### T HYGIMA #### [facility] [address] [address] [address] Gale Qiu Glucose [Mass/Vol] 105 mg/dL Normal [facility] Comment on above: Performed By: #### T HYGIMA #### [facility] [address] [address] [address] Gale Qui HbA1c (Bld) [Mass fraction] 5.3 % Normal 4.5-6.2 [facility] Comment on above: Performed By: #### T HYGIMA #### [facility] [address] [address] [address] Gale Qiu T4on 03-09-2023 T4 [Mass/Vol] 9.20 ug/dL Normal 4.80-13.90 [facility] Comment on above: Performed By: #### G PATTY, FT3, T4, TSH #### [facility] [address] [address] [address] Gale Qiu TSHon 03-09-2023 TSH 1.236 uIU/mL Normal 0.358-3.[address] [facility] Comment on above: Performed By: #### G PATTY, FT3, T4, TSH #### [facility] [address] [place] [address] Dr. Gale Qiu PAP ACOG PANEL 2: 30 to 65on 12-28-2022 . . Normal [facility] Comment on above: Result Comment: Perf ormed at: WB Performed By: #### [id number] #### [facility] [address] [address] [address] Gale Qiu Age Gdln ACOG Testing 30-65 Normal [facility] Comment on above: Performed By: #### [id number] #### [facility] [address] [address] [address] Gale Qiu DIAGNOSIS: Comment Normal [facility] Comment on above: Result Comment: NEGA TIVE FOR INTRAEPITHELIAL LESION OR MALIGNANCY. FUNGAL ORGANISMS MORPHOLOGICALLY CONSISTENT WITH EDGARD SPECIES ARE PRESENT. THIS SPECIMEN WAS RESCREENED PART OF OUR TUNNEL HEADING SUPERVISOR PROGRAM. Performed at: WB Performed By: #### [id number] #### [facility] [address] [address] [address] Gale Qiu HPV Aptima QNSPAP Normal [facility] Comment on above: Result Comment: Test not performed. Liquid based PAP vial contained insufficient specimen for molecular testing; likely a consequence of insufficient cellularity in original collection. This nucleic acid amplification test detects fourteen high-risk HPV types (16,18,31,33,35,39,45,51,52,56,58,59,66,68) without differentiation. Performed at: =G Performed By: #### [id number] #### [facility] [address] [place] [address] Dr. Gale Qiu HPV Genotype Reflex Comment Normal [facility] Comment on above: Result Comment: Crit eria not met, HPV Genotype not performed. Performed at: WB Performed By: #### [id number] #### [facility] [address] [address] [address] Gale Qiu Methodology: Comment Normal [facility] Comment on above: Result Comment: This liquid based ThinPrep(R) pap test was screened with the use of an image guided system. Performed at: WB Performed By: #### [id number] #### [facility] [address] [address] [address] Gale Qiu Note: Comment Normal [facility] Comment on above: Result Comment: The Pap smear is a screening test designed to aid in the detection of premalignant and malignant conditions of the uterine cervix. It is not a diagnostic procedure and should not be used as the sole means of detecting cervical cancer. Both false-positive and false-negative reports do occur. . Performed at: WB Performed By: #### 4 [id number] #### [facility] [address] [address] [address] Gale Qiu Performed by: Comment Normal [facility] Comment on above: Result Comment: Marina Hernandes, Pure Pak Machine Operator (ASCP) Performed at: WB Performed By: #### [id number] #### [facility] [address] [place], [place] [address] Dr. Gale Qiu QC reviewed by: Comment Normal The [facility] Comment on above: Result Comment: Brenda Redd, Supervisory Pure Pak Machine Operator (ASCP) Performed at: WB Performed By: #### 4 [id number] #### [facility] [address] [address] [address] Gale Qiu Specimen adequacy: Comment Normal [facility] Comment on above: Result Comment: Sati sfactory for evaluation. No endocervical component is identified. Performed at: WB Performed By: #### 4 [id number] #### [facility] [address] [address] [address] Gale Qiu Progress Note-Physicianon Progress Note-Physician Patient: YUE LEWIS Age: 36 years Sex: Female : 1985 Associated Diagnoses: None Author: Abhijit De La Cruz Jr, DO Preoperative Information Time patient last ate or drank:=== (npo 8 hours) Anesthesia history: Patient history: No prior anesthesia problems. Re-evaluation prior to induction: Completed, Initial evaluation reviewed. Review of Systems Respiratory: No shortness of breath. Cardiovascular: No chest pain. Hematology/Lymphatics: No bruising tendency, No bleeding tendency. Health [...] History of kidney stones / SNOMED CT 5330338849 / Confirmed Migraines / SNOMED CT 52150984 / Confirmed Smoker / SNOMED CT 730521468 / Confirmed Added secondary to documentation in Social History. Resolved: Breast cancer / SNOMED CT 701639020 Resolved: Gross hematuria / SNOMED CT 973204165 Resolved: Hx of migraines / SNOMED CT 699560613 Resolved: History of recurrent UTI (urinary tract infection) / SNOMED CT 0611418542 Resolved: Kidney stones / SNOMED CT 676171511 Resolved: Dyspareunia in female / SNOMED CT 015949614 Canceled: Bladder pain / SNOMED CT 54820419 Canceled: Flank pain / SNOMED CT 235283140 Canceled: Stress incontinence / SNOMED CT 730374187 Histories Past Medical History: Resolved Dyspareunia in female (196818877): Resolved. Breast cancer (582769574): Resolved. Kidney stones (593826836): Resolved. History of recurrent UTI (urinary tract infection) (9257133098): Resolved. Gross hematuria (425212001): Resolved. Family History: Cancer Brother Osteoarthritis Mother Father Procedure history: Exploration using laparoscope cleaned out adhesions (0080162468) on 03/10/2022 at 36 Years. Tubal ligation (532574643). Hysterectomy (177588051). Endometriosis (9288816342). Social History Social & Psychosocial Habits Alcohol [...] results Radiology results ECG interpretation Condition Plan [place] [employer] (ASA) physical status classification: Class II. Anesthetic Preoperative Plan Anesthesia: General. . Anesthetic plan, risks, benefits, and alternatives discussed with the patient and/or family. Risks discussed: nausea, vomiting, headache, sore throat, dental injury, serious complications. Patient verbalized understanding. Communication: face to face with (patient 5 minutes, Pt educated on the importance of smoking cessation.). [place] Comment on above: Result Comment: Elec tronically Signed By: Abhijit De La Cruz Jr, DO\.br\Date and Time Signed: 04/14/22 08:57 EDT Progress Note-Physician Patient: YUE LEWIS Age: 36 years Sex: Female : 1985 Associated Diagnoses: None Author: Abhijit De La Cruz Jr, DO Postoperative Information Post Operative Note: Post Anesthesia Care Unit. Anesthetic utilized: General. Health Status Allergies: Allergic Reactions (Selected) No Known Allergies Problem list: All Problems History of kidney stones / SNOMED CT 6751558753 / Confirmed Migraines / SNOMED CT 73416332 / Confirmed Smoker / SNOMED CT 093480017 / Confirmed Added secondary to documentation in Social History. Resolved: Breast cancer / SNOMED CT 508767291 Resolved: Gross hematuria / SNOMED CT 930427620 Resolved: Hx of migraines / SNOMED CT 345226271 Resolved: History of recurrent UTI (urinary tract infection) / SNOMED CT 7785705197 Resolved: Kidney stones / SNOMED CT 758431723 Resolved: Dyspareunia in female / SNOMED CT 321933349 Canceled: Bladder pain / SNOMED CT 67617432 Canceled: Flank pain / SNOMED CT 836709974 Canceled: Stress incontinence / SNOMED CT 175186783 Physical Examination Vital Signs 04/02/2022 12:00 EDT [...] Score 7 (more content not included)... Normal [facility] Comment on above: Result Comment: Elec tronically Signed By: Abhijit De La Cruz Jr, DO\.br\Date and Time Signed: 04/14/22 08:56 EDT Coding Summary.on 04-07-2022 Coding Summary. CD:[id number] Gh 0bWw+PGhlYWQ+HV1NQFBuD 81aoGQusC0RG5aNNP5URHQ ZFBDBIR0EMW4hpIN6YXrtO 2VybiAv WoqiwOXmPZ54MHl9JDR7hX zrRAbwvM5phNXpX6c0QeFo KG63nY46RWbeCBXpUkF3Sd ZpbjsgbWFy L4sxHyYknIJuPrr+PHRhYm xlIHdpZHRoPScxMDAlJyBz lCjlQO9lVf9rREDeZFLjoG xhcHNlOiBj l6elMJDpUJtmEF6wxKtnC2 UhaKE9WKAeq1z1Bf18oKA+ FIEdCQZ5lVojZNqdw099Ye Mto2heESH4 zRIbOKxuDBF6W58mn8M1JE CgCOCyLFU8xPP9gQ2qjJww lcenR6ZccHInFqD8ITK7sP HbgE8iiJwr sqcbjI8sExf+D81SFW6KLU FOQI8MLfi3V7PkQeeurDN+ OU91WWChAA84tZSelMBvj6 shtRt2XwKg SSHhJKX7kVoxAOtkz7ReUY YcP30szCEsj5B7XAVwkKyi gNAiXhUubOV2nY5kMYrzck kmq8quslhg Avrku2eqfl21rH34K32rXN ngDDRrCXZ7JPTgDZMmtYpz vu7zkH6yEw8+QKzex8med3 tziLb1TyBc HCWerqKdpPgpKQA9t3FgMu 98D3TubRmhy9BeOjp1ny95 vBOgp1Q6hDM4WZdcGLCzpD 7gAGnlMjF6 KBHkRhGymT55jKOcJWhaQu 8lsGsytDhzSS0fJWPncymn YRTujS4nULQhfCTfxXtcEV 4wNTBpbjtm y336XqGqLAX7BPVdiRZzW9 DhaR3dCjGbFKWpWAIzA7Jd iAGxBRehO608LGycAbB7UF XuruBzT9It HXLddXgnYrQ1y1T6Jc1Iv4 UfgbfhGJX4ANibEAG5XgYb RuUzXkK7Y1IcVlo0BMQykB wgNK1lR7Sv GRZhbdqdylisaSX0CGOcAO AorI32lNJrUOftHp9sh7Z6 e890CTUgDOFfgL67Sa2ulU ogMTBwdCBU hX3wpflgg9uwukjuKoMgVI IhIQm8BRu9GXCltEsxJsTe QXT9RiU0VNT7pITfcN2jqF fgiztcnD2i Oyc+L71poX1yRSG6QZV9oq nkOERsqaRwIP38NR17S0Rh PjwvdGFibGU+PGRpdiBzdH kcWN4iGzLu o4ufj7LmXSugN9GgQBJlNL rcQwh8CUMnZTB5uIG8gE2d UQKsBFpkz0G3lGB4M4Rggo Eoic8ru3nt TOAnFNxiN24mnTPnv1X0OC KrxPI3UMVecOkiSlGniR18 Oyc+CKXlzGhla2MgXhfrr5 gzt9bbxPp1 QpHaMELstjDtkWmeKVB9v0 DyRd18K36vTGysFOJaMTEn ITWaAUKseZetho6glE4hCw 8+PGNvbCB3 jYX8eV9xWAReMrD8ETtyZ1 01YpJgsRDdSprdt0vuc9bh rCt1YsQmVWRiqgQveKfvJP H4m9IpUt55 H72iGRnwOHJwFSYgZZQsBU GkmLegxi5fnJ5iQe4+PC9j v9jrlh23aS67iAK+PHRkIH Q3bAdzJQcf NAZxxS8qFSwbWiP1OAHeLt DnqG64oQWmHUcsMn7kpBes qUgqQB4lCWWpzjjlt557Zt Rkn4ahVGRj pWZlMAurDHG1U85hm1V8LJ TuMNJsQTY5nKA3jS4jqBbj bjogbGVmdDsgdmVydGljYW eoQPdoL326 IHRvcDsnPlBhdGllbnQgTm LsSJj0R8AdBtm3XEByoRgx UT9iuLVyCUkyZy7kdFzwsK dtAI5xPPPu ehkip310ScCkf5xnYYJmhM EbLJtpJWV4L34ix1U4ZTIu NMHuNUG3cOA5rD7vkHktlk ogbGVmdDsg exDgdVtdDLigNIgmC193PH RvcDsnPkJpcnRoIERhdGU6 UY99WW69dMCzm3O9xHZ0M8 BhZGRpbmct wmixvLS2LWSpEAGdjG93Br 1biQbbPc0pZAPvPZS5VMNb uNPwZ5SeyP2tSyIcGJYyTF TzL3OxvBVn LCooS699IPreDqX7HYXmmp IxR2PiTUZrcUrfGvO5u4T1 Ma3EV3X1BL00PX58fVHmm7 A3hBU1W3Nt NFDjqahjywjbiED2IIMgZZ ExpR53At5ezWbqEu4aWQVp TJQ3NQUsnPJaC7KieF7aIg AjMDAwMDAw R1KpzOHdGNjuW502FPrvVr G6WRZpksOcH6IyYPPneEwf MdS1z5B7Iz8RGTb2YR34EJ 69yEXns9C6 wXD6G8CxBAFgrywxtbeqaH G7PPDkXWXxoM70Tn2hjCxs Px5wGJXoBHA2GZRypLTxF8 BzxI8zVoOz PQPtGDRiT6FyvMSpGMujL3 53PKqbSqT9TJJtenCnP4Yg YKYfqRipPkA2g9B6Ee0DVJ UbEE44AZU9 eTR8AV72CF17K8BsSvvthM FibGU+PHRhYmxlIHdpZHRo TNkxJJEfJpZlvRsmJU5jIm 9yZGVyLWNv nSnxnSMmYhBqg6njRMVoBS gjRH0fpUjmY9EwkLZ1GQUt p2b3Px19C64tX6UjoHW+PG FemKZ5iNH4 jT6hLwWaFdV8RMhuU567Vi JtgCWoIujkr5weh9kmpXq0 SmK4AVLsoaXzlNqnJTL4v1 FvCg50R09y IHdpZHRoPSIxNSUiIHZhbG zgbx8wqU8wCr6+PGNvbCB3 uJS7yX8wYaUgTeU3DQnfE6 49InRvcCIv Pvvfs1aha2vwmQm1PjGxYS YwpePhpAdiSOK2g8VaHy31 T3ZyoHbok2NpRwx1tk31vL Cec5L3dTH9 T1LxWSDurylngNMzcEbvRY 6pORIsqjrxFYSfqQ8qOZCq C8w0GgSlSaO0APftP5Rite A3CDMcnKKt PSefWWF7C94ra1S2FLMhCJ LaMPU3zAY7uK2reWbflgpd bGVmdDsgdmVydGljYWwtYW ioC271THHz zVinHEHmjD4qQPLhjMOliF qoMR7aVOZzsiftAklIQdyO EddvJ1WMYTf6R3WyXdw1EQ NmkFpsMK0p pSFxAQivUq9huWyekZjrNR 9hGBGfqaluUHDxsQ8cLBKs lDJmkJezRE7zZPAugpbau7 44QfTpIIO3 TFWgsPCuT0XnvW2aHxBeXQ JgEDYjG6MtkTHgTOvmK356 MNzfBdG8TIHplqNhM6QwBT FsaWduOiB0 c2S9Dh0oZi8kSD2bHZu4DU 18HU94bFGha0H4wRV3V5Op KPOdrdkxfxatuVE8FFBkZJ XswP83iPUp EVixCm8nn1X6u425BQKjCI KbaM71Us7xmDsjJLXqwEGQ eF3iacnfc9ahuqkoWaHwDT BqEJi0BDq1 QQSitBmkUsNtDTW4MdE5SA J9dCFipM3okPxrivaiwT4n Oyc+DlHbAZPfgmZ6U3YzNp w4HWPxsYxn UW0foVQbWXuqBw6niJuhoK vrEF7kMNCrifqbODQbfV6i XEGfeJMzlIftFO6jAFIdrl mtk094LwKi FGS9LUUfnBMzS9AzeC9iAa MaQDWeTQPyK0PrjSUzYBid V474PSsnVvW7EPSlxdIuG8 FsLWFsaWdu LjS5h5L7Fu3RGI9oiAB3T9 FlPrm0BHTphNxsWB5ezMFw QLvlTb4cuTgyiCfpKG5nHA BpbjtwYWRk rZ4hIXAyyFDdbMeaPK2iIC Qxnhkgk471WdRdTEC6IKXs aOLhP1PurB3lQnVgCYQmOC GpW1IvrFZc BIagR607ECoqYqB7OCMpcy QiC7KbCXMosJlcHaU5q4L1 Zu9NmLNvGKEwUT03TQ05QD 20Z8EuXenb dGFibGU+PHRhYmxlIHdpZH EsSMrdRHVzJjXquLfvAX2u Fa6aEOIkRWIzgXcaiHSxFp Vts2gfMTZt NKkzEL2tfFmlD0WiiBQ6LY Eyp3n9Po96M73vQ5NcqVU+ PYLcdDT6hXM9lT0vOhKySi R7GJxwJ602 IvJpdZBbOodca2ocm2cclU t2TdUjFTOytyPxiPilRYR4 x3DlHh07W68rVDdxGHStPM IyMCUiIHZh oHxyhs4ueX1fSm7+PGNvbC G0rSO0oM4mKfUmOyF6WJis W527XkSneJQtAdhrP44yJ0 JvdXA+PHRy Zuo4JMOetCsxJO2upTRyQZ ieLm1wOHP4YjNvYcOwHVkq U0WzLGRayukvjvdedHE3SI YkAWHsfJ89 Of6yfYyeNf6sDWOnOZZ3FG RguDOsK0LqrQ4dPbXwMYTm ZPXkI3BlwGGkBBdcZ464HR thNuY8THJm sbYjR1LwALFtkCefBgK7j5 T3Wn4PlHociSWmQW5oYfQc FGx3X2AtNok3VKHquPbrIK 0ncGFkZGlu On1igHzilYrhSX2xRXLfky vhd964FiFsd6nuXAPtuGLb MGkvEBQ6Q66pa3R3EAKeFE LuKBU9gHX6 nE5kfXgoiihthNVgpRzxig XlwCapJPqgJKndM284LWSk xTfwVxGLQtj9Y6PdXsn9MJ SvkJlxUH6p nUYvYSkrHb0izYgznHjeJU 3tSXQovetro049LnTnz3zk WXAojVQsSIiwOIW8S74yj3 K5LHGeZLUg AKA8oHJ1lP0wkLoafyqxvY VmdDsgdmVydGljYWwtYWxp Y037LXTxiEafRi8TKqx7Y5 XbZmo2NFRc zSmnEF9srFRjWSnsJv2nvG plrGvfKR9zQCUttwtum920 NsYss3ctXPJaaUYcKMhlZA M3G74yr3Z3 YPHqGGIhKMR0dHE9yP6ciT lnbjogbGVmdDsgdmVydGlj JDexOPraE728JLUubHpwEx BheWVyOjwv dGQ+EN50or94U0UnJaawEk x3KKLnFDC7yKH4xC1zPZBf GDqjp3B1eCD9B2OcwrUiqa 4fy4ffBKAs ZTog (more content not included)... Normal [facility] IntraOperative Documentson 0 04-07-2022 IntraOperative Documents [id number] Normal [facility] Postoperative Documentson Postoperative Documents [id number]#[id number] [id number]:127 Normal [facility] Coding Summary.on 04-03-2022 Coding Summary. CD:[id number] Gh 0bWw+PGhlYWQ+LN4ALIHaC 83njMOrtY0SN0hAMD4UUPY GZFFUCN5PPN9koXE8JHobO 2VybiAv YotkyIRxUM92COo7FKV1mG tcNBddaY9iaRQzH1m0NqJq MZ78gD78QUyoGXCjUsJ9Da ZpbjsgbWFy N9yjNlKfkITvFvo+PHRhYm xlIHdpZHRoPScxMDAlJyBz yDndHD5cHj6sVYFxMNTwmQ xhcHNlOiBj i3kkBFSzXDdyXH1twKpjE9 IzqHC2QCFem2t2Bj09gBU+ SIDzWOB8sZwlGZpbv348Pd Pjv0daEBY5 tYMzQMyjOET8O33ax3B9OM BhMJWhMQE9yHX0xX5nwCkx fbtfI4DyyTFcOwZ7CEH6zB BcyQ6msHdf qcobmZ4lOep+N04GFD2NCX HSDF7POik2E1YaZepvvYX+ IE17TBYyZL41yFIpyKWva6 vpeAi6WuJg BALnCLR6fWljEQjhr5TfNT ZtJ34udSVwb8G5WNXzqXro mQIdCpHakUZ7lI4iANvyni hrr9wgylys Rksgw8zttv97pY11F34wDR apVSRhTWL7MQIiXUHehGpr ug9rpO7rEr7+BDtpv3xkr5 witBi9UbWe YBDqnvTnoEriNSI7w4RcHq 15Q0FrmOvdz5AiPoe6sp97 sXNrl8A9oKO7XNxzQJCcmW 5mDLwtHzY4 RUFpUxGnoB68rKOpZAkbJe 8zuOgesVjjZI8bKHTctzqk TRYtzJ2rREMapRUqqYfgPR 4wNTBpbjtm n399JfZuKPA4LMWveKDsK6 TliL4yUmSfKYSyPIAkH4Uh zLDlMLygF363URxzMgQ7SQ TnbeSpY4Xq YBUpxAqoOtB9v5N5Gx0Bo1 UdknepQTF2VTrnPXA8XtE1 ByUzKuS7X7TiWxr7FKBlxA wjYU5fD1Dx VKHqnpytusyztWL8FROyLP GmuD33oUXzQDgdTg0lx5Y0 l768SRThQTUqyQ09Ut7sqR ogMTBwdCBU fG0kcqcut6sozchgNzXbQI JzKRs7VMk3LSBpwPbrPdLs DVH6FgV6AYU6oJLvoB3tnN hcydyeaR4g Oyc+H39hvK0oZDK5PRS3co yzCWCiuwVrSM44FR34N9Hh PjwvdGFibGU+PGRpdiBzdH qlLX2nObJn b6pnc2NbSBimE4WwZUWnAG rsOxm8KTUkXCZ3bAF5rD7j JFFmOPync1D0pAF1I0Vzxa Byqn1ua1go BPCuAZjpM04ccBDhj6O3ZL LvmYI8MSRouDbmQwPkyO29 Oyc+UJOgxYrln3XaOqnkp0 lzu0xbgLq6 MaGfHYYkqzWszOggDIO3q3 RbLj45P70nGHwgFPMtWNPb TWVbAXGpgUwqua0xwQ4eSs 8+PGNvbCB3 mPQ0kB1uWYHbGdA3ZMsdU1 63LgAkkUWuXfmpi1wcg7mn kGb0JlVcRMBmbhAywJsoSH M8x1HvYa93 V26nSOpqNIAvSAKlASCvZZ LkrPnbad3oeG6hPq5+PC9j s8fimz97mD55fLZ+PHRkIH F6xNleXHfn JLFzdS7xRPnvYqQ6PZEtYb GxiX37jHFeZZovTo3zqWkx iEhcKP7wFXPivrung421Bt Xbu1fgVAMc dTDwRJneFYS1F02oz0Y9BP CyORMgKCX6cCI2hS1ntVbq bjogbGVmdDsgdmVydGljYW yfLWlfX789 IHRvcDsnPlBhdGllbnQgTm HoPPq5B0OoQzj7ANNwgEhh IC0clZWgFDraDc8wdHufzS nuTK5dJUJx pfucz278EeUqj4xgBTBwxP LfZTccKMB1R81vd0M3RGUy TECiIXI8zGF7aH3poSadbj ogbGVmdDsg sfFlpCiwJAcvLOkeU847RB RvcDsnPkJpcnRoIERhdGU6 UO61HI78aIBso1Q6hZR3G5 BhZGRpbmct slymjSE7BTTsLGJtrB80Ag 9csJjvFk6pVAWtQNC3HLEq uEByX1UxlS2cDiHtWAYfMW TlT0KttWIk CIwuS965AAfoLrX6WJDqwb PiV3WoHJQtcRbiPpC8y0H2 Qi5NK4F5ZY77DJ75hGEca9 L4bEA3A2Bm UKVkdwqydonxeTX7ZLXlOQ GlrA57Pb6lvVlzCd6iSQMy MYY8DHYtmMXkR9OsyF2cAx AjMDAwMDAw R5OezVHfWLomK149DSbbXp W9VPMgekOlP4NrNSGqkGkd YdB4e4N3Im0UCPv2GK18BJ 55qEXdo6U7 eCL5J4WmKQYdhmujujzypY C2CEYxIKHzfH13Yq3maQio Iu2wHBJnOVY8KOAjnQTcK7 PuhF0tBnYh EWPzJWZnL2HdjJXtRQajO1 37TZnwCqD9HUJpofGvQ3Zd IBRliVgaAoY0x1F0Jp6BUZ HhCV63BEH6 wPB7BO25ST66Q0OvGaoqkU FibGU+PHRhYmxlIHdpZHRo JEzeSTFkQtZbwXvlHB8cVx 9yZGVyLWNv cAmtfGXtVmThp5ihSGWgQL lbIC9rgVnpO1ZqkMH7NRXx l1t1Ve04T12cC4EmgKB+PG SxaPS3dEK0 wJ3wBhEcKlK2NTlxV926Tc JedOUdKzpoa8bvb2tmkFu8 VzU7UISvxkSdtDlpIPQ9r6 KkKw88F77j IHdpZHRoPSIxNSUiIHZhbG fbez6tfM7lAj8+PGNvbCB3 wLN4jY1mIgRkFuE3YWzsB6 49InRvcCIv Ctgqt3iby1feoKm8LgFjTM CukwSndIihWKM1g9EcEp90 S6IbtUwvp8OqFit2tx27kR Ggl3J1uPX8 Y7GwRZHanmqnkOIrsKkjYV 0wVTKsmgmrEMTrwU8pBWLf A4l7YlMpVcX0VLmvI6Nqvk J9XVBkbNFe KWbaEVB4C46lf9X9GNTuVL UkWCM2lEK9bG9ieWgmovpt bGVmdDsgdmVydGljYWwtYW fjD890DMJg iLftFLYlgZ2eOWTeaLOsuD haBV2vILQacywrKpnIDodT GoaaV3LTQLq4K5UyYxu6HZ UiqFmvKK1e aFTbULefMp3xxNcbbMfsEA 2zXZFyhcsdGBKcdN0eAAFp oCDuuBbsJC1kRFFilurzc4 40PjNkWGH5 DWWutIHrT7PajG5wJdSfKJ QuGTInZ4SjhSLvDFgyJ904 WAdjBoR1QQMtkaElQ1WmVK FsaWduOiB0 h5J8Lp6iRa8zMN4zPTt9ZB 37VS07rECjz2Y2fMF5X6Cr FUTocahosyuilFM5AFKxWW MlwS88hHVs SSlkOg4kh0D6d701WKAqTZ DltN07Ki3jmXqwYKLocDWO bA2jekrfl9pugbdsFgRwHR RdGGs9YVd3 TXWimEwkKvTtXOI1MoN1SD J8uDAhyH1nlVateqilsI4f Oyc+DqJcJBTxoaZ4R4MjXz h2XKGiaGgg CL2tySFaBTtyPo7fnWpaeQ cdEO7aMCBmcsdaPCJkpQ8j TJIegBUlwXjfGG8nIPGrct ekc480XjSv HRL6MHNxgLVqG4KdxL5dTr QrPLJqLFVnE8DyjKReYNcx O784VFmhLeD0ALOuyvEnI4 FsLWFsaWdu ZbX9f3V2Lq6MLI2xeUX3M1 CzNbv1MIRbdKmzCH1gwBOm KHljWj1jkNdxbTvrIA5kKI BpbjtwYWRk rB9xMLQhvJJsoOqvVQ5aMI Vsswsqn242OpBrRLB4IHIj gCYkU6YfiR5sQzPmKGGcIX ZwL9EdyOIc QVaxS849JDndTsW0OOMres KgC1EvAUMncNapMoL1p2F6 Qx0LeAP9qKP3z1Q7Z4PenN SkBJW9SCF2 wimbibi2P4VmKilfuCF+PC 83JKKgMZ19nXRgdGIxm7zn sSb5CdDeUGSiEOQ8cRmuFE gky7IhTPMu N22gdRKgj9C2VZSusYucfX TtHcEskOG8sF2pOXorehfz u7fgjqihOgqdr0ceqy97kF 08N97vDUiq ZHRoPSIzMCUiIHZhbGlnbj 6nmX7fZc7+LDBofCP8hHK5 yM4zNnVuQeE6NOuuA354De RvcCIvPjxj h0cer5hukJx0YuPaTPQpna StvItjIJU8b6RcDq81A61q IHdpZHRoPSIyMCUiIHZhbG empj6wtI7g Ii8+BN2ew0whep60cU42lR I+UWSaGXQ1eWorDIxrULMu jL7fPNtgGxG9OHZhItEzdG 47cGFkZGlu Kh4ivHpuqEipCV1gRALdrm zie028LtOnm0baZVMvqQCj FKrzTZO1Q77mc4G8GHFhYD OuFBS9kRS4 sP7yvXuaoefxkAThnLnkcy PpgPqvDFpdKKpeM930XKDf fKfbAyUxvZJoG2xdgoJISW 1lOjwvdGQ+ ZMFcWDO4cOpoBYwxGHVneE 2eFQPeO2n7HaNmBcO5PMse J2TsdjM0MUFsvZKeEJVajT LFmM7yyhru q5ivhbglPwCsNCGyGFt3UB h6HLMtlYwsNlSoGZJ7XfH4 CCR1vINmoE8vrOehtymutG 9wOyc+RklO OjwvdGQ+SPBjICQ3pHkqGJ kuSORsgI9jMCXfA3u0EsWs XkV5VIsfU8SxqoV2YTRuoG QgMTBwdCBU lY9dppsmd7nhsignDbTcSA UzGRk9JUq3NWHlmDonGpBl GVP9PwF0NHB2yTWjzB6emY cgoxqdzS6p Oyc+TVJOOjwvdGQ+PHRkIH S1qTgoVGgrZFUotN0kDGLu G0j7NhUbCcD1NVjuE5Wqvl X6BQFhcAXc QDQgeJCRgN2itvage8ipza neCfXiPPLhTNv7GUo1SSSu bPpqKaIeZEB8GvS3UMK9sW YczQ6ghNld twtqtL1kKcp+HYH6UAX2OP 28CV71Q1EhZwdhfWUvpMZ+ PHRhYmxlIHdpZHRoPScxMD AlJyBzdHls ZT0n (more content not included)... [place] Consent for Anesthesiaon Consent for Anesthesia [id number]#1. 00CD:127 [place] Discharge Instructionson Discharge Instructions [id number]#1. 00CD:127 [place] IntraOperative Documentson 0 04-03-2022 IntraOperative Documents [id number]#1. 00CD:127 [place] IntraOperative Documents [id number]#1. 00CD:127 [place] Main OR Intraoperative Recor don 04-03-2022 Main OR Intraoperative Record IntraOp Document Type FT Summary Primary Physician: Freddy Fishman MD, Sven Hernandez Finalized Date/Time: 04/03/22 08:41:30 Pt. Name: YUE LEWIS.O.B./Sex: 1985 Female Med Rec #: [id number] Physician: Freddy Fishman MD, Sven Hernandez Financial #: [id number] Pt. Type: A Room/Bed: [place] [address] Admit/Disch: 04/02/22 08:31:02 - 04/02/22 12:15:00 Institution: [...] Entry 2 Entry 3 Case Attendee Lucrecia RIZZO, Christy Hayes Jr., MD, Sven Watson RN, Mariela Huynh Role Performed Anesthesiologist Surgeon - Primary Supervisor Advice - Primary Lay Out And Detail Drafter Time In 04/02/22 10:09:00 04/02/22 10:13:00 04/02/22 10:09:00 Time Out 04/02/22 10:35:00 04/02/22 10:28:00 04/02/22 10:35:00 Procedure CYSTOSCOPY RETROGRADE CYSTOSCOPY RETROGRADE CYSTOSCOPY RETROGRADE STENT INSERTION(.) STENT INSERTION(.) STENT INSERTION(.) Comments DR DE LA CRUZ SUPERVISING Last Modified By: Shirley RN, Mariela Watson RN, Mariela Watson RN, Mariela Huynh 04/02/22 10:36:03 04/02/22 10:36:03 04/02/22 10:36:03 Entry 4 Entry 5 Entry 6 Case Attendee Tammie ASSISTANT EDUCATION DIRECTOR, Kristina Uribe RT, Miguel Ángel Gomez RN, Jia Rascon Role Performed Scrub - Primary Wind Turbine Machinist Staff - Other Time In 04/02/22 10:09:00 [...] Applicable) PreOp Antibiotic Yes Time Out Lucrecia CAA, Christy C, Given Participants Freddy Fishman MD, Sven Hernandez, Shirley ARMSTRONG, Mariela Huynh, Rony RT, Miguel Ángel P, Tammie ASSISTANT EDUCATION DIRECTOR, Kristina Cruz Time Out Complete 04/02/22 10:15:00 Outcomes Met? [...] and tissue Entry 1 Skin Integrity Intact, [place], Warm, and Skin Abnormality No Dry Outcomes Met? Yes Last Modified By: Mariela Watson RN 04/02/22 10:24:04 Post-Care Text: (more content not included)... [place] Preoperative Documentson Preoperative Documents [id number]#1. 00CD:127 [place] Preoperative Documents [id number]#1. 00CD:127 [place] Consent for Procedure/Surger yon 04-02-2022 Consent for Procedure/Surgery [id number]#1. 00CD:127 [place] Consent for Treatmenton Consent for Treatment [id number]#1.0 0CD:127 [place] H&P Updateon 04-02-2022 H&P Update [id number]#1.0 0CD:127 [place] H&P Update [id number]#1. 00CD:127 Normal [facility] Inpatient Patient Summaryon 04-02-2022 Inpatient Patient Summary [address] [address] [facility] Clinical Discharge Instructions PERSON INFORMATION Name: YUE LEWIS PHYSICIANS Admitting Physician: Sven Hayes Jr., MD Attending Physician: Sven Hayes Jr., MD PCP: SUBHA GUTIERREZ CNP Discharge Diagnosis: Postinfective urethral stricture, not elsewhere classified, female; Urethral syndrome Comment: PATIENT EDUCATION INFORMATION Instructions: Post Op Patient Instructions - FT (CUSTOM) Medication Leaflets: Follow up: With: Address: When: TERI COOK [address] [place] [phone] Business (1) Within 6 weeks MEDICATION LIST New Medications [id number], [address], [place] [id number], [phone] ketorolac (ketorolac 10 mg Tab) 1 Tablets By Mouth every 6 hours as needed Pain 8-10. Refills: 0. phenazopyridine (Pyridium 100 mg Tab) 1 Tablets By Mouth 2 times a day as needed dysuria for 3 Days. Refills: 0. Medications to Continue with No Changes Other Medications APAP/butalbital/caffei ne (Fioricet) 1 tab By Mouth every 4 hours as needed as needed for headache. tizanidine (tiZANidine 4 mg Tab) 1 Tablets By Mouth every 8 hours as needed Muscle pain. Comment: Normal [facility] Main OR PACU I Recordon Main OR PACU I Record PACU Phase I Docum ent Type FT Summary Primary Physician: Sven Hayes Jr., MD Finalized Date/Time: 04/02/22 13:51:38 Pt. Name: YUE LEWIS /Sex: 1985 Female Med Rec #: [id number] Physician: Sven Hayes Jr., MD Financial #: [id number] Pt. Type: A Room/Bed: [facility]/ Admit/Disch: 04/02/22 08:31:02 - 04/02/22 12:15:00 Institution: [...] By: Criss Zeng RN 04/02/22 13:51 Normal [facility] Main OR PACU II Recordon Main OR PACU II Record PACU Phase II Document Type FT Summary Primary Physician: Sven Hayes Jr., MD Finalized Date/Time: 04/02/22 12:50:02 Pt. Name: YUE LEWIS /Sex: 1985 Female Med Rec #: [id number] Physician: Sven Hayes Jr., MD Financial #: [id number] Pt. Type: A Room/Bed: [place] [address] Admit/Disch: 04/02/22 08:31:02 - 04/02/22 12:15:00 Institution: [...] By: Cyndee Posada LPN 04/02/22 12:50 Normal [facility] Main OR Preoperative Recordo n 04-02-2022 Main OR Preoperative Record PreOp Document Type FT Summary Primary Physician: Sven Hayes Jr., MD Finalized Date/Time: 04/02/22 10:26:32 Pt. Name: YUE LEWIS /Sex: 1985 Female Med Rec #: [id number] Physician: Sven Hayes Jr., MD Financial #: [id number] Pt. Type: A Room/Bed: [place] [address] Admit/Disch: 04/02/22 08:31:02 - Institution: Case Times [...] By: Mariela Watson RN 04/02/22 10:26 Normal [facility] Monitor Recordon 04-02-2022 Monitor Record [id number]. 00CD:127 [place] Operative Reporton 2 Operative Report Patient: MARLEEN LEWIS Age: 36 years Sex: Female : 1985 Associated Diagnoses: None Author: Sven Hayes Jr., MD Postoperative Information Procedure: Cystoscopy, retrograde pyelograms, urethral dilation, pelvic exam under anesthesia Date/ Time: 04/02/2022 10:36:00 Preoperative Diagnosis: Postinfective urethral stricture, not elsewhere classified, female ([id number] N35.12, Discharge, Medical), Urethral syndrome ([id number]-LD N34.3, Discharge, Medical). Postoperative Diagnosis: Postinfective urethral stricture, not elsewhere classified, female (FWT65-XL N35.12, Discharge, Medical), Urethral syndrome ([id number] N34.3, Discharge, Medical). Performed by: Sven Hayes [...] using well-lubricated dilating sounds beginning with 22 Sinhala and ending with 30 Sinhala. This was uneventful. Bimanual palpation revealed no [...] 0 ml. Complications: None. Anesthesia type: General. [place] Comment on above: Result Comment: Elec tronically Signed By: Freddy Fishman MD, Sven Hernandez\.br\Date and Time Signed: 04/02/22 10:40 EDT Outpatient Surgery Discharge Instructionon 04-02-2022 Outpatient Surgery Discharge Instruction [place] [id number] Patient Discharge Instructions PERSON INFORMATION Name: YUE LEWIS Date of : 1985 Current Date: 04/02/2022 11:07:36 PHYSICIANS Admitting Physician: Freddy Fishman MD, Sven Hernandez Discharge Diagnosis: Postinfective urethral stricture, not elsewhere classified, female; Urethral syndrome YUE LEWIS has been given the following list of [...] EMERGENCY ROOM OR CALL 911 I, YUE LEWIS, have received the attached patient education materials/instructions and have verbalized understanding: May we do a follow up call? Yes No I was present when discharge instructions were given Patient Signature Date Clinican/Nurse Signature ___ Date Follow up: With: Address: When: TERI COOK [address] [place] [id number] Business (1) Within 6 weeks Pharmacy Information: You may receive a survey from [employer] asking you to rate your care experience. Your feedback is important and will help us understand what we do well and how we can improve the quality of care we provide to you, your loved ones and our community. It?s an honor to serve you. Thank you for choosing [facility] HERE ARE THE MEDICATION CHANGES THAT OCCURRED DURING YOUR HOSPITAL STAY New Medications [id number], [address], [place] [id number], [phone] ketorolac (ketorolac 10 mg Tab) 1 Tablets By Mouth every 6 hours as needed Pain 8-10. Refills: 0. phenazopyridine (Pyridium 100 mg Tab) 1 Tablets By Mouth 2 times a day as needed dysuria for 3 Days. Refills: 0. Medications to Continue with No Changes Other Medications APAP/butalbital/caffei ne (Fioricet) 1 tab By Mouth every 4 hours as needed as needed for headache. tizanidine (tiZANidine 4 mg Tab) 1 Tablets By Mouth every 8 hours as needed Muscle pain. PATIENT EDUCATION INFORMATION Instructions: Medication Leaflets: Normal [facility] Patient Education - Texton 0 04-02-2022 Patient Education - Text Normal [facility] XR Abdomen 1 Viewon 04-02-20 XR Abdomen 1 View Exam Date/Time: 04/02/2022 08:46 EDT Reason for Exam: Kidney stone Report IMPRESSION: No distinct collecting system calcifications radiographically with limitations as discussed. EXAMINATION/TECHNIQUE: XR Abdomen 1 View HISTORY: Abdominal pain. [...] MD Transcribed by: KIRAN Technologist: JENNY Normal [facility] XR Urography Retrograde Bila teralon 04-02-2022 XR Urography Retrograde Bilateral Exam Date/Time: 04/02/2022 10:30 EDT Reason for Exam: Kidney stone Report IMPRESSION: Intraoperative imaging. EXAMINATION/TECHNIQUE: XR Urography Retrograde Bilateral HISTORY: Bilateral retrograde. [...] Dose: Ka,r in mGy = 0.9 Normal [facility] COVID-19 (MC)on 04-01-2022 SARS-CoV-2 (COVID-19) RNA ELBA+probe Ql (Resp) Not detected Normal Not Detected [facility] Comment on above: Result Comment: This test result should be correlated with clinical presentations and medical history by a healthcare provider to determine its clinical significance. This assay was performed by a reverse transcriptase real-time polymerase chain reaction (rt PCR) method on the [facility] [facility] system. This test has been authorized only [...] or revoked sooner. Performed By: #### 2 [id number] ####[place] [address] [place] [address] SARS-CoV-2 (COVID-19) RNA ELBA+probe Ql (Unsp spec) Pass Normal Pass [facility] Comment on above: Performed By: #### 2 [id number] ####[address] [address] Specimen source Nom (Unsp spec) Nasal Normal [facility] Comment on above: Performed By: #### 2 [id number] ####[address] [address] Auto Diffon 03-31-2022 Basophils/100 WBC (Bld) 0.6 % Normal 0.0-2.0 [facility] Comment on above: Order Comment: Order Added by Discern Expert. Performed By: #### 1 [id number], 2087529, 4267698, 6691957, 44709668 ####[address] [address] [place] [address] Basophils/Leukocytes Auto (Bld) [Pure # fraction] 0.1 E9/L Normal 0.0-0.2 [facility] Comment on above: Order Comment: Order Added by Sirena Expert. Performed By: #### 1 [id number], 3780117, 5605883, 2212652, 41013317 ####[address] [address] [place] [address] Eosinophils/100 WBC (Bld) 1.4 % Normal 0.0-8.0 [facility] Comment on above: Order Comment: Order Added by Discern Expert. Performed By: #### 1 8255107, 7232317, 5699552, 8612075, 78666560 ####[place] [address] [place] [address] Eosinophils/Leukocyte s Auto (Bld) [Pure # fraction] 0.1 E9/L Normal 0.0-0.5 [facility] Comment on above: Order Comment: Order Added by Sirena Expert. Performed By: #### 1 2057675, 7698120, 3106429, 0093952, 23235939 ####[address] [address] Lymphocytes/100 WBC (Bld) 30.3 % Normal 14.0-50.0 [facility] Comment on above: Order Comment: Order Added by Sirena Expert. Performed By: #### 1 8025988, 2791040, 5040585, 5535754, 47880179 ####[address] [address] Lymphocytes/Leukocyte s Auto (Bld) [Pure # fraction] 2.7 E9/L Normal 1.0-4.0 [facility] Comment on above: Order Comment: Order Added by Sirena Expert. Performed By: #### 1 9755266, 9788750, 7420595, 1666562, 93718622 ####[address] [address] Monocytes/100 WBC (Bld) 5.6 % Normal 4.0-14.0 [facility] Comment on above: Order Comment: Order Added by Sirena Expert. Performed By: #### 1 2377251, 7278125, 7975989, 1251826, 67603140 ####[facility] [address] [place] [address] Monocytes/Leukocytes Auto (Bld) [Pure # fraction] 0.5 E9/L Normal 0.2-1.0 [facility] Comment on above: Order Comment: Order Added by Discern Expert. Performed By: #### 1 7863947, 1653059, 0688576, 4231452, 00235257 ####[facility] [address] [place] [address] Neutrophils/100 WBC (Bld) 62.1 % Normal 36.0-75.0 [facility] Comment on above: Order Comment: Order Added by Discern Expert. Performed By: #### 1 0047660, 8117562, 1906235, 6244464, 05923758 ####[facility] [address] [place] [address] Neutrophils/Leukocyte s Auto (Bld) [Pure # fraction] 5.6 E9/L Normal 2.0-7.5 [facility] Comment on above: Order Comment: Order Added by Discern Expert. Performed By: #### 1 0571949, 8298993, 0462857, 6366283, 23261751 ####[facility] [address] [place] [address] BMPon 03-31-2022 Anion gap [Moles/Vol] 13 mmol/L Normal 6-16 [facility] Comment on above: Performed By: #### 1 1997656, 8815828, 1225847, 4290203, 55574186 ####[facility] [address] [place] [address] Calcium [Mass/Vol] 9.6 mg/dL Normal 8.9-11.1 [facility] Comment on above: Performed By: #### 1 8132002, 0593636, 5965199, 3854106, 47398541 ####[facility] [address] [place] [address] Chloride [Moles/Vol] 102 mmol/L Normal 101-111 [facility] Comment on above: Performed By: #### 1 5119184, 9422598, 9834983, 6885960, 70473040 ####[facility] [address] [place] [address] CO2 [Moles/Vol] 26 mmol/L Normal 21-31 [facility] Comment on above: Performed By: #### 1 4624852, 2657498, 9810861, 5262987, 69802706 ####[facility] [address] [place] [address] Creatinine [Mass/Vol] 0.6 mg/dL Normal 0.5-1.3 [facility] Comment on above: Performed By: #### 1 6112590, 1380081, 2521577, 6587753, 04600858 ####[facility] [address] [place] [address] Glucose [Mass/Vol] 92 mg/dL Normal 55-199 [facility] Comment on above: Result Comment: If t his glucose result represents a fasting glucose, interpretation should refer to the following reference range: 55-99 mg/dL Performed By: #### 1 6842037, 4862252, 9052063, 4182713, 23910112 ####[facility] [address] [place] [address] Potassium [Moles/Vol] 4.0 mmol/L Normal 3.5-5.3 [facility] Comment on above: Performed By: #### 1 8697108, 9255807, 4939135, 6859458, 37067291 ####[facility] [address] [place] [address] Sodium [Moles/Vol] 137 mmol/L Normal 135-145 [facility] Comment on above: Performed By: #### 1 8628962, 8822734, 3467317, 9552898, 42599345 ####[facility] [address] [place] [address] Urea nitrogen [Mass/Vol] 10 mg/dL Normal 5-21 [facility] Comment on above: Performed By: #### 1 4012464, 0122367, 6789943, 6370968, 53426560 ####[facility] [address] [place] [address] Urea nitrogen/Creatinine [Mass ratio] 17 No Units Normal 10-20 [facility] Comment on above: Performed By: #### 1 2960448, 6517685, 3513306, 4837533, 02423667 ####[facility] [address] [place], [place] [address] CBC w/ Auto Diffon Erythrocyte distribution width (RBC) [Ratio] 12.5 % Normal 10.9-14.2 [facility] Comment on above: Performed By: #### 1 3202633, 7062700, 6904732, 9300960, 19047624 ####[address] [address] Hematocrit (Bld) [Volume fraction] 41.7 % Normal 34.0-46.0 [facility] Comment on above: Performed By: #### 1 8488971, 3850411, 0686209, 3630585, 75587290 ####[facility] [address] [place] [address] Hemoglobin (Bld) [Mass/Vol] 14.2 g/dL Normal 12.0-16.0 [facility] Comment on above: Performed By: #### 1 6407050, 8934479, 1218002, 5108325, 16736093 ####[facility] [address] [place] [address] MCH (RBC) [Entitic mass] 30.6 pg Normal 27.0-34.0 [facility] Comment on above: Performed By: #### 1 4513881, 8165548, 0901181, 6496856, 36397445 ####[address] [address] [place] [address] MCHC (RBC) [Mass/Vol] 34.0 g/dL Normal 31.4-36.0 [facility] Comment on above: Performed By: #### 1 2431595, 5036898, 2385813, 6004694, 08706508 ####[address] [address] [place] [address] MCV (RBC) [Entitic vol] 90.0 fL Normal 80.0-100.0 [facility] Comment on above: Performed By: #### 1 6452078, 2483996, 8004264, 4917345, 07732469 ####[address] [address] Platelet mean volume (Bld) [Entitic vol] 9.3 fL Normal 6.4-10.8 [facility] Comment on above: Performed By: #### 1 1761843, 6362822, 1590143, 4302301, 25770966 ####[address] [address] Platelets (Bld) [#/Vol] 212.0 E9/L Normal 150.0-500.0 [facility] Comment on above: Performed By: #### 1 2400506, 2651218, 5335537, 0475151, 81223367 ####[address] [address] RBC (Bld) [#/Vol] 4.6 E12/L Normal 4.3-5.9 [facility] Comment on above: Performed By: #### 1 9781252, 3618179, 8992346, 9773900, 16914770 ####[address] [address] WBC corrected for nucl RBC Auto (Bld) [#/Vol] 9.0 E9/L Normal 4.0-11.0 [facility] Comment on above: Performed By: #### 1 1144107, 7987320, 9147445, 1011200, 64657712 ####[address] [place] [address] CHEMISTRYOrdered By: SYSTEM SYSTEM on 03-31-2022 Anion gap [Moles/Vol] 13 mmol/L Normal 6 - 16 mEq/L F [facility] Remisol Calcium [Mass/Vol] 9.6 mg/dL Normal 8.9 [...] rate/Area] mL/min/1.73 m2 Normal >=59mL/min/1 .73 m2 [facility] Chem S Glucose [Mass/Vol] 92 mg/dL Normal [...] 36.2 s Normal 25.1 - 36.5 second(s) [facility] Auto Coag INR Coag (PPP) [Relative time] 1.0 {INR} Invalid Interpretation Code [facility] Auto Coag PT Coag (PPP) [Time] 12.1 s Normal 10.2 - 12.9 second(s) [facility] Auto Coag Consent for Treatmenton Consent for Treatment [id number] 0CD:127 Normal [facility] Consent for Treatment [id number]. 00CD:127 Normal [facility] HEMATOLOGYOrdered By: SYSTEM SYSTEM on 03-31-2022 Basophils/100 WBC (Bld) 0.6 % Normal 0.0 - 2.0 % [facility] HemeAutoSS Basophils/Leukocytes Auto (Bld) [Pure # fraction] 0.1 E9/L Normal 0.0 - 0.2 E9/L [facility] HemeAutoSS Eosinophils/100 WBC (Bld) 1.4 % Normal 0.0 - 8.0 % [facility] HemeAutoSS Eosinophils/Leukocyte s Auto (Bld) [Pure # fraction] 0.1 E9/L Normal 0.0 - 0.5 E9/L [facility] HemeAutoSS Lymphocytes/100 WBC (Bld) 30.3 % Normal 14.0 - 50.0 % [facility] HemeAutoSS Lymphocytes/Leukocyte s Auto (Bld) [Pure # fraction] 2.7 E9/L Normal 1.0 - 4.0 E9/L [facility] HemeAutoSS Monocytes/100 WBC (Bld) 5.6 % Normal 4.0 - 14.0 % [facility] HemeAutoSS Monocytes/Leukocytes Auto (Bld) [Pure # fraction] 0.5 E9/L Normal 0.2 - 1.0 E9/L [facility] HemeAutoSS Neutrophils/100 WBC (Bld) 62.1 % Normal 36.0 - 75.0 % [facility] HemeAutoSS Neutrophils/Leukocyte s Auto (Bld) [Pure # fraction] 5.6 E9/L [...] 34.0 g/dL Normal 31.4 - 36.0 gm/dL [facility] HemeAutoSS MCV (RBC) [Entitic vol] 90.0 fL [...] Coag (PPP) [Time] 36.2 second(s) Normal 25.1-36.5 [facility] Comment on above: Result Comment: Hepa rin therapeutic range (represented by Anti-Factor Xa activity of 0.2 - 0.4 U/mL) corresponds to PTT of 56.6 - 109.0 sec. Performed By: #### 1 3328368, 9416388, 1911086, 8744591, 89034295 ####[facility] [address] [place] [address] INR Coag (PPP) [Relative time] 1.0 {INR} Invalid Interpretation Code [facility] Comment on above: Result Comment: INR results are specifically intended to assess patients stabilized on long-term Anticoagulation therapy suggested INR?s ?Less Intensive Anticoagulation? 2.0 ? 3.0 Conventional Range 3.0 ? 4.5 Performed By: #### 1 8255829, 3013037, 4305608, 5945060, 39202818 ####[facility] [address] [place] [address] PT Coag (PPP) [Time] 12.1 second(s) Normal 10.2-12.9 [facility] Comment on above: Performed By: #### 1 8162206, 2370754, 4764074, 3656997, 30671256 ####[facility] [address] [place] [address] UA With Cult Reflexon 2021 Bacteria LM Ql (Urine sed) 1+ /HPF Abnormal Trace [facility] Comment on above: Performed By: #### 1 5134788 #### [facility] [address] [place] [address] Bilirubin Ql (U) Negative Normal Negative [facility] Comment on above: Performed By: #### 1 9886217 #### [facility] [address] [place] [address] Clarity (U) CLEAR Normal Clear [facility] Comment on above: Performed By: #### 1 5006572 #### [facility] [address] [place] [address] Color (U) YELLOW Normal Yellow [facility] Comment on above: Performed By: #### 1 1895209 #### [facility] [address] [place] [address] Epithelial cells.squamous LM.HPF (Urine sed) [#/Area] 3-4 Normal 0-2 [facility] Comment on above: Performed By: #### 1 8783446 #### [facility] [address] [place] [address] Glucose Test strip (U) [Mass/Vol] Negative Normal Negative [facility] Comment on above: Performed By: #### 1 5342457 #### [facility] [address] [place] [address] Hemoglobin Ql (U) Negative Normal Negative [facility] Comment on above: Performed By: #### 1 0811980 #### [facility] [address] [place] [address] Ketones (U) [Mass/Vol] Negative Normal Negative [facility] Comment on above: Performed By: #### 1 4938755 #### [facility] [address] [place] [address] [place].plasma/Lithiu m.RBC (Bld) [Mass ratio] 0-3 Normal 0-3 [facility] Comment on above: Performed By: #### 1 8877639 #### [facility] [address] [place] [address] Mucus Ql (Urine sed) 2+ Normal [facility] Comment on above: Performed By: #### 1 6726370 #### [facility] [address] [place] [address] Nitrite Ql (U) Negative Normal Negative [facility] Comment on above: Performed By: #### 1 8935836 #### [facility] [address] [place] [address] pH (U) 6.5 [pH] Invalid Interpretation Code 5.0-9.0 [facility] Comment on above: Performed By: #### 1 8556301 #### [facility] [address] [place] [address] Protein (U) [Mass/Vol] Negative Normal Negative [facility] Comment on above: Performed By: #### 1 9769904 #### [facility] [address] [place] [address] Specific gravity (U) [Rel density] 1.015 Invalid Interpretation Code 1.005-1.030 [facility] Comment on above: Performed By: #### 1 9285734 #### [facility] [address] [place] [address] Type of Urine collection method Clean Catch Normal [facility] Comment on above: Performed By: #### 1 3559160 #### [facility] [address] [place] [address] Urobilinogen Qn (U) 0.2 {Jose'U}/dL Normal 0.0-1.0 [facility] Comment on above: Performed By: #### 1 5679521 #### [facility] [address] [place] [address] WBC Auto Ql (U) Negative Normal Negative [facility] Comment on above: Performed By: #### 1 2277781 #### [facility] [address] [place] [address] WBC LM.HPF (Urine sed) [#/Area] 0-5 Normal 0-5 [facility] Comment on above: Performed By: #### 1 0393899 #### [facility] [address] [place] [address] URINALYSISOrdered By: Brianna Cho on 03-31-2022 Bacteria [...] PM) Normal Negative [facility] UA Auto SS [place].plasma/Lithiu m.RBC (Bld) [Mass ratio] 0-3 /HPF Normal 0-3/HPF [...] [facility] UA Auto SS Urobilinogen Qn (U) 0.4809320 {Jose'U}/dL Normal 0.0 - 1.0 EU/dL [facility] UA Auto SS WBC Auto Ql (U) Negative (03/31/22 4:36 PM) Normal Negative [facility] UA Auto SS WBC LM.HPF (Urine sed) [#/Area] 0-5 /HPF Normal 0-5/HPF [facility] UA Auto SS eGFRon 03-31-2022 GFR/1.73 sq M.predicted among blacks MDRD (S/P/Bld) [Vol rate/Area] mL/min/{1.73_m2} Normal >=59 [facility] Comment on above: Order Comment: Order added by Discern Expert. Result Comment: eGFR is race adjusted. AA=. Performed By: #### 1 8486994, 5030215, 1376971, 2006091, 00676402 ####[facility] [address] [place] [address] GFR/1.73 sq M.predicted among non-blacks MDRD (S/P/Bld) [Vol rate/Area] mL/min/{1.73_m2} Normal >=59 [facility] Comment on above: Order Comment: Order added by Discern Expert. Result Comment: Personnel Coordinator celestine kidney disease could be indicated at eGFR's of less than 60 mL/min/1.73m2. Kidney failure is indicated at less than 15 mL/min/1.73m2. Performed By: #### 1 5793503, 2532926, 7698141, 5579382, 37318412 ####[address] [place] [id number] COVID-19 ([facility])on 03-30-2022 ADMITTED TO INTENSIVE CARE UNIT FOR CONDITION OF INTEREST:FIND:PT: NO Normal [facility] Comment on above: Performed By: #### 2 [id number] ####[place] [id number] EMPLOYED IN A HEALTHCARE SETTING:FIND:PT: Unknown Normal [facility] Comment on above: Performed By: #### 2 [id number] ####[place] [address] FIRST TEST FOR CONDITION OF INTEREST:FIND:PT: Unknown Normal [facility] Comment on above: Performed By: #### 2 [id number] ####[place] [address] HAS SYMPTOMS RELATED TO CONDITION OF INTEREST:FIND:PT: Unknown Normal [facility] Comment on above: Performed By: #### 2 [id number] ####[place] [address] HOSPITALIZED FOR CONDITION OF INTEREST:FIND:PT: NO Normal [facility] Comment on above: Performed By: #### 2 [id number] ####[place] [address] STATUS:FIND:PT: Unknown Normal [facility] Comment on above: Performed By: #### 2 [id number] ####[place] [address] RESIDES IN A [facility] CARE SETTING:FIND:PT: Unknown Normal [facility] Comment on above: Performed By: #### 2 [id number] ####[facility] [address] [place] [address] CBC AUTO DIFFon 03-20-2022 BASO # 0.0 103/ul Normal 0.0-0.1 [facility] Comment on above: Performed By: #### T HYGIMA #### [facility] [address] [place] [address] Dr. Gale Qiu Basophils/100 WBC (Bld) 0.6 % Normal 0.2-2.0 [facility] Comment on above: Performed By: #### T HYGIMA #### [facility] [address] [address] [address] Gale Qiu EO # 0.2 103/ul Normal 0.0-0.7 [facility] Comment on above: Performed By: #### T HYGIMA #### [facility] [address] [place] [address] Dr. Gale Qiu Eosinophils/100 WBC (Bld) 2.3 % Normal 0.9-7.0 [facility] Comment on above: Performed By: #### T HYGIMA #### [facility] [address] [place] [address] Dr. Gale Qiu Erythrocyte distribution width (RBC) [Ratio] 12.3 % Normal 11.0-15.0 [facility] Comment on above: Performed By: #### T HYGIMA #### [facility] [address] [place] [address] Dr. Gale Qiu Hematocrit (Bld) [Volume fraction] 38.0 % Normal 36.0-48.0 [facility] [facility] Comment on above: Performed By: #### T HYGIMA #### [facility] [address] [place] [address] Dr. Gale Qiu Hemoglobin (Bld) [Mass/Vol] 12.4 g/dL Normal 12.0-16.0 [facility] Comment on above: Performed By: #### T HYGIMA #### [facility] [address] [place] [address] Dr. Gale Qiu IG # 0.03 10e3/ul Normal 0.00-0.03 [facility] Comment on above: Performed By: #### T HYGIMA #### [facility] [address] [place] [address] Dr. Gale Qiu IG % 0.5 % Normal 0.0-0.5 [facility] Comment on above: Performed By: #### T HYGIMA #### [facility] [address] [place] [address] Dr. Gale Qiu LYMPH # 3.2 103/ul Normal 1.2-3.8 [facility] Comment on above: Performed By: #### T HYGIMA #### [facility] [address] [place] [address] Dr. Gale Qiu Lymphocytes/100 WBC (Bld) 48.8 % Normal 20.5-60.0 [facility] Comment on above: Performed By: #### T HYGIMA #### [facility] [address] [place] [address] Dr. Gale Qiu MANUAL DIFF REQ NO Normal [facility] Comment on above: Performed By: #### T HYGIMA #### [facility] [address] [address] [address] Gale Qiu MCH (RBC) [Entitic mass] 30.0 pg Normal 26.7-34.0 [facility] Comment on above: Performed By: #### T HYGIMA #### [facility] [address] [place] [address] Dr. Gale Qiu MCHC (RBC) [Mass/Vol] 32.6 g/dL Normal 29.9-35.2 [facility] Comment on above: Performed By: #### T HYGIMA #### [facility] [address] [place] [address] Dr. Gale Qiu MCV (RBC) [Entitic vol] 92.0 fL Normal 81.0-99.0 [facility] Comment on above: Performed By: #### T HYGIMA #### [facility] [address] [place] [address] Dr. Gale Qiu MONO # 0.6 103/ul Normal 0.3-0.8 [facility] Comment on above: Performed By: #### T HYGIMA #### [facility] [address] [place] [address] Dr. Gale Qiu Monocytes/100 WBC (Bld) 8.4 % Normal 1.7-12.0 [facility] Comment on above: Performed By: #### T HYGIMA #### [facility] [address] [place] [address] Dr. Gale Qiu NEUT # 2.6 103/ul Normal 1.4-6.5 [facility] Comment on above: Performed By: #### T HYGIMA #### [facility] [address] [place] [address] Dr. Gale Qiu Neutrophils/100 WBC (Bld) 39.4 % Critically low 43.0-75.0 [facility] Comment on above: Performed By: #### T HYGIMA #### [facility] [address] [place] [address] Dr. Gale Qiu Platelet mean volume (Bld) [Entitic vol] 10.5 fL Normal 9.5-13.5 [facility] Comment on above: Performed By: #### T HYGIMA #### [facility] [address] [place], [place] [address] Dr. Gale Qiu PLT 192 103/ul Normal 150-450 [facility] Comment on above: Performed By: #### T HYGIMA #### [facility] [address] [place], [place] [address] Dr. Gale Qiu RBC 4.13 106/ul Critically low 4.20-5.40 [facility] Comment on above: Performed By: #### T HYGIMA #### [facility] [address] [place], [place] [address] Dr. Gale Qiu WBC 6.5 103/ul Normal 4.0-11.0 [facility] Comment on above: Performed By: #### T HYGIMA #### [facility] [address] [place], [place] [address] Dr. Gale Qiu Ambulatory Visit Summaryon 0 02-17-2022 Ambulatory Visit Summary YUE ELWIS :1985 Visit Date:02/17/2022 Ambulatory Visit Instructions Your Diagnosis Gross hematuria Stress incontinence History of kidney stones Your Care Team Attending Physician - TERI COOK PA-C Primary Care Physician - SUBHA GUTIERREZ CNP This Is Your Medications List Contact prescribing physician if questions or concerns APAP/butalbital/caffei ne (Fioricet) Procedures Performed Endometriosis, Hysterectomy, Tubal ligation. Discharge Vitals Height 168.0 cm Height 168.0 cm Weight 64.0 kg Weight 64 kg BMI 22.68 What to do next You Need to Schedule the Following Appointments Follow Up with TERI COOK PA-C, URL When: Where: [address] [place] [address] Business (1) Medications What How [...] these instructions at home: Medicines ? Take cocn-yey-pwrskph and prescription medicines only as told by [...] the blood stops without treatment. ? Take fmlw-icj-vakwtep and prescription medicines only as told by your health care provider. ? Drink enough fluid to keep your urine clear or pale yellow. This information is not in (more content not included)... Normal [facility] [place] [facility] Patient Educationon 02-18-20 Patient Education Gastroenterology Abdominal [...] these instructions at home: Medicines ? Take phxy-orr-dhahwjd and prescription medicines only as told by [...] your condition for any changes. ? Take ffwl-soh-xcyzpre and prescription medicines only as told by [...] 08/25/2006 Document Revised: 03/25/2020 Document Reviewed: 03/25/2020 [employer] Patient Education ? 2020 [employer]. Urology Hematuria, Adult Hematuria is blood in [...] these instructions at home: Medicines ? Take hfha-ztr-xakiiuq and prescription medicines only as told by [...] ? (more content not included)... Normal [facility] Urology Office/Clinic Noteon 02-17-2022 Urology Office/Clinic [...] Contact Information PRASANNA DOTSON, TERI Cruz, URL [address] [place] [address] Business (1) Additional Instructions: Patient Education Hematuria, Adult IDaylin , personally scribed for Teri Cook on [...] Not Given Temporary contraindication - reschedule Normal [facility] [place] [facility] Comment on above: Result Comment: Elec tronically Signed By: TERI COOK PA-C\.br\Date and Time Signed: 02/17/22 14:33 EDT\.br\Electronically Co-Signed By: Daylin Sandoval\.br\Date and Time Co-Signed: 02/17/22 14:11 EDT Other Comment: aissatou [facility] U[facility] Phone Visit- [facility] Chief [...] with urination. pt referred by Dr Montaño MANUFACTURER REPRESENTATIVE for chronic pelvic pain. s/p hysterectomy. no [...] Additional Instructions: PRASANNA DOTSON, TERI Cruz, URL [address] [place] [address] [facility] (1) Additional Instructions: Patient [...] Allergies Social History Tobacco 5-9 cigarettes (between 12/02 to 11/30 pack)/day in last 30 days, Smoker, current status unknown Tobacco Use:. Cigarettes, 01/28/2022 Family History Cancer: Brother. Osteoarthritis: Mother and Father. Immunizations Vaccine Date Status Comments influenza virus vaccine, inactivated - Not Given Temporary contraindication - reschedule SARS-CoV-2 (COVID-19) Ad26 vaccine - Not Given Temporary contraindication - reschedule Normal [facility] [place] [facility] Comment on above: Result Comment: Elec tronically Signed By: TERI COOK PA-C\.br\Date and Time Signed: 02/17/22 14:32 EDT RAD - CT Reporton 02-10-2022 RAD - CT Report [id number] 0CD:[id number] [place] Ambulatory Visit Summaryon 0 01-28-2022 Ambulatory Visit Summary YUE LEWIS :1985 Visit Date:01/28/2022 Ambulatory Visit Instructions Your Diagnosis Bladder pain Stress incontinence History of recurrent UTI (urinary tract infection) History of kidney stones Gross hematuria Tests Performed Urnls Dip Stick Auto w/o Microscopy POC [address] CT Abdomen/Pelvis w/ + w/o Contrast -- Results Pending -- You will be contacted within 72 hours with your results. Your Care Team Attending Physician - TERI COOK PA-C Referring Physician - Fransico MONTAÑO DO This Is Your Medications List Contact prescribing physician if questions or concerns APAP/butalbital/caffei ne (Fioricet) Procedures Performed Endometriosis, Hysterectomy, Tubal ligation. Discharge Vitals Heart Rate (Peripheral) 61 Blood Pressure 117/83 Height 168.0 cm Height 168 cm Weight 64.0 kg Weight 64 kg BMI 22.68 What to do next You Need to Schedule the Following Appointments Follow Up with TERI COOK PA-C, URL When: Why: scheduling cysto Where: [address] [place] [address] Medications What How Much When Instructions Unchanged APAP/ butalbital/ caffeine (Fioricet) Every 4 hours Contact prescribing physician if questions or concerns Test Results Urnls Dip Stick Auto w/o Microscopy POC 60444 (01/28/2022) Bilirubin Urine Dipstick - Negative Blood Urine Dipstick - Negative Glucose Urine Dipstick - Negative Ketones Urine Dipstick - Negative Leukocytes Urine Dipstick - Negative Nitrite Urine Dipstick - Negative Protein Urine Dipstick - Negative Specific Stedman Urine Dipstick - 1.020 Urine Appearance Urine [...] these instructions at home: Medicines ? Take hcjg-mcj-fyyzdgz and prescription medicines only as told by [...] follow-up visi (more content not included)... Normal [facility] [place] [facility] Patient Educationon 01-29-20 Patient Education Urology Hematuria, [...] these instructions at home: Medicines ? Take qliv-dxb-oawwzhc and prescription medicines only as told by [...] the blood stops without treatment. ? Take ycbb-wuy-mtuaccn and prescription medicines only as told by your health care provider. ? Drink enough fluid to keep your urine clear or pale yellow. This information is not intended to replace advice given to you by your health care provider. Make sure you discuss any questions you have with your health care provider. Document Released: 11/15/2006 Document Revised: 04/10/2020 Document Reviewed: 12/18/2017 ElseKon[employer] Patient Education ? 2019 [employer]. Jay[facility] Urology Office/Clinic Noteon 01-28-2022 Urology Office/Clinic [...] lesions Assessment/Plan pt referred by Dr Montaño MANUFACTURER REPRESENTATIVE for chronic pelvic pain. s/p hysterectomy. no [...] When Contact Information TERI COOK PA-C, URL [address] [place] [address] Additional Instructions: scheduling cysto Patient Education Hematuria, Adult I, Cindy Frynegra personally scribed for Teri Cook on 01/28/2022 14:40:22. . 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 Normal [facility] [place] [facility] Comment on above: Result Comment: Elec tronically Signed By: TERI COOK PA-C\.br\Date and Time Signed: 01/28/22 16:53 EST ED Provider Noteon 8 HIM IP Note OR Certified Health Education Specialist Normal [facility] XR FOOT RIGHT (MIN 3 VIEWS)o [...] by:MANE Felizigned by:Wolf Carranza MD06/18/18inal result Normal [facility] Vital Signs Date Time Vital Sign Value Performing Clinician Facility 12-26-2024 13:38-0500 Body height 167.6 cm Ivan VILLAFANA Work Phone: [facility] 12-26-2024 13:38-0500 Body mass index (BMI) [Ratio] 22.52 kg/m2 Ivan VILLAFANA Work Phone: [facility] 12-26-2024 13:38-0500 Body temperature 98.1 [degF] Ivancarmela Hayden EDGE CUTTING MACHINE OPERATOR-TECHNICAL SUPERVISOR Work Phone: [facility] 12-26-2024 13:38-0500 Body weight 63.3 kg Ivancarmela Hayden EDGE CUTTING MACHINE OPERATOR-TECHNICAL SUPERVISOR Work Phone: [facility] 12-26-2024 13:38-0500 Diastolic blood pressure 79 mm[Hg] Ivan Hayden EDGE CUTTING MACHINE OPERATOR-TECHNICAL SUPERVISOR Work Phone: [facility] 12-26-2024 13:38-0500 Heart rate 101 /min Ivan Hayden EDGE CUTTING MACHINE OPERATOR-TECHNICAL SUPERVISOR Work Phone: [facility] 12-26-2024 13:38-0500 Respiratory rate 14 /min Ivan Hayden EDGE CUTTING MACHINE OPERATOR-TECHNICAL SUPERVISOR Work Phone: [facility] 12-26-2024 13:38-0500 Systolic blood pressure 115 mm[Hg] Ivan Hayden EDGE CUTTING MACHINE OPERATOR-TECHNICAL SUPERVISOR Work Phone: [facility] 12-12-2024 13:14-0500 Body height 167.6 cm Davina Caroman EDGE CUTTING MACHINE OPERATOR-TECHNICAL SUPERVISOR Work Phone: [facility] 12-12-2024 13:14-0500 Body mass index (BMI) [Ratio] 22.52 kg/m2 Davina Parsons EDGE CUTTING MACHINE OPERATOR-TECHNICAL SUPERVISOR Work Phone: [facility] 12-12-2024 13:14-0500 Body temperature 97.7 [degF] Davina Parsons EDGE CUTTING MACHINE OPERATOR-TECHNICAL SUPERVISOR Work Phone: [facility] 12-12-2024 13:14-0500 Body weight 63.3 kg Davina Parsons EDGE CUTTING MACHINE OPERATOR-TECHNICAL SUPERVISOR Work Phone: [facility] 12-12-2024 13:14-0500 Diastolic blood pressure 76 mm[Hg] Davina Parsons EDGE CUTTING MACHINE OPERATOR-TECHNICAL SUPERVISOR Work Phone: [facility] 12-12-2024 13:14-0500 Heart rate 88 /min Davina Parsons EDGE CUTTING MACHINE OPERATOR-TECHNICAL SUPERVISOR Work Phone: [facility] 12-12-2024 13:14-0500 Respiratory rate 14 /min Davina Parsons EDGE CUTTING MACHINE OPERATOR-TECHNICAL SUPERVISOR Work Phone: [facility] 12-12-2024 13:14-0500 Systolic blood pressure 121 mm[Hg] Davina Parsons EDGE CUTTING MACHINE OPERATOR-TECHNICAL SUPERVISOR Work Phone: [facility] 11-27-2024 11:03-0500 Body height 167.6 cm Shawn Watters MD Work Phone: [facility] 11-27-2024 11:03-0500 Body mass index (BMI) [Ratio] 23.22 kg/m2 Shawn Watters MD Work Phone: [facility] 11-27-2024 11:03-0500 Body temperature 98.29 [degF] Shawn Watters MD Work Phone: [facility] 11-27-2024 11:03-0500 Body weight 65.23 kg Shawn Watters MD Work Phone: [facility] 11-27-2024 11:03-0500 Diastolic blood pressure 75 mm[Hg] Shawn Wattres MD Work Phone: [facility] 11-27-2024 11:03-0500 Heart rate 57 /min Shawn Watters MD Work Phone: [facility] 11-27-2024 11:03-0500 Respiratory rate 16 /min Shawn Watters MD Work Phone: [facility] 11-27-2024 11:03-0500 Systolic blood pressure 118 mm[Hg] Shawn Watters MD Work Phone: [facility] 10-25-2024 15:52-0500 Body height 168.9 cm Shawn Wattesr MD Work Phone: [facility] 10-25-2024 15:52-0500 Body mass index (BMI) [Ratio] 21.97 kg/m2 Shawn Watters MD Work Phone: [facility] 10-25-2024 15:52-0500 Body weight 62.69 kg Shawn Watters MD Work Phone: [facility] 10-25-2024 15:52-0500 Diastolic blood pressure 71 mm[Hg] Shawn Watters MD Work Phone: [facility] 10-25-2024 15:52-0500 Heart rate 59 /min Shawn Watters MD Work Phone: [facility] 10-25-2024 15:52-0500 Respiratory rate 14 /min Shawn Watters MD Work Phone: [facility] 10-25-2024 15:52-0500 Systolic blood pressure 118 mm[Hg] Shawn Watters MD Work Phone: [facility] 10-18-2024 14:05-0500 Body height 168.9 cm Davina Parsons APRN-TECHNICAL SUPERVISOR Work Phone: [facility] 10-18-2024 14:05-0500 Body mass index (BMI) [Ratio] 21.97 kg/m2 Davina Prasons APRN-TECHNICAL SUPERVISOR Work Phone: [facility] 10-18-2024 14:05-0500 Body temperature 98.29 [degF] Davina Parsons APRN-TECHNICAL SUPERVISOR Work Phone: [facility] 10-18-2024 14:05-0500 Body weight 62.69 kg Davina Issa EDGE CUTTING MACHINE OPERATOR-TECHNICAL SUPERVISOR Work Phone: [facility] 10-18-2024 14:05-0500 Diastolic blood pressure 77 mm[Hg] Davina Parsons EDGE CUTTING MACHINE OPERATOR-TECHNICAL SUPERVISOR Work Phone: [facility] 10-18-2024 14:05-0500 Heart rate 68 /min Davina Parsons EDGE CUTTING MACHINE OPERATOR-TECHNICAL SUPERVISOR Work Phone: [facility] 10-18-2024 14:05-0500 Systolic blood pressure 125 mm[Hg] Davina Parsons EDGE CUTTING MACHINE OPERATOR-TECHNICAL SUPERVISOR Work Phone: [facility] 10-12-2024 13:57-0500 Body height 168.9 cm Shawn Watters MD Work Phone: [facility] 10-12-2024 13:57-0500 Body mass index (BMI) [Ratio] 21.49 kg/m2 Shawn Watters MD Work Phone: [facility] 10-12-2024 13:57-0500 Body weight 61.33 kg Shawn Watters MD Work Phone: [facility] 10-12-2024 13:57-0500 Diastolic blood pressure 77 mm[Hg] Shawn Watters MD Work Phone: [facility] 10-12-2024 13:57-0500 Heart rate 80 /min Shawn Watters MD Work Phone: [facility] 10-12-2024 13:57-0500 Respiratory rate 13 /min Shawn Watters MD Work Phone: [facility] 10-12-2024 13:57-0500 Systolic blood pressure 125 mm[Hg] Shawn Watters MD Work Phone: [facility] 09-25-2024 15:11-0400 Body height 168.9 cm Ivan Hayden EDGE CUTTING MACHINE OPERATOR-TECHNICAL SUPERVISOR Work Phone: [facility] 09-25-2024 15:11-0400 Body mass index (BMI) [Ratio] 21.49 kg/m2 Ivan Hayden EDGE CUTTING MACHINE OPERATOR-TECHNICAL SUPERVISOR Work Phone: [facility] 09-25-2024 15:11-0400 Body weight 61.33 kg Ivan Hayden EDGE CUTTING MACHINE OPERATOR-TECHNICAL SUPERVISOR Work Phone: [facility] 09-25-2024 15:11-0400 Diastolic blood pressure 67 mm[Hg] Ivan Hayden EDGE CUTTING MACHINE OPERATOR-TECHNICAL SUPERVISOR Work Phone: [facility] 09-25-2024 15:11-0400 Heart rate 72 /min Ivan Hayden EDGE CUTTING MACHINE OPERATOR-TECHNICAL SUPERVISOR Work Phone: [facility] 09-25-2024 15:11-0400 Systolic blood pressure 107 mm[Hg] Ivan Hayden EDGE CUTTING MACHINE OPERATOR-TECHNICAL SUPERVISOR Work Phone: [facility] 09-18-2024 16:09-0400 Diastolic blood pressure 73 mm[Hg] Ivan Hayden EDGE CUTTING MACHINE OPERATOR-TECHNICAL SUPERVISOR Work Phone: [facility] 09-18-2024 16:09-0400 Heart rate 75 /min Ivan Hayden EDGE CUTTING MACHINE OPERATOR-TECHNICAL SUPERVISOR Work Phone: [facility] 09-18-2024 16:09-0400 Respiratory rate 16 /min Ivan Hayden EDGE CUTTING MACHINE OPERATOR-TECHNICAL SUPERVISOR Work Phone: [facility] 09-18-2024 16:09-0400 Systolic blood pressure 119 mm[Hg] Ivan Hayden EDGE CUTTING MACHINE OPERATOR-TECHNICAL SUPERVISOR Work Phone: [facility] 09-11-2024 16:01-0400 Diastolic blood pressure 73 mm[Hg] Ivan Hayden EDGE CUTTING MACHINE OPERATOR-TECHNICAL SUPERVISOR Work Phone: [facility] 09-11-2024 16:01-0400 Heart rate 70 /min Ivan Hayden EDGE CUTTING MACHINE OPERATOR-TECHNICAL SUPERVISOR Work Phone: [facility] 09-11-2024 16:01-0400 Respiratory rate 12 /min Ivan Hayden EDGE CUTTING MACHINE OPERATOR-TECHNICAL SUPERVISOR Work Phone: [facility] 09-11-2024 16:01-0400 Systolic blood pressure 108 mm[Hg] Ivan Hayden EDGE CUTTING MACHINE OPERATOR-TECHNICAL SUPERVISOR Work Phone: [facility] 09-04-2024 15:07-0400 Diastolic blood pressure 81 mm[Hg] Shawn Watters MD Work Phone: [facility] 09-04-2024 15:07-0400 Heart rate 111 /min Shawn Watters MD Work Phone: [facility] 09-04-2024 15:07-0400 Respiratory rate 16 /min Shawn Watters MD Work Phone: [facility] 09-04-2024 15:07-0400 Systolic blood pressure 129 mm[Hg] Shawn Watters MD Work Phone: [facility] 07-27-2024 14:57-0400 Body height 167.6 cm Shawn Watters MD Work Phone: [facility] 07-27-2024 14:57-0400 Body mass index (BMI) [Ratio] 22.11 kg/m2 Shawn Watters MD Work Phone: [facility] 07-27-2024 14:57-0400 Body temperature 97.7 [degF] Shawn Watters MD Work Phone: [facility] 07-27-2024 14:57-0400 Body weight 62.14 kg Shawn Watters MD Work Phone: [facility] 07-27-2024 14:57-0400 Diastolic blood pressure 63 mm[Hg] Shawn Watters MD Work Phone: [facility] 07-27-2024 14:57-0400 Heart rate 68 /min Shawn Watters MD Work Phone: [facility] 07-27-2024 14:57-0400 Systolic blood pressure 102 mm[Hg] Shawn Watters MD Work Phone: [facility] 03-08-2024 14:17-0400 Diastolic blood pressure 77 mm[Hg] Ivan Hayden EDGE CUTTING MACHINE OPERATOR-TECHNICAL SUPERVISOR Work Phone: [facility] 03-08-2024 14:17-0400 Heart rate 101 /min Ivan Hayden EDGE CUTTING MACHINE OPERATOR-TECHNICAL SUPERVISOR Work Phone: [facility] 03-08-2024 14:17-0400 Respiratory rate 16 /min Ivan Hayden EDGE CUTTING MACHINE OPERATOR-TECHNICAL SUPERVISOR Work Phone: [facility] 03-08-2024 14:17-0400 Systolic blood pressure 121 mm[Hg] Ivan Hayden EDGE CUTTING MACHINE OPERATOR-TECHNICAL SUPERVISOR Work Phone: [facility] 02-14-2024 12:51-0400 Diastolic blood pressure 74 mm[Hg] Ivan Hayden EDGE CUTTING MACHINE OPERATOR-TECHNICAL SUPERVISOR Work Phone: [facility] 02-14-2024 12:51-0400 Heart rate 65 /min Ivan Hayden EDGE CUTTING MACHINE OPERATOR-TECHNICAL SUPERVISOR Work Phone: [facility] 02-14-2024 12:51-0400 Respiratory rate 14 /min Ivan Hayden EDGE CUTTING MACHINE OPERATOR-TECHNICAL SUPERVISOR Work Phone: [facility] 02-14-2024 12:51-0400 Systolic blood pressure 135 mm[Hg] Ivan Hayden EDGE CUTTING MACHINE OPERATOR-TECHNICAL SUPERVISOR Work Phone: [facility] 02-14-2024 11:11-0400 Body temperature 98.1 [degF] [facility] 02-14-2024 11:11-0400 Diastolic blood pressure 73 mm[Hg] [facility] 02-14-2024 11:11-0400 Heart rate 56 /min [facility] 02-14-2024 11:11-0400 Respiratory rate 16 /min [facility] 02-14-2024 11:11-0400 SaO2% (BldA) [Mass fraction] 100 % [facility] [address] [place] [address] 02-14-2024 11:11-0400 Systolic blood pressure 121 mm[Hg] [facility] 02-14-2024 10:51-0400 Body height 167.6 cm [facility] [address] [place] [address] 02-14-2024 10:51-0400 Body mass index (BMI) [Ratio] 23.7 kg/m2 [facility] [address] [place] [address] 02-14-2024 10:51-0400 Body weight 66.[address] 01-13-2024 09:02-0500 Diastolic blood pressure 78 mm[Hg] Shawn Watters MD Work Phone: [facility] 01-13-2024 09:02-0500 Heart rate 63 /min Shawn Watters MD Work Phone: [facility] 01-13-2024 09:02-0500 Respiratory rate 16 /min Shawn Watters MD Work Phone: [facility] 01-13-2024 09:02-0500 Systolic blood pressure 131 mm[Hg] Shawn Watters MD Work Phone: [facility] 10-15-2023 13:08-0500 Body height 167.6 cm Shawn Watters MD Work Phone: [facility] 10-15-2023 13:08-0500 Body mass index (BMI) [Ratio] 21.79 kg/m2 Shawn Watters MD Work Phone: [facility] 10-15-2023 13:08-0500 Body weight 61.24 kg Shawn Watters MD Work Phone: [facility] 10-15-2023 13:08-0500 Diastolic blood pressure 76 mm[Hg] Shawn Watters MD Work Phone: [facility] 10-15-2023 13:08-0500 Heart rate 55 /min Shawn Watters MD Work Phone: [facility] 10-15-2023 13:08-0500 Respiratory rate 16 /min Shawn Watters MD Work Phone: [facility] 10-15-2023 13:08-0500 Systolic blood pressure 126 mm[Hg] Shawn Watters MD Work Phone: [facility] 03-31-2022 16:14-0400 Blood Pressure Location Sven Hayes Jr. [facility] 03-31-2022 16:14-0400 BP/Pulse Patient Position Sven Hayes Jr. [facility] 03-31-2022 16:14-0400 Diastolic blood pressure 71 mm[Hg] Sven Hayes Jr. [facility] 03-31-2022 16:14-0400 Heart rate 63 /min Sven Hayes Jr. [facility] 03-31-2022 16:14-0400 Mean blood pressure 83 mm[Hg] Sven Hayes Jr. [facility] 03-31-2022 16:14-0400 Respiratory rate 16 /min Sven Hayes Jr. [facility] 03-31-2022 16:14-0400 Systolic blood pressure 107 mm[Hg] Sven Hayes Jr. [facility] 03-31-2022 16:14-0400 Body temperature 97.7 [degF] Sven Hayes Jr. [facility] 03-31-2022 16:13-0400 Blood Pressure Location Sven Hayes Jr. [facility] 03-31-2022 16:13-0400 BP/Pulse Patient Position Sven Hayes Jr. [facility] 03-31-2022 16:13-0400 Diastolic blood pressure 70 mm[Hg] Sven Hayes Jr. [facility] 03-31-2022 16:13-0400 Heart rate 70 /min Sven Hayes Jr. [facility] 03-31-2022 16:13-0400 Mean blood pressure 82 mm[Hg] Sven Hayes Jr. [facility] 03-31-2022 16:13-0400 SaO2% (BldA) [Mass fraction] 99 % Sven Hayes Jr. [facility] 03-31-2022 16:13-0400 Systolic blood pressure 106 mm[Hg] Sven Hayes Jr. [facility] Encounters Encounter Date Encounter Type Care Provider Facility Start: 12-26-2024 End: 12-26-2024 [facility] Start: 12-26-2024 End: 12-26-2024 [facility] Start: 12-26-2024 End: 12-26-2024 Postop follow up visit related to original px Ivan Hayden EDGE CUTTING MACHINE OPERATOR-TECHNICAL SUPERVISOR Work Phone: [facility] Comment on above: Seroma of skin or kramer bcutaneous tissue after dermatologic procedure (Primary Dx); Breast wound, left, sequela; S/P breast reconstruction, bilateral; Encounter for postoperative care Start: 12-12-2024 End: 12-12-2024 [facility] Start: 12-12-2024 End: 12-12-2024 Postop follow up visit related to original px Davina Parsons EDGE CUTTING MACHINE OPERATOR-TECHNICAL SUPERVISOR Work Phone: [facility] Comment on above: Postoperative visit (Primary Dx); Post-operative pain; Breast wound, left, sequela; S/P breast reconstruction, bilateral; S/P bilateral mastectomy; BRCA1 gene mutation positive Start: 12-06-2024 End: 12-06-2024 Evaluation and management of inpatient JAMILA SHELTON [facility] Start: 12-06-2024 End: 12-06-2024 Evaluation and management of inpatient [facility] Start: 12-04-2024 End: 12-04-2024 Evaluation and management of inpatient [facility] Start: 12-04-2024 End: 12-04-2024 Admission to [facility] Phone Call Provider [address] [facility] ([place], [place]) Pre-Admission Clinic [facility] Start: 11-27-2024 End: 11-27-2024 Postop follow up visit related to original px Shawn Watters MD Work Phone: [facility] Comment on above: Postoperative visit (Primary Dx); Breast wound, left, sequela; S/P breast reconstruction, bilateral; S/P bilateral mastectomy; BRCA1 gene mutation positive Start: 11-27-2024 End: 11-27-2024 ambulatory [facility] Start: 11-24-2024 End: 11-24-2024 Orders Only Yasemin Garcia PA-C Work Phone: [facility] Start: 10-31-2024 End: 10-31-2024 Telephone encounter Geneva Hillman CMA [facility] Start: 10-30-2024 End: 10-30-2024 Evaluation and management of inpatient SHAWN LAIRD [facility] Start: 10-25-2024 End: 10-25-2024 Postop follow up visit related to original px Shawn Watters MD Work Phone: [facility] Comment on above: Breast wound, left, sequela (Primary Dx); S/P breast reconstruction, bilateral Start: 10-25-2024 End: 10-25-2024 [facility] Start: 10-24-2024 End: 10-24-2024 Telephone encounter Shawn Watters MD Work Phone: [facility] Start: 10-18-2024 End: 10-18-2024 [facility] Start: 10-18-2024 End: 10-18-2024 Postop follow up visit related to original px Davina Parsons EDGE CUTTING MACHINE OPERATOR-TECHNICAL SUPERVISOR Work Phone: [facility] Comment on above: Breast pain, left (P rimary Dx); Wound of left breast, initial encounter; S/P breast reconstruction, bilateral Start: 10-18-2024 End: 10-18-2024 [facility] Start: 10-12-2024 End: 10-12-2024 Postop follow up visit related to original px Shawn Watters MD Work Phone: [facility] Comment on above: Postoperative visit (Primary Dx); S/P breast reconstruction, bilateral; S/P bilateral mastectomy; BRCA1 gene mutation positive; Acquired absence of breast, bilateral Start: 10-12-2024 End: 10-12-2024 [facility] Start: 09-25-2024 End: 09-25-2024 Postop follow up visit related to original px Ivan Lino Chuy EDGE CUTTING MACHINE OPERATOR-TECHNICAL SUPERVISOR Work Phone: [facility] Comment on above: Encounter for postop erative care (Primary Dx); S/P breast reconstruction, bilateral; S/P bilateral mastectomy Start: 09-25-2024 End: 09-25-2024 [facility] Start: 09-18-2024 End: 09-18-2024 [facility] Start: 09-18-2024 End: 09-18-2024 Postop follow up visit related to original px Ivan Hayden EDGE CUTTING MACHINE OPERATOR-TECHNICAL SUPERVISOR Work Phone: [facility] Comment on above: Encounter for postop erative care (Primary Dx); Post-operative pain; S/P breast reconstruction, bilateral Start: 09-12-2024 End: 09-12-2024 Telephone encounter Ivan Hayden EDGE CUTTING MACHINE OPERATOR-TECHNICAL SUPERVISOR Work Phone: [facility] Start: 09-11-2024 End: 09-11-2024 Postop follow up visit related to original px Ivan Hayden EDGE CUTTING MACHINE OPERATOR-TECHNICAL SUPERVISOR Work Phone: [facility] Comment on above: Encounter for postop erative care (Primary Dx); Post-operative pain; S/P breast reconstruction, bilateral; S/P bilateral mastectomy Start: 09-11-2024 End: 09-11-2024 [facility] Start: 09-04-2024 End: 09-04-2024 Postop follow up visit related to original px Shawn Watters MD Work Phone: [facility] Comment on above: Post-operative pain (Primary Dx) Start: 09-04-2024 End: 09-04-2024 [facility] Start: 09-01-2024 End: 09-04-2024 Refill Ivan Huynh [place] EDGE CUTTING MACHINE OPERATOR-TECHNICAL SUPERVISOR Work Phone: [facility] Comment on above: S/P breast reconstru ction, bilateral; S/P bilateral mastectomy; Post-operative pain Start: 08-31-2024 End: 09-09-2024 Telephone encounter Shawn Watters MD Work Phone: [facility] Start: 08-30-2024 End: 08-30-2024 Evaluation and management of inpatient ZEINA JACOBS [facility] Start: 08-30-2024 End: 08-30-2024 Evaluation and management of inpatient [facility] Start: 08-18-2024 End: 08-18-2024 Evaluation and management of inpatient SUBHA GUTIERREZ [facility] Start: 07-27-2024 End: 07-27-2024 Office outpatient visit 25 minutes Shawn Watters MD Work Phone: [facility] Comment on above: S/P breast reconstru ction, bilateral (Primary Dx); S/P bilateral mastectomy; Post-operative pain; BRCA1 gene mutation positive Start: 07-27-2024 End: 07-27-2024 [facility] Start: 05-29-2024 End: 05-29-2024 ambulatory FRANSICO MONTAÑO Not Available Start: 05-04-2024 End: 05-04-2024 [facility] Start: 04-06-2024 End: 04-06-2024 [facility] Start: 03-23-2024 End: 03-23-2024 [facility] Start: 03-08-2024 End: 03-08-2024 Postop follow up visit related to original px Ivan Hayden APRN-TECHNICAL SUPERVISOR Work Phone: [facility] Comment on above: Encounter for postop erative care (Primary Dx); Acquired absence of breast, bilateral; Post-operative pain; S/P bilateral mastectomy Start: 03-08-2024 End: 03-08-2024 ambulatory IVAN Huynh [facility] Start: 03-03-2024 Orders Only Ivan foster EDGE CUTTING MACHINE OPERATOR-TECHNICAL SUPERVISOR Work Phone: [facility] Comment on above: Pre-op evaluation (P rimary Dx); Acquired absence of breast, bilateral; Post-operative pain Start: 03-03-2024 Preprocedural examination done [facility] SU[email or web address] Work [facility]: Start: 02-28-2024 End: 02-28-2024 Evaluation and management of inpatient NAMITA FALCON [facility] Start: 02-28-2024 End: 02-28-2024 Evaluation and management of inpatient [facility] Lino [facility] Start: 02-14-2024 End: 02-14-2024 Preprocedural examination done Ivan [facility] CenterN-TECHNICAL SUPERVISOR Work Phone: [facility] Work Phone: Start: 02-14-2024 End: 02-14-2024 ambulatory [facility] Start: 02-14-2024 Encounter for other preprocedural examination [facility] Start: 02-14-2024 End: 02-14-2024 ambulatory [facility] Start: 02-14-2024 End: 02-14-2024 Patient encounter procedure Ivan Huynh Chuy CORDON-TECHNICAL SUPERVISOR Work Phone: [facility] Comment on above: Pre-op evaluation (P rimary Dx); Acquired absence of breast, bilateral; BRCA1 gene mutation positive Start: 01-13-2024 End: 01-13-2024 Office outpatient visit 25 minutes Shawn Watters MD Work Phone: [facility] Comment on above: BRCA1 gene mutation positive (Primary Dx) Start: 01-13-2024 End: 01-13-2024 ambulatory SHAWN WATTERS [facility] Start: 01-11-2024 Telephone encounter Ifeoma [facility] Start: 01-01-2024 End: 01-01-[address] [facility] Start: 12-28-2023 End: 12-28-2023 ambulatory FRANSICO MARI Not Available Start: 12-23-2023 Documentation procedure Laisha Kaba MD Work Phone: [facility] Comment on above: MRI auth Start: 12-08-2023 Telephone encounter Mariposa Messina CMA [facility] Start: 12-06-2023 Telephone encounter Lidia Dangelo marti [facility] Work Phone: [facility] Comment on above: Questions Start: 10-19-2023 End: 10-19-2023 ambulatory RAE Huynh BRITTANIE Not Available Start: 10-15-2023 End: 10-15-2023 Office outpatient new 45 minutes Shawn Watters MD Work Phone: [facility] Comment on above: BRCA1 gene mutation positive Start: 10-12-2023 End: 10-12-2023 ambulatory FRANSICO MARI Not Available Start: 03-09-2023 End: 03-10-2023 ambulatory FRANSICO MARI Facility:[facility] Start: 12-21-2022 End: 12-21-2022 ambulatory FRANSICO MARI Facility:[facility] Start: 08-04-[address] RICKY OCAMPO . Faci lity:[facility] Start: 06-11-2022 End: 09-20-[address] LAKSHMI MESSINA Facility:[facility] Start: 03-31-2022 End: 03-31-2022 Patient encounter procedure Sven Hayes Jr. [facility] Start: 03-20-2022 End: 03-20-2022 ambulatory FRANSICO MARI Facility:[facility] Start: 03-19-2022 Encounter for other preprocedural examination FRANSICO MARI [facility] Start: 03-17-2022 End: 03-18-2022 ambulatory FRANSICO MARI Facility:[facility] Start: 03-17-2022 End: 03-18-2022 Encounter for other preprocedural examination FRANSICO MARI Facility:[facility] Start: 02-17-2022 End: 02-17-2022 Off-Site TERI COOK [facility] Start: 06-18-2018 End: 06-18-2018 Emergency department patient visit SONIYA ESCALONA [facility] Procedures Date Procedure Procedure Detail Performing Clinician Start: 07-27-2024 Follow-up visit Follow-up SHAWN WATTERS Start: 12-28-2023 Microscopic observation [Identifier] in Cervix by Cyto stain Ivan Hayden EDGE CUTTING MACHINE OPERATOR-TECHNICAL SUPERVISOR Work Phone: Start: 03-10-2022 Exploration using laparoscope Sven Hayes Jr. Start: 06-18-2018 SUHA WRAP SONIYA ESCALONA Start: 06-18-2018 CRUTCHES SONIYA ESCALONA Start: 06-18-2018 Radex foot complete minimum 3 views SONIYA ESCALONA Endometriosis (disorder) ANNALEE COOK History of bilateral mastectomy S/P bilateral mastectomy Ivan A Chuy EDGE CUTTING MACHINE OPERATOR-TECHNICAL SUPERVISOR Work Phone: History of bilateral mastectomy S/P bilateral mastectomy Ivan Lino Hayden EDGE CUTTING MACHINE OPERATOR-TECHNICAL SUPERVISOR Work Phone: History of bilateral mastectomy S/P bilateral mastectomy Ivan A Hayden EDGE CUTTING MACHINE OPERATOR-TECHNICAL SUPERVISOR Work Phone: History of bilateral mastectomy S/P bilateral mastectomy Shawn Watters MD Work Phone: History of bilateral mastectomy S/P bilateral mastectomy Shawn Watters MD Work Phone: History of bilateral mastectomy S/P bilateral mastectomy Davina Pasrons EDGE CUTTING MACHINE OPERATOR-TECHNICAL SUPERVISOR Work Phone: History of bilateral mastectomy S/P bilateral mastectomy Ivan Lino Hayden EDGE CUTTING MACHINE OPERATOR-TECHNICAL SUPERVISOR Work Phone: History of bilateral mastectomy S/P bilateral mastectomy Shawn Watters MD Work Phone: Hysterectomy TERI COOK Ligation of fallopia n tube TERI COOK Plan of Treatment Date Care Activity Detail Author Start: 12-28-2026 Screening for malignant neoplasm of cervix Pap Smear [facility] Start: 12-26-2025 Adult BMI Screening Adult BMI Screen ing [facility] Start: 12-26-2025 Tobacco Screening Tobacco Screening [facility] Start: 12-12-2025 Adult BMI Screening Adult BMI Screen ing [facility] Start: 12-12-2025 Tobacco Screening Tobacco Screening [facility] Start: 12-04-2025 Tobacco Screening Tobacco Screening [facility] Start: 11-27-2025 Adult BMI Screening Adult BMI Screen ing [facility] Start: 11-27-2025 Tobacco Screening Tobacco Screening [facility] Start: 10-30-2025 Adult BMI Screening Adult BMI Screen ing [facility] Start: 10-30-2025 Tobacco Screening Tobacco Screening [facility] Start: 10-18-2025 Adult BMI Screening Adult BMI Screen ing [facility] Start: 10-18-2025 Tobacco Screening Tobacco Screening [facility] Start: 10-12-2025 Adult BMI Screening Adult BMI Screen ing [facility] Start: 10-12-2025 Tobacco Screening Tobacco Screening [facility] Start: 09-25-2025 Adult BMI Screening Adult BMI Screen ing [facility] Start: 09-25-2025 Tobacco Screening Tobacco Screening [facility] Start: 08-30-2025 Adult BMI Screening Adult BMI Screen ing [facility] Start: 08-30-2025 Tobacco Screening Tobacco Screening [facility] Start: 02-27-2025 Adult BMI Screening Adult BMI Screen ing [facility] Start: 02-27-2025 Tobacco Screening Tobacco Screening [facility] Start: 02-13-2025 Adult BMI Screening Adult BMI Screen ing [facility] Start: 02-13-2025 Tobacco Screening Tobacco Screening [facility] Start: 01-18-2025 End: 01-18-2025 Patient encounter procedure 01/18/2025 11:45 AM EST Office Visit [facility] [address] [facility] [address] [place] [address] Shawn Watters MD [address] [place] [address] [facility] Start: 12-27-2024 Adult BMI Screening Adult BMI Screen [facility] Start: 12-13-2024 End: 12-13-2024 Patient encounter procedure 12/13/2024 10:00 AM EST Office Visit [facility] [address] [facility] [address] [facility] [address] Davina Parsons, EDGE CUTTING MACHINE OPERATOR-TECHNICAL SUPERVISOR [address], [facility] [address] [place] [address] [facility] Start: 12-06-2024 End: 12-06-2024 Admission to same day surgery center 12/06/2024 10:00 AM EST - 12/06/2024 1:15 PM EST Surgery [facility] [address] [place] [address] Shawn Watters MD [address], [facility] [address] [place] [address] EXCHANGE RIBBON INKER TISSUE BREAST [07447 (CPT )] [facility] Comment on above: EXCHANGE RIBBON INKER TI SSUE BREAST [00683 (CPT )] Start: 12-06-2024 End: 12-06-2024 Brst rcnstj immt/dlyd w/tiss shed workers supervisor sbsq xpnsj EXCHANGE RIBBON INKER TISSUE BREAST BRCA 1 POSITIVE POST BREAST RECONSTRUCTION 12/06/2024 10:00 AM EST [facility] Start: 12-06-2024 End: 12-06-2024 Musc myocutaneous/fasciocu taneous flap trunk FREE FLAP TRUNK BRCA 1 POSITIVE POST BREAST RECONSTRUCTION 12/06/2024 10:00 AM EST [facility] Start: 12-06-2024 Subsequent hospital visit by physician 12/06/2024 10:00 AM EST Hospital Encounter [facility] [address] [place] [address] Shawn Watters MD [address] [place] [address] [facility] Start: 11-27-2024 End: 11-27-2024 Patient encounter procedure 11/27/2024 11:00 AM EST Office Visit [facility] [address] [place] [address] Shawn Watters MD [address] [place] [address] [facility] Start: 11-02-2024 Adult BMI Screening Adult BMI Screen ing [facility] Start: 11-02-2024 Tobacco Screening Tobacco Screening [facility] Start: 10-25-2024 End: 10-25-2024 Patient encounter procedure 10/25/2024 3:30 PM EST Office Visit [facility] [address] [place] [address] Shawn Watters MD [address] [place] [address] [facility] Start: 10-12-2024 End: 10-12-2024 Patient encounter procedure 10/12/2024 2:15 PM EST Office Visit [facility] [address] [place] [address] Shawn Watters MD [address] [place] [address] [facility] Start: 10-02-2024 End: 10-02-2024 Patient encounter procedure 10/02/2024 1:00 PM EST Office Visit [facility] [address] [place] [address] Ivan Hayden, EDGE CUTTING MACHINE OPERATORTECHNICAL SUPERVISOR [address], [address] [place] [address] [facility] Start: 09-25-2024 End: 09-25-2024 Patient encounter procedure 09/25/2024 3:00 PM EDT Office Visit [facility] [address] [place] [address] Ivan Hayden, EDGE CUTTING MACHINE OPERATOR-TECHNICAL SUPERVISOR [address], [address] [place] [address] [facility] Start: 09-18-2024 End: 09-18-2024 Patient encounter procedure 09/18/2024 4:00 PM EDT Office Visit [facility] [address] [place] [address] Ivan Hayden, EDGE CUTTING MACHINE OPERATOR-TECHNICAL SUPERVISOR [address], [address] [place] [address] [facility] Start: 09-11-2024 End: 09-11-2024 Patient encounter procedure 09/11/2024 4:00 PM EDT Office Visit [facility] [address] [place] [address] Ivan Hayden, EDGE CUTTING MACHINE OPERATOR-TECHNICAL SUPERVISOR [address], [address] [place] [address] [facility] Start: 07-30-2024 Influenza vaccination Influenza Vacc ine [facility] Start: 04-11-2024 End: 04-11-2024 Patient encounter procedure 04/11/2024 12:50 PM EDT Office Visit [facility] [address] [place] [address] Teri Kaba MD [address] [place] [address] [facility] Start: 03-22-2024 End: 03-22-2024 Patient encounter procedure 03/22/2024 2:30 PM EDT Office Visit [facility] [address] [place] [address] Ivan Hayden, EDGE CUTTING MACHINE OPERATOR-TECHNICAL SUPERVISOR [address] [place] [address] [facility] Start: 03-08-2024 End: 03-08-2024 Patient encounter procedure 03/08/2024 3:00 PM EDT Office Visit [facility] [address] [place] [address] Ivan Hayden, EDGE CUTTING MACHINE OPERATOR-TECHNICAL SUPERVISOR [address] [place] [address] [facility] Start: 03-06-2024 End: 03-06-2024 Patient encounter procedure 03/06/2024 9:30 AM EDT Office Visit [facility] [address] [place] [address] Ivan Hayden, EDGE CUTTING MACHINE OPERATOR-TECHNICAL SUPERVISOR [address] [place] [address] [facility] Start: 02-28-2024 End: 02-28-2024 Admission to same day surgery center 02/28/2024 7:30 AM EDT - 02/28/2024 12:00 PM EDT Surgery [facility] [address] [place] [address] Teri Kaba MD [address] [facility] [address] [place] [address] MASTECTOMY BREAST SIMPLE(WITH NIPPLE SPARING) [facility] Surgery Comment on above: MASTECTOMY BREAST SI MPLE(WITH NIPPLE SPARING) Start: 02-28-2024 End: 02-28-2024 EXCHANGE IMPLANT BREAST EXCHANGE IMPLANT BREAST BRAC1 MUTATION 02/28/2024 7:30 AM EDT [facility] Start: 02-28-2024 End: 02-28-2024 MASTECTOMY BREAST SIMPLE MASTECTOMY BREAST SIMPLE BRAC1 MUTATION 02/28/2024 7:30 AM EDT [facility] Start: 02-28-2024 Subsequent hospital visit by physician 02/28/2024 7:30 AM EDT Hospital Encounter [facility] [address] [place] [address] Teri Kaba MD [address] [facility] [address] [place] [address] [facility] Start: 02-14-2024 End: 02-14-2024 Patient encounter procedure [facility] Start: 01-14-2024 End: 01-14-2024 Patient encounter procedure 01/14/2024 8:30 AM EST [facility] [address] [facility] [address] [place] [address] Shawn Watters MD [address], [address] [facility] [address] [place] [address] [facility] Start: 01-13-2024 End: 01-13-2024 Patient encounter procedure 01/13/2024 9:00 AM EST Office Visit [facility] [address] [facility] [address] [place] [address] Shawn Watters MD [address], [address] [facility] [address] [place] [address] [facility] Start: 01-01-2024 End: 01-01-2024 Patient encounter procedure 01/01/2024 1:15 PM EST Appointment [facility] [address] [place] [address] [facility] Start: 01-01-2024 Subsequent hospital visit by physician 01/01/2024 1:15 PM EST Hospital Encounter [facility] [address] [place] [address] [facility] Start: 07-30-2023 Influenza vaccination Influenza Vacc ine [facility] Start: 2007 Screening for malignant neoplasm of cervix Pap Smear [facility] Start: 2005 DTaP,Tdap and Td Vaccines (1 - Tdap) DTaP,Tdap and Td Vaccines (1 - Tdap) [facility] Start: 1998 Depression Screening Depression Scre [facility] End: 12-26-2025 Aspirate culture includes gram stain Aspirate culture includes gram stain Microbiology Routine Seroma of skin or subcutaneous tissue after dermatologic procedure S/P breast reconstruction, bilateral 1 Occurrences starting 12/26/2024 until 12/26/2025 [facility] Work Phone: Comment on above: 1 Occurrences starti ng 12/26/2024 until 12/26/2025 End: 02-13-2025 Nicotine screen, urine Nicotine screen, urine Lab Routine Pre-op evaluation 1 Occurrences starting 02/14/2024 until 02/13/2025 [facility] Work Phone: Comment on above: 1 Occurrences starti ng 02/14/2024 until 02/13/2025 Nicotine screen, urine Nicotine screen, urine Lab Routine Pre-op evaluation 02/14/2024 1:31 PM EDT [facility] Payers Date Payer Category Payer Blue Cross Blue Shie [facility] Care - O [id number] 2023 Unknown [facility] [id number] 2023-Present [phone] [address] [place] [address] [id number] 2023 Unknown [id number] 2022 Medicaid ANTH MEDICAID [facility] MEDICAID [id number] 2022-Present [address] [place] [address] [id number] 2022 Medicaid [id number] 2014 Unknown [id number] 1986 Unknown [id number] 2.16.840.1.014871.3.579.2.5 1986 Unknown [id number] 2.16.840.1.494861.3.579.2.5 1986 Unknown [id number] 2.16.840.1.376509.3.579.2.5 1986 Unknown [id number] 2.16.840.1.032812.3.579.2.5 1986 Unknown [id number] 2.16.840.1.089880.3.579.2.5 93 1986 Unknown [id number] 2.16.840.1.917091.3.579.2.5 93 1986 Unknown [id number] 2.16.840.1.909584.3.579.2.1 259 1986 Unknown [id number] 2.16.840.1.685691.3.579.2.1 259 1986 Unknown [id number] 2.16.840.1.570472.3.579.2.1 259 1986 Unknown [id number] 2.16.840.1.424781.3.579.2.1 259 1986 Unknown [id number] 2.16.840.1.226010.3.579.2.1 286 1986 Unknown [id number] 2.16.840.1.642057.3.579.2.1 286 1986 Unknown [id number] 2.16.840.1.380467.3.579.2.1 286 1986 Unknown [id number] 2.16.840.1.312179.3.579.2.1 286 1986 Unknown [id number] 2.16.840.1.254528.3.579.2.1 286 1986 Unknown [id number] 2.16.840.1.101665.3.579.2.1 286 1986 Unknown [id number] 2.16.840.1.794764.3.579.2.1 286 1986 Unknown [id number] 2.16.840.1.886330.3.579.2.1 286 1986 Unknown [id number] 2.16.840.1.938671.3.579.2.1 286 1986 Unknown [id number] 2.16.840.1.783786.3.579.2.1 286 1986 Unknown [id number] 2.16.840.1.730154.3.579.2.1 286 1986 Unknown [id number] 2.16.840.1.486592.3.579.2.1 286 1986 Unknown [id number] 2.16.840.1.103856.3.579.2.1 286 1986 Unknown [id number] 2.16.840.1.237180.3.579.2.1 286 1986 Unknown [id number] 2.16.840.1.120149.3.579.2.1 286 1986 Unknown [id number] 2.16.840.1.517416.3.579.2.1 286 1986 Unknown [id number] 2.16.840.1.893204.3.579.2.1 286 1986 Unknown [id number] 2.16.840.1.658850.3.579.2.1 286 1986 Unknown [id number] 2.16.840.1.865923.3.579.2.1 286 1986 Unknown [id number] 2.16.840.1.719318.3.579.2.1 286 1986 Unknown [id number] 2.16.840.1.644866.3.579.2.1 286 1986 Unknown [id number] 2.16.840.1.161631.3.579.2.1 286 1986 Unknown [id number] 2.16.840.1.606898.3.579.2.1 286 1986 Unknown [id number] 2.16.840.1.149082.3.579.2.1 286 1986 Unknown [id number] 2.16.840.1.772822.3.579.2.1 286 1986 Unknown [id number] 2.16.840.1.899213.3.579.2.1 286 1986 Unknown [id number] 2.16.840.1.544967.3.579.2.1 286 1986 Unknown [id number] 2.16.840.1.073062.3.579.2.1 286 1986 Unknown [id number] 2.16.840.1.760059.3.579.2.1 286 1986 Unknown [id number] 2.16.840.1.214633.3.579.2.1 286 1986 Unknown [id number] 2.16.840.1.486116.3.579.2.1 286 1986 Unknown [id number] 2.16.840.1.840529.3.579.2.1 286 1986 Unknown [id number] 2.16.840.1.216288.3.579.2.1 286 1986 Unknown [id number] 2.16.840.1.588555.3.579.2.1 286 1959 Self-pay 1959 Unknown [id number] Social History Date Type Detail Facility Start: 01-28-2022 Tobacco smoking status Light t obacco smoker (finding) [facility] [email or web address] Start: 11-29-2004 End: 11-29-2020 Tobacco smoking status Smoker (finding) [facility] Start: 11-02-2023 End: 12-04-2024 Sex Assigned At Female [facility] [email or web address] Start: 10-04-2023 Tobacco smoking stat us TNIS Never smoked tobacco [facility] Start: 10-04-2023 End: 08-18-2024 Tobacco use and exposure Smokeless tobacco non-user [facility] Start: 11-02-2023 End: 11-27-2024 Alcohol intake Ex-drinker (finding) [facility] Start: 11-02-2023 End: 12-04-2024 History of Social function [facility] Housing Instability Unknown [facility] Start: 1986 Sex Assigned At Not on file [facility] Start: 1986 Sex Assigned At Female P [facility] Start: 02-09-2024 Gender identity Identifies as female gender (finding) [facility] Start: 02-09-2024 Sexual orientation Heterosexual (fin ding) [facility] Start: 02-14-2024 End: 08-18-2024 Tobacco smoking status NHIS Ex-smoker [facility] Start: 11-29-2004 End: 11-29-2020 History of tobacco use Cigarette Smoker [facility] Start: 02-14-2024 Tobacco Comment Quit 2020 [facility] Start: 07-02-2015 Sex Female (finding) [facility] NEGATED: Highlighted rowStart: NINF History of tobacco use Passive smoker [facility] Medical Equipment Procedure Code Equipment Code Equipment Origin al Text Equipment Identifier Dates Implant Brst 700 cc P6cm Hi Prj Rnd Hi Strth Chsv + Gel [facility] - [id number] - [id number] Start: 02-28-2024 Implant Brst 700 cc P6cm Hi Prj Rnd Hi Strth Chsv + Gel [facility] - [id number] - [id number] Start: 02-28-2024 [employer] Tiss [id number] Brst 480-575cc Txtr Intgr Port Allox2 - [id number] - [id number] Start: 08-30-2024 [employer] Tiss [id number] Brst 480-575cc Txtr Intgr Port Allox2 - [id number] - [id number] Start: 08-30-2024 [employer] Tiss [id number] Brst 480-575cc Txtr Intgr Port Allox2 - [id number] - [id number] Start: 12-06-2024 Clinical Notes 02-17-2022 to 12-26-2024 Ivan Hayden, EDGE CUTTING MACHINE OPERATOR-TECHNICAL SUPERVISOR - 12/26/2024 1:30 PM Davian Parsons, [facility] - 12/12/2024 1:00 PM ESTPre-Procedure Instructions - Lizette Dickerson RN - 12/04/2024 10:00 AM EST Note Date & Type Note Facility 12-26-2024 History of Presen t illness Narrative [facility] [address] Office Shawn Watters MD, PhD Ivan Hayden, EDGE CUTTING MACHINE OPERATOR-[facility] MAURI Francis, EDGE CUTTING MACHINE OPERATOR-[facility] Plastic Surgery Progress Note Reason for visit : post-op History of present illness: Yue Lewis is a 38 y.o. female with a history of BRCA1+ gene mutation s/p bilateral mastectomy (Shaila) with DTI on 02/28/2024. Due to ongoing pain patient underwent removal of bilateral breast implants, pocket conversion from partial submuscular to prepectoral position and placement of new tissue expanders on 08/30/2024. She subsequently developed a new sinus tract adjacent to her left nipple with serous drainage and, therefore, underwent punch biopsy on 10/30/2024. Surgical pathology revealed epidermal-lined sinus tract with surrounding fibrosis. She developed recurrent drainage from site and was taken back to OR on 12/06/2024 for left tissue shed workers supervisor exchange and LDAP flap with excision of nipple sinus tract. She presents to the office today for concerns of new left breast pain and swelling. Her drain was removed on 12/16/24 by her . She noticed increasing swelling of her breast since then. Ultrasound was ordered but has not been completed. She reports body aches and chills yesterday but improving today. The patient is doing well postoperatively. The patient denies fever, chills, redness or drainage from surgical wound(s). Review of Systems: Denies surgical site concerns. All other symptoms negative except as noted in HPI. Physical Examination: Vitals: 12/26/24 1338 BP: 115/79 Pulse: 101 Resp: 14 Temp: 36.7 C (98.1 F) Body mass index is 22.52 kg/m . GENERAL: no acute distress, well developed, well nourished. LYMPHATIC: no upper extremity lymphedema NEUROLOGIC: alert and oriented to time, place and person. PSYCH: judgement and insight good, mood/affect full range. Focused examination : left breast areolar incision is clean, dry, and intact with no drainage present. Breast is free from erythema. No subcutaneous edema noted. Breast with ballotable fluid collection palpated. No fluid collection palpated in the axilla. Nipple areolar complex is well perfused. Procedure note : After verbal consent was obtained, the left tissue shed workers supervisor aspirate port, was identified using a magnet. This area was cleansed with alcohol, and Betadine. Then using a 25 gauge needle, approximately 70ml brown appearing fluid was aspirated from the left tissue shed workers supervisor. Patient tolerated well. Adequate hemostasis was achieved, and a sterile bandage was applied. Impression: 1. Seroma of skin or subcutaneous tissue after dermatologic procedure 2. Breast wound, left, sequela 3. S/P breast reconstruction, bilateral 4. Encounter for postoperative care Recommendations: TE aspirated in office today. Patient tolerated well. Discussed with patient I will send the aspirated fluid off for culture. I will contact her with the results. Discussed that her new pain could have been related to the seroma. Okay to massage and use warm/cool compresses. She does report feeling better today and her son was not feeling well this morning. Discussed multiple viral illness are going around. Continue with supportive care. Script of pain medication sent to pharmacy. The OARRS/MAPPS database was reviewed today and found to be appropriate. No indication of medication diversion, or non compliance. Reviewed with Dr. Watters, will also send in a prescription of doxy. - LEDY Salas 12/26/24 3:29 PM Please note that portions of this note were generated using voice recognition M*Modal dictation software. Although every effort was made to ensure the accuracy of this automated senior mortgage underwriter, some errors in senior mortgage underwriter may have occurred. LEDY Bentley 12/26/24 1529 documented in this encounter [facility] 12-12-2024 History of Presen t illness Narrative [facility] [address] Office Shawn Watters MD, PhD Ivan Hayden, EDGE CUTTING MACHINE OPERATOR-TECHNICAL SUPERVISOR MAURI Francis, EDGE CUTTING MACHINE OPERATOR-TECHNICAL SUPERVISOR Plastic Surgery Progress Note Reason for visit : post-op History of present illness: Yue Lewis is a 38 y.o. female with history of BRCA1+ gene mutation s/p bilateral mastectomy (Shaila) with DTI on 02/28/2024. This was followed by removal of bilateral breast implants, pocket conversion from partial submuscular to prepectoral position and placement of new tissue expanders on 08/30/2024. She subsequently developed a new sinus tract adjacent to her left nipple with serous drainage and, therefore, underwent punch biopsy on 10/30/2024. Surgical pathology revealed epidermal-lined sinus tract with surrounding fibrosis. She developed recurrent drainage from site and was taken back to OR on 12/06/2024 for left tissue shed workers supervisor exchange and LDAP flap with excision of nipple sinus tract. The patient is doing well postoperatively. She reports significant N/V in the immediate post operative period with persistent nausea. She also developed tongue numbness. She adjusted her OnQ pain pump level down and ultimately turned off and symptoms improved. She has some minimal residual tongue numbness that continues to improve. She does, however, note an increase in her postoperative pain with discontinuation of pain pump. This is minimally improved with a single dose of Roxicodone, but reports adequate pain control with 2 tabs (10mg). The patient denies fever, chills, redness or drainage from surgical wound(s). Drain output has remained elevated, emptying 60-90mls BID. Review of Systems: Denies surgical site concerns. All other symptoms negative except as noted in HPI. Physical Examination: Vitals: 12/12/24 1314 BP: 121/76 Pulse: 88 Resp: 14 Temp: 36.5 C (97.7 F) Body mass index is 22.52 kg/m . GENERAL: no acute distress, well developed, well nourished. LYMPHATIC: no upper extremity lymphedema NEUROLOGIC: alert and oriented to time, place and person. PSYCH: judgement and insight good, mood/affect full range. Focused examination : Left breast incisions clean, dry and intact, sylke adhesive in place. NAC well perfused. No erythema or necrosis. No ballotable fluid collections. CEDRICK drain and OnQ pump tubing in place, sites appear benign. No evidence of active infection. Impression: 1. Postoperative visit 2. Post-operative pain 3. Breast wound, left, sequela 4. S/P breast reconstruction, bilateral 5. S/P bilateral mastectomy 6. BRCA1 gene mutation positive Recommendations: Patient is doing well postoperatively, appears to be healing appropriately. OnQ tubing removed without difficulty, fully intact. Advised to continue to monitor suspected adverse effects from OnQ pain pump and notify of any changes or persistent symptoms. Discussed with Dr. Duong Peters. OARRS reviewed. F/U in 2 weeks for clinical recheck, possible TE fill. Continue post-op restrictions are previously advised. She was encouraged to contact the office with any changes or concerns in the interim. Please note that portions of this note were generated using voice recognition M*Modal dictation software. Although every effort was made to ensure the accuracy of this automated senior mortgage underwriter, some errors in senior mortgage underwriter may have occurred. LEDY Samson 12/13/24 0933 documented in this encounter [facility] 12-04-2024 Instructions Formatting of th is note might be different from the original. Your surgery/procedure is scheduled at [facility] on 12/06/24 at 10 am Arrival Time 8 am [facility] Address: [address] [place] [address], [facility] [address] in the Emergency Center Parking lot. Report to the front counter attendant in the Emergency/Surgery Registration lobby of the hospital. Notify your SURGEON if you develop any illness such as a cold, cough, fever, sore throat, vomiting or are hospitalized between now and your surgery. Please call Pre-Admission Clinic at [phone] if you have any questions prior to surgery. For questions the morning of surgery, call the Pre-op Department at [phone]. Medication Instructions (Do not stop your medications without consulting the prescribing physician). Take the following medications the morning of surgery with a sip of water: doxycline Diabetic or Weight loss medications: HOLD n/a LAST DOSE n/a Take inhalers as prescribed the morning of surgery. Due to the risk associated with these medications. If these medications are not held per instruction below, your surgery is at an increased risk for cancellation SGLT2 Medications- Hold 3 days prior to surgery: Jardiance, Empagliflozin, Farxiga, Dapagliflozin, Invokana, Canagliflozin, Trijardy, Synjardy GLP-1 Medications (Injection or Pill)- If taken daily hold day of surgery. If taken weekly, hold 1 week prior to surgery: Adlyxin, Byetta, Bydureon, Ozempic, Rybelsus,Trulicity, Victoza, Wegovy, Lixisenatide, Exenatide, Semaglutide, Dulaglutide, Liraglutide GIP/GLP-1(Injection or Pill)- If taken daily hold day of surgery. If taken weekly, hold 1 week prior to surgery: Shaheedunmercedesro . Blood thinners: Please contact your prescribing physician regarding a stop/hold date for these medications. Medications such as Coumadin, Heparin, Aspirin, Plavix, Eliquis, Pradaxa Diabetics: If you take insulin, contact your prescribing doctor for instructions on how to manage this the night before and the morning of surgery. Non-steriodal Anti-Inflammatory Drugs (NSAIDS)- Hold 3 days prior to surgery unless otherwise directed by your surgeon. Vitamins/Herbal Products: You may continue to take your prescribed vitamins such as potassium, iron, vitamin B, vitamin C, or multivitamin unless specifically instructed by your surgeon to hold. STOP taking all herbal products/teas one week prior to your surgery. Marijuana: Stop marijuana 72 hours prior to surgery, stop CBD oil 48 hours prior to surgery. If you have been given bowel prep instructions by your surgeon, please call the surgeon's office with any questions about these instructions. What do I do the day of Surgery? Age 2 through adult - Stop all solids by midnight, You may have clear liquids up to 2 hours before surgery, unless otherwise instructed by your surgeon Clear liquids are: water, sports drinks such as Gatorade or G2, or apple juice. You may NOT have: tube feedings, dairy products, alcoholic beverages, orange juice, or any liquids with solids or pulp in it If applicable, shower again with CHG soap the morning of your surgery. If you received a green plastic bracelet, bring it with you the day of surgery and your nurse will put it on you. What do I need to do to prepare for surgery? If you will be going home the same day as your surgery, arrange for an adult over [address] Riding in a bus or taxi by yourself is not permitted. You should not smoke or drink alcohol 24 hours before your surgery. Smoking increases the risk of breathing problems after surgery. Alcohol thins the blood and may cause bleeding problems during surgery If you have been assigned PAM Education by your surgeon's office, please complete this education prior to your surgery. For questions regarding PAM education, reach out to your surgeons office. If you have been given a prescription for occupational, physical or speech therapy, please set up these appointments before your procedure. If you would like to schedule therapy at a [facility] facility, please call [phone] ([phone]). Do not use lotions, creams, powders, perfume, make up, cologne or after-shaves day of surgery. Remove ALL jewelry including wedding rings, body piercings, hair extensions that contain metal, nail south korean, make-up, and contact lens. You may brush your teeth the morning of surgery, but do not swallow the water. Wear your dentures and partial plates to the hospital (no adhesive). Shower the night the before. If applicable, use the CHG (chlorhexidine gluconate) soap or wipes. Please be advised, [facility] has transitioned to a cashless payment system. What should I bring to the hospital? If you received a green plastic bracelet, bring it with you the day of surgery and your nurse will put it on you. Eyeglass or contact lens case If you will be spending the night, please bring personal care items and leave them in the car until you are taken to your room after surgery. Leave ALL valuables at home. If any of these instructions conflict with those you recieved from the surgeon, please seek clarification from your surgeon's office. DEEP BREATHING EXERCISES This exercise helps promote good air exchange and helps to prevent pneumonia after surgery. Breathe in slowly and deeply through the nose. Hold your breath for a few seconds and then exhale slowly through the mouth. Repeat this three times and then cough. Coughing helps to clear your lungs. If you have had a surgery with an incision into your abdomen or chest, press gently against your incision with a pillow or a folded blanket when you cough. Please be aware - it may not be klein to cough following some types of surgeries involving the eyes, ears, sinuses and throat. Always follow your doctor's instructions. LEG EXERCISES These exercises help promote good circulation and help to prevent blood clots after surgery. Point your toes to the ceiling and then point them to the wall. Do this slowly about 15-20 times. You may also move your feet in circles. Do the exercise that is most comfortable for you. If you have had surgery involving your shoulder or arm, we recommend you move your fingers. PRACTICING We ask that you begin practicing these exercises before your surgery. After surgery try to do both exercises at least every 2 hours during the day and early evening. SURGICAL SITE INFECTION AND PREVENTION What is a Surgical Site Infection? Infection can happen to the area of the body where surgery is done. This is called a surgical site infection (SSI). A SSI does not happen very often. Can SSIs be treated? Antibiotics are used to treat SSI. Some patients may need another surgery to treat the infection. The doctor will discuss treatment options with you. What are some of the things that hospitals are doing to prevent SSIs? Soap and water or alcohol hand rub are used before and after caring for each patient.Special soap is used to clean surgery workers hands and arms just before the surgery. Masks, gowns, gloves and hair covers are worn during the surgery to keep the area clean. Hair in the surgery area may be removed with clippers (not razors). A special soap that kills germs is used to clean the skin at the surgery site. Antibiotics may be given before the surgery starts. What can you do to prevent SSIs? Before surgery: You may be asked to shower or bathe with a special soap that kills germs the night before and the day of surgery. Use the soap as you were told. If you smoke, stop or cut down. Ask your doctor about ways to quit. Do not shave near where you will have surgery. Shaving can irritate the skin and make it easier to get and infection. After surgery: Be sure that the doctors and nurses clean their hands before and after touching you. Be sure your family and friends clean their hands before and after visiting you. Do not be afraid to remind them. * Care for your wound at home as told by your doctor or nurse * Call your doctor right away if you have fever, redness, increased pain, or drainage at the surgery site. Further questions? Contact the doctor, nurse or the Infection Prevention and Control department if you have any questions. PATIENT RIGHTS AND RESPONSIBILITIES As a patient at [facility], you have the right to: Receive medical care and be informed of who is taking care of you Be treated with dignity and respect Have a family member/sales representative supervisor of choice and your physician notified of your admission Receive information and actively participate in decisions about your care and treatment Refuse care, treatment and services Decide who may provide your support and speak for you Access christianity and spiritual services Participate in ethical issues and questions about your care Receive private and confidential care Have appropriate assessment and management of your pain Know guest visitation restrictions or limitations Have an advance directive Access protective services Consent or refuse to participate in research studies or production or recordings, films or other images Have resolution of your complaints Receive information of hospital charges and payment methods Patient/patient sales representative supervisor responsibilities are to: Provide information about health status to facilitate care, treatment and services Follow the treatment, plan, keep appointments and speak up when you do not understand the plan Respect the rights of other patients and healthcare personnel Follow organizational rules and regulations that support quality care and a safe environment Fulfill financial obligations as promptly as possible [facility] 12-04-2024 Miscellaneous Notes Your surgery/procedure is scheduled at [facility] on 12/06/24 at 10 am Arrival Time 8 am [facility] Address: [address] [place] [address], [facility], [address] Park in the Emergency Center Parking lot. Report to the front counter attendant in the Emergency/Surgery Registration lobby of the hospital. Notify your SURGEON if you develop any illness such as a cold, cough, fever, sore throat, vomiting or are hospitalized between now and your surgery. Please call Pre-Admission Clinic at [phone] if you have any questions prior to surgery. For questions the morning of surgery, call the Pre-op Department at [phone]. Medication Instructions (Do not stop your medications without consulting the prescribing physician). Take the following medications the morning of surgery with a sip of water: doxycline Diabetic or Weight loss medications: HOLD n/a LAST DOSE n/a Take inhalers as prescribed the morning of surgery. Due to the risk associated with these medications. If these medications are not held per instruction below, your surgery is at an increased risk for cancellation SGLT2 Medications- Hold 3 days prior to surgery: Jardiance, Empagliflozin, Farxiga, Dapagliflozin, Invokana, Canagliflozin, Trijardy, Synjardy GLP-1 Medications (Injection or Pill)- If taken daily hold day of surgery. If taken weekly, hold 1 week prior to surgery: Adlyxin, Byetta, Bydureon, Ozempic, Rybelsus,Trulicity, Victoza, Wegovy, Lixisenatide, Exenatide, Semaglutide, Dulaglutide, Liraglutide GIP/GLP-1(Injection or Pill)- If taken daily hold day of surgery. If taken weekly, hold 1 week prior to surgery: Mounjaro . Blood thinners: Please contact your prescribing physician regarding a stop/hold date for these medications. Medications such as Coumadin, Heparin, Aspirin, Plavix, Eliquis, Pradaxa Diabetics: If you take insulin, contact your prescribing doctor for instructions on how to manage this the night before and the morning of surgery. Non-steriodal Anti-Inflammatory Drugs (NSAIDS)- Hold 3 days prior to surgery unless otherwise directed by your surgeon. Vitamins/Herbal Products: You may continue to take your prescribed vitamins such as potassium, iron, vitamin B, vitamin C, or multivitamin unless specifically instructed by your surgeon to hold. STOP taking all herbal products/teas one week prior to your surgery. Marijuana: Stop marijuana 72 hours prior to surgery, stop CBD oil 48 hours prior to surgery. If you have been given bowel prep instructions by your surgeon, please call the surgeon's office with any questions about these instructions. What do I do the day of Surgery? Age 2 through adult - Stop all solids by midnight, You may have clear liquids up to 2 hours before surgery, unless otherwise instructed by your surgeon Clear liquids are: water, sports drinks such as Gatorade or G2, or apple juice. You may NOT have: tube feedings, dairy products, alcoholic beverages, orange juice, or any liquids with solids or pulp in it If applicable, shower again with CHG soap the morning of your surgery. If you received a green plastic bracelet, bring it with you the day of surgery and your nurse will put it on you. What do I need to do to prepare for surgery? If you will be going home the same day as your surgery, arrange for an adult over [address] Riding in a bus or taxi by yourself is not permitted. You should not smoke or drink alcohol 24 hours before your surgery. Smoking increases the risk of breathing problems after surgery. Alcohol thins the blood and may cause bleeding problems during surgery If you have been assigned PAM Education by your surgeon's office, please complete this education prior to your surgery. For questions regarding PAM education, reach out to your surgeons office. If you have been given a prescription for occupational, physical or speech therapy, please set up these appointments before your procedure. If you would like to schedule therapy at a [facility] facility, please call [phone] ([phone]). Do not use lotions, creams, powders, perfume, make up, cologne or after-shaves day of surgery. Remove ALL jewelry including wedding rings, body piercings, hair extensions that contain metal, nail south korean, make-up, and contact lens. You may brush your teeth the morning of surgery, but do not swallow the water. Wear your dentures and partial plates to the hospital (no adhesive). Shower the night the before. If applicable, use the CHG (chlorhexidine gluconate) soap or wipes. Please be advised, [facility] has transitioned to a cashless payment system. What should I bring to the hospital? If you received a green plastic bracelet, bring it with you the day of surgery and your nurse will put it on you. Eyeglass or contact lens case If you will be spending the night, please bring personal care items and leave them in the car until you are taken to your room after surgery. Leave ALL valuables at home. If any of these instructions conflict with those you recieved from the surgeon, please seek clarification from your surgeon's office. DEEP BREATHING EXERCISES This exercise helps promote good air exchange and helps to prevent pneumonia after surgery. Breathe in slowly and deeply through the nose. Hold your breath for a few seconds and then exhale slowly through the mouth. Repeat this three times and then cough. Coughing helps to clear your lungs. If you have had a surgery with an incision into your abdomen or chest, press gently against your incision with a pillow or a folded blanket when you cough. Please be aware - it may not be klein to cough following some types of surgeries involving the eyes, ears, sinuses and throat. Always follow your doctor's instructions. LEG EXERCISES These exercises help promote good circulation and help to prevent blood clots after surgery. Point your toes to the ceiling and then point them to the wall. Do this slowly about 15-20 times. You may also move your feet in circles. Do the exercise that is most comfortable for you. If you have had surgery involving your shoulder or arm, we recommend you move your fingers. PRACTICING We ask that you begin practicing these exercises before your surgery. After surgery try to do both exercises at least every 2 hours during the day and early evening. SURGICAL SITE INFECTION AND PREVENTION What is a Surgical Site Infection? Infection can happen to the area of the body where surgery is done. This is called a surgical site infection (SSI). A SSI does not happen very often. Can SSIs be treated? Antibiotics are used to treat SSI. Some patients may need another surgery to treat the infection. The doctor will discuss treatment options with you. What are some of the things that hospitals are doing to prevent SSIs? Soap and water or alcohol hand rub are used before and after caring for each patient.Special soap is used to clean surgery workers hands and arms just before the surgery. Masks, gowns, gloves and hair covers are worn during the surgery to keep the area clean. Hair in the surgery area may be removed with clippers (not razors). A special soap that kills germs is used to clean the skin at the surgery site. Antibiotics may be given before the surgery starts. What can you do to prevent SSIs? Before surgery: You may be asked to shower or bathe with a special soap that kills germs the night before and the day of surgery. Use the soap as you were told. If you smoke, stop or cut down. Ask your doctor about ways to quit. Do not shave near where you will have surgery. Shaving can irritate the skin and make it easier to get and infection. After surgery: Be sure that the doctors and nurses clean their hands before and after touching you. Be sure your family and friends clean their hands before and after visiting you. Do not be afraid to remind them. * Care for your wound at home as told by your doctor or nurse * Call your doctor right away if you have fever, redness, increased pain, or drainage at the surgery site. Further questions? Contact the doctor, nurse or the Infection Prevention and Control department if you have any questions. PATIENT RIGHTS AND RESPONSIBILITIES As a patient at [facility], you have the right to: Receive medical care and be informed of who is taking care of you Be treated with dignity and respect Have a family member/sales representative supervisor of choice and your physician notified of your admission Receive information and actively participate in decisions about your care and treatment Refuse care, treatment and services Decide who may provide your support and speak for you Access christianity and spiritual services Participate in ethical issues and questions about your care Receive private and confidential care Have appropriate assessment and management of your pain Know guest visitation restrictions or limitations Have an advance directive Access protective services Consent or refuse to participate in research studies or production or recordings, films or other images Have resolution of your complaints Receive information of hospital charges and payment methods Patient/patient sales representative supervisor responsibilities are to: Provide information about health status to facilitate care, treatment and services Follow the treatment, plan, keep appointments and speak up when you do not understand the plan Respect the rights of other patients and healthcare personnel Follow organizational rules and regulations that support quality care and a safe environment Fulfill financial obligations as promptly as possible documented in this encounter [facility] 11-27-2024 History of Presen t illness Narrative [facility]astic [facility] [address] Office Shawn Watters MD, PhD Ivan Hayden, EDGE CUTTING MACHINE OPERATOR-TECHNICAL SUPERVISOR MAURI Francis, EDGE CUTTING MACHINE OPERATOR-TECHNICAL SUPERVISOR Plastic Surgery Progress Note Reason for visit : post-op History of present illness: Yue Lewis is a 38 y.o. female with history of BRCA1+ gene mutation s/p bilateral mastectomy (Shaila) with DTI on 02/28/2024. This was followed by removal of bilateral breast implants, pocket conversion from partial submuscular to prepectoral position and placement of new tissue expanders on 08/30/2024. She subsequently developed a new sinus tract adjacent to her left nipple with serous drainage and, therefore, underwent punch biopsy on 10/30/2024. Surgical pathology revealed epidermal-lined sinus tract with surrounding fibrosis. The patient has recently experienced recurrence of drainage from previously biopsied sinus tract. The patient denies fever, chills, or redness. She just picked up antibiotic but has not started taking yet. Review of Systems: Denies surgical site concerns. All other symptoms negative except as noted in HPI. Physical Examination: Vitals: 11/27/24 1103 BP: 118/75 Pulse: 57 Resp: 16 Temp: 36.8 C (98.3 F) Body mass index is 23.22 kg/m . GENERAL: no acute distress, well developed, well nourished. LYMPHATIC: no upper extremity lymphedema NEUROLOGIC: alert and oriented to time, place and person. PSYCH: judgement and insight good, mood/affect full range. Focused examination : Both breasts are symmetric with regard to size, shape and contour, tissue expanders remain in place in her seated appropriately along their respective inframammary folds, bilateral inframammary incisions are well healed and no open wounds or signs of infection, no palpable fluid collections, bilateral nipples are viable and insensate, pinpoint opening is present at 4 o'clock position immediately adjacent to left areola without active drainage at this time, underlying tissue shed workers supervisor does not appear to be exposed. Impression: 1. Postoperative visit 2. Breast wound, left, sequela 3. S/P breast reconstruction, bilateral 4. S/P bilateral mastectomy 5. BRCA1 gene mutation positive Recommendations: Discussed treatment options, including: Excise area in question, deflate TE, layered closure leaving TE deflated. Excise area in question, exchange shed workers supervisor (leaving deflated at the time of surgery), layered closure over drain. Start to expand 2-3 weeks postop. Excise area in question, exchange shed workers supervisor (leaving deflated at the time of surgery), and perform TDAP flap with drain placement. Each option was reviewed in detailed. Patient opts to proceed with shed workers supervisor exchange with TDAP flap. Anticipate 60-90 min procedure, general anesthesia, OnQ pain pump vs overnight stay for pain control. Goal for implant exchange January/February of this coming year. DAVINA PARSONS, NERIS-TECHNICAL SUPERVISOR I, SHAWN WATTERS MD, PHD personally performed the face to face evaluation on this patient. I discussed with the patient and confirmed the accuracy and completeness of the aforementioned history, and I personally performed the clinical examination of the patient. I have established and discussed the course of treatment with the patient. My medical decision making and treatment plan are as follows: Plan as stated above. Shawn Watters MD, PhD [facility] Total time spent was 25 minutes: Preparing to see the patient (e.g., review of tests) Obtaining and/or reviewing separately obtained history Performing a medically appropriate examination and/or evaluation Counseling and educating the patient/family/caregiver Ordering medications, tests, or procedures Referring and communicating with other health director of managed care (not separately reported) Documenting clinical information in the electronic or other health record Independently interpreting results (not separately reported) and communicating results to the patient/family/caregiver Care coordination (not separately reported) Please note that portions of this note were generated using voice recognition [employer] dictation software. Although every effort was made to ensure the accuracy of this automated senior mortgage underwriter, some errors in senior mortgage underwriter may have occurred. documented in this encounter [facility] 11-24-2024 History of Presen t illness Narrative Rx for doxycycline sent to pharmacy. MAURI RICKS PA-C 11/24/24 1402 documented in this encounter [facility] 10-31-2024 Miscellaneous Notes Attempted to call patient to schedule post op check with Davina next week. If patient calls back please schedule on 11/06 documented in this encounter [facility] 10-31-2024 Telephone encounter Note Attempted to call patient to schedule post op check with Davina next week. If patient calls back please schedule on 11/06 [facility] 10-25-2024 History of Presen t illness Narrative [facility] [address] Office Shawn Watters MD, PhD Ivan Hayden, EDGE CUTTING MACHINE OPERATOR-TECHNICAL SUPERVISOR MAURI Francis, EDGE CUTTING MACHINE OPERATOR-TECHNICAL SUPERVISOR Plastic Surgery Progress Note Reason for visit : Small draining sinus tract of left nipple status post tissue shed workers supervisor reconstruction History of present illness: Yue Lewis 38 y.o. is here today for a follow up after undergoing removal of her bilateral breast implants from previous DTI reconstruction, pocket conversion from partial submuscular to prepectoral position and placement of new tissue expanders approximately 7 weeks ago due to complaints of implant rippling and animation deformity. Recently she has developed a new sinus tract adjacent to her left nipple that will occasionally express some clear yellow drainage. She denies recent trauma to the region. She denies recent fever/ chills, redness and purulent drainage. She denies an increase in breast size. She is happy with her current breast size following expansions and does not wish to go any further expansions at this time. The patient was evaluated in clinic last week by my nurse practitioner who obtained a superficial wound culture, which demonstrated no growth. The patient was also started on oral doxycycline empirically out of concern for the presence of the underlying tissue shed workers supervisor. No other interval changes in medical history. The patient returns to clinic today for a repeat wound check and to discuss management options. She is taking Naproxen for pain, which is minimal at this time. Review of Systems Negative for fevers, chills. All other symptoms negative except as noted in HPI. Physical Examination: Vitals: 10/25/24 1552 BP: 118/71 Pulse: 59 Resp: 14 Body mass index is 21.97 kg/m . GENERAL: no acute distress, well developed, well nourished. LYMPHATIC: no upper extremity lymphedema; extremities warm, well perfused. NEUROLOGIC: alert and oriented to time, place and person. PSYCH: judgement and insight good, mood/affect full range. Focused examination : Both breasts are symmetric with regard to size, shape and contour, tissue expanders remain in place in her seated appropriately along their respective inframammary folds, bilateral inframammary incisions are well healed and no open wounds or signs of infection, no palpable fluid collections, bilateral nipples are viable and insensate, pinpoint opening is present at 4 o'clock position immediately adjacent to left areola without active drainage at this time, underlying tissue shed workers supervisor does not appear to be exposed Female keno manager present - yes Impression: 1. Breast wound, left, sequela 2. S/P breast reconstruction, bilateral Recommendations: I explained to the patient that the pinpoint opening adjacent to the her left nipple is likely a small sinus tract that connects with the underlying breast pocket, which would account for the intermittent clear yellow drainage. There are no signs of infection on today's examination, but the patient should remain on oral antibiotics at this time in an effort to prevent infection of the underlying tissue shed workers supervisor. My clinical suspicion is that this sinus tract is a sequelae of her most recent reconstructive procedure whereby her implants were removed from the partial submuscular position and new tissue expanders were placed in the prepectoral position. During pocket conversion, her pectoralis major muscle was densely adherent to the overlying breast skin envelope, especially in the region of her nipples where the mastectomy skin flaps are generally thinner. It is possible that thermal injury from the Bovie electrocautery has resulted in this sinus tract or fistulous connection. The underlying tissue shed workers supervisor is not exposed at this time and I have low clinical suspicion that it is infected. This pinpoint opening is very tiny and it remains possible that it is acting as a one-way valve preventing bacterial contamination of the underlying tissue shed workers supervisor from the surrounding skin luca. Therefore, I would like to add the patient onto the OR schedule for either Wednesday of this week or Wednesday of next week for a small procedure whereby I perform a punch biopsy of this sinus tract followed by layered closure. This procedure can be performed on an outpatient basis under local anesthesia. Prior authorization will be submitted to the patient's insurance company. Discussed risks, benefits and alternatives. Patient wishes to proceed. Consent on day of surgery. Of note, the patient has enough skin laxity were I do not feel the tissue shed workers supervisor needs to be deflated at this time. I also do not feel that the tissue shed workers supervisor needs to be removed or exchanged at this time. In the interim, the patient should continue oral antibiotics and diligent local wound care. She was also instructed to notify me immediately if signs of infection were to develop before OR. Please note that portions of this note were generated using voice recognition [employer] dictation software. Although every effort was made to ensure the accuracy of this automated senior mortgage underwriter, some errors in senior mortgage underwriter may have occurred. Geneva Hillman CMA I, SHAWN WATTERS MD, PHD personally performed the face to face evaluation on this patient on October 25, 2024. The patient was seen with Geneva Hillman CMA. I discussed with the patient and confirmed the accuracy and completeness of the aforementioned history, and I personally performed the clinical examination of the patient. I have established and discussed the course of treatment with the patient. My medical decision making and treatment plan are as follows: Treatment plan as stated above. Shawn Watters MD, PhD [facility] Total time spent was 15 minutes: Preparing to see the patient (e.g., review of tests) Obtaining and/or reviewing separately obtained history Performing a medically appropriate examination and/or evaluation Counseling and educating the patient/family/caregiver Ordering medications, tests, or procedures Documenting clinical information in the electronic or other health record Independently interpreting results (not separately reported) and communicating results to the patient/family/caregiver documented in this encounter [facility] 10-24-2024 Miscellaneous Notes LEFT VOICEMAIL APPT scheduled for tomorrow with Dr. Watters at 3:30pm. Pt was asked to call back if that did not work for her. documented in this encounter [facility] 10-24-2024 Telephone encounter Note LEFT VOICEMAIL APPT scheduled for tomorrow with Dr. Watters at 3:30pm. Pt was asked to call back if that did not work for her. [facility] 10-18-2024 History of Presen t illness Narrative [facility] [address] Office Shawn Watters MD, PhD Ivan Hayden, EDGE CUTTING MACHINE OPERATOR-TECHNICAL SUPERVISOR Yasemin Garcia, MAURI Parsons, EDGE CUTTING MACHINE OPERATOR-TECHNICAL SUPERVISOR Plastic Surgery Progress Note Reason for visit : new left breast concern History of present illness: Yue Lewis is a 38 y.o. female who presents with c/o left breast concern. Patient reports that over the weekend she started experiencing left breast pain along inferior areolar margin, which she initially attributed to increasing activity. Two days ago she noted that her nipple appeared more sunken in with small pin prick opening. She noted spontaneous purulent discharge after getting out of the shower. She then expressed thick dark yellow discharge. Following this, she has had small amounts of spontaneous clear yellow discharge. She reports a constant burning sensation along with throbbing pain. She is having difficulty sleeping at night. No relief with Naproxen. She denies any fevers or chills or other systemic symptoms. She also notes a pinpoint lesion to upper breast that she attempted to squeeze. No known etiology. No associated pain, itching or drainage. Patient with history of removal of bilateral breast implants, transfer pectoralis muscle with chest wall, in placement of tissue expanders on 08/30/2024. Review of Systems: Denies surgical site concerns. All other symptoms negative except as noted in HPI. Physical Examination: Vitals: 10/18/24 1405 BP: 125/77 Pulse: 68 Temp: 36.8 C (98.3 F) There is no height or weight on file to calculate BMI. GENERAL: no acute distress, well developed, well nourished. LYMPHATIC: no upper extremity lymphedema NEUROLOGIC: alert and oriented to time, place and person. PSYCH: judgement and insight good, mood/affect full range. Focused examination : bilateral breast incisions are clean, dry, and intact. No erythema or necrosis present. No ballotable fluid collections palpated. Nipple areolar complexes are well perfused. Left areolar margin 4 o'clock with pinpoint depression. No induration or fluctuance. No surrounding erythema or warmth. Scant amt of serous drainage expressed with applying light pressure surrounding area, culture obtained. Also noted is scabbed papular lesion 1 o'clock outer 1/3 centered in small erythematous wheal (patient reports this is from her picking at it). Impression: 1. Breast pain, left 2. Wound of left breast, initial encounter 3. S/P breast reconstruction, bilateral Recommendations: Etiology unknown. Tissue shed workers supervisor placement is prepectoral. Fluid sent for culture. Rx Doxycyline - she can hold off on starting and continue to monitor symptoms, but given her commute and schedule restraints would like this to be available to her if symptoms worsen (reviewed). Will plan on f/u in clinic next week. She was provided a short course of Valium for PRN use at night for sleep/pain control. She can continue NSAIDs as needed, use as directed. Avoid picking/squeezing/attempting to drain. She will contact office later this week for update. Patient voices understanding of instructions and is agreeable with plan. All questions answered. Case reviewed with Dr. Watters. Please note that portions of this note were generated using voice recognition [employer] dictation software. Although every effort was made to ensure the accuracy of this automated senior mortgage underwriter, some errors in senior mortgage underwriter may have occurred. LEDY Samson 10/18/24 1625 documented in this encounter [facility] 10-12-2024 History of Presen t illness Narrative [facility] [address] Office Shawn Watters MD, PhD Ivan Hayden APRN-MAURI Charles APRN-RADHA Plastic Surgery Progress Note Reason for visit : Routine post operative appointment. History of present illness: Yue Lewis is a 38 y.o. female who presents for postoperative visit. Patient underwent removal of bilateral breast implants, transfer pectoralis muscle with chest wall, in placement of tissue expanders on 08/30/2024. She presents for tissue shed workers supervisor fill and to discuss next steps. She reports she is doing well. Review of Systems: Denies surgical site concerns. All other symptoms negative except as noted in HPI. Physical Examination: Vitals: 10/12/24 1357 BP: 125/77 Pulse: 80 Resp: 13 Body mass index is 21.49 kg/m . GENERAL: no acute distress, well developed, well nourished. LYMPHATIC: no upper extremity lymphedema NEUROLOGIC: alert and oriented to time, place and person. PSYCH: judgement and insight good, mood/affect full range. Focused examination : bilateral breast incisions are clean, dry, and intact. No erythema or necrosis present. No ballotable fluid collections palpated. No signs of infection. Nipple areolar complexes are well perfused. Procedure note : Tissue shed workers supervisor fill port, was identified using magnet. This area was cleansed with alcohol, and Betadine. Then using a 25 gauge needle, approximately 125ml normal saline was injected into bilateral tissue shed workers supervisor(s). Patient tolerated well. Adequate hemostasis was achieved, and a sterile bandage was applied. TOTAL FILL VOLUME: 375ML Impression: 1. Postoperative visit 2. S/P breast reconstruction, bilateral 3. S/P bilateral mastectomy 4. BRCA1 gene mutation positive 5. Acquired absence of breast, bilateral Recommendations: Plan for bilateral TE removal with placement of bilateral breast silicone implants in 1-2 months. Procedure will be performed under general anesthesia on an outpatient basis. No drains. Discussed risks, benefits and alternatives. Discussed postop recovery. Patient expressed reasonable understanding and wishes to proceed. Prior authorization submitted to patient's insurance company. RTC for preop H&P. LEDY SAMSON KRISTOFFER B SUGG, MD, PHD personally performed the face to face evaluation on this patient on October 12, 2024. The patient was seen with LEDY Green. I discussed with the patient and confirmed the accuracy and completeness of the aforementioned history, and I personally performed the clinical examination of the patient. I have established and discussed the course of treatment with the patient. My medical decision making and treatment plan are as follows: Recs above. Shawn Watters MD, PhD [facility] Total time spent was 25 minutes: Preparing to see the patient (e.g., review of tests) Obtaining and/or reviewing separately obtained history Performing a medically appropriate examination and/or evaluation Counseling and educating the patient/family/caregiver Ordering medications, tests, or procedures Documenting clinical information in the electronic or other health record Care coordination (not separately reported) Please note that portions of this note were generated using voice recognition [employer] dictation software. Although every effort was made to ensure the accuracy of this automated senior mortgage underwriter, some errors in senior mortgage underwriter may have occurred. documented in this encounter [facility] 09-25-2024 History of Presen t illness Narrative [facility] [address] Office Shawn Watters MD, PhD LEDY Bentley PA-C Plastic Surgery Progress Note Reason for visit : Routine post operative appointment. History of present illness: Yue Lewis is a 38 y.o. female who presents for postoperative visit. Patient underwent removal of bilateral breast implants, transfer pectoralis muscle with chest wall, in placement of tissue expanders on 08/30/2024. She presents for tissue shed workers supervisor fill. She reports she is doing well. She does continue to have post operative pain but is has been slowly improving. She reports some days she does not have any pain. She tolerated her fill last week. She does notice some tightness in her breast since the fill. The patient is doing well postoperatively. The patient denies fever, chills, redness or drainage from surgical wound(s). Review of Systems: Denies surgical site concerns. All other symptoms negative except as noted in HPI. Physical Examination: Vitals: 09/25/24 1511 BP: 107/67 Pulse: 72 Body mass index is 21.49 kg/m . GENERAL: no acute distress, well developed, well nourished. LYMPHATIC: no upper extremity lymphedema NEUROLOGIC: alert and oriented to time, place and person. PSYCH: judgement and insight good, mood/affect full range. Focused examination : bilateral breast incisions are clean, dry, and intact. No erythema or necrosis present. No ballotable fluid collections palpated. No signs of infection. Nipple areolar complexes are well perfused. Procedure note : Tissue shed workers supervisor fill port, was identified using magnet. This area was cleansed with alcohol, and Betadine. Then using a 25 gauge needle, approximately 125ml normal saline was injected into bilateral tissue shed workers supervisor(s). Patient tolerated well. Adequate hemostasis was achieved, and a sterile bandage was applied. TOTAL FILL VOLUME: 225ML Impression: 1. Encounter for postoperative care 2. S/P breast reconstruction, bilateral 3. S/P bilateral mastectomy Recommendations: Tissue shed workers supervisor filled performed in office today. Patient tolerated well. It is okay to continue with [id number] acetaminophen and ibuprofen. Discussed it is okay to continue to shower. Continue supportive bra. She does not need to sleep in a bra at this time. We will see her back next week for another tissue shed workers supervisor filled. We will continue to fill her until she is at a size she is happy with. Continue to refrain from heavy lifting, pushing or pulling. Patient encouraged to contact the office with any questions, changes or concerns. Patient voices understanding and agreement with plan as discussed. All questions answered. - LEDY Salas 09/25/24 4:21 PM Please note that portions of this note were generated using voice recognition [employer] dictation software. Although every effort was made to ensure the accuracy of this automated senior mortgage underwriter, some errors in senior mortgage underwriter may have occurred. LEDY Bentley 09/25/24 1621 documented in this encounter [facility] 09-18-2024 History of Presen t illness Narrative [facility] [address] Office Shawn Watters MD, PhD Ivan Hayden, EDGE CUTTING MACHINE OPERATOR-RADHA Garcia PA-C Plastic Surgery Progress Note Reason for visit : Routine post operative appointment. History of present illness: Yue Lewis is a 38 y.o. female who presents for postoperative visit. Patient underwent removal of bilateral breast implants, transfer pectoralis muscle with chest wall, in placement of tissue expanders on 08/30/2024. She presents for tissue shed workers supervisor fill. She reports she is doing well. She does continue to have post operative pain but is has been slowly improving. She does notice a fluid collection of her left breast. The patient is doing well postoperatively. The patient denies fever, chills, redness or drainage from surgical wound(s). Review of Systems: Denies surgical site concerns. All other symptoms negative except as noted in HPI. Physical Examination: Vitals: 09/18/24 1609 BP: 119/73 Pulse: 75 Resp: 16 There is no height or weight on file to calculate BMI. GENERAL: no acute distress, well developed, well nourished. LYMPHATIC: no upper extremity lymphedema NEUROLOGIC: alert and oriented to time, place and person. PSYCH: judgement and insight good, mood/affect full range. Focused examination : bilateral breast incisions are clean, dry, and intact. No erythema or necrosis present. Bilateral breast with ballotable fluid collections. No signs of infection. Nipple areolar complexes are well perfused. Procedure note : After verbal consent was obtained, the bilateral tissue shed workers supervisor aspirate port, was identified using a magnet. This area was cleansed with alcohol, and Betadine. Then using a 25 gauge needle, approximately 50ml clear yellow appearing fluid was aspirated from the left tissue shed workers supervisor. Unable to aspirate fluid from right breast. Patient tolerated well. Adequate hemostasis was achieved, and a sterile bandage was applied. Procedure note : Tissue shed workers supervisor fill port, was identified using magnet. This area was cleansed with alcohol, and Betadine. Then using a 25 gauge needle, approximately 100ml normal saline was injected into bilateral tissue shed workers supervisor(s). Patient tolerated well. Adequate hemostasis was achieved, and a sterile bandage was applied. TOTAL FILL VOLUME: 100ML Impression: 1. Encounter for postoperative care 2. Post-operative pain 3. S/P breast reconstruction, bilateral Recommendations: Tissue shed workers supervisor filled performed in office today. Patient tolerated well. Discussed with patient that is not uncommon to have some discomfort after tissue shed workers supervisor fills. It is okay to continue with [id number] acetaminophen and ibuprofen. Fluid was aspirated from left breast tissue shed workers supervisor. Discussed with patient that the fluid appeared benign. No indication to send fluid for culture. Discussed it is okay to continue to shower. Continue supportive bra. We will see her back next week for another tissue shed workers supervisor filled. We will continue to fill her until she is at a size she is happy with. Refill of pain medication was sent to pharmacy. Discussed with patient that I have confirmed that referrals have been received for pain management. They are reviewing referrals and will contact patient. The [place]ARRS/MAPPS database was reviewed today and found to be appropriate. No indication of medication diversion, or non compliance. - LEDY Salas 09/18/24 5:06 PM Please note that portions of this note were generated using voice recognition [employer] dictation software. Although every effort was made to ensure the accuracy of this automated senior mortgage underwriter, some errors in senior mortgage underwriter may have occurred. LEDY Bentley 09/18/24 1707 documented in this encounter [facility] 09-12-2024 Miscellaneous Notes Attempted to call pt with Dr. Watters's recommendation. LM to return my call. Also confirmed pain management has received referrals. documented in this encounter [facility] 09-12-2024 Telephone encounter Note Attempted to call pt with Dr. Watters's recommendation. LM to return my call. Also confirmed pain management has received referrals. [facility] 09-11-2024 History of Presen t illness Narrative [facility] [address] Office Shawn Watters MD, PhD Ivan Hayden, EDGE CUTTING MACHINE OPERATOR-TECHNICAL SUPERVISOR Yasemin Garcia PA-C Plastic Surgery Progress Note Reason for visit : Routine post operative appointment. History of present illness: Yue Lewis 38 y.o. is here today for a follow up after removal of bilateral breast implants, transfer pectoralis muscle with chest wall, in placement of tissue expanders on 08/30/2024. She presents to the office today for drain removal. Drain outputs have been 10 mls a day for 3 consecutive days. She reports that her post operative pain is improving. She has yet to hear back from pain management. Review of Systems: Negative for fevers, chills. Denies surgical site concerns. All other symptoms negative except as noted in HPI. Physical Examination: Vitals: 09/11/24 1601 BP: 108/73 Pulse: 70 Resp: 12 There is no height or weight on file to calculate BMI. General exam: Alert and oriented x 3, comfortable, non-toxic. S1, S2. Nonlabored breathing. Abdomen soft/non-tender/non-distended. Extremities warm, well perfused. Negative Miriam's sign. Focused examination : bilateral breast incisions clean, dry, and intact. No erythema or necrosis noted. No fluid collections palpated. Nipple areolar complexes are well perfused. CEDRICK drains in place, draining serosanguinous fluid. CEDRICK drain sites free from signs of infection. Impression: 1. Encounter for postoperative care 2. Post-operative pain 3. S/P breast reconstruction, bilateral 4. S/P bilateral mastectomy Recommendations: CEDRICK drains removed in office today. Patient tolerated well. Tubing was intact. Discussed with patient keeping site covered for 2 days, then okay to leave open to air. Continue to refrain from any heavy lifting pushing or pulling. Discussed that she can shower and sleep how she feels comfortable at this time. Discussed that I will follow up with referrals to pain management. I will also discuss with Dr. Watters her issues sleeping. Follow up in 1 week for tissue shed workers supervisor fill. she was advised to call the office any questions or concerns in the interim. Voiced understanding and agreement with plan as discussed. - LEDY Salas 09/11/24 4:52 PM Please note that portions of this note were generated using voice recognition [employer] dictation software. Although every effort was made to ensure the accuracy of this automated senior mortgage underwriter, some errors in senior mortgage underwriter may have occurred. LEDY Bentley 09/11/24 1653 documented in this encounter [facility] 09-04-2024 History of Presen t illness Narrative [facility] [address] Office Shawn Watters MD, PhD LEDY Bentley PA-C Plastic Surgery Progress Note Reason for visit : post operative follow up. History of present illness: Yue Lewis 38 y.o. is here today for a follow up after removal of bilateral breast implants, transfer pectoralis muscle with chest wall, in placement of tissue expanders on 08/30/2024. She presents to the office today for follow-up. She has had ongoing postoperative pain. She reports that she has stopped taking oxycodone as of yesterday, previously she was taking 10 mg. She has taken Robaxin today. She has been unable to the script for ibuprofen or gabapentin. She reports that her pain is still present. She describes it as a burning sensation and also feeling like getting punched in the chest . On Q pain pump has finished infusion. CEDRICK drains do remain in place, outputs are proximally 60 mL a day. Review of systems: Negative for fever or chills. Physical Examination: Vitals: 09/04/24 1507 BP: 129/81 Pulse: 111 Resp: 16 There is no height or weight on file to calculate BMI. General exam: Alert and oriented x 3, comfortable, non-toxic. S1, S2. Nonlabored breathing. Abdomen soft/non-tender/non-distended. Extremities warm, well perfused. Negative Miriam's sign. Focused examination : Bilateral breast incisions are clean, dry and intact. No erythema or necrosis is present. No fluid collections palpated. Nipple-areolar complexes are well perfused bilaterally. On Q pain pump tubing present. Bilateral CEDRICK drains in place, draining serosanguineous fluid. Impression: 1. Post-operative pain Recommendations: Discussed with patient that we are trying multiple modalities to get her postoperative pain under control. We discussed that it would be okay to continue with the oxycodone at this time but it is okay to take 5 mg instead of 10 mg. We discussed that she can take the Robaxin few hours after oxycodone. We advised patient also to mushroom picker script for ibuprofen. Patient previously did not tolerate gabapentin as she reports a put her in bed head space. Discussed with patient that we would send over Cymbalta to see if this helps with her pain. We also discussed a referral to pain management to help assist in her postoperative pain. She does appear to be in slight discomfort today. We discussed that drain outputs remain elevated. We will maintain drains at this time. Outputs need to be less than 30 mL a day for 3 consecutive days prior to removal. On Q pain pump removed in office today. Patient tolerated well. Tubing was intact. Please note that portions of this note were generated using voice recognition [employer] dictation software. Although every effort was made to ensure the accuracy of this automated senior mortgage underwriter, some errors in senior mortgage underwriter may have occurred. Ivan Hayden APRN-TECHNICAL SUPERVISOR I, SHAWN WATTERS MD, PHD personally performed the face to face evaluation on this patient. I discussed with the patient and confirmed the accuracy and completeness of the aforementioned history, and I personally performed the clinical examination of the patient. I have established and discussed the course of treatment with the patient. Shawn Watters MD, PhD [facility] Total time spent was 25 minutes: Preparing to see the patient (e.g., review of tests) Obtaining and/or reviewing separately obtained history Performing a medically appropriate examination and/or evaluation Counseling and educating the patient/family/caregiver Ordering medications, tests, or procedures Referring and communicating with other health director of managed care (not separately reported) Documenting clinical information in the electronic or other health record Independently interpreting results (not separately reported) and communicating results to the patient/family/caregiver Care coordination (not separately reported) documented in this encounter [facility] 08-31-2024 Miscellaneous Notes I spoke to the patient by telephone on August 31, 2024. Yesterday, she underwent removal of her bilateral breast implants, pocket conversion from partial submuscular to prepectoral position, and placement of new tissue expanders. She tolerated the procedure well and was discharged home after surgery. To assist with postoperative pain control, On-Q pain catheters were placed in each breast at the time of surgery. Postoperative pain control was very challenging in this patient after her mastectomy surgery. Overall, the patient reports she is doing well, but she does complain of burning pain in both breasts. She is taking 5 mg of oxycodone every 4 hours, but reports this wears off very quickly and is not adequately controlling her pain. She is also taking Tylenol around the clock. She denies recent fever/chills, open wounds, new redness or active drainage. Output from her breast drains has been appropriate. She reports her chest wall is otherwise flat with no asymmetric bruising or swelling. In order to achieve better pain control, I recommended the patient increase her oxycodone from 5 to 10 mg. I will also start her on Motrin (600 mg TID) as well as Robaxin. She was encouraged to apply ice as needed along the superior poles of her breasts, but I recommended not applying ice in the region of her nipples. I recommended she try these modalities first, but if she still continues to experience issues with pain control, then I would like her to reach out to my office so that we can make some additional changes. Otherwise, she is scheduled to be seen in clinic early next week. She was allowed to ask questions, which were answered to her satisfaction. She expressed reasonable understanding and was agreeable with this plan. documented in this encounter [facility] 08-31-2024 Telephone encounter Note I spoke to the patient by telephone on August 31, 2024. Yesterday, she underwent removal of her bilateral breast implants, pocket conversion from partial submuscular to prepectoral position, and placement of new tissue expanders. She tolerated the procedure well and was discharged home after surgery. To assist with postoperative pain control, On-Q pain catheters were placed in each breast at the time of surgery. Postoperative pain control was very challenging in this patient after her mastectomy surgery. Overall, the patient reports she is doing well, but she does complain of burning pain in both breasts. She is taking 5 mg of oxycodone every 4 hours, but reports this wears off very quickly and is not adequately controlling her pain. She is also taking Tylenol around the clock. She denies recent fever/chills, open wounds, new redness or active drainage. Output from her breast drains has been appropriate. She reports her chest wall is otherwise flat with no asymmetric bruising or swelling. In order to achieve better pain control, I recommended the patient increase her oxycodone from 5 to 10 mg. I will also start her on Motrin (600 mg TID) as well as Robaxin. She was encouraged to apply ice as needed along the superior poles of her breasts, but I recommended not applying ice in the region of her nipples. I recommended she try these modalities first, but if she still continues to experience issues with pain control, then I would like her to reach out to my office so that we can make some additional changes. Otherwise, she is scheduled to be seen in clinic early next week. She was allowed to ask questions, which were answered to her satisfaction. She expressed reasonable understanding and was agreeable with this plan. T Active DSP [facility] Work Phone: 07-27-2024 History of Presen t illness Narrative [facility] [address] Office Shawn Watters MD, PhD Ivan Hayden, EDGE CUTTING MACHINE OPERATOR-TECHNICAL SUPERVISOR [facility] Surgery Progress Note Reason for visit : post operative follow up. History of present illness: Yue Lewis 38 y.o. is here today for a follow up after bilateral nipple sparing mastectomy (Dr. Kaba) with immediate bilateral breast reconstruction with placement of cohesive silicone implants (Sientra, HP 700cc) on 02/28/24. She presents to the office today to re-evaluate her breast pain. She reports that she is still having bilateral breast pain. It is unchanged from the last time she was evaluated in our office. She states sometimes its a zapping pain and other times a pressure. She has it in both breast. It mainly occurs on the sides of her breast. It mainly occurs with movement. Review of systems: Negative for fever or chills. Ongoing post operative pain. All other systems negative unless noted in HPI. Physical Examination: Vitals: 07/27/24 1457 BP: 102/63 Pulse: 68 Temp: 36.5 C (97.7 F) Body mass index is 22.11 kg/m . General exam: Alert and oriented x 3, comfortable, non-toxic. S1, S2. Nonlabored breathing. Abdomen soft/non-tender/non-distended. Extremities warm, well perfused. Negative Miriam's sign. Focused examination : bilateral breast incisions are well healed. Visible and palpable rippling of her bilateral breast. No masses present. Implants are soft bilaterally. Nipple areolar complex is well perfused bilaterally. Impression: 1. S/P breast reconstruction, bilateral 2. S/P bilateral mastectomy 3. Post-operative pain 4. BRCA1 gene mutation positive Recommendations: discussed with patient that given she is experiencing most of the pain with pushing or pulling it is likely related to scar tissue. We discussed that it may also be related to the implants being placed below the muscle. For the rippling we discussed transition to structured saline implants vs having a silicone implant with more of a narrow base and a higher profile. If she would like to proceed with silicone implants we would also remove some of the excess skin. For the ongoing discomfort we discussed removing her current implants and proceeding with autologous breast reconstruction (POONAM vs lumbar flap). This would like improve her symptoms, but her breast will be smaller. We could also remove her current implants, transfer her pectoralis muscle back to her chest wall, and place tissue expanders. We would then need to expand her and once she is at a size she is happy with we would remove the tissue expanders and place new implants. She would have the tissue expanders for approximately 4-5 months. She is going to think about her options. She will contact our office once she has made a decision. She was advised to call the office with any questions or concerns in the interim. - LEDY Salas 07/27/24 3:51 PM ISHAWN MD, PHD personally performed the face to face evaluation on this patient. I discussed with the patient and confirmed the accuracy and completeness of the aforementioned history, and I personally performed the clinical examination of the patient. I have established and discussed the course of treatment with the patient. Shawn Watters MD, PhD [facility] Total time spent was 35 minutes: Preparing to see the patient (e.g., review of tests) Obtaining and/or reviewing separately obtained history Performing a medically appropriate examination and/or evaluation Counseling and educating the patient/family/caregiver Ordering medications, tests, or procedures Referring and communicating with other health director of managed care (not separately reported) Documenting clinical information in the electronic or other health record Independently interpreting results (not separately reported) and communicating results to the patient/family/caregiver Care coordination (not separately reported) Please note that portions of this note were generated using voice recognition [employer] dictation software. Although every effort was made to ensure the accuracy of this automated senior mortgage underwriter, some errors in senior mortgage underwriter may have occurred. documented in this encounter [facility] 03-08-2024 History of Presen t illness Narrative [facility] [address] Office Shawn Watters MD, PhD Ivan Hayden APRN-RADHA Garcia PA-C Plastic Surgery Progress Note Reason for visit : No chief complaint on file. History of present illness: Yue Lewis 38 y.o. is here today for a follow up after bilateral nipple sparing mastectomy (Dr. Kaba) with immediate bilateral breast reconstruction with placement of cohesive silicone implants (Sientra, HP 700cc) on 02/28/24. She presents office today for routine 1 week postoperative follow-up. She states she continues to have postoperative pain. She has tried oral pain medication with minimal relief. She has had no relief with muscle relaxers. She is using ice packs. Reports discomfort at drain sites. Drain outputs have been less than 30 mL a day for 4-5 consecutive days. Review of systems: Negative for fever or chills. Positive for postoperative pain. All other systems negative unless noted in HPI. Physical Examination: Vitals: 03/08/24 1417 BP: 121/77 Pulse: 101 Resp: 16 There is no height or weight on file to calculate BMI. General exam: Alert and oriented x 3, comfortable, non-toxic. S1, S2. Nonlabored breathing. Abdomen soft/non-tender/non-distended. Extremities warm, well perfused. Negative Miriam's sign. Focused examination : Bilateral breast incisions clean, dry and intact. No erythema or necrosis is present. No ballotable fluid collections are palpated. No signs of infection. Nipple-areolar complexes are viable bilaterally. CEDRICK drains in place, draining serosanguineous fluid. CEDRICK drain sites appear benign. Impression: 1. Encounter for postoperative care 2. Acquired absence of breast, bilateral 3. Post-operative pain 4. S/P bilateral mastectomy Recommendations: Discussed with patient that she is doing well postop. Discussed that pain may be related to her CEDRICK drains. Discussed with removal of drains her pain should improve. A another script of pain medication was sent to her pharmacy. Discussed alternating pain medication with Tylenol and ibuprofen. Okay for cool compresses to her bilateral breasts. Discussed keeping these in place for 10 minutes and then removing for 10 minutes. Okay to gently massaged chest. Continue with supportive bra. Continue to refrain from any heavy lifting pushing or pulling. She was advised to call the office later this week if her pain does not improve. Follow-up in 2 weeks for clinical check. She was advised to call the office any questions or concerns in the interim. - Ivan Hayden APRN-RADHA 03/08/24 2:49 PM The OARRS/MAPPS database was reviewed today and found to be appropriate. No indication of medication diversion, or non compliance. Please note that portions of this note were generated using voice recognition [employer] dictation software. Although every effort was made to ensure the accuracy of this automated senior mortgage underwriter, some errors in senior mortgage underwriter may have occurred. LEDY Bentley 03/08/24 1450 documented in this encounter [facility] 03-03-2024 History of Presen t illness Narrative Post operative valium sent to pharmacy. The OARRS/MAPPS database was reviewed today and found to be appropriate. No indication of medication diversion, or non compliance. LEDY Bentley 03/03/24 0843 documented in this encounter [facility] 02-14-2024 History of Presen t illness Narrative [facility] [address] Office Shawn Watters MD, PhD LEDY Bentley PA-C Plastic Surgery Preoperative Appointment Note Reason for visit : 1. Pre-op evaluation 2. Acquired absence of breast, bilateral 3. BRCA1 gene mutation positive History of present illness: Yue Lewis 38 y.o. female is here today for a preoperative appointment. She has a history of bilateral breast augmentation and BRCA 1 gene mutation . We have plans for exchange of bilateral breast implants with placement of bio synthetic mesh at the time of her mastectomy with Dr. Kaba. Patient does not have a history of radiation to her bilateral breast. Date & Reason of Surgery: 02/28/24: Exchange of bilateral breast implants with placement of biosynthetic (tigr) mesh Past Medical History: Past Medical History: Diagnosis Date Dental crown present Family hx-breast malignancy and ovasrian cancer; BRAC 1 mutation Headache hx of migraines Past Surgical History: Past Surgical History: Procedure Laterality Date BREAST SURGERY augmentation 2013 saline implants HYSTERECTOMY 2018 ovaries retained TUBAL LIGATION Allergies: No Known Allergies Social History: Social History Socioeconomic History Marital status: Spouse name: Not on file Number of children: Not on file Years of education: Not on file Highest education level: Not on file Occupational History Not on file Tobacco Use Smoking status: Former Packs/day: 0.50 Years: 10.00 Additional pack years: 0.00 Total pack years: 5.00 Types: Cigarettes Smokeless tobacco: Never Tobacco comments: Quit 2020 Vaping Use Vaping Use: Former Substances: Nicotine Substance and Sexual Activity Alcohol use: Not Currently Drug use: Never Sexual activity: Defer Partners: Male Other Topics Concern Not on file Social History Narrative Not on file Social Determinants of Health Financial Resource Strain: Not on file Food Insecurity: No Food Insecurity (02/14/2024) Hunger Screening Food Insecurity - Worry: Never True Food Insecurity - Inability: Never True Transportation Needs: Not on file Physical Activity: Not on file Stress: Not on file Social Connections: Not on file Interpersonal Safety: Not on file Housing Instability: Not on file Family History: Family History Problem Relation Age of Onset Ovarian cancer Mother 67 BRCA 1/2 Mother BRCA1 mutation [id number] Breast cancer Maternal Grandmother 60 Anesthesia problems Neg Hx Current Medications: Current Outpatient Medications: okfynfzcok-mhqqcydxxuart-fdtb (FIORICET, ESGIC) 50-325-40 mg per tablet, Take 1 tablet by mouth every 4 (four) hours as needed for headaches Indications: a migraine headache., Disp: , Rfl: tiZANidine (ZANAFLEX) 4 mg tablet, 1 tablet (4 mg total) every 6 (six) hours as needed., Disp: , Rfl: Review of systems: Review of Systems Constitutional: Negative for chills, fatigue and fever. Respiratory: Negative for cough and shortness of breath. Cardiovascular: Negative for chest pain, palpitations and leg swelling. Endocrine: Negative. Musculoskeletal: Negative for arthralgias and myalgias. Skin: Negative for rash and wound. Neurological: Negative for weakness, light-headedness and headaches. Hematological: Negative for adenopathy. Does not bruise/bleed easily. Psychiatric/Behavioral: Negative. Physical Examination: General appearance - alert, well appearing, and in no distress Mental status - alert, oriented to person, place, and time Eyes - sclera anicteric Neck - supple Chest - non-labored breathing Heart - regular rate Abdomen - soft, nontender, nondistended. Extremities - no lower leg edema; no ulcers Vascular- peripheral pulses intact. Focused examination - Medium in size bilaterally, similar. No Ptosis. Contour normal bilaterally. Nipple areolar complex is normal sized. Skin exam shows skin to be intact. Skin quality is good. Previous IMF incision is well healed. Nipple sensation is intact to light touch. Axillary fullness is mild. Implants 50% breast volume. Animation deformity. implant with lateral displacement present. Intertriginous rash in inframammary folds absent. Shoulder grooves are not present. Assessment : 1. Pre-op evaluation 2. Acquired absence of breast, bilateral 3. BRCA1 gene mutation positive Preoperative packet reviewed. Risks, benefits and alternatives of proposed procedure reviewed with patient and or guardian, whom are agreeable. Written consent obtained. Reviewed postoperative instructions & restrictions. Post-operative appointments scheduled today. Patient encouraged to call office with any questions or concerns prior to, or after, surgery. Planned Procedure: 02/28/24: Exchange of bilateral breast implants with placement of biosynthetic (tigr) mesh - LEDY Salas 02/14/24 1:30 PM Please note that portions of this note were generated using voice recognition [employer] dictation software. Although every effort was made to ensure the accuracy of this automated senior mortgage underwriter, some errors in senior mortgage underwriter may have occurred. LEDY Bentley 02/14/24 1330 documented in this encounter [facility] 02-14-2024 History and physical note PRE-OPERATIVE HISTORY AND PHYSICAL Exam Date: 02/14/24 Surgery Date: 02/28/24 PCP: LEDY HOOPER Surgeon: Teri Kaba MD; Shawn Watters MD CC: BRAC 1 mutation HPI: Yue Lewis is a 38 y.o. female who presents for pre-op H&P for planned bilateral simple nipple sparing mastectomy with placement of implants and biosynthetic mesh. She reports that she had BRCA testing completed after her mother was diagnosed with ovarian cancer. She was BRCA 1 positive. She denies any palpable lumps or nipple discharge. She is a 3 para 3 with her first at the age of 22 years. She denies any oral contraception. She was on hormone replacement therapy for a few months after her hysterectomy. She had her hysterectomy secondary to dysfunction uterine bleeding. The ovaries were left in. Menarche began at 14 years of age. Her family history is positive for ovarian cancer in her mother and breast cancer in her maternal grandmother. In a review of the record, she was seen by Dr. Kaba on 11/02/[address] Watters on 01/13/24. She had bilateral prepectoral saline implants placed previously. She had an MRI completed of the breasts on 01/01/24 that was considered normal. No Known Allergies Prior to Admission medications Medication Sig Start Date End Date Taking? Authorizing Provider oyrsfggvjp-nhuqxzkoonfft-mtyu (FIORICET, ESGIC) 50-325-40 mg per tablet Take 1 tablet by mouth every 4 (four) hours as needed for headaches Indications: a migraine headache. Yes Not In System Ref Prov tiZANidine (ZANAFLEX) 4 mg tablet 1 tablet (4 mg total) every 6 (six) hours as needed. 10/01/23 Yes Not In System Ref Prov History : Past Medical History: Diagnosis Date Dental crown present Family hx-breast malignancy and ovasrian cancer; BRAC 1 mutation Headache hx of migraines Past Surgical History: Procedure Laterality Date BREAST SURGERY augmentation 2013 saline implants HYSTERECTOMY 2018 ovaries retained TUBAL LIGATION Family History Problem Relation Age of Onset Ovarian cancer Mother 67 BRCA 1/2 Mother BRCA1 mutation [id number] Early Half Brother Brain cancer Half Brother Breast cancer Maternal Grandmother 60 of old age Heart attack Maternal Grandfather Stroke Maternal Grandfather Anesthesia problems Neg Hx Bleeding Disorder Neg Hx Clotting disorder Neg Hx Colon cancer Neg Hx Social History Socioeconomic History Marital status: Spouse name: Not on file Number of children: Not on file Years of education: Not on file Highest education level: Not on file Occupational History Not on file Tobacco Use Smoking status: Former Packs/day: 0.50 Years: 10.00 Additional pack years: 0.00 Total pack years: 5.00 Types: Cigarettes Smokeless tobacco: Never Tobacco comments: Quit 2020 Vaping Use Vaping Use: Former Substances: Nicotine Substance and Sexual Activity Alcohol use: Not Currently Drug use: Never Sexual activity: Defer Partners: Male Other Topics Concern Not on file Social History Narrative Lives with spouse and children ages 15, 11 and 7 years of age. Social Determinants of Health Financial Resource Strain: Not on file Food Insecurity: No Food Insecurity (02/14/2024) Hunger Screening Food Insecurity - Worry: Never True Food Insecurity - Inability: Never True Transportation Needs: Not on file Physical Activity: Not on file Stress: Not on file Social Connections: Not on file Interpersonal Safety: Not on file Housing Instability: Not on file Review of Systems Review of Systems Constitutional: Negative for fever, chills, diaphoresis, appetite change, fatigue and unexpected weight change. HENT: Negative for congestion, dental problem, ear discharge, ear pain, hearing loss, nosebleeds, rhinorrhea, sore throat, tinnitus and trouble swallowing. Eyes: Negative for pain, discharge and visual disturbance. Respiratory: Negative for cough, choking, shortness of breath and wheezing. Cardiovascular: Negative for chest pain, palpitations, leg swelling, PND and orthopnea. Gastrointestinal: Negative for nausea, vomiting, abdominal pain, diarrhea, constipation, blood in stool, anal bleeding, rectal pain and black tarry stool. Endocrine: Negative for polydipsia, polyphagia and polyuria. Genitourinary: Negative for dysuria, urgency, frequency, hematuria, decreased urine volume and enuresis. Musculoskeletal: Negative for myalgias, joint swelling and arthralgias. Skin: Negative for rash. Neurological: Negative for dizziness, seizures, syncope, speech difficulty, weakness, light-headedness, numbness and headaches. Hematological: Does not bruise/bleed easily. Psychiatric/Behavioral: Negative for dysphoric mood, sleep disturbance and suicidal ideas. The patient is not nervous/anxious. Vital Signs BP 121/73 Pulse 56 Temp 36.7 C (98.1 F) (Temporal) Resp 16 Ht 167.6 cm (5' 6 ) Wt 66.6 kg (146 lb 13.2 oz) SpO2 100% BMI 23.70 kg/m Labs/Diagnostics: Recent Results (from the past 24 hour(s)) CBC auto differential Collection Time: 02/14/24 1:30 PM Result Value Ref Range White Blood Cells 7.3 4.0 - 11.0 X10E9/L RBC count 4.36 3.80 - 5.20 X10E12/L Hemoglobin 13.3 11.7 - 15.5 g/dL Hematocrit 39.3 35 - 47 % MCV 90 80 - 100 fL MCH 30.5 27 - 34 pg MCHC 33.8 32 - 36 g/dL RDW 12.9 11.5 - 15.0 % Platelets 204 150 - 450 X10E9/L MPV 9.4 7 - 12 fL % neutrophils 50.1 % % lymphocytes 41.9 % % monocytes 6.4 % % eosinophils 1.0 % % Basophils 0.6 % Neutrophils Absolute (A) 3.7 1.5 - 6.6 X10E9/L Lymphocytes Absolute 3.1 1.0 - 3.5 X10E9/L Monocytes Absolute 0.5 0 - 0.9 X10E9/L Eosinophils Absolute 0.1 0.0 - 0.4 X10E9/L Basophils Absolute 0.0 0.0 - 0.2 X10E9/L Physical Exam Physical Exam Constitutional She is oriented to person, place, and time. She appears well-developed and well-nourished. HENT Head Normocephalic and atraumatic. Ears Right Ear: External ear normal. Left Ear: External ear normal. Nose Nose normal. Mouth/Throat Throat: Oropharynx: oropharynx clear and moist Able to visualize hard and soft palate and 1/4 tonsillar pillar Eyes: Conjunctivae and EOM are normal. Pupils are equal, round, and reactive to light. Right eye exhibits no discharge. Left eye exhibits no discharge. Neck Normal range of motion. Neck supple. Negative for thyromegaly. Cardiovascular: Normal rate and regular rhythm. No murmur heard. Pulses: intact distal pulses Heart Sounds: normal heart sounds. no JVDno friction rub Pulmonary/Chest: Effort normal and breath sounds normal. Abdominal: Bowel sounds are normal. She exhibits no distension and no mass. Soft. There is no abdominal tenderness. There is no rebound and no guarding. Musculoskeletal: General: No tenderness or edema. Normal range of motion. Cervical back: Normal range of motion and neck supple. Neurological She is alert and oriented to person, place, and time. Skin: Skin is warm and dry. Psychiatric: She has a normal mood and affect. Her behavior is normal. Judgment and thought content normal. Assessment BRAC 1 mutation Plan bilateral simple nipple sparing mastectomy with placement of implants and biosynthetic mesh. LEDY Ochoa 02/14/24 5612 [facility] Work Phone: 02-14-2024 History and physical note PRE-OPERATIVE HISTORY AND PHYSICAL Exam Date: 02/14/24 Surgery Date: 02/28/24 PCP: SUBHA GUTIERREZ APRN-TECHNICAL SUPERVISOR Surgeon: Teri Kaba MD; Shawn Watters MD CC: BRAC 1 mutation HPI: Yue Lewis is a 38 y.o. female who presents for pre-op H&P for planned bilateral simple nipple sparing mastectomy with placement of implants and biosynthetic mesh. She reports that she had BRCA testing completed after her mother was diagnosed with ovarian cancer. She was BRCA 1 positive. She denies any palpable lumps or nipple discharge. She is a 3 para 3 with her first at the age of 22 years. She denies any oral contraception. She was on hormone replacement therapy for a few months after her hysterectomy. She had her hysterectomy secondary to dysfunction uterine bleeding. The ovaries were left in. Menarche began at 14 years of age. Her family history is positive for ovarian cancer in her mother and breast cancer in her maternal grandmother. In a review of the record, she was seen by Dr. Kaba on 11/02/[address] Watters on 01/13/24. She had bilateral prepectoral saline implants placed previously. She had an MRI completed of the breasts on 01/01/24 that was considered normal. No Known Allergies Prior to Admission medications Medication Sig Start Date End Date Taking? Authorizing Provider hgxviojnbx-hlsdjszyilghm-tbcx (FIORICET, ESGIC) 50-325-40 mg per tablet Take 1 tablet by mouth every 4 (four) hours as needed for headaches Indications: a migraine headache. Yes Not In System Ref Prov tiZANidine (ZANAFLEX) 4 mg tablet 1 tablet (4 mg total) every 6 (six) hours as needed. 10/01/23 Yes Not In System Ref Prov History : Past Medical History: Diagnosis Date Dental crown present Family hx-breast malignancy and ovasrian cancer; BRAC 1 mutation Headache hx of migraines Past Surgical History: Procedure Laterality Date BREAST SURGERY augmentation 2012 saline implants HYSTERECTOMY 2018 ovaries retained TUBAL LIGATION Family History Problem Relation Age of Onset Ovarian cancer Mother 67 BRCA 1/2 Mother BRCA1 mutation [id number] Early Half Brother Brain cancer Half Brother Breast cancer Maternal Grandmother 60 of old age Heart attack Maternal Grandfather Stroke Maternal Grandfather Anesthesia problems Neg Hx Bleeding Disorder Neg Hx Clotting disorder Neg Hx Colon cancer Neg Hx Social History Socioeconomic History Marital status: Spouse name: Not on file Number of children: Not on file Years of education: Not on file Highest education level: Not on file Occupational History Not on file Tobacco Use Smoking status: Former Packs/day: 0.50 Years: 10.00 Additional pack years: 0.00 Total pack years: 5.00 Types: Cigarettes Smokeless tobacco: Never Tobacco comments: Quit 2020 Vaping Use Vaping Use: Former Substances: Nicotine Substance and Sexual Activity Alcohol use: Not Currently Drug use: Never Sexual activity: Defer Partners: Male Other Topics Concern Not on file Social History Narrative Lives with spouse and children ages 15, 11 and 7 years of age. Social Determinants of Health Financial Resource Strain: Not on file Food Insecurity: No Food Insecurity (02/14/2024) Hunger Screening Food Insecurity - Worry: Never True Food Insecurity - Inability: Never True Transportation Needs: Not on file Physical Activity: Not on file Stress: Not on file Social Connections: Not on file Interpersonal Safety: Not on file Housing Instability: Not on file Review of Systems Review of Systems Constitutional: Negative for fever, chills, diaphoresis, appetite change, fatigue and unexpected weight change. HENT: Negative for congestion, dental problem, ear discharge, ear pain, hearing loss, nosebleeds, rhinorrhea, sore throat, tinnitus and trouble swallowing. Eyes: Negative for pain, discharge and visual disturbance. Respiratory: Negative for cough, choking, shortness of breath and wheezing. Cardiovascular: Negative for chest pain, palpitations, leg swelling, PND and orthopnea. Gastrointestinal: Negative for nausea, vomiting, abdominal pain, diarrhea, constipation, blood in stool, anal bleeding, rectal pain and black tarry stool. Endocrine: Negative for polydipsia, polyphagia and polyuria. Genitourinary: Negative for dysuria, urgency, frequency, hematuria, decreased urine volume and enuresis. Musculoskeletal: Negative for myalgias, joint swelling and arthralgias. Skin: Negative for rash. Neurological: Negative for dizziness, seizures, syncope, speech difficulty, weakness, light-headedness, numbness and headaches. Hematological: Does not bruise/bleed easily. Psychiatric/Behavioral: Negative for dysphoric mood, sleep disturbance and suicidal ideas. The patient is not nervous/anxious. Vital Signs BP 121/73 Pulse 56 Temp 36.7 C (98.1 F) (Temporal) Resp 16 Ht 167.6 cm (5' 6 ) Wt 66.6 kg (146 lb 13.2 oz) SpO2 100% BMI 23.70 kg/m Labs/Diagnostics: Recent Results (from the past 24 hour(s)) CBC auto differential Collection Time: 02/14/24 1:30 PM Result Value Ref Range White Blood Cells 7.3 4.0 - 11.0 X10E9/L RBC count 4.36 3.80 - 5.20 X10E12/L Hemoglobin 13.3 11.7 - 15.5 g/dL Hematocrit 39.3 35 - 47 % MCV 90 80 - 100 fL MCH 30.5 27 - 34 pg MCHC 33.8 32 - 36 g/dL RDW 12.9 11.5 - 15.0 % Platelets 204 150 - 450 X10E9/L MPV 9.4 7 - 12 fL % neutrophils 50.1 % % lymphocytes 41.9 % % monocytes 6.4 % % eosinophils 1.0 % % Basophils 0.6 % Neutrophils Absolute (A) 3.7 1.5 - 6.6 X10E9/L Lymphocytes Absolute 3.1 1.0 - 3.5 X10E9/L Monocytes Absolute 0.5 0 - 0.9 X10E9/L Eosinophils Absolute 0.1 0.0 - 0.4 X10E9/L Basophils Absolute 0.0 0.0 - 0.2 X10E9/L Physical Exam Physical Exam Constitutional She is oriented to person, place, and time. She appears well-developed and well-nourished. HENT Head Normocephalic and atraumatic. Ears Right Ear: External ear normal. Left Ear: External ear normal. Nose Nose normal. Mouth/Throat Throat: Oropharynx: oropharynx clear and moist Able to visualize hard and soft palate and 1/4 tonsillar pillar Eyes: Conjunctivae and EOM are normal. Pupils are equal, round, and reactive to light. Right eye exhibits no discharge. Left eye exhibits no discharge. Neck Normal range of motion. Neck supple. Negative for thyromegaly. Cardiovascular: Normal rate and regular rhythm. No murmur heard. Pulses: intact distal pulses Heart Sounds: normal heart sounds. no JVDno friction rub Pulmonary/Chest: Effort normal and breath sounds normal. Abdominal: Bowel sounds are normal. She exhibits no distension and no mass. Soft. There is no abdominal tenderness. There is no rebound and no guarding. Musculoskeletal: General: No tenderness or edema. Normal range of motion. Cervical back: Normal range of motion and neck supple. Neurological She is alert and oriented to person, place, and time. Skin: Skin is warm and dry. Psychiatric: She has a normal mood and affect. Her behavior is normal. Judgment and thought content normal. Assessment BRAC 1 mutation Plan bilateral simple nipple sparing mastectomy with placement of implants and biosynthetic mesh. LEDY Ochoa 02/14/24 1615 documented in this encounter [employer] 02-14-2024 Tiara Huerta RN - 02/14/2024 10:30 AM EDT Bathing Before Surgery- Patients greater than 2 months of age You can help to lower your chance of infection at the site of your surgery by showering or bathing with a special soap called chlorhexidine gluconate (CHG). Germs live on your skin. This special soap will help lower the amount of germs so they do not get into your surgery site. Special points to know: Do not use this soap if you know that you are allergic to CHG. Shower or bathe with CHG the night before and the morning of surgery. Do not shave the area of your body where the surgery will be done within 7 days of surgery. The CHG may make your skin a little dry, but do not use lotion. Steps for Bathing: Wash your hair as usual with your normal shampoo. Rinse your hair and body well after you shampoo to get rid all of the shampoo. Wash gently with the CHG from the neck down, but do not scrub the skin to hard. Be sure to wash the area of your surgery very well. If showering, turn the water off while washing and then turn the water back onto rinse. Do not get CHG in the genital (private) area. Do not get CHG in the eyes, ears, nose or mouth. (If the soap gets into the eyes, flush them immediately with water). Do not wash with regular soap after CHG is used. Pat skin dry with a soft, clean towel. Patient should sleep in freshly laundered night clothes and report for surgery in clean clothes. Your surgery/procedure is scheduled at [facility] on 02/28/24 at 7:30 am Arrival Time 5:30 am [facility] Address: [address] [place] [address], [facility] Park in the Emergency Center Parking lot. Report to the front counter attendant in the Emergency/Surgery Registration lobby of the hospital. Please call Pre-Admission Clinic at [phone] if you have any questions prior to surgery. For questions the morning of surgery, please call the Pre-op Department at [phone]. Notify your SURGEON if you develop any illness such as a cold, cough, fever, sore throat, vomiting or are hospitalized between now and your surgery. CONTINUE TO TAKE YOUR MEDICATIONS PRESCRIBED. DO NOT STOP YOUR PRESCRIBED MEDICATIONS UNLESS DIRECTED BY YOUR PRESCRIBING PHYSICIAN Take the following medications the morning of surgery with a sip of water: none blood thinners: Medications such as Coumadin, Heparin, Aspirin, Plavix, Eliquis, Pradaxa) Please contact your physician regarding a stop/hold date for these medications. Non-steriodal Anti-Inflammatory Drugs (NSAIDS)- Stop 7 days prior to surgery unless otherwise directed by your surgeon. Vitamins/Herbal Products: You may continue to take your prescribed vitamins such as potassium, iron, vitamin B, vitamin C, or multivitamin unless specifically instructed by your surgeon to stop. STOP taking all herbal products/teas one week prior to your surgery. What do I do the day of Surgery? Nothing to eat after midnight shower again with CHG soap the morning of your surgery. What do I need to do to prepare for surgery? If you will be going home the same day as your surgery, arrange for an adult over [address] Riding in a bus or taxi by yourself is not permitted. You should not smoke or drink alcohol 24 hours before your surgery. Smoking increases the risk of breathing problems after surgery. Alcohol thins the blood and may cause bleeding problems during surgery If you have been assigned PAM Education by your surgeon's office, please complete this education prior to your surgery. For questions regarding PAM education, reach out to your surgeons office. Do not use lotions, creams, powders, perfume, make up, cologne or after-shaves day of surgery. Remove ALL jewelry including wedding rings, body piercings, hair extensions that contain metal, nail south korean, make-up, and contact lens. You may brush your teeth the morning of surgery, but do not swallow the water. Wear your dentures and partial plates to the hospital (no adhesive) Shower the night the before. use the CHG (chlorhexidine gluconate) soap Please be advised, [facility] has transitioned to a cashless payment system. What should I bring to the hospital? Eyeglass or contact lens case If you will be spending the night, please bring personal care items and leave them in the car until you are taken to your room after surgery. Leave ALL valuables at home. If any of these instructions conflict with those you recieved from the surgeon, please seek clarification from your surgeon's office. DEEP BREATHING EXERCISES This exercise helps promote good air exchange and helps to prevent pneumonia after surgery. Breathe in slowly and deeply through the nose. Hold your breath for a few seconds and then exhale slowly through the mouth. Repeat this three times and then cough.Coughing helps to clear your lungs. If you have had a surgery with an incision into your abdomen or chest, press gently against your incision with a pillow or a folded blanket when you cough. Please be aware - it may not be klein to cough following some types of surgeries involving the eyes, ears, sinuses and throat. Always follow your doctor's instructions. LEG EXERCISES These exercises help promote good circulation and help to prevent blood clots after surgery. Point your toes to the ceiling and then point them to the wall. Do this slowly about 15-20 times. You may also move your feet in circles. Do the exercise that is most comfortable for you. If you have had surgery involving your shoulder or arm, we recommend you move your fingers. PRACTICING We ask that you begin practicing these exercises before your surgery. After surgery try to do both exercises at least every 2 hours during the day and early evening. SURGICAL SITE INFECTION AND PREVENTION What is a Surgical Site Infection? Infection can happen to the area of the body where surgery is done. This is called a surgical site infection (SSI). A SSI does not happen very often. Can SSIs be treated? Antibiotics are used to treat SSI. Some patients may need another surgery to treat the infection. The doctor will discuss treatment options with you. What are some of the things that hospitals are doing to prevent SSIs? Soap and water or alcohol hand rub are used before and after caring for each patient. Special soap is used to clean surgery workers hands and arms just before the surgery. Masks, gowns, gloves and hair covers are worn during the surgery to keep the area clean. Hair in the surgery area may be removed with clippers (not razors). A special soap that kills germs is used to clean the skin at the surgery site. Antibiotics may be given before the surgery starts. What can you do to prevent SSIs? Before surgery: You may be asked to shower or bathe with a special soap that kills germs the night before and the day of surgery. Use the soap as you were told. If you smoke, stop or cut down. Ask your doctor about ways to quit. Do not shave near where you will have surgery. Shaving can irritate the skin and make it easier to get and infection. After surgery: Be sure that the doctors and nurses clean their hands before and after touching you. Be sure your family and friends clean their hands before and after visiting you. Do not be afraid to remind them. * Care for your wound at home as told by your doctor or nurse * Call your doctor right away if you have fever, redness, increased pain, or drainage at the surgery site. Further questions? Contact the doctor, nurse or the Infection Prevention and Control department if you have any questions. PATIENT RIGHTS AND RESPONSIBILITIES As a patient at [facility], you have the right to: Receive medical care and be informed of who is taking care of you Be treated with dignity and respect Have a family member/sales representative supervisor of choice and your physician notified of your admission Receive information and actively participate in decisions about your care and treatment Refuse care, treatment and services Decide who may provide your support and speak for you Access christianity and spiritual services Participate in ethical issues and questions about your care Receive private and confidential care Have appropriate assessment and management of your pain Know guest visitation restrictions or limitations Have an advance directive Access protective services Consent or refuse to participate in research studies or production or recordings, films or other images Have resolution of your complaints Receive information of hospital charges and payment methods Patient/patient sales representative supervisor responsibilities are to: Provide information about health status to facilitate care, treatment and services Follow the treatment, plan, keep appointments and speak up when you do not understand the plan Respect the rights of other patients and healthcare personnel Follow organizational rules and regulations that support quality care and a safe environment Fulfill financial obligations as promptly as possible documented in this encounter [employer] 01-13-2024 History of Presen t illness Narrative [facility] Plastic & Reconstructive Surgery [address] Office Shawn Watters MD, PhD Ivan Hayden, EDGE CUTTING MACHINE OPERATOR-TECHNICAL SUPERVISOR Yasemin Garcia PA-C Plastic Surgery Progress Note Reason for visit : BRCA1 gene mutation positive, discussed breast reconstruction options. History of present illness: Yue LEWIS 38 y.o. is here today to re-discuss breast reconstruction. She has the BRCA1 mutation. She has met with breast surgery who has discussed bilateral prophylactic mastectomy. She has a history of breast augmentation with saline implant [place] [address] Lainez. She was previously evaluated in our office on 10/15/2023 and different modalities breast reconstruction were discussed with patient. Past medical history reviewed and updated. Patient is a nonsmoker. Review of systems: All systems negative unless noted in HPI. Physical Examination: Vitals: 01/13/24 0902 BP: 131/78 Pulse: 63 Resp: 16 There is no height or weight on file to calculate BMI. General exam: Alert and oriented x 3, comfortable, non-toxic. S1, S2. Nonlabored breathing. Abdomen soft/non-tender/non-distended. Extremities warm, well perfused. Negative Miriam's sign. Focused examination: Medium in size bilaterally, similar. No Ptosis. Contour normal bilaterally. Nipple areolar complex is normal sized. Skin exam shows skin to be intact. Skin quality is good. Previous IMF incision is well healed. Nipple sensation is intact to light touch. Axillary fullness is mild. Implants 50% breast volume. Animation deformity. implant with lateral displacement present. Intertriginous rash in inframammary folds absent. Shoulder grooves are not present. Impression: 1. BRCA1 gene mutation positive Recommendations: discussed with patient she is a candidate for direct to implant reconstruction. We discussed with patient nipple sparing mastectomy with IMF incision. We will plan for surgery with Dr. Kaba. Surgery will be removal of bilateral saline implant, placement of biosynthetic mesh and placement of new structured saline implants. General anesthesia, approximately 2 hours. We will work on obtaining insurance authorization. Follow up prior to her procedure. Advised to call the office with any questions or concerns in the interim. - Ivan Hayden APRN-TECHNICAL SUPERVISOR 01/13/24 4:36 PM ISHAWN MD, PHD personally performed the face to face evaluation on this patient. I discussed with the patient and confirmed the accuracy and completeness of the aforementioned history, and I personally performed the clinical examination of the patient. I have established and discussed the course of treatment with the patient. Shawn Watters MD, PhD [facility]astic [facility] Reconstructive Surgery Total time spent was 35 minutes: Preparing to see the patient (e.g., review of tests) Obtaining and/or reviewing separately obtained history Performing a medically appropriate examination and/or evaluation Counseling and educating the patient/family/caregiver Ordering medications, tests, or procedures Referring and communicating with other health director of managed care (not separately reported) Documenting clinical information in the electronic or other health record Independently interpreting results (not separately reported) and communicating results to the patient/family/caregiver Care coordination (not separately reported) Please note that portions of this note were generated using voice recognition [employer] dictation software. Although every effort was made to ensure the accuracy of this automated senior mortgage underwriter, some errors in senior mortgage underwriter may have occurred. documented in this encounter [facility] 01-11-2024 Miscellaneous Notes LMOM for patient to call us, she has an appt this coming with dr watters at 10 AM. Due to being in surgery he will be out of the office at that time. Patient can be seen on still, however it will need be at 9 AM. documented in this encounter [facility] 01-11-2024 Telephone encounter Note LMOM for patient to call us, she has an appt this coming with dr watters at 10 AM. Due to being in surgery he will be out of the office at that time. Patient can be seen on still, however it will need be at 9 AM. [facility] 12-23-2023 History of Presen t illness Narrative Spoke with Jefry at [facility] for MRI-- MRI was approved Auth #[id number] valid 12/23--01/22 documented in this encounter [facility] 12-08-2023 Miscellaneous Notes Patient called 12/07/2023 requesting a call back regarding surgery scheduling. Staff from office called today stating patient told them she has reach out to our office and office multiple times with no response. Spoke with plastic surgery specialist from both offices patient needs appointment with Dr. Watters and will be contacted to schedule. documented in this encounter [facility] 12-08-2023 Telephone encounter Note Patient called 12/07/2023 requesting a call back regarding surgery scheduling. Staff from office called today stating patient told them she has reach out to our office and office multiple times with no response. Spoke with plastic surgery specialist from both offices patient needs appointment with Dr. Watters and will be contacted to schedule. [facility] 12-06-2023 Miscellaneous Notes Yue called with questions about her mother's recent scans and overall treatment plan. I encouraged her to reach out to Dr. Valdovinos's office for that information given that that is not something our office discusses. Encouraged to call back at any time with questions or anything else I could help with. documented in this encounter [facility] 12-06-2023 Telephone encounter Note Yue called with questions about her mother's recent scans and overall treatment plan. I encouraged her to reach out to Dr. Valdovinos's office for that information given that that is not something our office discusses. Encouraged to call back at any time with questions or anything else I could help with. [facility] 10-15-2023 History of Presen t illness Narrative Plastic & Reconstructive Surgery MD Shawn Rich MD Tara Geha, PA-C Erin Orzechowski, TECHNICAL SUPERVISOR [address] [address] Office [phone] BREAST RECONSTRUCTION CONSULTATION Reason for visit : Chief Complaint Patient presents with New Patient History of present illness: Yue LEWIS 37 y.o. is here today to discuss [...] Nipple 20 Nipple-areolar diameter 3.5 3 Female keno manager present: yes. Impression : 1. BRCA1 gene [...] call with any questions or concerns. - Ivan Hayden APRN-TECHNICAL SUPERVISOR 10/15/23 2:23 PM IShawn MD, personally performed [...] procedures Referring and communicating with other health director of managed care (not separately reported) Documenting clinical information in the electronic or other health record Independently interpreting results (not separately reported) and communicating results to the patient/family/caregiver Care coordination (not separately reported) Please note that portions of this note were generated using voice recognition [employer] dictation software. Although every effort was made to ensure the accuracy of this automated senior mortgage underwriter, some errors in senior mortgage underwriter may have occurred. documented in this encounter [facility] 03-20-2022 Note [facility], [place] NAME: YUE LEWIS DATE OF : MEDICAL REC#: [id number] INDUSTRIAL ENGINEERING ANALYST: [address] [facility], TRANSADMIT DATE: 03/20/2022 07:29:00 PROJECT ENGINEERING MANAGER DATE: 03/23/2022 00:00 DICTATING PHYSICIAN: FRANSICO MONTAÑO DICTATION DATE: 03/20/2022 11:00 OPERATIVE NOTE OPERATION DATE:03/20/2022 PROCEDURE: Diagnostic laparoscopy with lysis of adhesions from the bowel to the vaginal cuff. PREOPERATIVE DIAGNOSIS: Pelvic pain. POSTOPERATIVE DIAGNOSIS: Pelvic pain. ANESTHESIA: General. SURGEON: Fransico Montaño D.O. IRRIGATION FOREMAN: BARAK Rodríguez URINE OUTPUT: Yellow and clear. [...] by: DR FRANSICO MONTAÑO . 03/29/2022 19:51:00 [facility] 03-13-2022 Note [id number]:[id number] [facility] 02-17-2022 Hospital Discharg e instructions Patient Education [...] Follow these instructions at home: Medicines Take macr-zsj-[id number] and prescription medicines only as told by [...] Watch your condition for any changes. Take zmmq-fso-bkrzmhg and prescription medicines only as told by [...] 08/25/2006 Document Revised: 03/25/2020 Document Reviewed: 03/25/2020 [employer] Patient Education 2020 [employer]. 02/17/2022 14:07:31 Hematuria, Adult Hematuria, Adult Hematuria [...] Follow these instructions at home: Medicines Take zkjn-znb-lpvmgbn and prescription medicines only as told by [...] or the blood stops without treatment. Take lvyn-bmk-sjqmozr and prescription medicines only as told by your health care provider. Drink enough fluid to keep your urine clear or pale yellow. This information is not intended to replace advice given to you by your health care provider. Make sure you discuss any questions you have with your health care provider. Document Released: 11/15/2006 Document Revised: 04/10/2020 Document Reviewed: 12/18/2017 [employer] Patient Education 2020 [employer]. Follow Up Care 02/16/2022 16:02:41 With:cysto, retrogrades, UD w DLS Address:Unknown When: Unknown With:PRASANNA DOTSON, TERI Cruz, URL Address: [address] [place], [place] [address] [address] Business (1) When: Unknown [facility] Evaluation + Plan note No data available for this section [facility] Evaluation + Plan note Future Appointments Appointment Date:04/02/2022 11:00:00 AM Scheduled Provider: Location:[facility] Appointment Type:Surgery FT [facility] Evaluation note Diagnosis BRCA1 gene mutation positive documented in this encounter [facility] System[facility]* Diagnosis BRCA1 gene mutation positive- Primary documented in this encounter [facility]* Diagnosis Pre-op evaluation- Primary Acquired absence of breast, bilateral BRCA1 gene mutation positive documented in this encounter [facility] SystemEvaluation note* Diagnosis Pre-op evaluation- Primary Acquired absence of breast, bilateral Post-operative pain Other acute postoperative pain documented in this encounter [facility] SystemEvaluation note* Diagnosis S/P breast reconstruction, bilateral S/P bilateral mastectomy Acquired absence of breast and nipple Post-operative pain Other acute postoperative pain documented in this encounter [facility] SystemEvaluation note* Diagnosis Encounter for postoperative care- Primary Post-operative pain Other acute postoperative pain S/P breast reconstruction, bilateral S/P bilateral mastectomy Acquired absence of breast and nipple documented in this encounter [facility] System[facility] note* Diagnosis Encounter for postoperative care- Primary Post-operative pain Other acute postoperative pain S/P breast reconstruction, bilateral documented in this encounter [facility] System[facility] note* Diagnosis Encounter for postoperative care- Primary S/P breast reconstruction, bilateral S/P bilateral mastectomy Acquired absence of breast and nipple documented in this encounter [facility] SystemEvaluation note* Diagnosis S/P breast reconstruction, bilateral- Primary S/P bilateral mastectomy Acquired absence of breast and nipple Post-operative pain Other acute postoperative pain BRCA1 gene mutation positive documented in this encounter [facility] SystemEvaluation note* Diagnosis Post-operative pain- Primary Other acute postoperative pain documented in this encounter [facility] System[facility] note* Diagnosis Breast pain, left- Primary Wound of left breast, initial encounter S/P breast reconstruction, bilateral documented in this encounter [facility] SystemEvaluation note* Diagnosis Breast wound, left, sequela- Primary S/P breast reconstruction, bilateral documented in this encounter 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 System[facility] note* Diagnosis Postoperative visit- Primary Post-operative pain Other acute postoperative pain Breast wound, left, sequela S/P breast reconstruction, bilateral S/P bilateral mastectomy Acquired absence of breast and nipple BRCA1 gene mutation positive documented in this encounter [facility] SystemEvaluation note* Diagnosis Encounter for postoperative care- Primary Acquired absence of breast, bilateral Post-operative pain Other acute postoperative pain S/P bilateral mastectomy Acquired absence of breast and nipple documented in this encounter [facility] System[facility] note* Diagnosis Seroma of skin or subcutaneous tissue after dermatologic procedure- Primary Breast wound, left, sequela S/P breast reconstruction, bilateral Encounter for postoperative care documented in this encounter 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 gene mutation positive [facility] No data available for this section [facility] on filedocumented in this encounter [facility] filedocumented in [facility] encounter [facility] filedocumented in this encounter [facility] filedocumented in this encounter [facility] on filedocumented in this encounter [facility] on filedocumented in this encounter [facility] on filedocumented in this encounter [facility] on filedocumented in this encounter [facility] on filedocumented in this encounter [facility] on filedocumented in this encounter [facility] on filedocumented in this encounter [facility] on filedocumented in this encounter [facility] on filedocumented in this encounter [facility] on filedocumented in this encounter [facility] on filedocumented in this encounter [facility] on filedocumented in this encounter [facility]ructionsNot on filedocumented in this encounter [facility]ructionsNot on filedocumented in this encounter [facility] (narrative)* Consultation (Routine) - Pending Review Specialty Diagnoses / Procedures Referred By Aster domínguez Referred To Contact Breast Surgery Diagnoses BRCA1 gene mutation positive Ivan Hayden, EDGE CUTTING MACHINE OPERATOR-TECHNICAL SUPERVISOR [address] [facility], [facility] [address] [place] [address] Lulu Ríos MD [address] [facility], [facility] [address] [place] [address] Referral ID Status Reason Start Date Expiration Date V isits Requested Visits Authorized [id number] Pending Review 10/15/2023 10/14/2024 1 1 [facility] Summary Purpose Family History No [...] and content) DATE CREATED AUTHOR 06/20/2018 [facility] DATE CREATED AUTHOR AUTHOR'S ORGANIZ ATION 04/17/2022 Fernandes Maury [facility] DATE CREATED AUTHOR AUTHOR'S ORGANIZ ATION 03/15/2023 [facility] DATE CREATED AUTHOR AUTHOR'S ORGANIZ ATION 05/30/2024 [facility] DATE CREATED AUTHOR AUTHOR'S ORGANIZ ATION 12/28/2024 [facility] DATE CREATED AUTHOR AUTHOR'S ORGANIZ ATION 12/31/2024 [facility] Reason for Visit (unrecogniz ed section and content) Reason Onset Date Comments Questions 12/06/2023 Reason Comments New Patient Specialty Diagnoses / Procedures Referred By Contact Referred To Contact Plastic & Reconstructive Surgery Diagnoses BRCA1 gene mutation positive Teri Vasquez APRN-CNP [address] [place] [address] Provider left practice 11/17/2023 [place] [address] Shawn Watters MD [address] [place] [address] Referral ID Status Reason Start Date Expiration Date Visits Requested Visits Authorized [id number] Pending Review Specialty Services Required 10/05/2023 10/04/2024 1 1 Reason Onset Date Comments MRI auth 12/23/2023 Reason Comments Med Change Request Reason Comments Post-op Reason Comments Follow-up Wants to schedule & discuss her next breast recon revision surgery Care Teams (unrecognized sec tion and content) Conformal Pad Former Relationship Specialty Start Date End Date Subha Gutierrez APRN-CNP [address], [place] [address] PCP - General Family Medicine 10/04/23 Conformal Pad Former Relationship Specialty Start Date End Date Subha Gutierrez APRN-TECHNICAL SUPERVISOR [address], [place] [address] PCP - General Family Medicine 10/04/23 Conformal Pad Former Relationship Specialty Start Date End Date Subha Gutierrez APRN-CNP [address], [place] [address] PCP - General Family Medicine 10/04/23 Conformal Pad Former Relationship Specialty Start Date End Date Subha Gutierrez APRN-TECHNICAL SUPERVISOR [address], [place] [address] PCP - General Family Medicine 10/04/23 Conformal Pad Former Relationship Specialty Start Date End Date Subha Gutierrez APRN-TECHNICAL SUPERVISOR [address], [place] [address] PCP - General Family Medicine 10/04/23 Conformal Pad Former Relationship Specialty Start Date End Date Subha Gutierrez APRN-TECHNICAL SUPERVISOR [address], [place] [address] PCP - General Family Medicine 10/04/23 Conformal Pad Former Relationship Specialty Start Date End Date Subha Gutierrez APRN-TECHNICAL SUPERVISOR [address], [place] [address] PCP - General Family Medicine 10/04/23 Conformal Pad Former Relationship Specialty Start Date End Date Subha Gutierrez APRN-TECHNICAL SUPERVISOR [address], [place] [address] PCP - General Family Medicine 10/04/23 Conformal Pad Former Relationship Specialty Start Date End Date Subha Gutierrez APRN-TECHNICAL SUPERVISOR [address], [place] [address] PCP - General Family Medicine 10/04/23 Conformal Pad Former Relationship Specialty Start Date End Date Subha Gutierrez APRN-TECHNICAL SUPERVISOR [address], [place] [address] PCP - General Family Medicine 10/04/23 Conformal Pad Former Relationship Specialty Start Date End Date Subha Gutierrez APRN-TECHNICAL SUPERVISOR [address], [place] [address] PCP - General Family Medicine 10/04/23 Conformal Pad Former Relationship Specialty Start Date End Date Subha Gutierrez APRN-TECHNICAL SUPERVISOR [address], [place] [address] PCP - General Family Medicine 10/04/23 Conformal Pad Former Relationship Specialty Start Date End Date Subha Gutierrez APRN-TECHNICAL SUPERVISOR [address], [place] [address] PCP - General Family Medicine 10/04/23 Conformal Pad Former Relationship Specialty Start Date End Date Subha Gutierrez APRN-TECHNICAL SUPERVISOR [address], [place] [address] PCP - General Family Medicine 10/04/23 Conformal Pad Former Relationship Specialty Start Date End Date Subha Gutierrez APRN-TECHNICAL SUPERVISOR [address], [place] [address] PCP - General Family Medicine 10/04/23 Conformal Pad Former Relationship Specialty Start Date End Date Subha Gutierrez APRN-TECHNICAL SUPERVISOR [address], [place] [address] PCP - General Family Medicine 10/04/23 Conformal Pad Former Relationship Specialty Start Date End Date Subha Gutierrez APRN-TECHNICAL SUPERVISOR [address], [place] [address] PCP - General Family Medicine 10/04/23 Conformal Pad Former Relationship Specialty Start Date End Date Subha Gutierrez APRN-TECHNICAL SUPERVISOR [address], [place] [address] PCP - General Family Medicine 10/04/23 Conformal Pad Former Relationship Specialty Start Date End Date Subha Gutierrez APRN-TECHNICAL SUPERVISOR [address], [place] [address] PCP - General Family Medicine 10/04/23 Conformal Pad Former Relationship Specialty Start Date End Date Subha Gutierrez APRN-TECHNICAL SUPERVISOR [address], [place] [address] PCP - General Family Medicine 10/04/23 Conformal Pad Former Relationship Specialty Start Date End Date Subha Gutierrez EDGE CUTTING MACHINE OPERATOR-TECHNICAL SUPERVISOR [address], [place] [address] PCP - General Family Medicine 10/04/23 Conformal Pad Former Relationship Specialty Start Date End Date Subha Gutierrez APRN-CNP [address] [facility], [place] [address] PCP - General Family Medicine 10/04/23 Conformal Pad Former Relationship Specialty Start Date End Date Subha Gutierrez APRN-CNP [address] [facility], [place] [address] PCP - General Family Medicine 10/04/23 FOR [...] BE BASED ON THE PRIMARY CLINICAL RECORDS. [facility]. provides no warranty or guarantee of the accuracy or completeness of information in this document.
[2025-01-02 04:07] LABS: Cancer Antigen (CA) 125 23.8 U/mL (0.0-38.1)
== END 2025-01-01 12:12 | disposition home or self-care (01) ==
LOC: LAB 12:12
PROVIDERS: PCP Nurse Practitioner Family; Visit Provider Obstetrics & Gynecology
DX: Z84.81 Family history of carrier of genetic disease (principal); Z15.01 Genetic susceptibility to malignant neoplasm of breast; Z15.02 Genetic susceptibility to malignant neoplasm of ovary; Z15.09 Genetic susceptibility to other malignant neoplasm
CPT/HCPCS: 36415; 86304

== ENCOUNTER 2025-01-01 21:31 | Outpatient (REF) | payer BC, SELFPAY ==
--- OUTSIDE RECORDS SUMMARY | 2025-01-01 21:34 | XMS_ITS | CCD ---
Author Organization 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 Name Role Phone SONIYA ESCALONA Unavailable Unavailable SUBHA GUTIERREZ Primary Care Physician SABRA, RFANSICO Admitting Unavailable SABRA, FRANSICO Attending Unavailable MATT, SUBHA Primary Care Unavailable SABRA, FRANSICO Consulting Unavailable TIFFANIE GALLARDO Consulting Unavailable MATT MARTINS Consulting Unavaila ble SABRA, FRANSICO Admitting Unavailable SABRA, FRANSICO Attending Unavailable MATT, SUBHA Primary Care Unavailable SABRA, FRANSICO Consulting Unavailable SABRA, FARNSICO Admitting Unavailable SABRA, FRANSICO Attending Unavailable MATT, SUBHA Primary Care Unavailable SABRA, FRANSICO Consulting Unavailable FITZ, DR LAKSHMI Lima Admitting Unavailable FITZ, DR LAKSHMI Lima Attending Unavailable MATT, SUBHA Primary Care Unavailable FITZ, DR LAKSHMI Lima Consulting Unavailable TERRENCE ., DR RICKY Jaimes Admitting Unavailable TERRENCE ., DR RICKY Jaimes Attending Unavailable SABRA, FRANSICO Referring Unavailable MATT, SUBHA Primary Care Unavailable SABRA, FRANSICO Admitting Unavailable SABRA, FRANSICO Attending Unavailable MATT, SUBHA Primary Care Unavailable Matt CARTON MARKER MACHINE-RADHA Subha S Primary Care Provider SABRA, FRANSICO Attending Unavailable SABRA, FRANSICO Attending Unavailable RAE GU Attending Unavailable SABRA, FRANSICO Attending Unavailable SHAWN WATTERS Attending Unavail able [...] SUBHA S Primary Care Unavailable HAYDEN, IVAN Huynh [...] Unavailable SHAWN WATTERS Attending Unavail able MATT, SBUHA S Referring Unavailable MATT, SUBHA S Primary Care Unavailable MATT, SUBHA S Referring Unavailable MATT, SUBHA S Primary Care Unavailable MAINOR, SHAWN LAIRD Attending Unavail able TERI KABA [...] Care Unavailable SHAWN WATTERS Admitting Unavail able SUGSHAWN Nichols Attending Unavail able SUGG, SHAWN LAIRD Referring Unavail able MATT, SUBHA S Primary Care Unavailable ZEINA JACOBS Attending Unavaila ble MATT, SUBHA S Primary Care Unavailable DAVINA PARSONS Referring Unavailable MATT, SUBHA S Primary Care Unavailable SUGG, SHAWN LIARD Admitting Unavail able SUGG, SHAWN LAIRD Attending [...] Unavailable MATT, SUBHA S Primary Care Unavailable Unavailable Primary Care Provider Unavailabl e Medications Current Medications Medication Drug Class(es) Dates [...] Status: Ordered take 1 tablet by peggy every four hours as needed for headache imvchxiipo-fmhoqfeivcosm-gvcuxssv 50-325-40 MG tablet Take 1 tablet by mouth every 4 (four) hours if needed for headaches. Active diazePAM 5 mg oral tablet (20 sources) Benzodiazepine Start: 12-06-2024 End: 12-13-2024 take 1 tablet [...] tablet 10/18/2024 12/04/2024 Discontinued (Therapy completed) Start: 05-22-2024 End: 10-18-2024 take 1 tablet by mouth every six hours as needed for muscle spasms diazePAM (VALIUM) 5 mg tablet Indications: Seroma of skin or subcutaneous tissue after dermatologic procedure , Breast wound, left, sequela , S/P breast reconstruction, bilateral Take 1 tablet (5 mg total) by mouth every 6 (six) hours as needed for muscle spasms. 20 tablet 12/26/2024 Active Start: 03-03-2024 take 1 tablet by peggy [...] Active oxyCODONE hydrochloride 5 mg oral tablet (14 sources) Opioid Agonist Start: 12-26-2024 End: 12-31-2024 [...] 12/26/2024 12/31/2024 Active Start: 12-12-2024 End: 12-17-2024 oxyCODONE (Roxicodone) 10 MG immediate release tablet PLEASE SEE ATTACHED FOR DETAILED DIRECTIONS 12/12/2024 Active Start: 09-18-2024 End: 09-25-2024 take 1 [...] Discontinued Start: 03-31-2022 take 1 tablet by peggy th every eight hours as needed for pain tiZANidine 4 mg Tab 4 mg = 1 tab(s), Oral, q8hr, PRN Muscle pain, Refills(s) 0 Start Date: 03/31/22 Status: Ordered tiZANidine (Ibrahima flex) 4 MG tablet Take 8 mg by mouth at bedtime. Active Problems Active Problems Problem Classification Problem Date Documented Date Episodic/Chronic Calculus of urinary tract (5 sources) History of calculus of kidney; Translations: [Personal history of urinary calculi] Onset: 02-17-2022 Episodic Cancer of breast (2 sources) Malignant tumor of breast 01-28-2022 Chronic Cancer of breast (4 sources) History of malignant neoplasm of breast; Translations: [Personal history of malignant neoplasm of breast] 01-01-2025 Episodic Complications of surgical procedures or medical care [...] of malignant neoplasm of breast] Onset: 11-02-2023 3 Episodic Residual codes; unclassified (2 sources) Other [...] CULTURE RESULTS NO GROWTH 3 DAYS Normal [facility] Comment on above: Performed By: #### 5 97-5 #### [facility] ([id number]) [address], [address] [place] [address] ANAEROBE CULTUREon 5 Bacteria identified Anaer cx Nom (Unsp spec) CULTURE RESULTS NO GROWTH 5 DAYS Normal [facility] Comment on above: Performed By: #### 6 35-3 #### [facility] ([id number]) [address], [address] [place] [address] FUNGAL CULTUREon 12-06-2024 Fungus identified Cx Nom (Unsp spec) FUNGAL SMEAR NO FUNGAL ELEMENTS SEEN ON DIRECT SMEAR CULTURE RESULTS NO FUNGUS ISOLATED AFTER 1 WEEK Normal [facility] Comment on above: Performed By: #### 5 80-1 #### [facility] ([id number]) [address], [address] [place] [address] TISSUE CULTUREon 12-06-2024 Bacteria identified Aer cx Nom (Tiss) GRAM STAIN 1 to 9 WHITE BLOOD CELLS/LPF 0 SQUAMOUS EPITHELIAL CELLS/LPF NO ORGANISMS SEEN CULTURE RESULTS NO GROWTH 3 DAYS Normal [facility] Comment on above: Performed By: #### 6 27-0 #### [facility] ([id number]) [address] [place] [address], [address] [place] [address] Surgical Pathologyon 024 Surgical Pathology Normal [facility] Comment on above: Result Comment: [facility] [address] [place] [address] Surgical Pathology Consultation Patient Name:YUE LEWIS:1985 (Age: 38)Gender:FTaken:10/30/2024eported:11/07/2024hysician(s):Ana Watters MD ([phone])Copy To: Rec. #:[id number]: #[id number] Final Pathologic Diagnosis Skin, left nipple sinus tract, punch biopsy: - Epidermal-lined sinus tract with surrounding fibrosis Report Electronically Signed Out nrd/11/07/2024Vivienne Cardoza MD Interpretation performed at [facility], [address] [place] [address], License number: [id number]. Clinical History Periareolar abscess. Gross Description Received in formalin labeled JOSHUA, left nipple sinus tract is a pale-davalos wrinkled skin punch, 0.4 x 0.2 cm excised to depth of 0.2 cm. No lesion or area of discoloration is definitively identified. The resection margin is inked green. The specimen is bisected and submitted in a single cassette. (1, ns, [id number],m1) DM. dm/10/31/2024O Microscopic Findings Microscopic examination performed. Specimen(s) Received Left nipple sinus tract Fee Codes(s): 1; 76073 SUPERFICIAL WOUND CULTUREon 10-18-2024 Bacteria identified Aer cx Nom (Wound) SPECIMEN NOTES NAC MARGIN 4 OCLOCK GRAM STAIN 0 to 1 WHITE BLOOD CELLS/LPF 0 SQUAMOUS EPITHELIAL CELLS/LPF NO ORGANISMS SEEN CULTURE RESULTS NO GROWTH 2 DAYS Normal [facility] Comment on above: Performed By: #### 6 32-0 #### [facility] ([id number]) [address] [place] [address], [address] [place] [address] Surgical Pathologyon 024 Surgical Pathology Normal [facility] Comment on above: Result Comment: [facility] [address] [place] [address] Surgical Pathology Consultation Patient Name:YUE LEWIS:1985 (Age: 38)Gender:FTaken:4Reported:03/03/2024hysician(s):TERI KABA MD ([phone])Copy To:Shawn Watters[facility] #:[id number]. Rec. #:[id number]: #[id number] Final Pathologic Diagnosis 1. Right breast nipple [...] or malignancy identified. Report Electronically Signed Out formerly [facility]/03/03/2024Tobi Waters M.D. Interpretation performed at [facility], [address] [place] [address], License number: [id number]. Clinical History BRCA1 mutation. Gross Description 1. Received in formalin labeled JOSHUA right breast stitch fields superior is a [...] are taken and no microcalcifications are identified. Script Girl sections are submitted in cassettes A-I, as follows: A-B upper outer quadrant C-D lower outer quadrant E-F upper inner quadrant G-H lower inner quadrant I admitting representative remaining aggregate Breast Fixation Time: Time incised: 916 Time in formalin: 916 Cold ischemic time: Less than 1 minute Time in formalin before processin hours (9,ss,[id number], m6)MW 2. Received in formalin, labeled JOSHUA, right nipple core is a 0.7 x 0.3 cm fibroadipose tissue core. The specimen is filtered and entirely submitted in 1 cassette. (1, ns, [id number], m6) MW 3. Received in formalin, labeled JOSHUA, right and left breast implant are 2 intact implant filled with clear gelatinous fluid. There are no discrete tears or attached soft tissue identified. The implants are inscribed with MENTOR [id number], HO 420cc No tissue is submitted for microscopic evaluation. GROSS ONLY. MW 4. Received in formalin labeled JOSHUA left breast stitch fields superior is a [...] are taken and no microcalcifications are identified. Script Girl sections are submitted in cassettes A-I, as follows: A-B upper outer quadrant C-D lower outer quadrant E-F upper inner quadrant G-H lower inner quadrant I admitting representative remaining aggregate Breast Fixation Time: Time incised: 1031 Time in formalin: 1031 Cold ischemic time: Less than 1 minute Time in formalin before processin hours (9,ss,[id number], m6)MW 5. Received in formalin, labeled WILLARDIAN, left nipple core is a 0.9 x 0.6 x 0.2 cm fibroadipose tissue fragment. The specimen is filtered and entirely submitted in 1 cassette. (1, ns, [id number], m6) MW mxw/02/28/2024GR Specimen(s) Received 1: Right breast 2: Right nipple core 3: Right and left breast implants 4: Left breast 5: Left nipple core Fee Codes(s): 1; 96076 2; 37509 3; 64410 4; 65793 5; 59012 BASIC METABOLIC PANLon 02-13 Anion gap [Moles/Vol] 9 mmol/L Normal 5-15 [facility] Comment on above: Performed By: #### C BCA, BMP #### [facility] ([id number]) [address], [address] [place] [address] Calcium [Mass/Vol] 9.3 mg/dL Normal 8.5-10.5 [facility] Comment on above: Performed By: #### C BCA, BMP #### [facility] ([id number]) [address], [address] [place] [address] Chloride [Moles/Vol] 101 mmol/L Normal 98-109 [facility] Comment on above: Performed By: #### C BCA, BMP #### [facility] ([id number]) [address], [address] [place] [address] CO2 [Moles/Vol] 30 mmol/L Normal 22-32 [facility] Comment on above: Performed By: #### C BCA, BMP #### [facility] ([id number]) [address] [place] [address] Creatinine [Mass/Vol] 0.79 mg/dL Normal 0.40-1.00 [facility] Comment on above: Result Comment: METH OD TRACEABLE TO IDMS STANDARD Performed By: #### C BCA, BMP #### [facility] ([id number]) [address], [address] [place] [address] eGFR (CKD-EPI) NON-RACE DEPENDENT >90 Normal >59 [facility] Comment on above: Result Comment: Reported eGFR is based on the CKD-EPI 2020 equation that does not use a race coefficient. Performed By: #### C BCA, BMP #### [facility] ([id number]) [address] [place] [address] Glucose [Mass/Vol] 78 mg/dL Normal 65-99 [facility] Comment on above: Performed By: #### C BCA, BMP #### [facility] ([id number]) [address] [place] [address] Potassium [Moles/Vol] 3.7 mmol/L Normal 3.5-5.0 [facility] Comment on above: Performed By: #### C BCA, BMP #### [facility] ([id number]) [address] [place] [address] Sodium [Moles/Vol] 140 mmol/L Normal 134-146 [facility] Comment on above: Performed By: #### C BCA, BMP #### [facility] ([id number]) [address] [address] Urea nitrogen [Mass/Vol] 9 mg/dL Normal 5-23 [facility] Comment on above: Performed By: #### C BCA, BMP #### [facility] ([id number]) [address] [place] [address] Basic Metabolic Panelon 03- Anion gap [Moles/Vol] 9 mmol/L 5 - 15 mmol/L [facility] Calcium [Mass/Vol] 9.3 mg/dL 8.5 - 10. 5 mg/dL [facility] Chloride [Moles/Vol] 101 mmol/L 98 - 10 9 mmol/L [facility] CO2 [Moles/Vol] 30 mmol/L 22 - 32 mmol/L [facility] Creatinine [Mass/Vol] 0.79 mg/dL 0.40 - 1.00 mg/dL [facility] Comment on above: METHOD TRACEABLE TO IDIN STANDARD eGFR (CKD-EPI)non-race dependent - PINF [facility] Comment on above: Reported eGFR is based on the CKD-EPI 2020 equation that does not use a race coefficient. Glucose [Mass/Vol] 78 mg/dL 65 - 99 mg/dL [facility] Potassium [Moles/Vol] 3.7 mmol/L 3.5 - 5.0 mmol/L [facility] Sodium [Moles/Vol] 140 mmol/L 134 - 146 mmol/L [facility] Urea nitrogen [Mass/Vol] 9 mg/dL 5 - 23 mg/dL [facility] CBC AND AUTO DIFFon 02-14-20 ABSOLUTE BASOPHIL 0.0 X10E9/L Normal 0.0-0.2 [facility] Comment on above: Performed By: #### C BCA, BMP #### [facility] ([id number]) [address], [address] [place] [address] ABSOLUTE NEUTROPHIL 3.7 X10E9/L Normal 1.5-6.6 [facility] Comment on above: Performed By: #### C BCA, BMP #### [facility] ([id number]) [address], [address] [place] [address] Basophils/100 WBC (Bld) 0.6 % Normal [facility] Comment on above: Performed By: #### C BCA, BMP #### [facility] ([id number]) [address], [address] [place] [address] Eosinophils (Bld) [#/Vol] 0.1 10*3/uL Normal 0.0-0.4 [facility] Comment on above: Performed By: #### C BCA, BMP #### [facility] ([id number]) [address] [address] [place] [address] Eosinophils/100 WBC (Bld) 1.0 % Normal [facility] Comment on above: Performed By: #### C COBY, BMP #### [facility] ([id number]) [address] [address] [place] [address] Erythrocyte distribution width (RBC) [Ratio] 12.9 % Normal 11.5-15.0 [facility] Comment on above: Performed By: #### C COBY, BMP #### [facility] ([id number]) [address] [address] [place] [address] Hematocrit (Bld) [Volume fraction] 39.3 % Normal 35-47 [facility] Comment on above: Performed By: #### C COBY, BMP #### [facility] ([id number]) [address] [address] [place] [address] Hemoglobin (Bld) [Mass/Vol] 13.3 g/dL Normal 11.7-15.5 [facility] Comment on above: Performed By: #### C COBY, BMP #### [facility] ([id number]) [address] [place] [address] Lymphocytes (Bld) [#/Vol] 3.1 10*3/uL Normal 1.0-3.5 [facility] Comment on above: Performed By: #### C BCA, BMP #### [facility] ([id number]) [address] [address] [place] [address] Lymphocytes/100 WBC (Bld) 41.9 % Normal [facility] Comment on above: Performed By: #### C COBY, BMP #### [facility] ([id number]) [address], [address] [place] [address] MCH (RBC) [Entitic mass] 30.5 pg Normal 27-34 [facility] Comment on above: Performed By: #### C COBY, BMP #### [facility] ([id number]) [address], [address] [place] [address] MCHC (RBC) [Mass/Vol] 33.8 g/dL Normal 32-36 [facility] Comment on above: Performed By: #### C COBY, BMP #### [facility] ([id number]) [address], [address] [place] [address] MCV (RBC) [Entitic vol] 90 fL Normal 80-100 [facility] Comment on above: Performed By: #### More TENORIO, BMP #### [facility] ([id number]) [address], [address] [place] [address] Monocytes (Bld) [#/Vol] 0.5 10*3/uL Normal 0-0.9 [facility] Comment on above: Performed By: #### C COBY, BMP #### [facility] ([id number]) [address], [address] [place] [address] Monocytes/100 WBC (Bld) 6.4 % Normal [facility] Comment on above: Performed By: #### C COBY, BMP #### [facility] ([id number]) [address] [place] [address] Neutrophils/100 WBC (Bld) 50.1 % Normal [facility] Comment on above: Performed By: #### More TENORIO, BMP #### [facility] ([id number]) [address], [address] [place] [address] Platelet mean volume (Bld) [Entitic vol] 9.4 fL Normal 7-12 [facility] Comment on above: Performed By: #### C COBY, BMP #### [facility] ([id number]) [address], [address] [address] Platelets (Bld) [#/Vol] 204 10*3/uL Normal 150-450 [facility] Comment on above: Performed By: #### More TENORIO, BMP #### [facility] ([id number]) [address], [facility] [address] [place] [address] RBC COUNT 4.36 X10E12/L Normal 3.80-5.20 [facility] Comment on above: Performed By: #### More TENORIO, BMP #### [facility] ([id number]) [address] [address] WBC (Bld) [#/Vol] 7.3 10*3/uL Normal 4.0-11.0 [facility] Comment on above: Performed By: #### More TENORIO, BMP #### [facility] ([id number]) [address], [address] [address] CBC auto differentialon 01-27 Basophils (Bld) [#/Vol] 0.0 10*3/uL [facility] Basophils/100 WBC (Bld) 0.6 % [facility] Eosinophils (Bld) [#/Vol] 0.1 10*3/uL [facility] Eosinophils/100 WBC (Bld) 1.0 % [facility] Erythrocyte distribution width (RBC) [Ratio] 12.9 % 11.5 - 15.0 % [facility] Hematocrit (Bld) [Volume fraction] 39.3 % 35 - 47 % [facility] Hemoglobin (Bld) [Mass/Vol] 13.3 g/dL 11.7 - 15.5 g/dL [facility] Lymphocytes (Bld) [#/Vol] 3.1 10*3/uL [facility] Lymphocytes/100 WBC (Bld) 41.9 % [facility] MCH (RBC) [Entitic mass] 30.5 pg 27 - 34 pg [facility] MCHC (RBC) [Mass/Vol] 33.8 g/dL 32 - 36 g/dL [facility] MCV (RBC) [Entitic vol] 90 fL 80 - 100 fL [facility] Monocytes (Bld) [#/Vol] 0.5 10*3/uL [facility] Monocytes/100 WBC (Bld) 6.4 % [facility] Neutrophils (Bld) [#/Vol] 3.7 10*3/uL [facility] Neutrophils/100 WBC (Bld) 50.1 % [facility] Platelet mean volume (Bld) [Entitic vol] 9.4 fL 7 - 12 fL [facility] Platelets (Bld) [#/Vol] 204 10*3/uL [facility] RBC (Bld) [#/Vol] 4.36 10*6/uL [facility] WBC corrected for nucl RBC Auto (Bld) [#/Vol] 7.3 [facility] NICOTINE METAB Uon 4 3 [place] COTININE <50 Normal [facility] Comment on above: Performed By: #### N ICTU #### [facility] ([id number]) [address] [place] [address] ANABASINE <5 Normal [facility] Comment on above: Performed By: #### N ICTU #### [facility] ([id number]) [address] [place] [address] COTININE <15 Normal [facility] Comment on above: Performed By: #### N ICTU #### [facility] ([id number]) [address] [place] [address] NICOTINE <15 Normal [facility] Comment on above: Result Comment: NOTE INTERPRETIVE INFORMATION: Nicotine and Metabolites, Urine, Quantitative Methodology: Quantitative Liquid Chromatography-Tandem Mass Spectrometry Positive cutoff: Nicotine 15 ng/mL Cotinine 15 ng/mL 9-AF-Wjtfwliv 50 ng/mL Anabasine 5 ng/mL For medical [...] developed and its performance characteristics determined by [facility]. It has not been cleared or approved by the [place] Food and Drug Administration. This test was performed in a CLIA certified laboratory and is intended for clinical purposes. Performed By: [facility] [address] [place] [address] Crusher Machine Operator: Chidi Cook MD, PhD [place] Number: [id number] Performed By: #### N ICTU #### [facility] ([id number]) [address] [place] [address] REVERSE T3on 03-13-2023 Reverse T3, Serum 23.0 ng/dL Normal 9.2-24.1 [facility] Comment on above: Result Comment: This test was developed and its performance characteristics determined by [facility]. It has not been cleared or approved by the Food and Drug Administration. Performed By: #### C PEPT #### [facility] [address] [place] [address] Dr. Gale Qiu SEROTONINon 03-12-2023 Serotonin, Serum 146 ng/mL Normal 31-207 [facility] Comment on above: Performed By: #### T HYGIMA #### [facility] [address] [place] [address] [address] [address] Gale Qiu ESTRONEon 03-11-2023 Estrone, Serum 50 pg/mL Normal 27-231 [facility] Comment on above: Result Comment: Rang e Adult (Premenopausal) 27 - 231 Menstrual Cycle (1-10 days) 19 - 149 Menstrual Cycle (11-20 days) 32 - 176 Menstrual Cycle (21-30 days) 37 - 200 Performed By: #### E STRONE #### [facility] [address] [place] [address] Dr. Gale Qiu TESTOSTERONE, FREE,DIRECT, T OTALon 03-11-2023 Free Testosterone(Direct) 0.5 pg/mL Normal 0.0-4.2 [facility] Comment on above: Result Comment: Perf ormed at: BN Performed By: #### C PEPT #### [facility] [address] [place] [address] Dr. Gale Qiu Testosterone [Mass/Vol] 5 ng/dL Critically low 8-60 [facility] Comment on above: Result Comment: Perf ormed at: CB Performed By: #### C PEPT #### [facility] [address] [place] [address] Dr. Gale Qiu C-PEPTIDE, SERUMon 3 C-Peptide, Serum 1.9 ng/mL Normal 1.1-4.4 [facility] Comment on above: Result Comment: C-Pe ptide reference interval is for fasting patients. Performed By: #### C PEPT #### [facility] [address] [place] [address] Dr. Gale Qiu DHEA-SULFATEon 03-10-2023 DHEA-Sulfate 93.5 ug/dL Normal 57.3-279.2 [facility] Comment on above: Performed By: #### T HYGIMA #### [facility] [address] [place] [address] Dr. Gale Qiu ESTRADIOLon 03-10-2023 Estradiol 273.0 pg/mL Normal [facility] Comment on above: Result Comment: Adul t Female: Follicular phase 12.5 - 166.0 Ovulation phase 85.8 - 498.0 Luteal phase 43.8 - 211.0 Postmenopausal <6.0 - 54.7 1st trimester 215.0 - >4300.0 [facility] ECLIA methodology Performed By: #### C PEPT #### [facility] [address] [place] [address] Dr. Gale Qiu INSULINon 03-10-2023 Insulin 7.7 uIU/mL Normal 2.6-24.9 [facility] Comment on above: Performed By: #### I NSULIN #### [facility] [address] [place] [address] Dr. Gale Qiu SEX HORMONE-BINDING GLOBULIN on 03-10-2023 Sex Horm Binding Glob, Serum 62.1 nmol/L Normal 24.6-122.0 [facility] Comment on above: Performed By: #### T HYGIMA #### [facility] [address] [place] [address] Dr. Gale Qiu T3, TOTAL (TRIIODOTHYRONINE) on 03-10-2023 T3, TOTAL 113 ng/dL Normal 71-180 [facility] Comment on above: Performed By: #### T HYGIMA #### [facility] [address] [place] [address] Dr. Gale Qiu THYROGLOBULIN AB AND THYROGL OBULINon 03-10-2023 Thyroglobulin Antibody <1.0 Normal 0.0-0.9 [facility] Comment on above: Result Comment: Thyr oglobulin Antibody measured by [facility] Methodology Performed By: #### T HYGIMA #### [facility] [address] [place] [address] Dr. Gale Qiu Thyroglobulin by LUZ 61.6 ng/mL Critically high 1.5-38.5 [facility] Comment on above: Result Comment: Acco [...] By: #### T HYGIMA #### [facility] [address] [place] [address] Dr. Gale Qiu THYROID PEROXIDASE ABon - Thyroid Peroxidase (TPO) Ab <9 Normal 0-34 [facility] Comment on above: Performed By: #### T HYGIMA #### [facility] [address] [address] [address] Gale Qiu VIT D 1 25 DIHYDROXYon 03-10 Calcitriol(1,25 di-OH Vit D) 34.5 pg/mL Normal 24.8-81.5 [facility] Comment on above: Performed By: #### V [id number] #### [facility] [address] [place] [address] Dr. Gale Qiu FERRITINon 03-09-2023 Ferritin [Mass/Vol] 57.0 ng/mL Normal 6.2-137.0 [facility] Comment on above: Performed By: #### T HYGIMA #### [facility] [address] [place] [address] Dr. Gale Qiu FREE T3on 03-09-2023 FREE T3 2.75 pg/mlL Normal 2.18-3.98 [facility] Comment on above: Performed By: #### G PATTY, FT3, T4, TSH #### [facility] [address] [place] [address] Dr. Gale Qiu FREE T4on 03-09-2023 Free T4 [Mass/Vol] 0.92 ng/dL Normal 0.76-1.[address] [facility] Comment on above: Performed By: #### T HYGIMA #### [facility] [address] [place] [address] Dr. Gale Qiu GLUCOSE BLOODon 03-09-2023 Glucose [Mass/Vol] 94 mg/dL Normal 74-[address] [facility] Comment on above: Performed By: #### G PATTY, FT3, T4, TSH #### [facility] [address] [place] [address] Dr. Gale Qiu GLYCOHEMOGLOBIN A1Con 2022 ADA RECOMMENDATION SEE BELOW Normal [facility] Comment on above: Result Comment: ADA RECOMMENDED LIMIT 4.0 - 6.0 ADA THERAPEUTIC TARGET < 7.0 ACTION SUGGESTED > 7.0 Performed By: #### T HYGIMA #### [facility] [address] [place] [address] Dr. Gale Qiu Glucose [Mass/Vol] 105 mg/dL Normal [facility] Comment on above: Performed By: #### T HYGIMA #### [facility] [address] [place] [address] Dr. Gale Qiu HbA1c (Bld) [Mass fraction] 5.3 % Normal 4.5-6.2 [facility] Comment on above: Performed By: #### T HYGIMA #### [facility] [address] [place] [address] Dr. Gale Qiu T4on 03-09-2023 T4 [Mass/Vol] 9.20 ug/dL Normal 4.80-13.90 [facility] [place] Comment on above: Performed By: #### G PATTY, FT3, T4, TSH #### [facility] [address] [place] [address] Dr. Gale Qiu TSHon 03-09-2023 TSH 1.236 uIU/mL Normal 0.358-3.740 [facility] [place] Comment on above: Performed By: #### G PATTY, FT3, T4, TSH #### [facility] [address] [place] [address] Dr. Gale Qiu PAP ACOG PANEL 2: 30 to 65on 12-28-2022 . . Normal [facility] Comment on above: Result Comment: Perf ormed at: WB Performed By: #### 4 [id number] #### [facility] [address] [place] [address] Dr. Gale Qiu Age Gdln ACOG Testing 30-65 Normal [facility] Comment on above: Performed By: #### 4 [id number] #### [facility] [address] [place] [address] Dr. Gale Qiu DIAGNOSIS: Comment Normal [facility] Comment on above: Result Comment: NEGA TIVE FOR INTRAEPITHELIAL LESION OR MALIGNANCY. FUNGAL ORGANISMS MORPHOLOGICALLY CONSISTENT WITH EDGARD SPECIES ARE PRESENT. THIS SPECIMEN WAS RESCREENED PART OF OUR PRODUCTION INSPECTOR PROGRAM. Performed at: WB Performed By: #### 4 [id number] #### [facility] [address] [place] [address] Dr. Gale Qiu HPV Aptima QNSPAP Normal [facility] Comment on above: Result Comment: Test not performed. Liquid based PAP vial contained insufficient specimen for molecular testing; likely a consequence of insufficient cellularity in original collection. This nucleic acid amplification test detects fourteen high-risk HPV types (16,18,31,33,35,39,45,51,52,56,58,59,66,68) without differentiation. Performed at: =G Performed By: #### [id number] #### [facility] [address] [place] [address] Dr. Gale Qiu HPV Genotype Reflex Comment Normal [facility] Comment on above: Result Comment: Crit erann not met, HPV Genotype not performed. Performed at: WB Performed By: #### 4 [id number] #### [facility] [address] [place] [address] Dr. Gale Qiu Methodology: Comment [facility] Comment on above: Result Comment: This liquid based ThinPrep(R) pap test was screened with the use of an image guided system. Performed at: WB Performed By: #### [id number] #### [facility] [address] [place] [address] Dr. Gale Qiu Note: Comment Normal [facility] Comment on above: Result Comment: The Pap smear is a screening test designed to aid in the detection of premalignant and malignant conditions of the uterine cervix. It is not a diagnostic procedure and should not be used as the sole means of detecting cervical cancer. Both false-positive and false-negative reports do occur. . Performed at: WB Performed By: #### [id number] #### [facility] [address] [place] [address] Dr. Gale Qiu Performed by: Comment Normal [facility] [place] Comment on above: Result Comment: Marina Hernandes, Cloth Examiner Hand (ASCP) Performed at: WB Performed By: #### 4 [id number] #### [facility] [address] [place] [address] Dr. Gale Qiu QC reviewed by: Comment Normal [facility] Comment on above: Result Comment: Brenda Redd, Supervisory Cloth Examiner Hand (ASCP) Performed at: WB Performed By: #### 4 [id number] #### [facility] [address] [place], [place] [address] Dr. Gale Qiu Specimen adequacy: Comment Normal [facility] Comment on above: Result Comment: Sati sfactory for evaluation. No endocervical component is identified. Performed at: WB Performed By: #### 4 [id number] #### [facility] [address] [place], [place] [address] Dr. Gale Qiu Progress Note-Physicianon Progress Note-Physician [...] History of kidney stones / SNOMED CT 3854273991 / Confirmed Migraines / SNOMED CT 85138206 / Confirmed Smoker / SNOMED CT 852171581 / Confirmed Added secondary to documentation in Social History. Resolved: Breast cancer / SNOMED CT 503875817 Resolved: Gross hematuria / SNOMED CT 086653828 Resolved: Hx of migraines / SNOMED CT 545323427 Resolved: History of recurrent UTI (urinary tract infection) / SNOMED CT 7776030511 Resolved: Kidney stones / SNOMED CT 245547206 Resolved: Dyspareunia in female / SNOMED CT 183778801 Canceled: Bladder pain / SNOMED CT 57975492 Canceled: Flank pain / SNOMED CT 157203038 Canceled: Stress incontinence / SNOMED CT 185610366 Histories Past Medical History: Resolved Dyspareunia in female (647985949): Resolved. Breast cancer (211890554): Resolved. Kidney stones (752533065): Resolved. History of recurrent UTI (urinary tract infection) (6437872945): Resolved. Gross hematuria (562342836): Resolved. Family History: Cancer Brother Osteoarthritis Mother Father Procedure history: Exploration using laparoscope cleaned out adhesions ([id number]) on 03/10/2022 at 36 Years. Tubal ligation (333401972). Hysterectomy (810312030). Endometriosis (6822887559). Social History Social & Psychosocial Habits Alcohol [...] results Radiology results ECG interpretation Condition Plan [employer] (ASA) physical status classification: Class II. Anesthetic Preoperative Plan Anesthesia: General. . Anesthetic plan, risks, benefits, and alternatives discussed with the patient and/or family. Risks discussed: nausea, vomiting, headache, sore throat, dental injury, serious complications. Patient verbalized understanding. Communication: face to face with (patient 5 minutes, Pt educated on the importance of smoking cessation.). [facility] Comment on above: Result Comment: [...] History of kidney stones / SNOMED CT 8945903520 / Confirmed Migraines / SNOMED CT 35071712 / Confirmed Smoker / SNOMED CT 310413607 / Confirmed Added secondary to documentation in Social History. Resolved: Breast cancer / SNOMED CT 745887333 Resolved: Gross hematuria / SNOMED CT 685118971 Resolved: Hx of migraines / SNOMED CT 041235184 Resolved: History of recurrent UTI (urinary tract infection) / SNOMED CT 6339731676 Resolved: Kidney stones / SNOMED CT 505311896 Resolved: Dyspareunia in female / SNOMED CT 072210670 Canceled: Bladder pain / SNOMED CT 14794771 Canceled: Flank pain / SNOMED CT 170822507 Canceled: Stress incontinence / SNOMED CT 613055063 Physical Examination Vital Signs 04/02/2022 12:00 EDT [...] Score 7 (more content not included)... Normal [facility] Comment on above: Result Comment: Elec tronically Signed By: Abhijit De La Cruz Jr, DO\.br\Date and Time Signed: 04/14/22 08:56 EDT Coding Summary.on 04-07-2022 Coding Summary. CD:[id number] Gh 0bWw+PGhlYWQ+OW6BWQWpY 51ujSFihR2OY8vHAJ7NGFP CNTUZLE5NOF4euSG4QDbtY 2VybiAv BqjciAXoZH37NFm8ZNR3gW pyZSoebK8zsNBsW8r9IjCy IJ37hS48QUfpCIIrCaV3Ah ZpbjsgbWFy H5mjHbNxwTFgRvn+PHRhYm xlIHdpZHRoPScxMDAlJyBz dNvqWO0vGu2dIRAoMXMvfT xhcHNlOiBj f2lwDACyRPsoRF4dqEczH2 WhdIM5QMJib5q3Sg63nNW+ DZPaMHF6kBypWMlnz496Og Pow5lvYLP3 tEZvQSayZAN2F29fs3N7NL KoKRWeTKF9tZO4oN7peEwn stdnN6IqaPQbAwV1MKM3fA XzgH0qpMqz dcoobU3vRkl+W62YTJ0UMZ WYPV8VNno4Y9AvEwkqmNP+ HB72JAHcHC55uGUhdXOmv8 juhXj9JoId DMVmNCL6lMxlTGpjg7ZaUH PzR59kyQCtf6M7KDXyoBog uEMrEeWdaXZ9hN0vGKssuz jjy5axhteq Ryixd2harz43tR50K85eTC jtTHGcCLE6IPKfQHJpcQrc ss4tjG0qCy7+GFdsz6eev7 haiNn4OyTl LKFdezWljBgaNIF3u0CpPo 56F1XlgTtzh5XsZih5wt10 yINay2S1qEB6KIihAPWquR 5pVIdpViD8 VKBuVqUojW56zBBmZOqfSn 2jeYdenXhaUP9lJATzlpop OITluB1vKUIiiORzcJspGC 4wNTBpbjtm e765EcHbHFV9HGYupMBeO4 GpxX5pXtGxZIFyMCPhD1Ak fKXrZBefJ088JDimFoM4MF UnuvIlS5Gk SQOciXdeEhO0r9P9Jj5Oq9 FrreqzOPX8WVnxUZU8PlUf ZmSmLoN2F3JbSct4LTWraN gaIO2kP8Yj NEIjfnudlwgilOX4BOLmDI IysE77lYYqURapHr7sa7R8 l316IAXcFKPbsC46Zx8poT ogMTBwdCBU xF8piyexb3zbsseiPwCrBH RpIXh2AOq3ODYunTylVxDd QAA8LsF0WVL9pHQguZ2qpM jqnvvzjP8q Oyc+X08ujU0wXBV1NOW0uk itKOIqdbTyWB42DW22C3Pn PjwvdGFibGU+PGRpdiBzdH mzEH9tOeVy b0lsr6SlJOymC7MbMZVjBW fbYzo4YZUdNGD2yFY0dA3u IZVoYSbdf0P3vGU4V9Mwje Bkfy5jf9lu BBFnKGunG63loOChv4W7FY GluWT9HAHicSjfLiGjaQ40 Oyc+NCSajVkqc6ZyQengo3 mbx3knxEn7 HwFePLWvujDgvBtiVKQ4b0 EiLe91E22rFDvqROJuMSWp CEWmYEWyjKxjqp4blC1yYn 8+PGNvbCB3 uCK3sN3pWLKuGyE0SCebS3 22BsGcqLApXhedz7ghp2qg eBc0JlAkPVJtxgOzsWjrMH Y5d3FfWv60 D53jUVhnJYQoCVHgOWRoDQ ZvaDfcoz3btB8pCt7+PC9j u3sxzg84qN23rUJ+PHRkIH X4wYcsTIhy HRXgvV8uMDlvDfU9IQHvDq DihI91kZAsBDejAv4hcLiu lIkaEW3dJCEanaajf730Of Atf3dcGSCq wBSoOIbsBRU1S62nw4U9GX EtTBFjBFB6sPU1bQ7geCle bjogbGVmdDsgdmVydGljYW hjZCdtP151 IHRvcDsnPlBhdGllbnQgTm XbWZz4T9SrIaj5VYEbcVft CA5vuHXvAVeqUc6mvBlnaW azBU5qYQXh blych442OkOql5ysWYDndU RrMZmjUVO7N94nt8R7FTQl ZVKoFAX4kPU2pK6egIkbbo ogbGVmdDsg zgEdgRqwMNzaKZkmA723DZ RvcDsnPkJpcnRoIERhdGU6 AY95SE70sJQpp2Y5oLD7T2 BhZGRpbmct pbzgsRK7DXGvYAEutN12Ql 7skSmdPx5nXXNoHUZ9JWPl jDZsY8PgtC7wYlElPGGfRX SoT6YyhUTd DTsiW472ZBdvRcN2WRCyun MiP2SyDRTjoYaxUkE9t2M2 Wp7KH1X7SR60BC92mWVmi3 S0xYO8M4De VEDksvzmqfrqnEG7SPNlMF JqkE89Vc3chNwaQn3qUSCw RFM6EZVdwVKkD1HkzU8mVl AjMDAwMDAw V8JpxPZaXFfeG428TKxyLy Z7MUAwvwTyC7JpKCLfvBkn WoR1l5C4On4IXZk4FW92WU 54nCXqa5P3 tLM9B5ErCJDfuesygcjuzB M9WDFdWVHqyI99Dg0nfSpe Lj6oKETdGXF6BOLkuKPqX8 TvjM4hYeTh YFKtWIPaJ2YlnZUcRRytB1 37DImnLrX7KFVapxEeI3Gp AENdkJslOdA6s6C4Yx3UBD MvXH79AZU4 vHA6JA43RB58V0NfVepyfZ FibGU+PHRhYmxlIHdpZHRo RJlgUUZbVxYvqEwzJJ8yRs 9yZGVyLWNv zFkfcAVgNuUqk9yzXLPqKS veDX3rmRznS3EhvVY6IBAs s4s6Yn24Z30wC5PunEL+PG MgdRJ4lYM3 mF0hJoHvCjU6JWalP866Dl ZkpQSuRobyw2yfl6nppEd8 WnA7ZAAfrdIfvXpkAXR8a5 TrOn28M98p IHdpZHRoPSIxNSUiIHZhbG yuyv5dcQ2kCm1+PGNvbCB3 tIM5yF3lRsDcMaO7LMygI7 49InRvcCIv Qjfjo2ymx3nuhPd8YhWbZU TmimAkhYptLBB7y1YqGv06 G0EemWlhw1KxJkc1zd86gC Lqy2H6nSV9 R8KeCBZqvbgqzOPdzIcbBI 4jBVZktiryNMGtuG1aZRMg S3y7LgQtSsW9ANttQ4Gcvo F8QQGtpNAd RQuwBBM1T05rg2P2QKNsKO HpYTR1fFE0hS6ruBxiuyyq bGVmdDsgdmVydGljYWwtYW afF213WHJa fVxzKICqtX6mZWSysSAbbC skKP2iTVQmwuszVqtJErdK XrwdT7FAVUk0B6XaEiq9MP IzcJpoSF1c mVSkBPggCs7vxYpiwYraJQ 5eHKNvhwxlOGNyhN0aUORx oCIfqVmlHE7tCAUjyseob9 60SuKiJPN5 FVDacUVpC6QsxB8uUbJiXP AqEHCmB1BxlMDkKBfpJ760 XUooNnD0OUInrrBgZ0PiUN FsaWduOiB0 o7G0Wv5fVd3nSX1oLBy8JU 61BT20iENrw0X9oEN7B5Bj CYTzrhpxsoajfLN1MLVmRX NnzA98sWQo ZPjeKs3gr1A9z301AJLtFR GllG65Ip4udTrgVATwpOEI aJ3bjnqag3hefyxjDnWqIM RjAVh4YXa9 RWHzdOuiNjUjFXN9NnL4PY K7gMEzgO0glJxkiwwjfY4z Oyc+BaVuTXHofjW2A5SoPv f5LHQmbRtu TL5kpZGoVZbcYt5csCljsQ jwZL9cXMBzfhmgHSGddZ0k KOVxtRGmhOovAQ3dORPjrr ckq448WkDv KSD2GWQpkSXwX5IitI7qBt QjXPWwAETtL8XopDWtPNps N113WSlaDqK5LMSjuzNdR2 FsLWFsaWdu ToR6j6Z6Ap5ZBR3gdMJ4Y5 GnPej8IERfvTrqFC1loCKo DKxpSe0miBcblRajLV3dKW BpbjtwYWRk eW1pEETdjCSsiYybTZ3mXP Jvarrsa916XtPxGFV1DSKl rOCuW3PrxA5vIqOrTYXwUQ ZiJ1VezNWw ADbtC632PTyuVjK7MZOmzw MrC3WfDQPzlBgnHiS2i4C7 Qb0RtJHaDFDoYN49EK63CC 54Q7TwMxzr dGFibGU+PHRhYmxlIHdpZH UpWXjwQMBlTkKskKheKP6v Te8nBLJaOFLjeFccwEWcWa Wse2ndVLHe EUvdLU8iaCxdF8ZwuIF9MV Mjy1j9Rp49L69eB0JubUE+ EXElkIW7aGE4jL7hPmUwQv C5XVtpI135 MhKwgCQrUyhdv1dek0wtdG g7DlMwXWDqivWzfDtwOVI5 c9TzDc74M52vVKqmKFEsHR IyMCUiIHZh pBpqqo8mtU1iWs7+PGNvbC P7kMU6tS7hNmAjHeV8XOar J147IvLhcBZcRthgX19pL4 JvdXA+PHRy Thk4BZCbnZgkCC2plHIsVC fxNg6qUWA4VfNpGfMtDOlv J2CrSXLjlvtqqmfaeRH4OL FeHNMmgP25 Ab0ekAhbYv9nUJEhEXK2WU GhqJArT9NngI4rHlZbMPDi INTqM4CoaBZzKKzrE699UQ nkQkL7MITw lfQzP9EaYRAqvFsoGxK7a4 J5Ov9EpAcyzLQyMZ2fUkSa ZUh9W4RiOua1XDTfpYgnAA 0ncGFkZGlu Cb2avRbvgHvmDK5iZWGevh xiw331BwFkr0tcQYCdhQUi SCpcVCE9P40nt9F0UDTxNB GaRWS8sVO0 vN2brBlbydjluFNsrAfdrn UxtUbwDUqwQWbhG174DMPv oXqoPqMZAus2K6LgBkg9IP GqrAiyKZ7y rXJxLQivXs2vaKsvlEpbLQ 5gFAJuftvar881VgQrq4ql UVJfdSXiQHgyCRR8O19yb2 Z4OGPwAFYj DHV6aIY8kP4zxZprfuovqY VmdDsgdmVydGljYWwtYWxp K497IRQqtIusRr0IRht6A8 XwLmg1QNTj pRreOL1uuHLoMAaoRx1ayN cycXnlFG7kNIUqzsbdl369 TpLxh3zdTJCqfIDlLZzjYS O1N81rb0M9 SPAyQQDtJAI4fFG2lN5vyC lnbjogbGVmdDsgdmVydGlj SQyhZAwkW149QLFwwHlfTi BheWVyOjwv dGQ+KP20vv36R1IgOtneFj q1XKNdFCC4aXC9cI8dYYHu KPpkp0F0wJI7A3FuhxKhja 7of4luVZFo ZTog (more content not included)... Normal [facility] IntraOperative Documentson 0 04-07-2022 IntraOperative Documents [id number]#[id number]:[id number] Normal [facility] Postoperative Documentson Postoperative Documents [id number]#1.0 0CD:127 Normal [facility] Coding Summary.on 04-03-2022 Coding Summary. CD:[id number]:[id number] Gh 0bWw+PGhlYWQ+SG5YFGFpM 32zpMSepO0JB4dISP0KRYV NHIPMLJ4CFU5djDR0HRawL 2VybiAv JgyubAGaUM76JIx0KIP3qR yuPBrguP8iqVDiF8l7SgQz GM69hL58WBryPZHrDbS0Mx ZpbjsgbWFy X5gpMjIpwCEgDje+PHRhYm xlIHdpZHRoPScxMDAlJyBz vEcjUH2rPm1rUMCwDXEceE xhcHNlOiBj j7kdKNRdARlcNG2vcBpqW0 EinYA8YQLmw5x4Mt66mYA+ YZMiPBW8hWpaCGiyg279Yf Qlm5mlTXG3 aEFbKUbeWWW4R59gp8J6QR WuVEBrNQR4bVQ9pT4tvRja peksL7LvmCBxYfQ1EEA5oC KlyK9gsFmp nzziwP3qFmw+N88OFW3YOD EWDU4WWli5G8BrMhyurUX+ ZU52PWAzRO88xIHpkPXag4 nrbLh7FjNs CGDjJJW3kEmxLTaov2MmJC SuD10pwVTuw3F0JQEakVmf uRQnQjAsfER9aM5kLVpmde uhe7qgtzvh Tmxtq4eyno55dE29H54sOI lgTKZnUNS2YYHhAIMpsYjs ee2ysE9gTy0+CKfzf4sgu1 oggYr8OdGg WZUbfrHzbVupPLI6n4XuDz 58M4WalEinm7HfGgd1lw59 iGGlk5V7wTB0RVfxAEGdnB 7xBTsdWxD4 OPMdBuFnqT73bILaXLoxAe 6qpExzyZfvNE7dWFWkywxa CARizB3sAKForADoqCrpWH 4wNTBpbjtm d228ZyIySHR3BEKngYWhK8 BnqP2hEgSxXKYdMTKuK2Xr zRRfHRglZ390RAshYlT6FN PdphMcY7Lx WWXqeRlqEzS7i1H5Vt9Po9 VrttbbSKW5PUxnFGJ4AbB7 DvPvEtX6A6BhHma1GECtnB vyWV2iE1Zo YUBkcmdtsuurhYU2TMKrYD HtnB30cEAgOTahGq1nv5A8 g449RADyGIVacR29Uc8agC ogMTBwdCBU lA9dcuvhg2ecsoieFhAwRV NkYLm5UOj7QCWqmWehQuAt AAC6LvM3OWJ4pXZrzB7dyT smkdpmbG1w Oyc+Q18cfP8cIEZ8ZRB2yp zwMXGgboLvIB46FP49J7Up PjwvdGFibGU+PGRpdiBzdH ezZQ6xEsXk l9ani4VnJNkuK0IwJYSlHZ xlVmc3TZPcMJK1tKD6qK8s SLOoFJvhd6F3pOX1Y8Uwuk Pgmt5xy0wo NAKpAFrwR30ybPZrw3E9YK TesXV4NXDliVtpBmUccR95 Oyc+XUCjuYrpx0EkDfgwh7 yfu9qftXs5 SaVeEMYjacSrwZnqVKY5c6 SjDe19C99xJXaiXROeCRHx ZJZjDOQbpZqjgs2qiY1lLa 8+PGNvbCB3 rXC9xG4vCNZlBfQ6WFsrP6 58RbWxlPDbGuwee0kcd0mp nJt6JhYmTVOlvhUvvNfkLW N9a1PjPi96 S03oIHjfNSOnRDBqIINfBG CblWexer2xjD4uVm2+PC9j q3fdmo92tJ70lCH+PHRkIH S4sZezDCpg BCWvsD2sEZunJzM8NXRsDi BqyO40aZRmCKwgRg6zyYgw mYjwRN7tKECeknwup770Ka Phe0yiUOZp hZUoOAhxRER9R27qc0A6VL GzMQKrCXV8zOE8yA7xjZsq bjogbGVmdDsgdmVydGljYW blYEkxO867 IHRvcDsnPlBhdGllbnQgTm RpTLi9A2UqGbx5MIPtwSpd LS4mwAKnXQwhSk3siNwghL ddIP3wUGEa brocx010YvAop6xvMUWhtT WxUQzlYBL5F31ir6U7KZUr UZPyBNC3pDH6kG1kbVuyop ogbGVmdDsg spLmwAilLJcoULklI079SM RvcDsnPkJpcnRoIERhdGU6 AB04GL61hKFta6P9uPH0C9 BhZGRpbmct wldjnHO2MKYoGEZtcN84Cq 6eoLeePj2uTVMqHGW8RNNu cVAmV7JskR3tSzKmKFUsCO OwU0McfYFf FCxzU823LMwoNxG5PEZmsn NkY1YgKXAvyBttBvL2h6A8 Ev4JF4E6JV55MN27mTFai1 S8sWN5K3Ih DARnwyczjhmmyGJ7LAZoYS EvrW20Tg6joAltHk4zBXTx KSK1VKAxwLIqL3KjvN7iDy AjMDAwMDAw F6UffHXlKSkkS293KDsqLf V2WICknmAeM5IqAAWpjEek DrV0g9A6Jn0HLFk0DV40XH 51zPTbf6A7 qWO3C3BsJRQvbpxuzsnouW Q0UZOfJNHpsP06Gu7dzYtp Fd2yQTHwSKW8GCPhpDMpY9 NloO5uXcVw XKGsOSAdY0TwuKFxCSijB4 23YTkhLwI0JTVpjwYbR0Ib WLUtgZotPpC1z2L4Mm1ICN TqZV33WPY4 bKM5EL97GT72V3YmYrlfzO FibGU+PHRhYmxlIHdpZHRo FRudUDZgOaTpoXvvND4vZr 9yZGVyLWNv tQgsnGXrIuSbp6chMQBiZO pjVI1roYhaK2ZgcEL1PYKw r3a0Dw11O73vO3BtgSB+PG VuvPC0eLE7 wA7kPwQjZyG3EEqoN630Tg GadRSvItcxf6hrw9iqoGh1 YlD7HKTwrvQzcIapZUY2e3 SoZn90F55d IHdpZHRoPSIxNSUiIHZhbG vjwg5oeB7vBx5+PGNvbCB3 eFF6mM0sUkJyYtE8OTrzV1 49InRvcCIv Smpsd9tkc7hruBj8KpXvDM RqhwQqeWohBKW3s7IrUf36 I3JjnLppf0WuZls7vv33oC Zdo1E9oCR7 J9OcNUBzxiiypJFfuVhmII 0qLFLctcljWESlsU4yFCHq W8s2ZtTrLnQ3AUcwD8Dhfq V4HVCihUAk WYoiSVJ4I95hs6S1RTEaBB CuFEZ5uVF4fR0jzQaeceej bGVmdDsgdmVydGljYWwtYW kyY197RUZg pYjqEXMbmO7oNNBjvKWuyB ykXW6eZWJnduwrLbqHHwuY OhjnE9SYGQd4R8MgLyy7JK RcaDvgSL4l jJOiTFirCg0tfIoelSdoUA 3qYKMgzotbMDWsqL4iUMIu bTKncIgvGM6eLKQomkjty9 95ChGsQNH2 CNFdbSEuJ9IwtO4nBcSzFM NxTPYpR5PkwFYjBIuuR189 EMolSwZ2FLQywzLwP0KpKZ FsaWduOiB0 p0R7Gs6fFu9vUM3uWZr2AD 10YJ70yTYwz4K3lKU1Z0Yb ZKEyfptvvubirRZ1AZDeKC FkuF78wOEp YKuySo6fh5O8l217CKXoYB LuvF04Zr9btVewGMBilEWS lF6olmmzg6vlftgnYfSqUX DfWYe5GVs4 MJUmyAugWhRrUIW3JxF6CS Y8rCXooA2mpYxwcazeyN6f Oyc+FmAhTTClfkD7V7LpTv i3QTVujYvt TX5ptZQeNIzoPj6tiLkjcN wuAF3hIUVoohquPZQgaI8y ZMIgmEDhfKwvQJ8yXNGbuk bjg874OrRe INO0MPBgeEVcH2PpkK4mRz ZvCOOuAVWrF4BtcIRbOFpo M409JAmjXgJ4LWQywfTpG7 FsLWFsaWdu GaP8i1W2Ow1ANN5iiRI9H0 QdFmw7VDFxqWfeUT1jsDSv SBxqDo1caHjohDpfLZ7xQU BpbjtwYWRk xV4uWFUngDApkNtcXZ6lBD Ihpnxuu442QlOtBFK4MIFy gFUqQ4SuzR1rIqVfVLGiNO UhU7YucPPn FNdyT049AKjfWeQ2PMCant MmW7HcLSIduGkpLyP1b1K0 Sb0MwIF6zZR0h1P7I8JceD NuJSL4EHH9 tasowfb6B2HvOnggxHT+PC 42PXRkPI84cRVbfSIdp9gg xIk1NrQkDJHaJFB0zLovVE arm8LuKCYx W04uxIJmx5O5WOMhqQoftK FsRsEwzYX0jO5jMDatvvbc d1fmubxdUtwes1moks83kC 85I91pEZuh ZHRoPSIzMCUiIHZhbGlnbj 7pvX5sLh3+TOPtyFS6lGV1 rX8rZiOrPoS6DCsnP706Tn RvcCIvPjxj j1nfh9cbcLc1XvByLYHogs TxnMliYPM3n0NnZl76F29t IHdpZHRoPSIyMCUiIHZhbG iygy8nvK2x Ii8+VG5mw6juxx06tK14kE I+BWCrGKQ8eMqaABljGQFm sJ1cQMgbMuY3YJNmPhNduO 47cGFkZGlu Zp8ulTywdBphRW3rHAGrac bqa033XnTpf2veRTOxzOKp GJxqVBM5F12ep0P0FXGuYU ZtOHI3qLE1 tB0feYfkrhpgwNNdcQovvp OhzAouDKdyLIxxW937RVIf lRcgUnEslQRjM8gzknBJHL 1lOjwvdGQ+ FHQgCHN7rGuaRFjlHUEahE 5eQGDxS1m1IjLaShN4SZpg L6KircQ1SIIgmTOhVSDboS SLfC3ekesz z1gxuuloBuQxZGZzROh8XL y6RMXfmVxxMzGlCTV2XmI4 UNK3pIJaqH3fiVsksohxuE 9wOyc+RklO OjwvdGQ+KWMkIOE5pOrdFR eqPQWjcB8vSLNtT4z9UiDe KaN1NMicP4TkhrA3HDDkbO QgMTBwdCBU wT1xlmfzi9xlfsbmZxIvHE AmQKv0UEf5PJAfaDdqRkYu MWG3NzS6SPP7qBTdlY5doV scsqzbtM5f Oyc+TVJOOjwvdGQ+PHRkIH J2nXpoRIxsZSDlzC0xFHFa N3m4JlMfLpK3QGiaX4Jdrm D6NKSpsJKh NFJudIRUqS1dqqhek7zwmz ukQnDdOCJtNCb8LSq4WYJc bMpyJdUfTYJ8FrK9XQD5lF QpeT0nzPcl sceyvF7yIsc+KON4LYD1JX 23TZ93C7KdJsuujKBlnYP+ PHRhYmxlIHdpZHRoPScxMD AlJyBzdHls ZT0n (more content not included)... Normal [facility] Consent for Anesthesiaon Consent for Anesthesia [id number]#1. 00CD:127 [facility] Discharge Instructionson Discharge Instructions [id number]#1. 00CD:127 [facility] IntraOperative Documentson 0 04-03-2022 IntraOperative Documents [id number]#1. 00CD:127 [facility] IntraOperative Documents [id number]#1. 00CD:127 [facility] Main OR Intraoperative Recor don 04-03-2022 Main OR Intraoperative Record IntraOp Document Type FT Summary Primary Physician: Sven Hayes Jr., MD Finalized Date/Time: 04/03/22 08:41:30 Pt. Name: YUE LEWIS/Sex: 1985 Female Med Rec #: [id number] Physician: Sven Hayes Jr., MD Financial #: [id number] Pt. Type: A Room/Bed: AS Admit/Disch: 04/02/22 08:31:02 - 04/02/22 12:15:00 Institution: Case Times FT Entry 1 Patient Times In Room 04/02/22 10:09:00 Out Room 04/02/22 10:35:00 Procedure Times Start 04/02/22 10:26:00 Stop 04/02/22 10:26:00 Anesthesia Times Start 04/02/22 10:09:00 Stop 04/02/22 10:35:00 Last Modified By: Mariela Watson RN 04/02/22 10:36:01 General Comments: 04/03/22 Chart opened to review and send charges [facility] Case Attendance FT Entry 1 Entry 2 Entry 3 Case Attendee Lucrecia RIZZO, Christy Hayes Jr., MD, Sven Watson RN, Mariela Huynh Role Performed Anesthesiologist Surgeon - Primary Library Science Instructor - Primary Padder Time In 04/02/22 10:09:00 04/02/22 10:13:00 04/02/22 10:09:00 Time Out 04/02/22 10:35:00 04/02/22 10:28:00 04/02/22 10:35:00 Procedure CYSTOSCOPY RETROGRADE CYSTOSCOPY RETROGRADE CYSTOSCOPY RETROGRADE STENT INSERTION(.) STENT INSERTION(.) STENT INSERTION(.) Comments DR DE LA CRUZ SUPERVISING Last Modified By: Shirley RN, Mariela Watson RN, Mariela Salazar RN 04/02/22 10:36:03 04/02/22 10:36:03 04/02/22 10:36:03 Entry 4 Entry 5 Entry 6 Case Attendee Tammie OFFSET PLATE MAKER, Kristina Uribe RT, Miguel Ángel Gomez RN, Jia Rascon Role Performed Scrub - Primary Insole And Outsole Preparer Staff - Other Time In 04/02/22 10:09:00 04/02/22 10:09:00 04/02/22 10:30:00 Time Out 04/02/22 10:35:00 04/02/22 10:29:00 04/02/22 10:35:00 Procedure CYSTOSCOPY RETROGRADE CYSTOSCOPY RETROGRADE CYSTOSCOPY RETROGRADE STENT INSERTION(.) STENT INSERTION(.) STENT INSERTION(.) Comments ASSISTING WITH POSTIONING AND TRANSPORT Last Modified By: Shirley RN, Mariela Watson RN, Mariela Salazar RN 04/02/22 [...] Huynh, Rony RT, Miguel Ángel P, Tammie OFFSET PLATE MAKER, Kristina E Time Out Complete 04/02/22 [...] and tissue Entry 1 Skin Integrity Intact, [place], Warm, and Skin Abnormality No Dry Outcomes Met? Yes Last Modified By: Mariela Watson RN 04/02/22 10:24:04 Post-Care Text: (more content not included)... Normal [facility] Preoperative Documentson Preoperative Documents [id number]#1. 00CD:127 [facility] Preoperative Documents [id number]#1. 00CD:127 [facility] Consent for Procedure/Surger yon 04-02-2022 Consent for Procedure/Surgery [id number]#1. 00CD:127 [facility] Consent for Treatmenton Consent for Treatment [id number] 0CD:127 [facility] H&P Updateon 04-02-2022 H&P Update [id number]#1.0 0CD:127 [facility] H&P Update [id number]#1. 00CD:127 [facility] Inpatient Patient Summaryon 04-02-2022 Inpatient Patient Summary [place] [id number] [facility] Clinical Discharge Instructions PERSON INFORMATION Name: YUE LEWIS PHYSICIANS Admitting Physician: Sven Hayes Jr., MD Attending Physician: Sven Hayes Jr., MD PCP: SUBHA GTUIERREZ CNP Discharge Diagnosis: Postinfective urethral stricture, not elsewhere classified, female; Urethral syndrome Comment: PATIENT EDUCATION INFORMATION Instructions: Post Op Patient Instructions - FT (CUSTOM) Medication Leaflets: Follow up: With: Address: When: TERI COOK [address] [place] [id number] Business (1) Within 6 weeks MEDICATION LIST New Medications [id number], [address] [place], [place] [id number], [phone] ketorolac (ketorolac 10 mg Tab) 1 Tablets [...] hours as needed Muscle pain. Comment: Normal [facility] Main OR PACU I Recordon Main OR PACU I Record PACU Phase I Docum ent Type FT Summary Primary Physician: Sven Hayes Jr., MD Finalized Date/Time: 04/02/22 13:51:38 Pt. Name: YUE LEWIS/Sex: 1985 Female Med Rec #: [id number] Physician: Sven Hayes Jr., MD Financial #: [id number] Pt. Type: A Room/Bed: [place] [address] Admit/Disch: 04/02/22 08:31:02 - 04/02/22 12:15:00 Institution: [...] By: Criss Zeng RN 04/02/22 13:51 Normal [facility] Main OR PACU II Recordon Main OR PACU II Record PACU Phase II Document Type FT Summary Primary Physician: Sven Hayes Jr., MD Finalized Date/Time: 04/02/22 12:50:02 Pt. Name: JOSHUAYUE/Sex: 1985 Female Med Rec #: [id number] Physician: Sven Hayes Jr., MD Financial #: [id number] Pt. Type: A Room/Bed: [facility] Admit/Disch: 04/02/22 08:31:02 - 04/02/22 12:15:00 Institution: [...] Signed By: Cyndee Posada LPN 04/02/22 12:50 [facility] Main OR Preoperative Recordo n 04-02-2022 Main OR Preoperative Record PreOp Document Type FT Summary Primary Physician: Sven Hayes Jr., MD Finalized Date/Time: 04/02/22 10:26:32 Pt. Name: YUE LEWIS.O.B./Sex: 1985 Female Med Rec #: [id number] Physician: Sven Hayes Jr., MD Financial #: [id number] Pt. Type: A Room/Bed: [place] [address] Admit/Disch: 04/02/22 08:31:02 - Institution: Case Times [...] By: Mariela Watson RN 04/02/22 10:26 Normal [facility] Monitor Recordon 04-02-2022 Monitor Record [id number]#1. 00CD:127 Normal [facility] Operative Reporton 2 Operative Report Patient: MARLEEN LEWIS Age: 36 years Sex: Female : 1985 Associated Diagnoses: None Author: Sven Hayes Jr., MD Postoperative Information Procedure: Cystoscopy, retrograde pyelograms, urethral dilation, pelvic exam under anesthesia Date/ Time: 04/02/2022 10:36:00 Preoperative Diagnosis: Postinfective urethral stricture, not elsewhere classified, female ([id number]-FL N35.12, Discharge, Medical), Urethral syndrome ([id number] N34.3, Discharge, Medical). Postoperative Diagnosis: Postinfective urethral stricture, not elsewhere classified, female ([id number]-NW N35.12, Discharge, Medical), Urethral syndrome (SEQ05-XH N34.3, Discharge, Medical). Performed by: Sven Hayes [...] using well-lubricated dilating sounds beginning with 22 Georgian and ending with 30 Georgian. This was uneventful. Bimanual palpation revealed no [...] 0 ml. Complications: None. Anesthesia type: General. Normal [facility] Comment on above: Result Comment: Elec tronically Signed By: Freddy Fishman MD, Sven Hernandez\.br\Date and Time Signed: 04/02/22 10:40 EDT Outpatient Surgery Discharge Instructionon 04-02-2022 Outpatient Surgery Discharge Instruction [address] [address] Patient Discharge Instructions PERSON INFORMATION Name: YUE [...] Follow up: With: Address: When: TERI COOK [facility] [address] [place] [id number] [facility] (1) Within 6 weeks Pharmacy Information: You may receive a survey from [employer] asking you to rate your care experience. Your feedback is important and will help us understand what we do well and how we can improve the quality of care we provide to you, your loved ones and our community. It?s an honor to serve you. Thank you for choosing [facility] HERE ARE THE MEDICATION CHANGES THAT OCCURRED DURING YOUR HOSPITAL STAY New Medications [id number], [address], [place] [id number], [phone] ketorolac (ketorolac 10 mg Tab) 1 Tablets [...] PATIENT EDUCATION INFORMATION Instructions: Medication Leaflets: Normal [facility] Patient Education - Texton 0 04-02-2022 Patient Education - Text Normal [facility] XR Abdomen 1 Viewon 04-02-20 22 XR Abdomen 1 View Exam Date/Time: 04/02/2022 [...] Dictated: 04/02/2022 9:25 am Miguel Ángel Estrada MD. Signed (Electronic Signature): 04/02/2022 9:25 am Signed by: Miguel Ángel Estrada MD Transcribed by: KIRAN Technologist: JENNY Normal [facility] XR Urography Retrograde Bila teralon [...] Dose: Ka,r in mGy = 0.9 Normal [facility] COVID-19 ([facility])on 04-01-2022 SARS-CoV-2 (COVID-19) RNA ELBA+probe Ql (Resp) Not detected Normal Not Detected [facility] Comment on above: Result Comment: This test result should be correlated with clinical presentations and medical history by a healthcare provider to determine its clinical significance. This assay was performed by a reverse transcriptase real-time polymerase chain reaction (rt PCR) method on the [employer] system. This test has been authorized only [...] or revoked sooner. Performed By: #### 2 [id number] ####[place] [address] [place] [address] SARS-CoV-2 (COVID-19) RNA ELBA+probe Ql (Unsp spec) Pass Normal Pass [facility] Comment on above: Performed By: #### 2 [id number] ####[address] [address] Specimen source Nom (Unsp spec) Nasal Normal [facility] Comment on above: Performed By: #### 2 [id number] ####[address] [address] Auto Diffon 03-31-2022 Basophils/100 WBC (Bld) 0.6 % Normal 0.0-2.0 [facility] Comment on above: Order Comment: Order Added by Discern Expert. Performed By: #### 1 [id number], 6132308, 8722380, 9321637, 09530863 ####[place] [address] [place] [address] Basophils/Leukocytes Auto (Bld) [Pure # fraction] 0.1 E9/L Normal 0.0-0.2 [facility] Comment on above: Order Comment: Order Added by Discern Expert. Performed By: #### 1 9297703, 6481015, 5695271, 2196666, 94516938 ####[place] [address] [place] [address] Eosinophils/100 WBC (Bld) 1.4 % Normal 0.0-8.0 [facility] Comment on above: Order Comment: Order Added by Discern Expert. Performed By: #### 1 6065522, 8411202, 8461272, 9650073, 61817804 ####[address] [place] [address] Eosinophils/Leukocyte s Auto (Bld) [Pure # fraction] 0.1 E9/L Normal 0.0-0.5 [facility] Comment on above: Order Comment: Order Added by Discern Expert. Performed By: #### 1 7798900, 9930934, 3731734, 3801866, 35313508 ####[address] [address] Lymphocytes/100 WBC (Bld) 30.3 % Normal 14.0-50.0 [facility] Comment on above: Order Comment: Order Added by Discern Expert. Performed By: #### 1 0508329, 4496165, 0059933, 8252719, 49719867 ####[address] [address] Lymphocytes/Leukocyte s Auto (Bld) [Pure # fraction] 2.7 E9/L Normal 1.0-4.0 [facility] Comment on above: Order Comment: Order Added by Discern Expert. Performed By: #### 1 4478564, 0135036, 2076585, 5065425, 60065168 ####[address] [address] Monocytes/100 WBC (Bld) 5.6 % Normal 4.0-14.0 [facility] Comment on above: Order Comment: Order Added by Discern Expert. Performed By: #### 1 8859622, 9922585, 1669803, 2372614, 82419925 ####[address] [address] Monocytes/Leukocytes Auto (Bld) [Pure # fraction] 0.5 E9/L Normal 0.2-1.0 [facility] Comment on above: Order Comment: Order Added by Discern Expert. Performed By: #### 1 8206821, 9069938, 2827112, 7316942, 19793445 ####[address] [address] Neutrophils/100 WBC (Bld) 62.1 % Normal 36.0-75.0 [facility] Comment on above: Order Comment: Order Added by Discern Expert. Performed By: #### 1 4581476, 2255768, 4058257, 4054057, 72990082 ####[facility] [address] [place] [address] Neutrophils/Leukocyte s Auto (Bld) [Pure # fraction] 5.6 E9/L Normal 2.0-7.5 [facility] Comment on above: Order Comment: Order Added by Discern Expert. Performed By: #### 1 9780785, 7218907, 0125373, 2026157, 52979774 ####[facility] [address] [place] [address] BMPon 03-31-2022 Anion gap [Moles/Vol] 13 mmol/L Normal 6-16 [facility] Comment on above: Performed By: #### 1 5213330, 6400535, 3541828, 1530725, 37916594 ####[facility] [address] [place] [address] Calcium [Mass/Vol] 9.6 mg/dL Normal 8.9-11.1 [facility] Comment on above: Performed By: #### 1 3021760, 9354781, 8014486, 8240592, 21038671 ####[facility] [address] [place] [address] Chloride [Moles/Vol] 102 mmol/L Normal 101-111 [facility] Comment on above: Performed By: #### 1 5366147, 1237638, 9425690, 2271427, 44124484 ####[facility] [address] [place] [address] CO2 [Moles/Vol] 26 mmol/L Normal 21-31 [facility] Comment on above: Performed By: #### 1 2833706, 5669019, 4493812, 2609571, 49580028 ####[facility] [address] [place] [address] Creatinine [Mass/Vol] 0.6 mg/dL Normal 0.5-1.3 [facility] Comment on above: Performed By: #### 1 9508660, 0906754, 1998355, 8696495, 02860290 ####[facility] [address] [place] [address] Glucose [Mass/Vol] 92 mg/dL Normal 55-199 [facility] Comment on above: Result Comment: If t his glucose result represents a fasting glucose, interpretation should refer to the following reference range: 55-99 mg/dL Performed By: #### 1 9927737, 5188033, 1932677, 5279441, 39106438 ####[facility] [address] [place] [address] Potassium [Moles/Vol] 4.0 mmol/L Normal 3.5-5.3 [facility] Comment on above: Performed By: #### 1 5999346, 9682350, 4651169, 7222881, 91030227 ####[facility] [address] [place] [address] Sodium [Moles/Vol] 137 mmol/L Normal 135-145 [facility] Comment on above: Performed By: #### 1 8567359, 9938435, 4998392, 6676448, 42577891 ####[facility] [address] [place] [address] Urea nitrogen [Mass/Vol] 10 mg/dL Normal 5-21 [facility] Comment on above: Performed By: #### 1 4583205, 6606296, 4667493, 6704284, 86700062 ####[facility] [address] [place] [address] Urea nitrogen/Creatinine [Mass ratio] 17 No Units Normal 10-20 [facility] Comment on above: Performed By: #### 1 9727450, 6896606, 8484910, 8588735, 47199513 ####[facility] [address] [place] [address] CBC w/ Auto Diffon 2 Erythrocyte distribution width (RBC) [Ratio] 12.5 % Normal 10.9-14.2 [facility] Comment on above: Performed By: #### 1 8350027, 9030919, 8825451, 2330808, 28067401 ####[place] [address] [place] [address] Hematocrit (Bld) [Volume fraction] 41.7 % Normal 34.0-46.0 [facility] Comment on above: Performed By: #### 1 5975959, 2231402, 0556338, 4629101, 68805067 ####[place] [address] Hemoglobin (Bld) [Mass/Vol] 14.2 g/dL Normal 12.0-16.0 [facility] Comment on above: Performed By: #### 1 6706762, 5717683, 7834599, 7798383, 87286992 ####[place] [address] MCH (RBC) [Entitic mass] 30.6 pg Normal 27.0-34.0 [facility] Comment on above: Performed By: #### 1 6096693, 5818561, 5764431, 4540992, 04319778 ####[place] [address] MCHC (RBC) [Mass/Vol] 34.0 g/dL Normal 31.4-36.0 [facility] Comment on above: Performed By: #### 1 9073459, 6838843, 2347164, 3087765, 41864305 ####[address] [address] MCV (RBC) [Entitic vol] 90.0 fL Normal 80.0-100.0 [facility] Comment on above: Performed By: #### 1 9686929, 7571412, 6679890, 6085522, 11199438 ####[place] [address] [place] [address] Platelet mean volume (Bld) [Entitic vol] 9.3 fL Normal 6.4-10.8 [facility] Comment on above: Performed By: #### 1 7762804, 1670620, 9047034, 9037730, 65123498 ####[facility] [address] [place] [address] Platelets (Bld) [#/Vol] 212.0 E9/L Normal 150.0-500.0 [facility] Comment on above: Performed By: #### 1 9749507, 2387459, 7831146, 6981646, 53081237 ####[facility] [address] [place] [address] RBC (Bld) [#/Vol] 4.6 E12/L Normal 4.3-5.9 [facility] Comment on above: Performed By: #### 1 4906706, 9475176, 9585527, 6088010, 14905301 ####[facility] [address] [place] [address] WBC corrected for nucl RBC Auto (Bld) [#/Vol] 9.0 E9/L Normal 4.0-11.0 [facility] Comment on above: Performed By: #### 1 3874384, 8086351, 2353486, 5547054, 59552365 ####[facility] [address] [place] [address] CHEMISTRYOrdered By: SYSTEM SYSTEM on 03-31-2022 Anion gap [Moles/Vol] 13 mmol/L Normal 6 - 16 mEq/L [facility] Remisol Calcium [Mass/Vol] 9.6 mg/dL Normal 8.9 - 11. 1 mg/dL [facility] Remisol Chloride [Moles/Vol] 102 mmol/L Normal 101 - 1 11 mmol/L [facility] CO2 [Moles/Vol] 26 mmol/L Normal 21 - 31 mmol/L [facility] Remisol Creatinine [Mass/Vol] 0.6 mg/dL Normal 0.5 - 1.3 mg/dL [facility] Remisol GFR/1.73 sq M.predicted among blacks MDRD (S/P/Bld) [Vol rate/Area] mL/min/1.73 m2 Normal >=59mL/min/1 .73 m2 [facility] Chem S GFR/1.73 sq M.predicted among non-blacks MDRD (S/P/Bld) [Vol rate/Area] mL/min/1.73 m2 Normal >=59mL/min/1 .73 m2 [facility] Chem S Glucose [Mass/Vol] 92 mg/dL Normal 55 - 199 mg/dL [facility] Remisol Potassium [Moles/Vol] 4.0 mmol/L Normal 3.5 - 5.3 mmol/L [facility] Remisol Sodium [Moles/Vol] 137 mmol/L Normal 135 - 145 mmol/L [facility] Remisol Urea nitrogen [Mass/Vol] 10 mg/dL Normal 5 - 21 mg/dL [facility] Remisol Urea nitrogen/Creatinine [Mass ratio] 17 mg/mg Normal 10 - 20 [facility] Remisol COAGULATIONOrdered By: Brianna Cho on 03-31-2022 aPTT Coag (PPP) [Time] 36.2 s Normal 25.1 - 36.5 second(s) [facility] Auto Coag INR Coag (PPP) [Relative time] 1.0 {INR} Invalid Interpretation Code [facility] Auto Coag PT Coag (PPP) [Time] 12.1 s Normal 10.2 - 12.9 second(s) [facility] Auto Coag Consent for Treatmenton Consent for Treatment [id number]#1.0 0CD:127 Normal [facility] Consent for Treatment [id number]#1. 00CD:127 Normal [facility] HEMATOLOGYOrdered By: SYSTEM SYSTEM on 03-31-2022 Basophils/100 WBC (Bld) 0.6 % Normal 0.0 - 2.0 % [facility] HemeAutoSS Basophils/Leukocytes Auto (Bld) [Pure # fraction] 0.1 E9/L Normal 0.0 - 0.2 E9/L [facility] HemeAutoSS Eosinophils/100 WBC (Bld) 1.4 % Normal 0.0 - 8.0 % [facility] HemeAutoSS Eosinophils/Leukocyte s Auto (Bld) [Pure # [...] 90.0 fL Normal 80.0 - 100.0 fL [facility] HemeAutoSS Platelet mean volume (Bld) [Entitic vol] 9.3 fL Normal 6.4 - 10.8 fL [facility] HemeAutoSS Platelets (Bld) [#/Vol] 212.0 E9/L Normal 150.0 - 500.0 E9/L [facility] HemeAutoSS RBC (Bld) [#/Vol] 4.6 E12/L Normal 4.3 - 5.9 E12/L [facility] HemeAutoSS WBC corrected for nucl RBC Auto (Bld) [#/Vol] 9.0 E9/L Normal 4.0 - 11.0 E9/L [facility] HemeAutoSS PT & PTTon 03-31-2022 aPTT Coag (PPP) [Time] 36.2 second(s) Normal 25.1-36.5 [facility] Comment on above: Result Comment: Hepa rin therapeutic range (represented by Anti-Factor Xa activity of 0.2 - 0.4 U/mL) corresponds to PTT of 56.6 - 109.0 sec. Performed By: #### 1 9193380, 9211929, 5641299, 2481373, 85789161 ####[facility] [address] [place] [address] INR Coag (PPP) [Relative time] 1.0 {INR} Invalid Interpretation Code [facility] Comment on above: Result Comment: INR results are specifically intended to assess patients stabilized on long-term Anticoagulation therapy suggested INR?s ?Less Intensive Anticoagulation? 2.0 ? 3.0 Conventional Range 3.0 ? 4.5 Performed By: #### 1 7615474, 1233039, 9483362, 2059520, 28414592 ####[facility] [address] [place] [address] PT Coag (PPP) [Time] 12.1 second(s) Normal 10.2-12.9 [facility] Comment on above: Performed By: #### 1 3809346, 1906331, 2555991, 4717059, 68886062 ####[facility] [address] [place] [address] UA With Cult Reflexon 2021 Bacteria LM Ql (Urine sed) 1+ /HPF Abnormal Trace [facility] Comment on above: Performed By: #### 1 3266103 #### [facility] [address] [place] [address] Bilirubin Ql (U) Negative Normal Negative [facility] Comment on above: Performed By: #### 1 8089570 #### [facility] [address] [place] [address] Clarity (U) CLEAR Normal Clear [facility] Comment on above: Performed By: #### 1 3402053 #### [facility] [address] [place] [address] Color (U) YELLOW Normal Yellow [facility] Comment on above: Performed By: #### 1 5055144 #### [facility] [address] [place] [address] Epithelial cells.squamous LM.HPF (Urine sed) [#/Area] 3-4 Normal 0-2 [facility] Comment on above: Performed By: #### 1 1210166 #### [facility] [address] [place] [address] Glucose Test strip (U) [Mass/Vol] Negative Normal Negative [facility] Comment on above: Performed By: #### 1 4538558 #### [facility] [address] [place] [address] Hemoglobin Ql (U) Negative Normal Negative [facility] Comment on above: Performed By: #### 1 8942506 #### [facility] [address] [place] [address] Ketones (U) [Mass/Vol] Negative Normal Negative [facility] Comment on above: Performed By: #### 1 5233142 #### [facility] [address] [place] [address] [place].plasma/Lithiu m.RBC (Bld) [Mass ratio] 0-3 Normal 0-3 [facility] Comment on above: Performed By: #### 1 0979522 #### [facility] [address] [place] [address] Mucus Ql (Urine sed) 2+ Normal [facility] Comment on above: Performed By: #### 1 9718496 #### [facility] [address] [place] [address] Nitrite Ql (U) Negative Normal Negative [facility] Comment on above: Performed By: #### 1 6119600 #### [facility] [address] [place] [address] pH (U) 6.5 [pH] Invalid Interpretation Code 5.0-9.0 [facility] Comment on above: Performed By: #### 1 1629815 #### [facility] [address] [place] [address] Protein (U) [Mass/Vol] Negative Normal Negative [facility] Comment on above: Performed By: #### 1 6949565 #### [facility] [address] [place] [address] Specific gravity (U) [Rel density] 1.015 Invalid Interpretation Code 1.005-1.030 [facility] Comment on above: Performed By: #### 1 8182102 #### [facility] [address] [place] [address] Type of Urine collection method Clean Catch Normal [facility] Comment on above: Performed By: #### 1 0769197 #### [facility] [address] [place] [address] Urobilinogen Qn (U) 0.2 {Jose'U}/dL Normal 0.0-1.0 [facility] Comment on above: Performed By: #### 1 0558444 #### [facility] [address] [place] [address] WBC Auto Ql (U) Negative Normal Negative [facility] Comment on above: Performed By: #### 1 3990979 #### [facility] [address] [place] [address] WBC LM.HPF (Urine sed) [#/Area] 0-5 Normal 0-5 [facility] Comment on above: Performed By: #### 1 4931176 #### [facility] [address] [place] [address] URINALYSISOrdered By: Brianna Cho on 03-31-2022 Bacteria [...] PM) Normal Negative [facility] UA Auto SS [place].plasma/Lithiu m.RBC (Bld) [Mass ratio] 0-3 /HPF Normal [...] PM) Invalid Interpretation Code 1.005 - 1.030 [facility] UA Auto SS UA Spec Desc Clean Catch (03/31/22 4:36 PM) Normal [facility] UA Auto SS Urobilinogen Qn (U) 0.5951364 {Jose'U}/dL Normal 0.0 - 1.0 EU/dL [facility] UA Auto SS WBC Auto Ql (U) Negative (03/31/22 4:36 PM) Normal Negative [facility] UA Auto SS WBC LM.HPF (Urine sed) [#/Area] 0-5 /HPF Normal 0-5/HPF [facility] UA Auto SS eGFRon 03-31-2022 GFR/1.73 sq M.predicted among blacks MDRD (S/P/Bld) [Vol rate/Area] mL/min/{1.73_m2} Normal >=59 [facility] Comment on above: Order Comment: Order added by Discern Expert. Result Comment: eGFR is race adjusted. AA=. Performed By: #### 1 2774045, 3202488, 4264695, 3113661, 56160136 ####[facility] [address] [place] [address] GFR/1.73 sq M.predicted among non-blacks MDRD (S/P/Bld) [Vol rate/Area] mL/min/{1.73_m2} Normal >=59 [facility] Comment on above: Order Comment: Order added by Discern Expert. Result Comment: Director Of Food And Nutrition celestine kidney disease could be indicated at eGFR's of less than 60 mL/min/1.73m2. Kidney failure is indicated at less than 15 mL/min/1.73m2. Performed By: #### 1 0349662, 5290339, 4528228, 0929034, 64901158 ####[address] [address] COVID-19 ([facility])on 03-30-2022 ADMITTED TO INTENSIVE CARE UNIT FOR CONDITION OF INTEREST:FIND:PT: NO Normal [facility] Comment on above: Performed By: #### 2 [id number] ####[facility] [address] [place] [address] EMPLOYED IN A HEALTHCARE SETTING:FIND:PT: Unknown Normal [facility] Comment on above: Performed By: #### 2 [id number] ####[facility] [address] [place] [address] FIRST TEST FOR CONDITION OF INTEREST:FIND:PT: Unknown Normal [facility] Comment on above: Performed By: #### 2 [id number] ####[facility] [address] [place] [address] HAS SYMPTOMS RELATED TO CONDITION OF INTEREST:FIND:PT: Unknown Normal [facility] Comment on above: Performed By: #### 2 [id number] ####[facility] [id number] [place] [address] HOSPITALIZED FOR CONDITION OF INTEREST:FIND:PT: NO Normal [facility] Comment on above: Performed By: #### 2 [id number] ####[facility] [id number] [place] [address] STATUS:FIND:PT: Unknown Normal [facility] Comment on above: Performed By: #### 2 [id number] ####[facility] [id number] [place] [address] RESIDES IN [facility] CARE SETTING:FIND:PT: Unknown Normal [facility] Comment on above: Performed By: #### 2 [id number] ####[facility] [id number] [place] [address] CBC AUTO DIFFon 03-20-2022 BASO # 0.0 103/ul Normal 0.0-0.1 [facility] Comment on above: Performed By: #### T HYGIMA #### [facility] [address] [place] [address] Dr. Gale Qiu Basophils/100 WBC (Bld) 0.6 % Normal 0.2-2.0 [facility] Comment on above: Performed By: #### T HYGIMA #### [facility] [address] [place] [address] Dr. Gale Qiu EO # 0.2 103/ul Normal 0.0-0.7 [facility] Comment on above: Performed By: #### T HYGIMA #### [facility] [address] [address] [address] Gale Qiu Eosinophils/100 WBC (Bld) 2.3 % Normal 0.9-7.0 [facility] Comment on above: Performed By: #### T HYGIMA #### [facility] [address] [place] [address] Dr. Gale Qiu Erythrocyte distribution width (RBC) [Ratio] 12.3 % Normal 11.0-15.0 [facility] Comment on above: Performed By: #### T HYGIMA #### [facility] [address] [place] [address] Dr. Gale Qiu Hematocrit (Bld) [Volume fraction] 38.0 % Normal 36.0-48.0 [facility] Comment on above: Performed By: #### T HYGIMA #### [facility] [address] [address] [address] Gale Qiu Hemoglobin (Bld) [Mass/Vol] 12.4 g/dL Normal 12.0-16.0 [facility] Comment on above: Performed By: #### T HYGIMA #### [facility] [address] [address] [address] Gale Qiu IG # 0.03 10e3/ul Normal 0.00-0.03 [facility] Comment on above: Performed By: #### T HYGIMA #### [facility] [address] [place] [address] Dr. Gale Qiu IG % 0.5 % Normal 0.0-0.5 [facility] Comment on above: Performed By: #### T HYGIMA #### [facility] [address] [place] [address] Dr. Gale Qiu LYMPH # 3.2 103/ul Normal 1.2-3.8 [facility] Comment on above: Performed By: #### T HYGIMA #### [facility] [address] [place] [address] Dr. Gale Qiu Lymphocytes/100 WBC (Bld) 48.8 % Normal 20.5-60.0 [facility] Comment on above: Performed By: #### T HYGIMA #### [facility] [address] [place] [address] Dr. Gale Qiu MANUAL DIFF REQ NO Normal [facility] Comment on above: Performed By: #### T HYGIMA #### [facility] [address] [address] [address] Gale Qiu MCH (RBC) [Entitic mass] 30.0 pg Normal 26.7-34.0 [facility] Comment on above: Performed By: #### T HYGIMA #### [facility] [address] [place] [address] Dr. Gale Qiu MCHC (RBC) [Mass/Vol] 32.6 g/dL Normal 29.9-35.2 [facility] Comment on above: Performed By: #### T HYGIMA #### [facility] [address] [address] [address] Gale Qiu MCV (RBC) [Entitic vol] 92.0 fL Normal 81.0-99.0 [facility] Comment on above: Performed By: #### T HYGIMA #### [facility] [address] [place] [address] Dr. Gale Qiu MONO # 0.6 103/ul Normal 0.3-0.8 [facility] Comment on above: Performed By: #### T HYGIMA #### [facility] [address] [place] [address] Dr. Gale Qiu Monocytes/100 WBC (Bld) 8.4 % Normal 1.7-12.0 [facility] Comment on above: Performed By: #### T HYGIMA #### [facility] [address] [place] [address] Dr. Gale Qiu NEUT # 2.6 103/ul Normal 1.4-6.5 [facility] Comment on above: Performed By: #### T HYGIMA #### [facility] [address] [place] [address] Dr. Gale Qiu Neutrophils/100 WBC (Bld) 39.4 % Critically low 43.0-75.0 [facility] Comment on above: Performed By: #### T HYGIMA #### [facility] [address] [place] [address] Dr. Gale Qiu Platelet mean volume (Bld) [Entitic vol] 10.5 fL Normal 9.5-13.5 [facility] Comment on above: Performed By: #### T HYGIMA #### [facility] [address] [place] [address] Dr. Gale Qiu PLT 192 103/ul Normal 150-450 [facility] Comment on above: Performed By: #### T HYGIMA #### [facility] [address] [place] [address] Dr. Gale Qiu RBC 4.13 106/ul Critically low 4.20-5.40 [facility] Comment on above: Performed By: #### T HYGIMA #### [facility] [address] [place] [address] Dr. Gale Qiu WBC 6.5 103/ul Normal 4.0-11.0 [facility] Comment on above: Performed By: #### T HYGIMA #### [facility] [address] [place], [place] [address] Dr. Gale Qiu Ambulatory Visit Summaryon 0 02-17-2022 Ambulatory Visit Summary YUE LEWIS :1985 Visit Date:02/17/2022 Ambulatory Visit Instructions Your [...] TERI COOK PA-C, URL When: Where: [address] [facility] [place] [address] Business (1) Medications What How [...] these instructions at home: Medicines ? Take jdkd-dbv-mjguzsb and prescription medicines only as told by [...] the blood stops without treatment. ? Take skjc-ynr-riykidz and prescription medicines only as told by your health care provider. ? Drink enough fluid to keep your urine clear or pale yellow. This information is not in (more content not included)... Normal [facility] Patient Educationon 02-18-20 Patient Education [...] these instructions at home: Medicines ? Take ghol-jtu-ifoynxo and prescription medicines only as told by [...] your condition for any changes. ? Take jzzl-xtc-zjrydkl and prescription medicines only as told by [...] 08/25/2006 Document Revised: 03/25/2020 Document Reviewed: 03/25/2020 [facility] Patient Education ? 2019 [employer]. Urology Hematuria, Adult Hematuria is blood in [...] these instructions at home: Medicines ? Take icbj-jtq-eholyov and prescription medicines only as told by [...] once. ? (more content not included)... Normal [facility] Urology Office/Clinic Noteon 02-17-2022 Urology Office/Clinic Note [...] Contact Information PRASANNA DOTSON, TERI Cruz, URL [address] [place] [address] [facility] (1) Additional Instructions: Patient Education Hematuria, Adult [...] Not Given Temporary contraindication - reschedule Normal [facility] Comment on above: Result Comment: Elec tronically Signed By: TERI COOK PA-C.br\Date and Time Signed: 02/17/22 14:33 EDT\.br\Electronically Co-Signed By: Daylin Sandoval\.br\Date and Time Co-Signed: 02/17/22 14:11 EDT Other Comment: aissatou sparks Urology Phone Visit- Telehea [facility] 02-17-2022 Urology Phone Visit- Telehealth Chief Complaint [...] with urination. 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 s/p hysterectomy. no [...] cysto, retrogrades, UD w DLS Additional Instructions: TERI COOK PA-C, URL [address] [place] [address] [facility] (1) Additional Instructions: Patient Education Abdominal Pain, [...] Not Given Temporary contraindication - reschedule Normal [facility] Comment on above: Result Comment: Elec tronically Signed By: TERI COOK PA-C\.br\Date and Time Signed: 02/17/22 14:32 EDT RAD - CT Reporton 02-10-2022 RAD - CT Report [id number] Normal Dom [facility] Ambulatory Visit Summaryon 0 01-28-2022 Ambulatory Visit Summary YUE LEWIS :1985 Visit Date:01/28/2022 Ambulatory Visit Instructions Your Diagnosis Bladder pain Stress incontinence History of recurrent UTI (urinary tract infection) History of kidney stones Gross hematuria Tests Performed Urnls Dip Stick Auto w/o Microscopy POC [address] CT Abdomen/Pelvis w/ + w/o Contrast -- [...] Why: scheduling cysto Where[facility] [address] [facility] [place] [address] Medications What How Much When Instructions Unchanged APAP/ butalbital/ caffeine (Fioricet) Every 4 hours Contact prescribing physician if questions or concerns Test Results Urnls Dip Stick Auto w/o Microscopy POC 49521 (01/28/2022) Bilirubin Urine Dipstick - Negative Blood Urine Dipstick - Negative Glucose Urine Dipstick - Negative Ketones Urine Dipstick - Negative Leukocytes Urine Dipstick - Negative Nitrite Urine Dipstick - Negative Protein Urine Dipstick - Negative Specific [place] Urine Dipstick - 1.020 Urine Appearance Urine [...] these instructions at home: Medicines ? Take pnzz-ulr-eshkdwn and prescription medicines only as told by [...] follow-up visi (more content not included)... Normal [facility] Patient Educationon 01-29-20 Patient Education [...] these instructions at home: Medicines ? Take fkop-azl-lxgdvpc and prescription medicines only as told by [...] the blood stops without treatment. ? Take zwee-sdw-wdleaoh and prescription medicines only as told by your health care provider. ? Drink enough fluid to keep your urine clear or pale yellow. This information is not intended to replace advice given to you by your health care provider. Make sure you discuss any questions you have with your health care provider. Document Released: 11/15/2006 Document Revised: 04/10/2020 Document Reviewed: 12/18/2017 [facility] [facility] Patient Education ? 2019 [employer] [place] [facility] Urology Office/Clinic Noteon 01-28-2022 Urology Office/Clinic [...] lesions Assessment/Plan pt referred by Dr Montaño [employer] CONSULTANT for chronic pelvic pain. s/p hysterectomy. no [...] When Contact Information TERI COOK PA-C, URL [address] [place] [address] Additional Instructions: scheduling cysto Patient Education Hematuria, Adult ICindy personally scribed for Teri Cook on 01/28/2022 14:40:22. . 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 Normal [facility] Comment on above: Result Comment: Elec tronically Signed By: TERI COOK PA-C\.mary alice\Date and Time Signed: 01/28/22 16:53 EST ED Provider Noteon 8 HIM IP Note OR Latent Fingerprint Examiner Normal [facility] XR FOOT RIGHT (MIN 3 VIEWS)o n [...] by:MANE Felizigned by:Wolf Carranza MD06/18/18inal result Normal [facility] Vital Signs Date Time Vital Sign Value Performing Clinician Facility 01-01-2025 11:27-0500 Body mass index (BMI) [Ratio] 22.4 kg/m2 [facility] 01-01-2025 11:27-0500 Body weight 62.96 kg [employer]ico[employer] Work Phone: [facility] 01-01-2025 11:27-0500 Diastolic blood pressure 68 mm[Hg] Fransico Atrica Work Phone: [facility] 01-01-2025 11:27-0500 Systolic blood pressure 108 mm[Hg] Fransico Sabra [employer] Work Phone: [facility] 12-26-2024 13:38-0500 Body height 167.6 cm Ivan Hayden APRN-RADHA Work Phone: [facility] 12-26-2024 13:38-0500 Body mass index (BMI) [Ratio] 22.52 kg/m2 Ivan Hayden [employer]INESS SERVICES VICE PRESIDENT Work Phone: [facility] 12-26-2024 13:38-0500 Body temperature 98.1 [degF] Ivancarmela Hayden [employer] MARK[employer] MACHINE-BUSINESS SERVICES VICE PRESIDENT Work Phone: [facility] 12-26-2024 13:38-0500 Body weight 63.3 kg Ivancarmela Hayden [employer] MARK[employer] MACHINE-BUSINESS SERVICES VICE PRESIDENT Work Phone: [facility] 12-26-2024 13:38-0500 Diastolic blood pressure 79 mm[Hg] Ivan Hayden [employer] MARK[employer] MACHINE-BUSINESS SERVICES VICE PRESIDENT Work Phone: [facility] 12-26-2024 13:38-0500 Heart rate 101 /min Ivan Hayden [employer] MARKER MACHINE-BUSINESS SERVICES VICE PRESIDENT Work Phone: [facility] 12-26-2024 13:38-0500 Respiratory rate 14 /min Ivancarmela Hayden [employer] MARKER MACHINE-BUSINESS SERVICES VICE PRESIDENT Work Phone: [facility] 12-26-2024 13:38-0500 Systolic blood pressure 115 mm[Hg] Ivancarmela Hayden [employer] MARKER MACHINE-BUSINESS SERVICES VICE PRESIDENT Work Phone: [facility] 12-12-2024 13:14-0500 Body height 167.6 cm Davinamackenzie Parsons APRN-BUSINESS SERVICES VICE PRESIDENT Work Phone: [facility] 12-12-2024 13:14-0500 Body mass index (BMI) [Ratio] 22.52 kg/m2 Davina Caroman [employer] MARKER MACHINE-BUSINESS SERVICES VICE PRESIDENT Work Phone: [facility] 12-12-2024 13:14-0500 Body temperature 97.7 [degF] Davina Caroman [employer] MARKER MACHINE-BUSINESS SERVICES VICE PRESIDENT Work Phone: [facility] 12-12-2024 13:14-0500 Body weight 63.3 kg Davina Caroman [employer] MARKER MACHINE-BUSINESS SERVICES VICE PRESIDENT Work Phone: [facility] 12-12-2024 13:14-0500 Diastolic blood pressure 76 mm[Hg] Davina Parsons [employer] MARKER MACHINE-BUSINESS SERVICES VICE PRESIDENT Work Phone: [facility] 12-12-2024 13:14-0500 Heart rate 88 /min Davina Parsons [employer] MARKER MACHINE-BUSINESS SERVICES VICE PRESIDENT Work Phone: [facility] 12-12-2024 13:14-0500 Respiratory rate 14 /min Davina Parsons [employer] MARKER MACHINE-BUSINESS SERVICES VICE PRESIDENT Work Phone: [facility] 12-12-2024 13:14-0500 Systolic blood pressure 121 mm[Hg] Davina Parsons [employer] MARKER MACHINE-BUSINESS SERVICES VICE PRESIDENT Work Phone: [facility] 11-27-2024 11:03-0500 Body height 167.6 cm Shawn Watters MD Work Phone: [facility] 11-27-2024 11:03-0500 Body mass index (BMI) [Ratio] 23.22 kg/m2 Shawn Watters MD Work Phone: [facility] 11-27-2024 11:03-0500 Body temperature 98.29 [degF] Shawn Watters MD Work Phone: [facility] 11-27-2024 11:03-0500 Body weight 65.23 kg Shawn Wattesr MD Work Phone: [facility] 11-27-2024 11:03-0500 Diastolic blood pressure 75 mm[Hg] Shawn Watters MD Work Phone: [facility] 11-27-2024 11:03-0500 Heart rate 57 /min Shawn Watters MD Work Phone: [facility] 11-27-2024 11:03-0500 Respiratory rate 16 /min Shawn Watters MD Work Phone: [facility] 11-27-2024 11:03-0500 Systolic blood pressure 118 mm[Hg] Shawn Watters MD Work Phone: [facility] 10-25-2024 15:52-0500 Body height 168.9 cm Shawn Watters MD Work Phone: [facility] 10-25-2024 15:52-0500 Body mass index (BMI) [Ratio] 21.97 kg/m2 Shawn Watters MD Work Phone: [facility] 10-25-2024 15:52-0500 Body weight 62.69 kg Shawn Watters MD Work Phone: [facility] 10-25-2024 15:52-0500 Diastolic blood pressure 71 mm[Hg] Shawn Watters MD Work Phone: [facility] 10-25-2024 15:52-0500 Heart rate 59 /min Shawn Watters MD Work Phone: [facility] 10-25-2024 15:52-0500 Respiratory rate 14 /min Shawn Watters MD Work Phone: [facility] 10-25-2024 15:52-0500 Systolic blood pressure 118 mm[Hg] Shawn Watters MD Work Phone: [facility] 10-18-2024 14:05-0500 Body height 168.9 cm Davina Parsons APRN-BUSINESS SERVICES VICE PRESIDENT Work Phone: [facility] 10-18-2024 14:05-0500 Body mass index (BMI) [Ratio] 21.97 kg/m2 Davina Parsons APRN-BUSINESS SERVICES VICE PRESIDENT Work Phone: [facility] 10-18-2024 14:05-0500 Body temperature 98.29 [degF] Davina Parsons [employer] MARKER MACHINE-BUSINESS SERVICES VICE PRESIDENT Work Phone: [facility] 10-18-2024 14:05-0500 Body weight 62.69 kg Davina Parsons [employer] MARKER MACHINE-BUSINESS SERVICES VICE PRESIDENT Work Phone: [facility] 10-18-2024 14:05-0500 Diastolic blood pressure 77 mm[Hg] Davina Parsons [employer] MARKER MACHINE-BUSINESS SERVICES VICE PRESIDENT Work Phone: [facility] 10-18-2024 14:05-0500 Heart rate 68 /min Davina Parsons [employer] MARKER MACHINE-BUSINESS SERVICES VICE PRESIDENT Work Phone: [facility] 10-18-2024 14:05-0500 Systolic blood pressure 125 mm[Hg] Davina Parsons [employer] MARKER MACHINE-BUSINESS SERVICES VICE PRESIDENT Work Phone: [facility] 10-12-2024 13:57-0500 Body height 168.9 cm Shawn Watters MD Work Phone: [facility] 10-12-2024 13:57-0500 Body mass index (BMI) [Ratio] 21.49 kg/m2 Shawn Watters MD Work Phone: [facility] 10-12-2024 13:57-0500 Body weight 61.33 kg Shawn Watters MD Work Phone: [facility] 10-12-2024 13:57-0500 Diastolic blood pressure 77 mm[Hg] Shawn Watters MD Work Phone: [facility] 10-12-2024 13:57-0500 Heart rate 80 /min Shawn Watters MD Work Phone: [facility] 10-12-2024 13:57-0500 Respiratory rate 13 /min Shawn Watters MD Work Phone: [facility] 10-12-2024 13:57-0500 Systolic blood pressure 125 mm[Hg] Shawn Watters MD Work Phone: [facility] 09-25-2024 15:11-0400 Body height 168.9 cm Ivan Hayden [employer] MARKER MACHINE-BUSINESS SERVICES VICE PRESIDENT Work Phone: [facility] 09-25-2024 15:11-0400 Body mass index (BMI) [Ratio] 21.49 kg/m2 Ivan Hayden [employer] MARKER MACHINE-BUSINESS SERVICES VICE PRESIDENT Work Phone: [facility] 09-25-2024 15:11-0400 Body weight 61.33 kg Ivan Hayden [employer] MARKER MACHINE-BUSINESS SERVICES VICE PRESIDENT Work Phone: [facility] 09-25-2024 15:11-0400 Diastolic blood pressure 67 mm[Hg] Ivan Hayden [employer] MARKER MACHINE-BUSINESS SERVICES VICE PRESIDENT Work Phone: [facility] 09-25-2024 15:11-0400 Heart rate 72 /min Ivan Hayden [employer] MARKER MACHINE-BUSINESS SERVICES VICE PRESIDENT Work Phone: [facility] 09-25-2024 15:11-0400 Systolic blood pressure 107 mm[Hg] Ivan Hayden C[employer] MARKER MACHINE-BUSINESS SERVICES VICE PRESIDENT Work Phone: [facility] 09-18-2024 16:09-0400 Diastolic blood pressure 73 mm[Hg] Ivan Hayden C[employer] MARKER MACHINE-BUSINESS SERVICES VICE PRESIDENT Work Phone: [facility] 09-18-2024 16:09-0400 Heart rate 75 /min Ivan Hayden C[employer]ON MARKER MACHINE-BUSINESS SERVICES VICE PRESIDENT Work Phone: [facility] 09-18-2024 16:09-0400 Respiratory rate 16 /min Ivan Hayden C[employer]ON MARKER MACHINE-BUSINESS SERVICES VICE PRESIDENT Work Phone: [facility] 09-18-2024 16:09-0400 Systolic blood pressure 119 mm[Hg] Ivan Hayden C[employer] MARKER MACHINE-BUSINESS SERVICES VICE PRESIDENT Work Phone: [facility] 09-11-2024 16:01-0400 Diastolic blood pressure 73 mm[Hg] Ivan Hayden C[employer] MARKER MACHINE-BUSINESS SERVICES VICE PRESIDENT Work Phone: [facility] 09-11-2024 16:01-0400 Heart rate 70 /min Ivan Hayden C[employer] MARKER MACHINE-BUSINESS SERVICES VICE PRESIDENT Work Phone: [facility] 09-11-2024 16:01-0400 Respiratory rate 12 /min Ivan Hayden APRN-BUSINESS SERVICES VICE PRESIDENT Work Phone: [facility] 09-11-2024 16:01-0400 Systolic blood pressure 108 mm[Hg] Iavn Hayden APRN-BUSINESS SERVICES VICE PRESIDENT Work Phone: [facility] 09-04-2024 15:07-0400 Diastolic blood pressure 81 mm[Hg] Shawn Watters MD Work Phone: [facility] 09-04-2024 15:07-0400 Heart rate 111 /min Shawn Watters MD Work Phone: [facility] 09-04-2024 15:07-0400 Respiratory rate 16 /min Shawn Watters MD Work Phone: [facility] 09-04-2024 15:07-0400 Systolic blood pressure 129 mm[Hg] Shawn Watters MD Work Phone: [facility] 07-27-2024 14:57-0400 Body height 167.6 cm Shawn Watters MD Work Phone: [facility] 07-27-2024 14:57-0400 Body mass index (BMI) [Ratio] 22.11 kg/m2 Shawn Watters MD Work Phone: [facility] 07-27-2024 14:57-0400 Body temperature 97.7 [degF] Shawn Watters MD Work Phone: [facility] 07-27-2024 14:57-0400 Body weight 62.14 kg Shawn Watters MD Work Phone: [facility] 07-27-2024 14:57-0400 Diastolic blood pressure 63 mm[Hg] Shawn Watters MD Work Phone: [facility] 07-27-2024 14:57-0400 Heart rate 68 /min Shawn Watters MD Work Phone: [facility] 07-27-2024 14:57-0400 Systolic blood pressure 102 mm[Hg] Shawn Watters MD Work Phone: [facility] 03-08-2024 14:17-0400 Diastolic blood pressure 77 mm[Hg] Ivan Hayden C[employer] MARKER MACHINE-BUSINESS SERVICES VICE PRESIDENT Work Phone: [facility] 03-08-2024 14:17-0400 Heart rate 101 /min Ivan Hayden C[employer] MARKER MACHINE-BUSINESS SERVICES VICE PRESIDENT Work Phone: [facility] 03-08-2024 14:17-0400 Respiratory rate 16 /min Ivan Hayden C[employer] MARKER MACHINE-BUSINESS SERVICES VICE PRESIDENT Work Phone: [facility] 03-08-2024 14:17-0400 Systolic blood pressure 121 mm[Hg] Ivan Hayden C[employer]ON MARKER MACHINE-BUSINESS SERVICES VICE PRESIDENT Work Phone: [facility] 02-14-2024 12:51-0400 Diastolic blood pressure 74 mm[Hg] Ivan Hayden C[employer]ON MARKER MACHINE-BUSINESS SERVICES VICE PRESIDENT Work Phone: [facility] 02-14-2024 12:51-0400 Heart rate 65 /min Ivan Hayden C[employer] MARKER MACHINE-BUSINESS SERVICES VICE PRESIDENT Work Phone: [facility] 02-14-2024 12:51-0400 Respiratory rate 14 /min Ivan Hayden C[employer] MARKER MACHINE-BUSINESS SERVICES VICE PRESIDENT Work Phone: [facility] 02-14-2024 12:51-0400 Systolic blood pressure 135 mm[Hg] Ivan Hayden C[employer] MARKER MACHINE-BUSINESS SERVICES VICE PRESIDENT Work Phone: [facility] 02-14-2024 11:11-0400 Body temperature 98.1 [degF] [facility] 02-14-2024 11:11-0400 Diastolic blood pressure 73 mm[Hg] [facility] 02-14-2024 11:11-0400 Heart rate 56 /min [facility] 02-14-2024 11:11-0400 Respiratory rate 16 /min [facility] 02-14-2024 11:11-0400 SaO2% (BldA) [Mass fraction] 100 % [address] 02-14-2024 11:11-0400 Systolic blood pressure 121 mm[Hg] [facility] [address] [place] [address] 02-14-2024 10:51-0400 Body height 167.[address] 02-14-2024 10:51-0400 Body mass index (BMI) [Ratio] 23.7 kg/m2 [address] 02-14-2024 10:51-0400 Body weight 66.[address] 01-13-2024 09:02-0500 Diastolic blood pressure 78 mm[Hg] Shawn Watters MD Work Phone: [facility] 01-13-2024 09:02-0500 Heart rate 63 /min Shawn Watters MD Work Phone: [facility] 01-13-2024 09:02-0500 Respiratory rate 16 /min Shawn Watters MD Work Phone: [facility] 01-13-2024 09:02-0500 Systolic blood pressure 131 mm[Hg] Shawn Watters MD Work Phone: [facility] 10-15-2023 13:08-0500 Body height 167.6 cm Shawn Watters MD Work Phone: [facility] 10-15-2023 13:08-0500 Body mass index (BMI) [Ratio] 21.79 kg/m2 Shawn Watters MD Work Phone: [facility] 10-15-2023 13:08-0500 Body weight 61.24 kg Shawn Watters MD Work Phone: [facility] 10-15-2023 13:08-0500 Diastolic blood pressure 76 mm[Hg] Shawn Watters MD Work Phone: [facility] 10-15-2023 13:08-0500 Heart rate 55 /min Shawn Watters MD Work Phone: [facility] 10-15-2023 13:08-0500 Respiratory rate 16 /min Shawn Watters MD Work Phone: [facility] 10-15-2023 13:08-0500 Systolic blood pressure 126 mm[Hg] Shawn Watters MD Work Phone: [facility] 03-31-2022 16:14-0400 Blood Pressure Location Sven Hayes Jr. [facility] 03-31-2022 16:14-0400 BP/Pulse Patient Position [facility] Jr[facility] 03-31-2022 16:14-0400 Diastolic blood pressure 71 mm[Hg] [facility] Jr[facility] 03-31-2022 16:14-0400 Heart rate 63 /min Sven [facility] Jr[facility] 03-31-2022 16:14-0400 Mean blood pressure 83 mm[Hg] S[facility] Jr[facility] 03-31-2022 16:14-0400 Respiratory rate 16 /min Sven Hayes Jr[facility] 03-31-2022 16:14-0400 Systolic blood pressure 107 mm[Hg] S[facility] Hayes Jr[facility] 03-31-2022 16:14-0400 Body temperature 97.7 [degF] [facility] 03-31-2022 16:13-0400 Blood Pressure Location [facility] Jr[facility] 03-31-2022 16:13-0400 BP/Pulse Patient Position [facility] Hayes Jr[facility] 03-31-2022 16:13-0400 Diastolic blood pressure 70 mm[Hg] [facility] Jr[facility] 03-31-2022 16:13-0400 Heart rate 70 /min Sven Hayes Jr[facility] 03-31-2022 16:13-0400 Mean blood pressure 82 mm[Hg] Sven [facility] Jr[facility] 03-31-2022 16:13-0400 SaO2% (BldA) [Mass fraction] 99 % S[facility] Jr[facility] 03-31-2022 16:13-0400 Systolic blood pressure 106 mm[Hg] [facility] Encounters Encounter Date Encounter Type Care Provider Facility Start: 01-01-2025 End: 01-01-2025 Bamboo flowsheet Fransico Sabra DO Work Phone: [facility] Start: 01-01-2025 End: 01-01-2025 Bamboo flowsheet Fransico Sabra DO Work Phone: [facility] Start: 01-01-2025 End: 01-01-2025 Patient encounter procedure Fransico Sabra DO Work Phone: [facility] Healthcare Work Phone: Start: 01-01-2025 End: 01-01-2025 Periodic preventive med est patient 18-39 yrs Fransico Sabra DO Work Phone: [facility] Comment on above: Well woman exam with routine gynecological exam; History of breast cancer Start: 12-26-2024 End: 12-26-2024 [facility] Start: 12-26-2024 End: 12-26-2024 [facility] Start: 12-26-2024 End: 12-26-2024 Postop follow up visit related to original px Ivan Hayden [employer] VICE PRESIDENT Work Phone: [facility] Comment on above: Seroma of skin or kramer bcutaneous tissue after dermatologic procedure (Primary Dx); Breast wound, left, sequela; S/P breast reconstruction, bilateral; Encounter for postoperative care Start: 12-12-2024 End: 12-12-2024 [facility] Start: 12-12-2024 End: 12-12-2024 Postop follow up visit related to original px Davina Parsons [employer] SERVICES VICE PRESIDENT Work Phone: [facility] Comment on above: Postoperative visit (Primary Dx); Post-operative pain; Breast wound, left, sequela; S/P breast reconstruction, bilateral; S/P bilateral mastectomy; BRCA1 gene mutation positive Start: 12-06-2024 End: 12-06-2024 Evaluation and management of inpatient JAMILA SHELTON [facility] Start: 12-06-2024 End: 12-06-2024 Evaluation and management of inpatient SHAWN LAIRD [facility] Start: 12-04-2024 End: 12-04-2024 Evaluation and management of inpatient [facility] Start: 12-04-2024 End: 12-04-2024 Admission to [facility] Phone Call Provider 4 [facility] Start: 11-27-2024 End: 11-27-2024 Postop follow up visit related to original px Shawn Watters MD Work Phone: [facility] Comment on above: Postoperative visit (Primary Dx); Breast wound, left, sequela; S/P breast reconstruction, bilateral; S/P bilateral mastectomy; BRCA1 gene mutation positive Start: 11-27-2024 End: 11-27-2024 ambulatory SUBHA GUTIERREZ [facility] Start: 11-24-2024 End: 11-24-2024 Orders Only Yasemin Garcia PA-C Work Phone: [facility] Start: 10-31-2024 End: 10-31-2024 Telephone encounter Geneva Hillman CMA [facility] Start: 10-30-2024 End: 10-30-2024 Evaluation and management of inpatient [facility] Start: 10-25-2024 End: 10-25-2024 Postop follow up visit related to original px Shawn Watters MD [facility] Comment on above: Breast wound, left, sequela (Primary Dx); S/P breast reconstruction, bilateral Start: 10-25-2024 End: 10-25-2024 [facility] Start: 10-24-2024 End: 10-24-2024 Telephone encounter Shawn Watters MD Work Phone: [facility] Start: 10-18-2024 End: 10-18-2024 [facility] David [facility] Start: 10-18-2024 End: 10-18-2024 Postop follow up visit related to original px Davinamackenzie Caroman [employer] VICE PRESIDENT Work Phone: [facility] Comment on above: Breast pain, left (P rimary Dx); Wound of left breast, initial encounter; S/P breast reconstruction, bilateral Start: 10-18-2024 End: 10-18-2024 [facility] Start: 10-12-2024 End: 10-12-2024 Postop follow up visit related to original px Shawn Watters MD Work Phone: [facility] Comment on above: Postoperative visit (Primary Dx); S/P breast reconstruction, bilateral; S/P bilateral mastectomy; BRCA1 gene mutation positive; Acquired absence of breast, bilateral Start: 10-12-2024 End: 10-12-2024 [facility] SHAWN WATTERS [facility] Start: 09-25-2024 End: 09-25-2024 Postop follow up visit related to original px Ivna Hayden [employer] SERVICES VICE PRESIDENT [facility] Comment on above: Encounter for postop erative care (Primary Dx); S/P breast reconstruction, bilateral; S/P bilateral mastectomy Start: 09-25-2024 End: 09-25-2024 [facility] Start: 09-18-2024 End: 09-18-2024 [facility] Start: 09-18-2024 End: 09-18-2024 Postop follow up visit related to original px Ivan Hayden [employer] VICE PRESIDENT Work Phone: [facility] Comment on above: Encounter for postop erative care (Primary Dx); Post-operative pain; S/P breast reconstruction, bilateral Start: 09-12-2024 End: 09-12-2024 Telephone encounter Ivan Huynh Hayden [employer] VICE PRESIDENT Work Phone: [facility] Start: 09-11-2024 End: 09-11-2024 Postop follow up visit related to original px Ivan Hayden [employer] SERVICES VICE PRESIDENT Work Phone: [facility] Comment on above: Encounter for postop erative care (Primary Dx); Post-operative pain; S/P breast reconstruction, bilateral; S/P bilateral mastectomy Start: 09-11-2024 End: 09-11-2024 [facility] Start: 09-04-2024 End: 09-04-2024 Postop follow up visit related to original px Shawn Watters MD Work Phone: [facility] Comment on above: Post-operative pain (Primary Dx) Start: 09-04-2024 End: 09-04-2024 ambulatory IVAN Huynh [facility] Start: 09-01-2024 End: 09-04-2024 Refill Ivan Huynh Ivor [employer] SERVICES VICE PRESIDENT Work Phone: [facility] Comment on above: S/P breast reconstru ction, bilateral; S/P bilateral mastectomy; Post-operative pain Start: 08-31-2024 End: 09-09-2024 Telephone encounter Shawn Watters MD Work Phone: [facility] Start: 08-30-2024 End: 08-30-2024 [facility] Start: 08-30-2024 End: 08-30-2024 [facility] Start: 08-18-2024 End: 08-18-2024 Evaluation and management of inpatient SUBHA S [facility] Start: 07-27-2024 End: 07-27-2024 Office outpatient visit 25 minutes Shawn Watters MD Work Phone: [facility] Comment on above: S/P breast reconstru ction, bilateral (Primary Dx); S/P bilateral mastectomy; Post-operative pain; BRCA1 gene mutation positive Start: 07-27-2024 End: 07-27-2024 ambulatory SHAWN LAIRD [facility] Start: 05-29-2024 End: 05-29-2024 ambulatory FRANSICO MONTAÑO Not Available Start: 05-04-2024 End: 05-04-2024 ambulatory [facility] Start: 04-06-2024 End: 04-06-2024 [facility] Start: 03-23-2024 End: 03-23-2024 ambulatory SHAWN WATTERS [facility] Start: 03-08-2024 End: 03-08-2024 Postop follow up visit related to original px Ivan Lino Chuy [employer] VICE PRESIDENT Work Phone: [facility] Comment on above: Encounter for postop erative care (Primary Dx); Acquired absence of breast, bilateral; Post-operative pain; S/P bilateral mastectomy Start: 03-08-2024 End: 03-08-2024 ambulatory [facility] Start: 03-03-2024 Orders Only Ivan Lino [facility] [employer] VICE PRESIDENT Work Phone: [facility] Comment on above: Pre-op evaluation (P rimary Dx); Acquired absence of breast, bilateral; Post-operative pain Start: 03-03-2024 Preprocedural examination done Ivan Lino Hayden NERIS[employer]INESS SERVICES VICE PRESIDENT Work Phone: [facility] Work Phone: Start: 02-28-2024 End: 02-28-2024 Evaluation and management of inpatient NAMITA FALCON [facility] Start: 02-28-2024 End: 02-28-2024 Evaluation and management of inpatient [facility] Start: 02-14-2024 End: 02-14-2024 Preprocedural examination done Ivan Lino Chuy [employer] VICE PRESIDENT Work Phone: [facility] Work Phone: Start: 02-14-2024 End: 02-14-2024 ambulatory [facility] Start: 02-14-2024 Encounter for other preprocedural examination [facility] Start: 02-14-2024 End: 02-14-2024 ambulatory [facility] Start: 02-14-2024 End: 02-14-2024 Patient encounter procedure Ivan Rabagoeder [employer] SERVICES VICE PRESIDENT Work Phone: [facility] Comment on above: Pre-op evaluation (P rimary Dx); Acquired absence of breast, bilateral; BRCA1 gene mutation positive Start: 01-13-2024 End: 01-13-2024 Office outpatient visit 25 minutes Shawn Watters MD Work Phone: [facility] Comment on above: BRCA1 gene mutation positive (Primary Dx) Start: 01-13-2024 End: 01-13-2024 ambulatory SHAWN WATTERS [facility] Start: 01-11-2024 Telephone encounter Ifeoma [facility] Start: 01-01-2024 End: 01-01-2024 ambulatory TERI [facility] Start: 12-28-2023 End: 12-28-2023 ambulatory FRANSICO SABRA Not Available Start: 12-23-2023 Documentation procedure Laisha Kaba MD Work Phone: [facility] Comment on above: MRI auth Start: 12-08-2023 Telephone encounter Mariposa rock [facility] Start: 12-06-2023 Telephone encounter Lidia Jeter [facility] Work Phone: [facility] On[facility] Comment on above: Questions Start: 10-19-2023 End: 10-19-2023 ambulatory RAE GU Not Available Start: 10-15-2023 End: 10-15-2023 Office outpatient new 45 minutes Shawn Watters MD Work Phone: [facility] Comment on above: BRCA1 gene mutation positive Start: 10-12-2023 End: 10-12-2023 ambulatory FRANSICO SABRA Not Available Start: 03-09-2023 End: 03-10-2023 ambulatory FRANSICO SABRA Facility:[facility] Start: 12-21-2022 End: 12-21-2022 ambulatory FRANSICO SABRA Facility:[facility] Start: 08-04-[address] RICKY OCAMPO . Faci lity:[facility] Start: 06-11-2022 End: 09-20-[address] LAKSHMI MESSINA Facility:[facility] Start: 03-31-2022 End: 03-31-2022 Patient encounter procedure Sven Hayes Jr. [facility] Start: 03-20-2022 End: 03-20-2022 ambulatory FRANSICO SABRA Facility:[facility] Start: 03-19-2022 Encounter for other preprocedural examination FRANSICO SABRA [facility] Start: 03-17-2022 End: 03-18-2022 ambulatory FRANSICO SABRA Facility:[facility] Start: 03-17-2022 End: 03-18-2022 Encounter for other preprocedural examination FRANSICO SABRA Facility:[facility] Start: 02-17-2022 End: 02-17-2022 Off-Site TERI COOK [facility] Start: 06-18-2018 End: 06-18-2018 Emergency department patient visit SONIYA ESCALONA [facility] Procedures Date Procedure Procedure Detail Performing Clinician Start: 07-27-2024 Follow-up visit Follow-up SHAWN WATTERS Start: 12-28-2023 Microscopic observation [Identifier] in Cervix by Cyto stain Ivan Hayden [employer]ACH[employer] SERVICES VICE PRESIDENT Work Phone: Start: 03-10-2022 Exploration using laparoscope Sven Hayes Jr. Start: 06-18-2018 SUHA WRAP SONIYA ESCALONA Start: 06-18-2018 CRUTCHES SONIYA ESCALONA Start: 06-18-2018 Radex foot complete minimum 3 views SONIYA ESCALONA Endometriosis (disorder) ANNALEE COOK History of bilateral mastectomy S/P bilateral mastectomy Ivan Hayden [employer]ACH[employer] SERVICES VICE PRESIDENT Work Phone: History of bilateral mastectomy S/P bilateral mastectomy Ivan Hayden [employer] SERVICES VICE PRESIDENT Work Phone: History of bilateral mastectomy S/P bilateral mastectomy Ivan Hayden [employer] SERVICES VICE PRESIDENT Work Phone: History of bilateral mastectomy S/P bilateral mastectomy Shawn Watters MD Work Phone: History of bilateral mastectomy S/P bilateral mastectomy Shawn Watters MD Work Phone: History of bilateral mastectomy S/P bilateral mastectomy Davina David Issa [employer]ACHINE[employer] SERVICES VICE PRESIDENT Work Phone: History of bilateral mastectomy S/P bilateral mastectomy Ivan Hayden [employer] SERVICES VICE PRESIDENT Work Phone: History of bilateral mastectomy S/P bilateral mastectomy Shawn Watters MD Work Phone: Hysterectomy TERI PRASANNA Ligation of fallopia n tube TERI COOK Plan of Treatment Date Care Activity Detail Author Start: 12-28-2026 Screening for malignant neoplasm of cervix Pap Smear [facility] Start: 01-07-2026 End: 01-07-2026 Patient encounter procedure 01/07/2026 10:00 AM EST Office Visit [facility] [address] [place] [id number] Fransico Montaño, DO [address] [place] [address] [facility] Start: 12-26-2025 Adult BMI Screening Adult BMI Screen ing [facility] Start: 12-26-2025 Tobacco Screening Tobacco Screening [facility] Start: 12-12-2025 Adult BMI Screening Adult BMI Screen ing [facility] Start: 12-12-2025 Tobacco Screening Tobacco Screening [facility] Start: 12-04-2025 Tobacco Screening Tobacco Screening [facility] Start: 11-27-2025 Adult BMI Screening Adult BMI Screen ing [facility] Start: 11-27-2025 Tobacco Screening Tobacco Screening [facility] Start: 10-30-2025 Adult BMI Screening Adult BMI Screen ing [facility] Start: 10-30-2025 Tobacco Screening Tobacco Screening [facility] Start: 10-18-2025 Adult BMI Screening Adult BMI Screen ing [facility] Start: 10-18-2025 Tobacco Screening Tobacco Screening [facility] Start: 10-12-2025 Adult BMI Screening Adult BMI Screen ing [facility] Start: 10-12-2025 Tobacco Screening Tobacco Screening [facility] Start: 09-25-2025 Adult BMI Screening Adult BMI Screen ing [facility] Start: 09-25-2025 Tobacco Screening Tobacco Screening [facility] Start: 08-30-2025 Adult BMI Screening Adult BMI Screen ing [facility] Start: 08-30-2025 Tobacco Screening Tobacco Screening [facility] Start: 02-27-2025 Adult BMI Screening Adult BMI Screen ing [facility] Start: 02-27-2025 Tobacco Screening Tobacco Screening [facility] Start: 02-13-2025 Adult BMI Screening Adult BMI Screen ing [facility] Start: 02-13-2025 Tobacco Screening Tobacco Screening [facility] Start: 01-29-2025 End: 01-29-2025 Professional / ancillary services management 01/29/2025 1:00 PM EST Ancillary Procedure [facility] [address] [place] [address] [place] [address] [facility] Start: 01-18-2025 End: 01-18-2025 Patient encounter procedure 01/18/2025 11:45 AM EST [facility] [address] [place] [address] Shawn Watters MD [address] [facility] [place] [address] [facility] Start: 01-01-2025 End: 01-01-2026 US Pelvis US Pelvis w/ TV Imaging Routine History of breast cancer Expected: 01/01/2025, Expires: 01/01/2026 [facility] Healthcare Comment on above: Expected: 01/01/2025 , Expires: 01/01/2026 Start: 01-01-2025 End: 01-01-2025 Patient encounter procedure 01/01/2025 11:00 AM EST Office Visit [facility] [address] [address] Fransico Montaño DO [address] [place] [address] Arrived [facility] Comment on above: Arrived Start: 12-27-2024 Adult BMI Screening Adult BMI Screen [facility] Start: 12-13-2024 End: 12-13-2024 Patient encounter procedure 12/13/2024 10:00 AM EST Office Visit [facility] [address] [email or web address] [address] [place] [phone] Davina Parsons, [employer]INE[employer] SERVICES VICE PRESIDENT [address] [email or web address] [address] [facility] [place] [address] [facility] Start: 12-06-2024 End: 12-06-2024 Admission to same day surgery center 12/06/2024 10:00 AM EST - 12/06/2024 1:15 PM EST Surgery [facility] - Surgery [address] [place] [address] Shawn Watters MD [address] [email or web address] [address] [place] [address] EXCHANGE ACETYLENE BURNER TISSUE BREAST [67164 (CPT )] [facility] - Surgery Comment on above: EXCHANGE ACETYLENE BURNER TI SSUE BREAST [10305 (CPT )] Start: 12-06-2024 End: 12-06-2024 Brst rcnstj immt/dlyd w/tiss optometric technician sbsq xpnsj EXCHANGE ACETYLENE BURNER TISSUE BREAST BRCA 1 POSITIVE POST BREAST RECONSTRUCTION 12/06/2024 10:00 AM EST [facility] SURGERY Start: 12-06-2024 End: 12-06-2024 Musc myocutaneous/fasciocut aneous flap trunk FREE FLAP TRUNK BRCA 1 POSITIVE POST BREAST RECONSTRUCTION 12/06/2024 10:00 AM EST [facility] SURGERY Start: 12-06-2024 Subsequent hospital visit by physician 12/06/2024 10:00 AM EST Hospital Encounter [facility] - Surgery [address] [place] [address] Shawn Watters MD [address] [facility] [place] [address] [facility] - Surgery Start: 11-27-2024 End: 11-27-2024 Patient encounter procedure 11/27/2024 11:00 AM EST Office Visit [facility] [address] [place] [address] Shawn Watters MD [address] [place] [address] [facility] Start: 11-02-2024 Adult BMI Screening Adult BMI Screen [facility] Start: 11-02-2024 Tobacco Screening Tobacco Screening [facility] Start: 10-25-2024 End: 10-25-2024 Patient encounter procedure 10/25/2024 3:30 PM EST Office Visit [facility] [address] [place] [address] Shawn Watters MD [address] [place] [address] [facility] Start: 10-12-2024 End: 10-12-2024 Patient encounter procedure 10/12/2024 2:15 PM EST Office Visit [facility] [address] [place] [address] Shawn Watters MD [address] [place] [address] [facility] Start: 10-02-2024 End: 10-02-2024 Patient encounter procedure 10/02/2024 1:00 PM EST Office Visit [facility] [address] [place] [address] Ivan Hayden, [employer] MACHINEBUSINESS SERVICES VICE PRESIDENT [address] [place] [address] [facility] Start: 09-25-2024 End: 09-25-2024 Patient encounter procedure 09/25/2024 3:00 PM EDT Office Visit [facility] [address] [place] [address] Ivan Hayden, [employer]ACH[employer]BUSINESS SERVICES VICE PRESIDENT [address] [place] [address] [facility] Start: 09-18-2024 End: 09-18-2024 Patient encounter procedure 09/18/2024 4:00 PM EDT Office Visit [facility] [address] [place] [address] Ivan Hayden, C[employer] MARK[employer] MACHINE-BUSINESS SERVICES VICE PRESIDENT [address] [place] [address] [facility] Start: 09-11-2024 End: 09-11-2024 Patient encounter procedure 09/11/2024 4:00 PM EDT Office Visit [facility] [address] [place] [address] Ivan Hayden, CARTON MARKER MACHINE-BUSINESS SERVICES VICE PRESIDENT [address] [place] [address] [facility] Start: 07-30-2024 Influenza vaccination Influenza Vacc ine [facility] Start: 04-11-2024 End: 04-11-2024 Patient encounter procedure 04/11/2024 12:50 PM EDT Office Visit [facility] [address] [place] [address] Teri Kaba MD [address] [place] [address] [facility] Start: 03-22-2024 End: 03-22-2024 Patient encounter procedure 03/22/2024 2:30 PM EDT Office Visit [facility] [address] [place] [address] Ivan Hayden, CARTON MARKER MACHINEBUSINESS SERVICES VICE PRESIDENT [address] [place] [address] [facility] Start: 03-08-2024 End: 03-08-2024 Patient encounter procedure 03/08/2024 3:00 PM EDT Office Visit [facility] [address] [place] [address] Ivan Hayden, CARTON MARKER MACHINEBUSINESS SERVICES VICE PRESIDENT [address] [place] [address] [facility] Start: 03-06-2024 End: 03-06-2024 Patient encounter procedure 03/06/2024 9:30 AM EDT Office Visit [facility] [address] [facility] [[email or web address] [address] [facility] [place] [address] Ivan Hayden, CARTON MARKER [facility] [address], [facility] [[email or web address] [address] [place] [address] [facility] Start: 02-28-2024 End: 02-28-2024 Admission to same day surgery center 02/28/2024 7:30 AM EDT - 02/28/2024 12:00 PM EDT Surgery [facility] [address] [place] [address] Teri Kaba MD [address] [email or web address]] [address] [place] [address] MASTECTOMY BREAST SIMPLE(WITH NIPPLE SPARING) [facility] Surgery Comment on above: MASTECTOMY BREAST SI MPLE(WITH NIPPLE SPARING) Start: 02-28-2024 End: 02-28-2024 EXCHANGE IMPLANT BREAST EXCHANGE IMPLANT BREAST BRAC1 MUTATION 02/28/2024 7:30 AM EDT [facility] Start: 02-28-2024 End: 02-28-2024 MASTECTOMY BREAST SIMPLE MASTECTOMY BREAST SIMPLE BRAC1 MUTATION 02/28/2024 7:30 AM EDT [facility] Start: 02-28-2024 Subsequent hospital visit by physician 02/28/2024 7:30 AM EDT Hospital Encounter [facility] Surgery [address] [place] [address] Teri Kaba MD [address] [facility] [[email or web address] [address] [place] [address] [facility] Surgery Start: 02-14-2024 End: 02-14-2024 Patient encounter procedure [facility] Start: 01-14-2024 End: 01-14-2024 Patient encounter procedure 01/14/2024 8:30 AM EST Office Visit [facility] [address] [place] [address] Shawn Watters MD [address] [place] [address] [facility] Start: 01-13-2024 End: 01-13-2024 Patient encounter procedure 01/13/2024 9:00 AM EST Office Visit [facility] [address] [place] [address] Shawn Watters MD [address] [place] [address] [facility] Start: 01-01-2024 End: 01-01-2024 Patient encounter procedure 01/01/2024 1:15 PM EST Appointment [facility] [address] [place] [address] Fred Cline [facility] Start: 01-01-2024 Subsequent hospital visit by physician 01/01/2024 1:15 PM EST Hospital Encounter Fred Hanntosh [facility] [address] [place] [address] Fred Cline [facility] Start: 07-30-2023 Influenza vaccination Influenza Vacc ine [facility] Start: 2007 Screening for malignant neoplasm of cervix Pap Smear [facility] Start: 2005 DTaP,Tdap and Td Vaccines (1 - Tdap) DTaP,Tdap and Td Vaccines (1 - Tdap) [facility] Start: 1998 Depression Screening Depression Scre [facility] End: 12-26-2025 Aspirate culture includes gram stain Aspirate culture includes gram stain Microbiology Routine Seroma of skin or subcutaneous tissue after dermatologic procedure S/P breast reconstruction, bilateral 1 Occurrences starting 12/26/2024 until 12/26/2025 [employer] Work Phone: Comment on above: 1 Occurrences starti ng 12/26/2024 until 12/26/2025 Cytology Cervical or vaginal smear or scraping study Pap Smear Pathology and Cytology Routine Well woman exam with routine gynecological exam Ordered: 01/01/2025 [employer] Work Phone: Comment on above: Ordered: 01/01/2025 Human papilloma viru s DNA [Presence] in Unspecified specimen by Probe with amplification HPV DNA probe, amplified Microbiology Routine Well woman exam with routine gynecological exam Ordered: 01/01/2025 [employer] Comment on above: Ordered: 01/01/2025 End: 02-13-2025 Nicotine screen, urine Nicotine screen, urine Lab Routine Pre-op evaluation 1 Occurrences starting 02/14/2024 until 02/13/2025 [employer] Work Phone: Comment on above: 1 Occurrences starti ng 02/14/2024 until 02/13/2025 Nicotine screen, urine Nicotine screen, urine Lab Routine Pre-op evaluation 02/14/2024 1:31 PM EDT [facility] Payers Date Payer Category Payer [facility] [id number] 2023 Blue Cross Blue [employer] Managed Care - O [id number] 2023 Unknown ANTHEM ANTHEM PA TIERRA O [id number] 2023-Present [phone] [address] [place] [address] [id number]. [id number] 2023 Unknown [id number] 2022 Medicaid [place] [id number] 2022-Present [address] [place] [address] [id number]. [id number] 2022 Medicaid [id number] 2014 Unknown [id number] 1986 Unknown [id number] 2.16.840.1.768478.3.579.2. 593 1986 Unknown [id number] 2.16.840.1.504079.3.579.2. 593 1986 Unknown [id number] 2.16.840.1.211770.3.579.2. 593 1986 Unknown [id number] 2.16.840.1.979381.3.579.2. 593 1986 Unknown [id number] 2.16.840.1.729784.3.579.2. 593 1986 Unknown [id number] 2.16.840.1.770837.3.579.2. 593 1986 Unknown [id number] 2.16.840.1.053105.3.579.2. 1259 1986 Unknown [id number] 2.16.840.1.082922.3.579.2. 1259 1986 Unknown [id number] 2.16.840.1.181366.3.579.2. 1259 1986 Unknown [id number] 2.16.840.1.684845.3.579.2. 9 1986 Unknown [id number] 2.16.840.1.094286.3.579.2. 1285 1986 Unknown [id number] 2.16.840.1.687225.3.579.2. 1285 1986 Unknown [id number] 2.16.840.1.038506.3.579.2. 1285 1986 Unknown [id number] 2.16.840.1.771951.3.579.2. 1285 1986 Unknown [id number] 2.16.840.1.796252.3.579.2. 1285 1986 Unknown [id number] 2.16.840.1.959710.3.579.2. 1285 1986 Unknown [id number] 2.16.840.1.205411.3.579.2. 1285 1986 Unknown [id number] 2.16.840.1.817560.3.579.2. 1285 1986 Unknown [id number] 2.16.840.1.429514.3.579.2. 1285 1986 Unknown [id number] 2.16.840.1.920913.3.579.2. 1285 1986 Unknown [id number] 2.16.840.1.062746.3.579.2. 1285 1986 Unknown [id number] 2.16.840.1.370615.3.579.2. 1285 1986 Unknown [id number] 2.16.840.1.045862.3.579.2. 1285 1986 Unknown [id number] 2.16.840.1.921891.3.579.2. 1285 1986 Unknown [id number] 2.16.840.1.048952.3.579.2. 1285 1986 Unknown [id number] 2.16.840.1.070411.3.579.2. 1285 1986 Unknown [id number] 2.16.840.1.551238.3.579.2. 1285 1986 Unknown [id number] 2.16.840.1.574354.3.579.2. 1285 1986 Unknown [id number] 2.16.840.1.569579.3.579.2. 1285 1986 Unknown [id number] 2.16.840.1.780628.3.579.2. 1285 1986 Unknown [id number] 2.16.840.1.195742.3.579.2. 1285 1986 Unknown [id number] 2.16840.1.544888.3.579.2. 1285 1986 Unknown [id number] 2.16.840.1.465024.3.579.2. 1285 1986 Unknown [id number] 2.16.840.1.049061.3.579.2. 1285 1986 Unknown [id number] 2.16.840.1.803623.3.579.2. 1285 1986 Unknown [id number] 2.16.840.1.807936.3.579.2. 1285 1986 Unknown [id number] 2.16.840.1.812910.3.579.2. 1285 1986 Unknown [id number] 2.16.840.1.263295.3.579.2. 1285 1986 Unknown [id number] 2.16.840.1.244373.3.579.2. 1285 1986 Unknown [id number] 2.16.840.1.166430.3.579.2. 1285 1986 Unknown [id number] 2.16.840.1.178373.3.579.2. 1286 1986 Unknown [id number] 2.16.840.1.840549.3.579.2. 1286 1986 Unknown [id number] 2.16.840.1.010205.3.579.2. 1286 1986 Unknown [id number] 2.16.840.1.681511.3.579.2. 1286 1959 Self-pay 1959 Unknown [id number] Social History Date Type Detail Facility Start: 01-28-2022 Tobacco smoking status Light tobacco smoker (finding) [facility] Start: 11-29-2004 End: 04-29-2023 Tobacco smoking status Smoker (finding) [facility] Start: 11-02-2023 End: 05-23-2024 Sex Assigned At Female [facility] Start: 10-04-2023 Tobacco smoking status NHIS Never smoked tobacco [facility] Start: 10-04-2023 End: 05-23-2024 Tobacco use and exposure Smokeless tobacco non-user [facility] Start: 11-02-2023 End: 05-29-2024 Alcohol intake Ex-drinker (finding) [facility] Start: 11-02-2023 End: 05-23-2024 History of Social function [facility] Housing Instability Unknown [facility] Start: 1986 Sex Assigned At Not on file [facility] Start: 1986 Sex Assigned At Female P [facility] Start: 04-18-2023 Gender identity Identifies as female gender (finding) [facility] Start: 04-18-2023 Sexual orientation Heterosexual (fin ding) [facility] Start: 02-14-2024 End: 05-23-2024 Tobacco smoking status NHIS Ex-smoker [facility] Start: 11-29-2004 End: 04-29-2023 History of tobacco use Cigarette Smoker [facility] Start: 02-14-2024 Tobacco Comment Quit 2020 [facility] Start: 07-02-2015 Sex Female (finding) [facility] History of tobacco use Passive smoker [facility] Start: 12-08-2023 Tobacco Comment Current smok er (unknown frequency) [facility] NEGATED: Highlighted rowStart: NINF History of tobacco use Passive smoker [facility] Medical Equipment Procedure Code Equipment Code Equipment Origin al Text Equipment Identifier Dates Implant Brst 700 cc P6cm Hi Prj Rnd Hi Strth Chsv + Gel Sm - [id number] - [id number] Start: 02-28-2024 Implant Brst 700 cc P6cm Hi Prj Rnd Hi Strth Chsv + Gel Smth - [id number] - [id number] Start: 02-28-2024 Technology Support Analyst Tiss [id number] Brst 480-575cc Txtr Intgr Port Allox2 - [id number] - [id number] Start: 08-30-2024 Technology Support Analyst Tiss [id number] Brst 480-575cc Txtr Intgr Port Allox2 - [id number] - [id number] Start: 08-30-2024 Technology Support Analyst Tiss [id number] Brst 480-575cc Txtr Intgr Port Allox2 - [id number] - [id number] Start: 12-06-2024 Clinical Notes 02-17-2022 to 01-01-2025 Mariposa Sarabia, MARZENA - 01/01/2025 11:00 AM Anuj Hayden APRN-BUSINESS SERVICES VICE PRESIDENT - 12/26/2024 1:30 PM Davian Parsons APRN-BUSINESS SERVICES VICE PRESIDENT - 12/12/2024 1:00 PM Lenin Garcia PA-C - 11/24/2024 2:01 PM EST Note Date & Type Note Facility 01-01-2025 History of Presen t illness Narrative Reason for Appointment: Patient ID: Yue Lewis is a 39 y.o. female who presents for Well Women Visit Patient presents today for Annual Exam. MEDICATIONS Current Outpatient Medications Medication Instructions utimykjsfr-cjrqjmzofcdiy-rgysvw ne 50-325-40 MG tablet 1 tablet, Oral, Every 4 hours PRN diazePAM (VALIUM) 5 mg, Oral, Every 6 hours PRN oxyCODONE (Roxicodone) 10 MG immediate release tablet PLEASE SEE ATTACHED FOR DETAILED DIRECTIONS tiZANidine (ZANAFLEX) 8 mg, Oral, Nightly ALLERGIES No Known Allergies PROBLEMS Active Ambulatory Problems Diagnosis Date Noted No Active Ambulatory Problems Resolved Ambulatory Problems Diagnosis Date Noted No Resolved Ambulatory Problems Past Medical History: Diagnosis Date BRCA gene mutation positive History of hysterectomy HISTORY PAST MEDICAL HISTORY SOCIAL HISTORY Past Medical History: Diagnosis Date BRCA gene mutation positive History of hysterectomy Social History Tobacco Use Smoking status: Former Current packs/day: 0.00 Average packs/day: 0.5 packs/day for 18.4 years (9.2 ttl pk-yrs) Types: Cigarettes Start date: 11/29/2004 Quit date: 04/29/2023 Years since quittin.6 Passive exposure: Past Smokeless tobacco: Never Tobacco comments: Current smoker (unknown frequency) Vaping Use Vaping status: Unknown Substance Use Topics Alcohol use: Not Currently Drug use: Never FAMILY HISTORY Family History Problem Relation Name Age of Onset Ovarian cancer Mother Wendy Murillo stage 3 carrier Braca 1 gene Cancer Mother Wendy Murillo Diabetes Father Bebeto murillo Hypertension Father Bebeto murillo Heart disease Father Bebeto murillo Multiple myeloma Neg Hx SURGICAL HISTORY Past Surgical History: Procedure Laterality Date HYSTERECTOMY MASTECTOMY 02/28/2024 REVIEW OF SYSTEMS Review of Systems: Review of Systems Constitutional: Negative. HENT: Negative. Eyes: Negative. Respiratory: Negative. Cardiovascular: Negative. Gastrointestinal: Negative. Genitourinary: Negative. Musculoskeletal: Negative. Skin: Negative. Neurological: Negative. All other systems reviewed and are negative. Hematological: Negative. Endocrine: Negative. Allergic/Immunologic: Negative. OBJECTIVE Objective: Physical Exam Constitutional: Appearance: Normal appearance. Genitourinary: Genitourinary Comments: Post mastectomy Right Adnexa: not tender and no mass present. Left Adnexa: not tender and no mass present. Cervix is absent. No cervical discharge. Uterus is absent. Breasts: Breasts are soft. Right: Normal. HENT: Head: Normocephalic. Nose: Nose normal. Mouth/Throat: Mouth: Mucous membranes are moist. Cardiovascular: Rate and Rhythm: Normal rate. Pulmonary: Effort: Pulmonary effort is normal. Abdominal: General: Bowel sounds are normal. Palpations: Abdomen is soft. Musculoskeletal: General: Normal range of motion. Cervical back: Normal range of motion. Neurological: General: No focal deficit present. Mental Status: She is alert. Skin: General: Skin is warm and dry. Psychiatric: Mood and Affect: Mood normal. Vitals and nursing note reviewed. Exam conducted with a mergers and acquisitions associate present. Vitals: Estimated body mass index is 22.4 kg/m as calculated from the following: Height as of 05/29/24: 5' 6 . Weight as of this encounter: 138 lb 12.8 oz. BP: 108/68 No LMP recorded. Patient has had a hysterectomy. ASSESSMENT & PLAN ICD-10-CM 1. Well woman exam with routine gynecological exam Z01.419 Pap Smear HPV DNA probe, amplified Annual Exam: Patient presents today for an annual exam. Patient states she is doing ok but currently undergoing breast expansion s/p breast CA and reconstruction on left. Patient has had hysterectomy but still has ovaries. Pt reluctant to have done this year as she is dealing with reconstruction. Pt encouraged to do CA 125 blood work completed. Pap was obtained without difficulty. Orders Placed This Encounter Procedures HPV DNA probe, amplified Follow Up: Patient is to return in one year for annual unless needed otherwise. Documented by Mariposa Sarabia LPN on behalf of: Fransico Montaño DO documented in this encounter [facility] 12-26-2024 History of Presen t illness Narrative [facility] [address] Office Shawn Watters MD, PhD Ivan Hayden, CARTON MARKER MACHINE-BUSINESS SERVICES VICE PRESIDENT MAURI Francis, NERIS-BUSINESS SERVICES VICE PRESIDENT Plastic Surgery Progress Note Reason for visit [...] to OR on 12/06/2024 for left tissue optometric technician exchange and LDAP flap with excision of [...] verbal consent was obtained, the left tissue optometric technician aspirate port, was identified using a magnet. This area was cleansed with alcohol, and Betadine. Then using a 25 gauge needle, approximately 70ml brown appearing fluid was aspirated from the left tissue optometric technician. Patient tolerated well. Adequate hemostasis was achieved, [...] in a prescription of doxy. - LEDY Salsa 12/26/24 3:29 PM Please note that portions of this note were generated using voice recognition [employer] dictation software. Although every effort was made to ensure the accuracy of this automated pipe smoking machine operator, some errors in pipe smoking machine operator may have occurred. LEDY Bentley 12/26/24 1529 documented in this encounter [facility] 12-12-2024 History of Presen t illness Narrative [facility] [address] Office Shawn Watters MD, PhD LEDY Bentley PA-C Gretchen Kuhlman, APRN-CNP Plastic Surgery Progress Note Reason for visit [...] to OR on 12/06/2024 for left tissue optometric technician exchange and LDAP flap with excision of [...] changes or persistent symptoms. Discussed with Dr. Watters - khalif Peters. OARRS reviewed. F/U in 2 weeks for clinical recheck, possible TE fill. Continue post-op restrictions are previously advised. She was encouraged to contact the office with any changes or concerns in the interim. Please note that portions of this note were generated using voice recognition [employer] dictation software. Although every effort was made to ensure the accuracy of this automated pipe smoking machine operator, some errors in pipe smoking machine operator may have occurred. LEDY Samson 12/13/24 0933 documented in this encounter [facility] 12-04-2024 Instructions Formatting of th is note might be different from the original. Your surgery/procedure is scheduled at [facility] on 12/06/24 at 10 am Arrival Time 8 am [facility] Address: [address] [place] [address], [facility], [facility] Park in the Emergency Center Parking lot. Report to the it help desk manager in the Emergency/Surgery Registration lobby of the hospital. Notify your SURGEON if you develop any illness such as a cold, cough, fever, sore throat, vomiting or are hospitalized between now and your surgery. Please call Pre-Admission Clinic at [phone] if you have any questions prior to surgery. For questions the morning of surgery, call the Pre-op Department at [phone]. Medication Instructions (Do not stop your medications [...] weekly, hold 1 week prior to surgery: Jabari . Blood thinners: Please contact your prescribing [...] would like to schedule therapy at a [facility] Rehab facility, please call [phone] ([phone]). Do not use lotions, creams, powders, perfume, make up, cologne or after-shaves day of surgery. Remove ALL jewelry including wedding rings, body piercings, hair extensions that contain metal, nail tanzanian, make-up, and contact lens. You may brush your teeth the morning of surgery, but do not swallow the water. Wear your dentures and partial plates to the hospital (no adhesive). Shower the night the before. If applicable, use the CHG (chlorhexidine gluconate) soap or wipes. Please be advised, [facility] has transitioned to a cashless payment system. [...] RIGHTS AND RESPONSIBILITIES As a patient at [facility], you have the right to: Receive medical care and be informed of who is taking care of you Be treated with dignity and respect Have a family member/admitting representative of choice and your physician notified of your admission Receive information and actively participate in decisions about your care and treatment Refuse care, treatment and services Decide who may provide your support and speak for you Access jain and spiritual services Participate in ethical issues [...] of hospital charges and payment methods Patient/patient admitting representative responsibilities are to: Provide information about health status to facilitate care, treatment and services Follow the treatment, plan, keep appointments and speak up when you do not understand the plan Respect the rights of other patients and healthcare personnel Follow organizational rules and regulations that support quality care and a safe environment Fulfill financial obligations as promptly as possible [facility] 12-04-2024 Miscellaneous Notes Your surgery/procedure is scheduled at [facility] on 12/06/24 at 10 am Arrival Time 8 am [facility] Address: [address] [place] [address], [facility] Park in the Emergency Center Parking lot. Report to the it help desk manager in the Emergency/Surgery Registration lobby of the hospital. Notify your SURGEON if you develop any illness such as a cold, cough, fever, sore throat, vomiting or are hospitalized between now and your surgery. Please call Pre-Admission Clinic at [phone] if you have any questions prior to surgery. For questions the morning of surgery, call the Pre-op Department at [phone]. Medication Instructions (Do not stop your medications [...] weekly, hold 1 week prior to surgery: Jabari . Blood thinners: Please contact your prescribing [...] would like to schedule therapy at a [facility] Rehab facility, please call [phone] ([phone]). Do not use lotions, creams, powders, perfume, make up, cologne or after-shaves day of surgery. Remove ALL jewelry including wedding rings, body piercings, hair extensions that contain metal, nail tanzanian, make-up, and contact lens. You may brush your teeth the morning of surgery, but do not swallow the water. Wear your dentures and partial plates to the hospital (no adhesive). Shower the night the before. If applicable, use the CHG (chlorhexidine gluconate) soap or wipes. Please be advised, [facility] has transitioned to a cashless payment system. [...] RIGHTS AND RESPONSIBILITIES As a patient at [facility], you have the right to: Receive medical care and be informed of who is taking care of you Be treated with dignity and respect Have a family member/admitting representative of choice and your physician notified of your admission Receive information and actively participate in decisions about your care and treatment Refuse care, treatment and services Decide who may provide your support and speak for you Access jain and spiritual services Participate in ethical issues [...] of hospital charges and payment methods Patient/patient admitting representative responsibilities are to: Provide information about health status to facilitate care, treatment and services Follow the treatment, plan, keep appointments and speak up when you do not understand the plan Respect the rights of other patients and healthcare personnel Follow organizational rules and regulations that support quality care and a safe environment Fulfill financial obligations as promptly as possible documented in this encounter [facility] 11-27-2024 History of Presen t illness Narrative [facility] Plastic & Reconstructive Surgery [address] Office Shawn Watters MD, PhD Ivan Hayden, CARTON MARKER MACHINE-BUSINESS SERVICES VICE PRESIDENT MAURI Francis, C[employer] MARK[employer] MACHINE-BUSINESS SERVICES VICE PRESIDENT Plastic Surgery Progress Note Reason for visit : post-op History of present illness: Yue Lewis is a 38 y.o. female with history of BRCA1+ gene mutation s/p bilateral mastectomy ([place]) with DTI on 02/28/2024. This was followed [...] active drainage at this time, underlying tissue optometric technician does not appear to be exposed. Impression: 1. Postoperative visit 2. Breast wound, left, sequela 3. S/P breast reconstruction, bilateral 4. S/P bilateral mastectomy 5. BRCA1 gene mutation positive Recommendations: Discussed treatment options, including: Excise area in question, deflate TE, layered closure leaving TE deflated. Excise area in question, exchange optometric technician (leaving deflated at the time of surgery), layered closure over drain. Start to expand 2-3 weeks postop. Excise area in question, exchange optometric technician (leaving deflated at the time of surgery), and perform TDAP flap with drain placement. Each option was reviewed in detailed. Patient opts to proceed with optometric technician exchange with TDAP flap. Anticipate 60-90 min procedure, general anesthesia, OnQ pain pump vs overnight stay for pain control. Goal for implant exchange January/February of this coming year. DAVINA PARSONS, NERIS-BUSINESS SERVICES VICE PRESIDENT I, SHAWN AWTTERS MD, PHD personally performed the face to [...] as stated above. Shawn Watters MD, PhD [facility] Total time spent was 25 minutes: Preparing to see the patient (e.g., review of tests) Obtaining and/or reviewing separately obtained history Performing a medically appropriate examination and/or evaluation Counseling and educating the patient/family/caregiver Ordering medications, tests, or procedures Referring and communicating with other health managed care analyst (not separately reported) Documenting clinical information in the electronic or other health record Independently interpreting results (not separately reported) and communicating results to the patient/family/caregiver Care coordination (not separately reported) Please note that portions of this note were generated using voice recognition Technology Keiretsu dictation software. Although every effort was made to ensure the accuracy of this automated pipe smoking machine operator, some errors in pipe smoking machine operator may have occurred. documented in this encounter [facility] 11-24-2024 History of Presen t illness Narrative Rx for doxycycline sent to pharmacy. MAURI RICKS PA-C 11/24/24 1402 documented in this encounter [facility] 10-31-2024 Miscellaneous Notes Attempted to call patient to schedule post op check with Davina next week. If patient calls back please schedule on 11/06 documented in this encounter [facility] 10-31-2024 Telephone encounter Note Attempted to call patient to schedule post op check with Davina next week. If patient calls back please schedule on 11/06 [facility] 10-25-2024 History of Presen t illness Narrative [facility] Plastic & Reconstructive Surgery [address] Office Shawn Watters MD, PhD Ivan Hayden, C[employer]ON MARKER MACHINE-BUSINESS SERVICES VICE PRESIDENT MAURI Francis APRN-RADHA Plastic Surgery Progress Note Reason for visit : Small draining sinus tract of left nipple status post tissue optometric technician reconstruction History of present illness: Yue Lewis [...] for the presence of the underlying tissue optometric technician. No other interval changes in medical history. [...] active drainage at this time, underlying tissue optometric technician does not appear to be exposed Female mergers and acquisitions associate present - yes Impression: 1. Breast wound, [...] to prevent infection of the underlying tissue optometric technician. My clinical suspicion is that this sinus [...] tract or fistulous connection. The underlying tissue optometric technician is not exposed at this time and I have low clinical suspicion that it is infected. This pinpoint opening is very tiny and it remains possible that it is acting as a one-way valve preventing bacterial contamination of the underlying tissue optometric technician from the surrounding skin luca. Therefore, I [...] were I do not feel the tissue optometric technician needs to be deflated at this time. I also do not feel that the tissue optometric technician needs to be removed or exchanged at this time. In the interim, the patient should continue oral antibiotics and diligent local wound care. She was also instructed to notify me immediately if signs of infection were to develop before OR. Please note that portions of this note were generated using voice recognition Technology Keiretsu dictation software. Although every effort was made to ensure the accuracy of this automated pipe smoking machine operator, some errors in pipe smoking machine operator may have occurred. Geneva Hillman CMA I, [...] as stated above. Shawn Watters MD, PhD [facility] Plastic & Reconstructive Surgery Total time [...] to the patient/family/caregiver documented in this encounter [facility] 10-24-2024 Miscellaneous Notes LEFT VOICEMAIL APPT scheduled for tomorrow with Dr. Watters at 3:30pm. Pt was asked to call back if that did not work for her. documented in this encounter [facility] 10-24-2024 Telephone encounter Note LEFT VOICEMAIL APPT scheduled for tomorrow with Dr. Watters at 3:30pm. Pt was asked to call back if that did not work for her. [facility] 10-18-2024 History of Presen t illness Narrative [facility] Plastic & Reconstructive Surgery [address] Office Shawn Watters MD, PhD Ivan Hayden, CARTON MARKER MACHINE-BUSINESS SERVICES VICE PRESIDENT MAURI Francis, [employer] MACHINE-BUSINESS SERVICES VICE PRESIDENT Plastic Surgery Progress Note Reason for visit [...] breast reconstruction, bilateral Recommendations: Etiology unknown. Tissue optometric technician placement is prepectoral. Fluid sent for culture. [...] this note were generated using voice recognition Technology Keiretsu dictation software. Although every effort was made to ensure the accuracy of this automated pipe smoking machine operator, some errors in pipe smoking machine operator may have occurred. LEDY Samson 10/18/24 5379 documented in this encounter [facility] 10-12-2024 History of Presen t illness Narrative [facility] Plastic & Reconstructive Surgery [address] Office Shawn Watters MD, PhD LEDY Bentley PA-C Gretchen Kuhlman, APRN-CNP Plastic Surgery Progress Note Reason for visit : Routine post operative appointment. History of present illness: Yue Lewis is a 38 y.o. female who presents for postoperative visit. Patient underwent removal of bilateral breast implants, transfer pectoralis muscle with chest wall, in placement of tissue expanders on 08/30/2024. She presents for tissue optometric technician fill and to discuss next steps. She [...] are well perfused. Procedure note : Tissue optometric technician fill port, was identified using magnet. This area was cleansed with alcohol, and Betadine. Then using a 25 gauge needle, approximately 125ml normal saline was injected into bilateral tissue optometric technician(s). Patient tolerated well. Adequate hemostasis was achieved, [...] company. RTC for preop H&P. LEDY SAMSON ISHAWN MD, PHD personally performed the face [...] follows: Recs above. Shawn Watters MD, PhD [facility] Plastic & Reconstructive Surgery Total time [...] to ensure the accuracy of this automated pipe smoking machine operator, some errors in pipe smoking machine operator may have occurred. documented in this encounter [facility] 09-25-2024 History of Presen t illness Narrative [facility] Plastic & Reconstructive Surgery [address] Office Shawn Watters MD, PhD Ivan Hayden, [employer] MACHINE-BUSINESS SERVICES VICE PRESIDENT Yasemin Garcia PA-C Plastic Surgery Progress Note Reason for visit : Routine post operative appointment. History of present illness: Yue Lewis is a 38 y.o. female who presents for postoperative visit. Patient underwent removal of bilateral breast implants, transfer pectoralis muscle with chest wall, in placement of tissue expanders on 08/30/2024. She presents for tissue optometric technician fill. She reports she is doing well. [...] are well perfused. Procedure note : Tissue optometric technician fill port, was identified using magnet. This area was cleansed with alcohol, and Betadine. Then using a 25 gauge needle, approximately 125ml normal saline was injected into bilateral tissue optometric technician(s). Patient tolerated well. Adequate hemostasis was achieved, and a sterile bandage was applied. TOTAL FILL VOLUME: 225ML Impression: 1. Encounter for postoperative care 2. S/P breast reconstruction, bilateral 3. S/P bilateral mastectomy Recommendations: Tissue optometric technician filled performed in office today. Patient tolerated well. It is okay to continue with acyg-kig-mxncvnb acetaminophen and ibuprofen. Discussed it is okay to continue to shower. Continue supportive bra. She does not need to sleep in a bra at this time. We will see her back next week for another tissue optometric technician filled. We will continue to fill her [...] this note were generated using voice recognition Technology Keiretsu dictation software. Although every effort was made to ensure the accuracy of this automated pipe smoking machine operator, some errors in pipe smoking machine operator may have occurred. LEDY Bentley 09/25/24 1621 documented in this encounter [facility] 09-18-2024 History of Presen t illness Narrative [facility] Plastic & Reconstructive Surgery [address] Office Shawn Watters MD, PhD LEDY Bentley PA-C Plastic Surgery Progress Note Reason for visit : Routine post operative appointment. History of present illness: Yue Lewis is a 38 y.o. female who presents for postoperative visit. Patient underwent removal of bilateral breast implants, transfer pectoralis muscle with chest wall, in placement of tissue expanders on 08/30/2024. She presents for tissue optometric technician fill. She reports she is doing well. [...] verbal consent was obtained, the bilateral tissue optometric technician aspirate port, was identified using a magnet. This area was cleansed with alcohol, and Betadine. Then using a 25 gauge needle, approximately 50ml clear yellow appearing fluid was aspirated from the left tissue optometric technician. Unable to aspirate fluid from right breast. Patient tolerated well. Adequate hemostasis was achieved, and a sterile bandage was applied. Procedure note : Tissue optometric technician fill port, was identified using magnet. This area was cleansed with alcohol, and Betadine. Then using a 25 gauge needle, approximately 100ml normal saline was injected into bilateral tissue optometric technician(s). Patient tolerated well. Adequate hemostasis was achieved, and a sterile bandage was applied. TOTAL FILL VOLUME: 100ML Impression: 1. Encounter for postoperative care 2. Post-operative pain 3. S/P breast reconstruction, bilateral Recommendations: Tissue optometric technician filled performed in office today. Patient tolerated well. Discussed with patient that is not uncommon to have some discomfort after tissue optometric technician fills. It is okay to continue with qxzr-fws-[id number] acetaminophen and ibuprofen. Fluid was aspirated from left breast tissue optometric technician. Discussed with patient that the fluid appeared benign. No indication to send fluid for culture. Discussed it is okay to continue to shower. Continue supportive bra. We will see her back next week for another tissue optometric technician filled. We will continue to fill her [...] of medication diversion, or non compliance. - Ivan Hayden APRN-BUSINESS SERVICES VICE PRESIDENT 09/18/24 5:06 PM Please note that portions of this note were generated using voice recognition Technology Keiretsu dictation software. Although every effort was made to ensure the accuracy of this automated pipe smoking machine operator, some errors in pipe smoking machine operator may have occurred. LEDY Bentley 09/18/24 1707 documented in this encounter [facility] 09-12-2024 Miscellaneous Notes Attempted to call pt with Dr. Watters's recommendation. LM to return my call. Also confirmed pain management has received referrals. documented in this encounter [facility] 09-12-2024 Telephone encounter Note Attempted to call pt with Dr. Watters's recommendation. LM to return my call. Also confirmed pain management has received referrals. [facility] 09-11-2024 History of Presen t illness Narrative [facility] Plastic & Reconstructive Surgery [address] Office Shawn Watters [...] Follow up in 1 week for tissue optometric technician fill. she was advised to call the office any questions or concerns in the interim. Voiced understanding and agreement with plan as discussed. - LEDY Salas 09/11/24 4:52 PM Please note that portions of this note were generated using voice recognition [employer] dictation software. Although every effort was made to ensure the accuracy of this automated pipe smoking machine operator, some errors in pipe smoking machine operator may have occurred. LEDY Bentley 09/11/24 1653 documented in this encounter [facility] 09-04-2024 History of Presen t illness Narrative [facility] Plastic & Reconstructive Surgery [address] [...] after oxycodone. We advised patient also to pickle pumper script for ibuprofen. Patient previously did not [...] to ensure the accuracy of this automated pipe smoking machine operator, some errors in pipe smoking machine operator may have occurred. Ivan Hayden APRN-RADHA I, SHAWN WATTERS MD, PHD personally performed the face to face evaluation on this patient. I discussed with the patient and confirmed the accuracy and completeness of the aforementioned history, and I personally performed the clinical examination of the patient. I have established and discussed the course of treatment with the patient. Shawn Watters MD, PhD [facility] Plastic & Reconstructive Surgery Total time spent was 25 minutes: Preparing to see the patient (e.g., review of tests) Obtaining and/or reviewing separately obtained history Performing a medically appropriate examination and/or evaluation Counseling and educating the patient/family/caregiver Ordering medications, tests, or procedures Referring and communicating with other health managed care analyst (not separately reported) Documenting clinical information in the electronic or other health record Independently interpreting results (not separately reported) and communicating results to the patient/family/caregiver Care coordination (not separately reported) documented in this encounter [facility] 08-31-2024 Miscellaneous Notes I spoke to the [...] with this plan. documented in this encounter [facility] 08-31-2024 Telephone encounter Note I spoke to [...] understanding and was agreeable with this plan. [facility] [employer] [facility] Work Phone: 07-27-2024 History of Presen t illness Narrative [facility] Plastic & Reconstructive Surgery [address] Office Shawn Watters MD, PhD Ivan Hayden, CARTON MARKER MACHINE-BUSINESS SERVICES VICE PRESIDENT Yasemin Garcia PA-C Plastic Surgery Progress Note [...] concerns in the interim. - Ivan Hayden APRN-BUSINESS SERVICES VICE PRESIDENT 07/27/24 3:51 PM ISHAWN MD, PHD personally performed the face to face evaluation on this patient. I discussed with the patient and confirmed the accuracy and completeness of the aforementioned history, and I personally performed the clinical examination of the patient. I have established and discussed the course of treatment with the patient. Shawn Watters MD, PhD [facility] Total time spent was 35 minutes: Preparing to see the patient (e.g., review of tests) Obtaining and/or reviewing separately obtained history Performing a medically appropriate examination and/or evaluation Counseling and educating the patient/family/caregiver Ordering medications, tests, or procedures Referring and communicating with other health managed care analyst (not separately reported) Documenting clinical information in the electronic or other health record Independently interpreting results (not separately reported) and communicating results to the patient/family/caregiver Care coordination (not separately reported) Please note that portions of this note were generated using voice recognition Technology Keiretsu dictation software. Although every effort was made to ensure the accuracy of this automated pipe smoking machine operator, some errors in pipe smoking machine operator may have occurred. [facility] History of Presen t illness Narrative [facility] Plastic & Reconstructive Surgery [address] Office Shawn Watters [...] concerns in the interim. - LEDY Salas 03/08/24 2:49 PM The OARRS/[place] database was reviewed today and found to be appropriate. No indication of medication diversion, or non compliance. Please note that portions of this note were generated using voice recognition Technology Keiretsu dictation software. Although every effort was made to ensure the accuracy of this automated pipe smoking machine operator, some errors in pipe smoking machine operator may have occurred. LEDY Bentley 03/08/24 1450 documented in this encounter [facility] 03-03-2024 History of Presen t illness Narrative Post operative valium sent to pharmacy. The OARRS/[place]ople[place] database was reviewed today and found to be appropriate. No indication of medication diversion, or non compliance. LEDY Bentley 03/03/24 0843 documented in this encounter [facility] 02-14-2024 History of Presen t illness Narrative [facility] Plastic & Reconstructive Surgery [address] Office Shawn Watters MD, PhD Ivan Hayden, C[employer] MARKER MACHINE-BUSINESS SERVICES VICE PRESIDENT Yasemin Garcia PA-C Plastic Surgery Preoperative Appointment Note Reason [...] Neg Hx Current Medications: Current Outpatient Medications: [id number] (FIORICET, ESGIC) 50-325-40 mg per tablet, Take [...] with placement of biosynthetic (tigr) mesh - Ivan Hayden APRN-BUSINESS SERVICES VICE PRESIDENT 02/14/24 1:30 PM Please note that portions of this note were generated using voice recognition M*[employer] dictation software. Although every effort was made to ensure the accuracy of this automated pipe smoking machine operator, some errors in pipe smoking machine operator may have occurred. LEDY Bentley 02/14/24 1330 documented in this encounter [facility] 02-14-2024 History and physical note PRE-OPERATIVE HISTORY AND PHYSICAL Exam Date: 02/14/24 Surgery Date: 02/28/24 PCP: LEDY HOOPER Surgeon: Teri Kaba MD; Shawn Watters MD CC: [facility] 1 mutation HPI: Yue Lewis is a [...] Start Date End Date Taking? Authorizing Provider vprijwgzgk-hpcxnhjnaadcd-gcbq (FIORICET, ESGIC) 50-325-40 mg per tablet Take [...] normal. Judgment and thought content normal. Assessment [facility] 1 mutation Plan bilateral simple nipple sparing mastectomy with placement of implants and biosynthetic mesh. LEDY Ochoa 02/14/24 1611 [employer] Work Phone: 02-14-2024 History and physical note PRE-OPERATIVE HISTORY AND PHYSICAL Exam Date: 02/14/24 Surgery Date: 02/28/24 PCP: LEDY HOOPER Surgeon: Teri Kaba MD; Shawn Watters MD CC: [facility] 1 mutation HPI: Yue Lewis is a [...] Start Date End Date Taking? Authorizing Provider clikbyoyxi-hghikjovfovxe-ydno (FIORICET, ESGIC) 50-325-40 mg per tablet Take [...] implants and biosynthetic mesh. LEDY Ochoa 02/14/24 7709 documented in this encounter [facility] 02-14-2024 Instructions Libby Huerta RN - 02/14/2024 10:30 AM EDT [...] clean clothes. Your surgery/procedure is scheduled at [facility] on 02/28/24 at 7:30 am Arrival Time 5:30 am [facility] Address: [address] [place] [address], [facility] Park in the Emergency Center Parking lot. Report to the it help desk manager in the Emergency/Surgery Registration lobby of the hospital. Please call Pre-Admission Clinic at [phone] if you have any questions prior to surgery. For questions the morning of surgery, please call the Pre-op Department at [phone]. Notify your SURGEON if you develop any [...] piercings, hair extensions that contain metal, nail tanzanian, make-up, and contact lens. You may brush your teeth the morning of surgery, but do not swallow the water. Wear your dentures and partial plates to the hospital (no adhesive) Shower the night the before. use the CHG (chlorhexidine gluconate) soap Please be advised, [employer] [place] has transitioned to a cashless payment system. [...] RIGHTS AND RESPONSIBILITIES As a patient at [facility], you have the right to: Receive medical care and be informed of who is taking care of you Be treated with dignity and respect Have a family member/admitting representative of choice and your physician notified of your admission Receive information and actively participate in decisions about your care and treatment Refuse care, treatment and services Decide who may provide your support and speak for you Access jain and spiritual services Participate in ethical issues [...] of hospital charges and payment methods Patient/patient admitting representative responsibilities are to: Provide information about health status to facilitate care, treatment and services Follow the treatment, plan, keep appointments and speak up when you do not understand the plan Respect the rights of other patients and healthcare personnel Follow organizational rules and regulations that support quality care and a safe environment Fulfill financial obligations as promptly as possible documented in this encounter [facility] 01-13-2024 History of Presen t illness Narrative [facility] Plastic & Reconstructive Surgery [address] Office Shawn Watters MD, PhD Ivan Hayden APRN-BUSINESS SERVICES VICE PRESIDENT Yasemin Garcia PA-C Plastic Surgery Progress Note Reason for visit : BRCA1 gene mutation positive, discussed breast reconstruction options. History of present illness: Yue LEWIS 38 y.o. is here today to re-discuss breast reconstruction. She has the BRCA1 mutation. She has met with breast surgery who has discussed bilateral prophylactic mastectomy. She has a history of breast augmentation with saline implant [place] in [address] Lainez. She was previously evaluated [...] concerns in the interim. - LEDY Salas 01/13/24 4:36 PM ISHAWN MD, PHD personally performed the face to face evaluation on this patient. I discussed with the patient and confirmed the accuracy and completeness of the aforementioned history, and I personally performed the clinical examination of the patient. I have established and discussed the course of treatment with the patient. Shawn Watters MD, PhD [facility] Plastic & Reconstructive Surgery Total time spent was 35 minutes: Preparing to see the patient (e.g., review of tests) Obtaining and/or reviewing separately obtained history Performing a medically appropriate examination and/or evaluation Counseling and educating the patient/family/caregiver Ordering medications, tests, or procedures Referring and communicating with other health managed care analyst (not separately reported) Documenting clinical information in the electronic or other health record Independently interpreting results (not separately reported) and communicating results to the patient/family/caregiver Care coordination (not separately reported) Please note that portions of this note were generated using voice recognition Technology Keiretsu dictation software. Although every effort was made to ensure the accuracy of this automated pipe smoking machine operator, some errors in pipe smoking machine operator may have occurred. documented in this encounter [facility] 01-11-2024 Miscellaneous Notes LMOM for patient to call us, she has an appt this coming with dr watters at 10 AM. Due to being in surgery he will be out of the office at that time. Patient can be seen on still, however it will need be at 9 AM. documented in this encounter [facility] 01-11-2024 Telephone encounter Note LMOM for patient to call us, she has an appt this coming with dr watters at 10 AM. Due to being in surgery he will be out of the office at that time. Patient can be seen on still, however it will need be at 9 AM. [facility] 12-23-2023 History of Presen t illness Narrative Spoke with Jefry at [facility] for [facility]-- MRI was approved Auth #[id number] valid 12/23--01/22 [facility] Miscellaneous Notes Patient called 12/07/2023 requesting a call back regarding surgery scheduling. Staff from office called today stating patient told them she has reach out to our office and office multiple times with no response. Spoke with dumpling machine operator from both offices patient needs appointment with Dr. Watters and will be contacted to schedule. [facility] 12-08-2023 Telephone encounter Note Patient called 12/07/2023 requesting a call back regarding surgery scheduling. Staff from office called today stating patient told them she has reach out to our office and office multiple times with no response. Spoke with dumpling machine operator from both offices patient needs appointment with Dr. Watters and will be contacted to schedule. [facility] Miscellaneous Notes Yue called with questions about her mother's recent scans and overall treatment plan. I encouraged her to reach out to Dr. Valdovinos's office for that information given that that is not something our office discusses. Encouraged to call back at any time with questions or anything else I could help with. [facility]23 Telephone encounter Note Yue called with questions about her mother's recent scans and overall treatment plan. I encouraged her to reach out to Dr. Valdovinos's office for that information given that that is not something our office discusses. Encouraged to call back at any time with questions or anything else I could help with. [facility] 10-15-2023 History of Presen t illness Narrative Plastic & Reconstructive Surgery MD Shawn Rich MD Tara Geha, PA-C Erin Orzechowski, BUSINESS SERVICES VICE PRESIDENT [address] [address] Office [phone] BREAST RECONSTRUCTION CONSULTATION Reason for visit : [...] Mother 67 BRCA 1/2 Mother BRCA1 mutation [id number] Breast cancer Maternal Grandmother 60 Current Medications: [...] Nipple 20 Nipple-areolar diameter 3.5 3 Female mergers and acquisitions associate present: yes. Impression : 1. BRCA1 gene [...] with any questions or concerns. - Ivan aHyden APRN-BUSINESS SERVICES VICE PRESIDENT 10/15/23 2:23 PM IShawn MD, personally performed [...] procedures Referring and communicating with other health managed care analyst (not separately reported) Documenting clinical information in the electronic or other health record Independently interpreting results (not separately reported) and communicating results to the patient/family/caregiver Care coordination (not separately reported) Please note that portions of this note were generated using voice recognition [employer] dictation software. Although every effort was made to ensure the accuracy of this automated pipe smoking machine operator, some errors in pipe smoking machine operator may have occurred. documented in this encounter [employer] 03-20-2022 Note [facility] [place], [place] NAME: YUE LEWIS DATE OF : MEDICAL REC#: [id number] CERTIFIED DENTAL ASSISTANT: [address] [facility], TRANS[facility]MIT DATE: 03/20/2022 07:29:00 STENCILING MACHINE TENDER DATE: 03/23/2022 00:00 DICTATING PHYSICIAN: FRANSICO MONTAÑO DICTATION DATE: 03/20/2022 11:00 OPERATIVE NOTE OPERATION DATE:03/20/2022 PROCEDURE: Diagnostic laparoscopy with lysis of adhesions from the bowel to the vaginal cuff. PREOPERATIVE DIAGNOSIS: Pelvic pain. POSTOPERATIVE DIAGNOSIS: Pelvic pain. ANESTHESIA: General. SURGEON: Fransico Montaño D.O. NURSES SUPERINTENDENT: BARAK Rodríguez URINE OUTPUT: Yellow and clear. [...] by: DR FRANSICO MONTAÑO . 03/29/2022 19:51:00 [facility] 03-13-2022 Note [id number]:[id number] [facility] 02-17-2022 Hospital Discharg e instructions [...] Follow these instructions at home: Medicines Take xvci-kgv-abhlcvo and prescription medicines only as told by [...] Watch your condition for any changes. Take uzee-est-oibhdfn and prescription medicines only as told by [...] 08/25/2006 Document Revised: 03/25/2020 Document Reviewed: 03/25/2020 [facility] Patient Education 2020 [employer]. 02/17/2022 14:07:31 Hematuria, Adult Hematuria, Adult Hematuria [...] Follow these instructions at home: Medicines Take pknn-grj-evyjwoz and prescription medicines only as told by [...] or the blood stops without treatment. Take yaja-ymn-ifhvita and prescription medicines only as told by your health care provider. Drink enough fluid to keep your urine clear or pale yellow. This information is not intended to replace advice given to you by your health care provider. Make sure you discuss any questions you have with your health care provider. Document Released: 11/15/2006 Document Revised: 04/10/2020 Document Reviewed: 12/18/2017 [facility] Patient Education 2020 [employer]. Follow Up Care 02/16/2022 16:02:41 With:cysto, retrogrades, UD w DLS Address:Unknown When: Unknown With:TERI COOK PA-C URL Address: [address] [place] [address] Business (1) When: Unknown [facility] Evaluation + Plan note No data available for this section [facility] Evaluation + Plan note Future Appointments Appointment Date:04/02/2022 11:00:00 AM Scheduled Provider: Location:[facility] Services Appointment Type:Surgery [facility] Evaluation note Diagnosis BRCA1 gene mutation positive [facility] Diagnosis BRCA1 gene mutation positive- Primary [facility] Diagnosis Pre-op evaluation- Primary Acquired absence of breast, bilateral BRCA1 gene mutation positive [facility] Diagnosis Pre-op evaluation- Primary Acquired absence of breast, bilateral Post-operative pain Other acute postoperative pain [facility] Diagnosis S/P breast reconstruction, bilateral S/P bilateral mastectomy Acquired absence of breast and nipple Post-operative pain Other acute postoperative pain [facility] Diagnosis Encounter for postoperative care- Primary Post-operative pain Other acute postoperative pain S/P breast reconstruction, bilateral S/P bilateral mastectomy Acquired absence of breast and nipple [facility] Diagnosis Encounter for postoperative care- Primary Post-operative pain Other acute postoperative pain S/P breast reconstruction, bilateral [facility] Diagnosis Encounter for postoperative care- Primary S/P breast reconstruction, bilateral S/P bilateral mastectomy Acquired absence of breast and nipple [facility] Diagnosis S/P breast reconstruction, bilateral- Primary S/P bilateral mastectomy Acquired absence of breast and nipple Post-operative pain Other acute postoperative pain BRCA1 gene mutation positive [facility] Diagnosis Post-operative pain- Primary Other acute postoperative pain [facility] Diagnosis Breast pain, left- Primary Wound of left breast, initial encounter S/P breast reconstruction, bilateral [facility] Diagnosis Breast wound, left, sequela- Primary S/P breast reconstruction, bilateral [facility]* Diagnosis Postoperative visit- Primary S/P breast reconstruction, bilateral S/P bilateral mastectomy Acquired absence of breast and nipple BRCA1 gene mutation positive Acquired absence of breast, bilateral [facility]* Diagnosis Postoperative visit- Primary Post-operative pain Other acute postoperative pain Breast wound, left, sequela S/P breast reconstruction, bilateral S/P bilateral mastectomy Acquired absence of breast and nipple BRCA1 gene mutation positive [facility]* Diagnosis Encounter for postoperative care- Primary Acquired absence of breast, bilateral Post-operative pain Other acute postoperative pain S/P bilateral mastectomy Acquired absence of breast and nipple documented in this encounter [facility]* Diagnosis Seroma of skin or subcutaneous tissue after dermatologic procedure- Primary Breast wound, left, sequela S/P breast reconstruction, bilateral Encounter for postoperative care [facility]* Diagnosis Postoperative visit- Primary Breast wound, left, sequela S/P breast reconstruction, bilateral S/P bilateral mastectomy Acquired absence of breast and nipple BRCA1 gene mutation positive documented in this encounter [facility]* Diagnosis Well woman exam with routine gynecological exam Routine gynecological examination History of breast cancer Personal history of malignant neoplasm of breast documented in this encounter [facility] instructions No data available for this section [facility] filedocumented in this encounter [facility] [...] Surgery Diagnoses BRCA1 gene mutation positive Ivan Hayden APRN-CNP [address] [facility] [[email or web address]] [address] [place] [address] Lulu Ríos MD [address] [facility] [address] [place] [address] Referral ID Status Reason Start Date Expiration Date V isits Requested Visits Authorized [id number] Pending Review 10/15/2023 10/14/2024 1 1 [facility] Summary Purpose Family History No Family History [...] content) DATE CREATED AUTHOR 06/20/2018 Estephanie Dinh [facility] DATE CREATED AUTHOR AUTHOR'S ORGANIZ ATION 04/17/2022 [facility] DATE CREATED AUTHOR AUTHOR'S ORGANIZ ATION 03/15/2023 [facility] DATE CREATED AUTHOR AUTHOR'S ORGANIZ ATION 05/30/2024 [facility] EPIC DATE CREATED AUTHOR AUTHOR'S ORGANIZ ATION 12/28/2024 [facility] DATE CREATED AUTHOR AUTHOR'S ORGANIZ ATION 12/31/2024 [facility] Reason for Visit (unrecogniz ed section and content) Reason Onset Date Comments Questions 12/06/2023 Reason Comments New Patient Specialty Diagnoses / Procedures Referred By Contact Referred To Contact Plastic & Reconstructive Surgery Diagnoses BRCA1 gene mutation positive Teri Vasquez, LEDY [address] Provider left practice 11/17/2023 [place] [address] Shawn Watters MD [address] [place] [address] Referral ID Status Reason Start Date Expiration Date Visits Requested Visits Authorized [id number] Pending Review Specialty Services Required 10/05/2023 10/04/2024 1 1 Reason Onset Date Comments MRI auth 12/23/2023 Reason Comments Med Change Request Reason Comments Post-op Reason Comments Follow-up Wants to schedule & discuss her next breast recon revision surgery Reason Comments Well Women Visit Care Teams (unrecognized sec tion and content) Shipping And Receiving Material Handler Relationship Specialty Start Date End Date Subha Gutierrez APRN-CNP [address] [facility] [[email or web address]] [place] [phone] PCP - General Family Medicine 10/04/23 Shipping And Receiving Material Handler Relationship Specialty Start Date End Date Subha Gutierrez APRN-CNP [address] [facility] [[email or web address]] [place] [phone]29 PCP - General Family Medicine 10/04/23 Shipping And Receiving Material Handler Relationship Specialty Start Date End Date Subha Gutierrez APRN-BUSINESS SERVICES VICE PRESIDENT [address] [facility], [place] [address] PCP - General Family Medicine 10/04/23 Shipping And Receiving Material Handler Relationship Specialty Start Date End Date Subha Gutierrez APRN-CNP [address] [place] [address] PCP - General Family Medicine 10/04/23 Shipping And Receiving Material Handler Relationship Specialty Start Date End Date Subha Gutierrez APRN-CNP [address] [place] [address] PCP - General Family Medicine 10/04/23 Shipping And Receiving Material Handler Relationship Specialty Start Date End Date Subha Gutierrez APRN-CNP [address] [place] [address] PCP - General Family Medicine 10/04/23 Shipping And Receiving Material Handler Relationship Specialty Start Date End Date Subha Gutierrez APRN-CNP [address], [place] [address] PCP - General Family Medicine 10/04/23 Shipping And Receiving Material Handler Relationship Specialty Start Date End Date Subha Gutierrez APRN-CNP [address], [place] [address] PCP - General Family Medicine 10/04/23 Shipping And Receiving Material Handler Relationship Specialty Start Date End Date Subha Gutierrez APRN-CNP [address] [place] [address] PCP - General Family Medicine 10/04/23 Shipping And Receiving Material Handler Relationship Specialty Start Date End Date Subha Gutierrez APRN-BUSINESS SERVICES VICE PRESIDENT [address] [place] [address] PCP - General Family Medicine 10/04/23 Shipping And Receiving Material Handler Relationship Specialty Start Date End Date Subha Gutierrez APRN-CNP [address] [place] [address] PCP - General Family Medicine 10/04/23 Shipping And Receiving Material Handler Relationship Specialty Start Date End Date Subha Gutierrez APRN-CNP [address] [place] [address] PCP - General Family Medicine 10/04/23 Shipping And Receiving Material Handler Relationship Specialty Start Date End Date Subha Gutierrez APRN-CNP [address], [place] [address] PCP - General Family Medicine 10/04/23 Shipping And Receiving Material Handler Relationship Specialty Start Date End Date Subha Gutierrez APRN-CNP [address] [place] [address] PCP - General Family Medicine 10/04/23 Shipping And Receiving Material Handler Relationship Specialty Start Date End Date Subha Gutierrez APRN-CNP [address] [place] [address] PCP - General Family Medicine 10/04/23 Shipping And Receiving Material Handler Relationship Specialty Start Date End Date Subha Gutierrez APRN-CNP [address] [place] [address] PCP - General Family Medicine 10/04/23 Shipping And Receiving Material Handler Relationship Specialty Start Date End Date Subha Gutierrez APRN-BUSINESS SERVICES VICE PRESIDENT [address] [place] [address] PCP - General Family Medicine 10/04/23 Shipping And Receiving Material Handler Relationship Specialty Start Date End Date Subha Gutierrez APRN-CNP [address] [facility], [place] [address] PCP - General Family Medicine 10/04/23 Shipping And Receiving Material Handler Relationship Specialty Start Date End Date Subha Gutierrez APRN-CNP [address] [facility], [place] [address] PCP - General Family Medicine 10/04/23 Shipping And Receiving Material Handler Relationship Specialty Start Date End Date Subha Gutierrez APRN-CNP [address] [facility], [place] [address] PCP - General Family Medicine 10/04/23 Shipping And Receiving Material Handler Relationship Specialty Start Date End Date Subha Gutierrez APRN-CNP [address] [facility], [place] [address] PCP - General Family Medicine 10/04/23 Shipping And Receiving Material Handler Relationship Specialty Start Date End Date Subha Gutierrez APRN-CNP [address] [facility], [place] [address] PCP - General Family Medicine 10/04/23 Shipping And Receiving Material Handler Relationship Specialty Start Date End Date Subha Gutierrez APRN-CNP [address] [facility], [place] [address] PCP - General Family Medicine 10/04/23 FOR [...] BE BASED ON THE PRIMARY CLINICAL RECORDS. [facility] [employer] [facility]. provides no warranty or guarantee of the accuracy or completeness of information in this document.
[2025-01-05 19:08] LABS: Age Gdln ACOG Testing Note (.); HPV Aptima Negative (Negative); IGP, Aptima HPV, rfx 16/18,45 Note (.)
== END 2025-01-01 21:32 | disposition home or self-care (01) ==
LOC: LAB 21:31
PROVIDERS: PCP Nurse Practitioner Family; Visit Provider Obstetrics & Gynecology
DX: Z01.419 Encounter for gynecological examination (general) (routine) without abnormal findings (principal); Z84.81 Family history of carrier of genetic disease; Z15.01 Genetic susceptibility to malignant neoplasm of breast; Z15.02 Genetic susceptibility to malignant neoplasm of ovary; Z15.09 Genetic susceptibility to other malignant neoplasm
CPT/HCPCS: 36415; 86304; 87624; 88175

== ENCOUNTER 2025-05-01 07:39 | Outpatient (RCR) | payer BC, SELFPAY | END 2025-05-02 08:52 | disposition home or self-care (01) | LOC: HEMC 07:39 | PROVIDERS: PCP Nurse Practitioner Family; Visit Provider Internal Medicine Hematology & Oncology | DX: Z15.01 Genetic susceptibility to malignant neoplasm of breast (principal); Z80.3 Family history of malignant neoplasm of breast; Z80.41 Family history of malignant neoplasm of ovary; Z90.710 Acquired absence of both cervix and uterus; Z90.13 Acquired absence of bilateral breasts and nipples | CPT/HCPCS: G0463 ==